=== PATIENT | female | born 1965 ===

== ENCOUNTER 2020-09-27 13:51 | Outpatient (REF) | payer OTHER, SELFPAY | END 2020-09-27 13:52 | disposition home or self-care (01) | LOC: HO.LAB 13:51 | PROVIDERS: Visit Provider Nurse Practitioner Family | DX: Z20.828 Contact with and (suspected) exposure to other viral communicable diseases (principal) | CPT/HCPCS: 87635 ==

== ENCOUNTER 2020-11-07 09:44 | Outpatient (REF) | payer OTHER, SELFPAY ==
[2020-11-07 11:21] LABS: Vitamin D 25-OH Total 21.2 ng/mL (>30)
[2020-11-07 11:53] LABS: Folate 6.8 ng/mL (> or = 4.0); Vitamin B12 394 pg/mL (200-900)
[2020-11-07 12:02] LABS: Free T4 (Free Thyroxine) 0.93 ng/dL (0.71-1.85)
== END 2020-11-07 09:45 | disposition home or self-care (01) ==
LOC: HO.LAB 09:44
PROVIDERS: PCP Internal Medicine; Visit Provider Internal Medicine
DX: E55.9 Vitamin D deficiency, unspecified (principal); E06.3 Autoimmune thyroiditis; E53.8 Deficiency of other specified B group vitamins
CPT/HCPCS: 82306; 82607; 82746; 84439; 84443

== ENCOUNTER 2020-11-09 12:21 | Outpatient (REF) | payer OTHER, SELFPAY ==
--- NOTE | 2020-11-09 | MM_ITS ---
EXAMINATION: MM SCREENING DIGITAL BREAST TOMOSYNTHESIS, BILATERAL CLINICAL INFORMATION: Screening. Asymptomatic. The lifetime risk of breast cancer based on the Tyrer-Cuzick Model is 9.4%. COMPARISON: Mammography: April 29, 2018 and studies dating back to June 23, 2014 TECHNIQUE: Digital breast tomosynthesis is performed in both the craniocaudal and mediolateral oblique views along with computer-aided detection (CAD). Synthesized 2D images are generated from the tomosynthesis. FINDINGS: There are scattered areas of fibroglandular density (ACR BI-RADS breast composition Category b). There are no significant masses, abnormal calcifications, or other abnormalities. MM/MM tomosynthesis screening BI IMPRESSION: There are no significant changes from prior study. ASSESSMENT: BI-RADS 1: Negative RECOMMENDATION: Routine annual mammography screening. This patient's information was entered into a reminder system with a target due date for their next mammogram.
== END 2020-11-09 12:22 | disposition home or self-care (01) ==
LOC: HO.MAMMO 12:21
PROVIDERS: PCP Internal Medicine; Visit Provider Internal Medicine
DX: Z12.31 Encounter for screening mammogram for malignant neoplasm of breast (principal)
CPT/HCPCS: 77063; 77067

== ENCOUNTER 2020-12-23 14:39 | Outpatient (REF) | payer OTHER, SELFPAY ==
--- NOTE | 2020-12-23 15:30 | XR_ITS ---
EXAMINATION: XR BILATERAL HAND CLINICAL INFORMATION: Pain in joints. COMPARISON: None TECHNIQUE: 3 views each hand. FINDINGS: RIGHT HAND: There is loss of PIP and DIP joint space of all digits with periarticular spurring on the MP joints. No visible acute fracture, dislocation or subluxation seen. The carpal bones and intercarpal joint space is normal. There is negative ulnar variance. The soft tissues are normal. LEFT HAND: There is loss of PIP and DIP joint space with mild periarticular spurring PIP and DIP joints 2nd and 3rd digits and DIP joint 5th digit. No acute fracture, dislocation or subluxation seen. The soft tissues are normal. XR/XR hand RT min 3V IMPRESSION: 1. Degenerative osteophytic changes PIP and DIP joints both digits as described above. 2. No juxta-articular osteopenia seen. No acute fracture or dislocation.
--- NOTE | 2020-12-23 15:30 | XR_ITS ---
EXAMINATION: XR BILATERAL HAND CLINICAL INFORMATION: Pain in joints. COMPARISON: None TECHNIQUE: 3 views each hand. FINDINGS: RIGHT HAND: There is loss of PIP and DIP joint space of all digits with periarticular spurring on the MP joints. No visible acute fracture, dislocation or subluxation seen. The carpal bones and intercarpal joint space is normal. There is negative ulnar variance. The soft tissues are normal. LEFT HAND: There is loss of PIP and DIP joint space with mild periarticular spurring PIP and DIP joints 2nd and 3rd digits and DIP joint 5th digit. No acute fracture, dislocation or subluxation seen. The soft tissues are normal. XR/XR hand LT min 3V IMPRESSION: 1. Degenerative osteophytic changes PIP and DIP joints both digits as described above. 2. No juxta-articular osteopenia seen. No acute fracture or dislocation.
== END 2020-12-23 14:40 | disposition home or self-care (01) ==
LOC: HO.XRAY 14:39
PROVIDERS: PCP Internal Medicine; Visit Provider Student in an Organized Health Care Education/Training Program
DX: G56.03 Carpal tunnel syndrome, bilateral upper limbs (principal); M25.50 Pain in unspecified joint; Z79.899 Other long term (current) drug therapy
CPT/HCPCS: 73130; 99212

== ENCOUNTER 2021-03-23 09:04 | Outpatient (REF) | payer OTHER, SELFPAY ==
--- NOTE | 2021-03-23 09:14 | EMG_ITS ---
Bilateral median and ulnar motor and sensory studies were performed. Bilateral radial sensory studies were performed and paraspinal muscles were tested with a needle. IMPRESSION: [id number] bilateral median neuropathy across carpal tunnel. MD DANILO Oquendo/BECKY / [id number]
== END 2021-03-23 09:05 | disposition home or self-care (01) ==
LOC: HO.NEURO 09:04
PROVIDERS: Visit Provider Student in an Organized Health Care Education/Training Program
DX: G56.03 Carpal tunnel syndrome, bilateral upper limbs (principal)
CPT/HCPCS: 95886; 95911

== ENCOUNTER → 2021-05-15 13:07 | Outpatient (BNVA) | payer OTHER, SELFPAY | PROVIDERS: PCP Internal Medicine; Visit Provider Orthopaedic Surgery | DX: G56.02 Carpal tunnel syndrome, left upper limb (principal); G56.01 Carpal tunnel syndrome, right upper limb | CPT/HCPCS: 99202 ==

== ENCOUNTER 2021-05-31 08:48 | Outpatient (REF) | payer OTHER, SELFPAY ==
[2021-05-31 10:43] LABS: TSH reflex Free T4 2.84 uIU/mL (0.32-4.0)
[2021-05-31 10:46] LABS: Thyroid Stimulating Hormone 2.21 uIU/mL (0.32-4.0)
[2021-06-09 17:16] LABS: Vitamin D 25-OH, D2 <4 ng/mL; Vitamin D 25-OH, D3 26 ng/mL; Vitamin D 25-OH, Total 26 ng/mL (30-100)
== END 2021-05-31 08:49 | disposition home or self-care (01) ==
LOC: HO.LAB 08:48
PROVIDERS: PCP Internal Medicine; Visit Provider Internal Medicine
DX: E03.8 Other specified hypothyroidism (principal); E06.3 Autoimmune thyroiditis; E55.9 Vitamin D deficiency, unspecified; E03.9 Hypothyroidism, unspecified
CPT/HCPCS: 36415; 82306; 84443

== ENCOUNTER 2021-06-08 09:04 | Day surgery (SDC) | payer OTHER, SELFPAY ==
[2021-06-08 09:14] VITALS: BMI 40.9
[2021-06-08 09:27] VITALS: BP 110/56; PULSE 60; RESP 16; TEMP 36.6; O2SAT 95
--- NOTE | 2021-06-08 11:13 | MHC.SHP ---
Pre-Procedural Eval Section A Date of Service: 06/08/21 Section B Chief Complaint: carpal tunnel Allergies: Allergies Allergy/AdvReac Type Severity Reaction Status Date / Time No Known Allergies Allergy Verified 06/07/21 10:32 [No Known Allergies*] Plan I have reviewed the history and physical and performed a pertinent physical examination on my patient. No changes have occurred unless specified.
--- NOTE | 2021-06-08 11:13 | W.PM.OPN ---
Operative Note Operative Note Date of Service: 06/08/21 Narrative: Preop diagnosis: 1. left Carpal tunnel syndrome Postop diagnosis: same Procedure: 1. left Carpal tunnel release Surgeon: Rowan Simons MD Anesthesia: local block using 1% lidocaine with epinephrine Findings: Thickened transverse carpal ligament. EBL: Less than 5 mL Specimens: None Complications: None Disposition: Brought to recovery room in stable condition Plan: Follow-up for 7-10 days for wound check and suture removal Indications: The patient is 56 years old, with left carpal tunnel syndrome that has been unresponsive to nonoperative management. The risks and benefits of operative treatment including but not limited to risk of damage to blood vessels, nerves, tendons, infection, persistent pain, persistent symptoms, or possible need for additional surgery were discussed with the patient and the patient wishes to proceed with surgery. Procedure: Once consent was obtained a local block was performed using a combination of 1% lidocaine with epinephrine. The patient was then brought back to the operating suite and placed on the operative table in supine position. A tourniquet was applied to the proximal aspect of the left upper extremity and the limb was prepped and draped in a standard surgical fashion. Once assured that we had a good block, a 1.5 cm longitudinal incision was made centered over the carpal tunnel. The incision was made through the skin to the subcutaneous tissues using a #15 blade. Dissection was made down to the level of the transverse carpal ligament with care being taken to protect the palmar cutaneous nerve. Once the transverse carpal ligament was clearly visualized, a longitudinal incision was made in the transverse carpal ligament 1st using a #15 blade, then using tenotomy scissors under direct visualization. Care was taken to look for and protect the motor branch of the median nerve when seen in this area. Once satisfied with our carpal tunnel release the wound was copiously irrigated with normal saline and hemostasis was obtained with a brief period of local pressure. The skin edges were reapproximated with some 5.0 nylon suture material and a sterile dressing was applied. The patient appears to have tolerated the procedure well and with no complications. All digits were well vascularized at the conclusion of the case.
[2021-06-08 11:19] VITALS: BP 113/65; PULSE 60; RESP 18; O2SAT 99
== END 2021-06-08 11:34 | disposition home or self-care (01) ==
PROVIDERS: PCP Internal Medicine; Visit Provider Orthopaedic Surgery
PROC: (CPT 64721; principal; 2021-06-08 10:50)
DX: G56.02 Carpal tunnel syndrome, left upper limb (principal); E55.9 Vitamin D deficiency, unspecified; J45.909 Unspecified asthma, uncomplicated; E03.9 Hypothyroidism, unspecified; F32.9 Major depressive disorder, single episode, unspecified; Z98.84 Bariatric surgery status
CPT/HCPCS: 64721

== ENCOUNTER → 2021-06-19 11:26 | Outpatient (BNVA) | payer OTHER, SELFPAY | PROVIDERS: PCP Internal Medicine; Visit Provider Physician Assistant | DX: Z47.89 Encounter for other orthopedic aftercare (principal); Z87.39 Personal history of other diseases of the musculoskeletal system and connective tissue | CPT/HCPCS: 99212 ==

== ENCOUNTER → 2021-08-23 11:25 | Outpatient (BNVA) | payer OTHER, SELFPAY | PROVIDERS: Visit Provider Orthopaedic Surgery | DX: G56.03 Carpal tunnel syndrome, bilateral upper limbs (principal); M25.532 Pain in left wrist | CPT/HCPCS: 99212; J1020 ==

== ENCOUNTER 2021-09-07 12:31 | Emergency (ER) | payer OTHER, SELFPAY ==
--- NOTE | ~2021-09-07 | XR_ITS ---
EXAMINATION: XR CHEST CLINICAL INFORMATION: Chest pain COMPARISON: Previous chest x-ray July 2019 TECHNIQUE: 2 views of the chest were obtained. FINDINGS: The cardiac silhouette does not appear enlarged. The thoracic aorta is tortuous. Hilar and mediastinal contours are otherwise unremarkable. The lungs are clear. There is no pleural effusion or pneumothorax. There are degenerative changes of the spine. There are surgical clips in the stomach region. XR/XR chest 2V IMPRESSION: No evidence for acute disease in the chest.
--- NOTE | ~2021-09-07 | XR_ITS ---
EXAMINATION: XR ANKLE, LEFT CLINICAL INFORMATION: Swelling COMPARISON: Previous x-ray December 2016 TECHNIQUE: AP, lateral, and mortise views of the left ankle. FINDINGS: Bone alignment is normal. No fracture or dislocation is seen. The ankle mortise is normal. There are calcaneal spurs. Soft tissues are otherwise normal. XR/XR ankle LT 2V IMPRESSION: Calcaneal spurs otherwise unremarkable exam.
[2021-09-07 13:01] VITALS: BP 130/90; PULSE 73; RESP 18; TEMP 36.8; O2SAT 100; BMI 41.1
--- NOTE | 2021-09-07 13:21 | ECG_ITS ---
Test Reason : CHEST PAIN Blood Pressure : / mmHG Vent. Rate : 053 BPM Atrial Rate : 053 BPM P-R Int : 202 ms QRS Dur : 080 ms QT Int : 396 ms P-R-T Axes : 017 027 025 degrees QTc Int : 371 ms Sinus bradycardia Otherwise normal ECG When compared with ECG of 25-JUL-2019 01:48, No significant change was found Referred By: Generic ED Physician Electronically Signed By:SITA MCMILLAN
[2021-09-07 13:49] LABS: MANUAL DIFF FLAG NO
[2021-09-07 14:04] LABS: Basophils Absolute Auto 0.1 X10*3/uL (0.0-0.2); Basophils Percent Auto 1.1 % (0-2); Eosinophils Absolute Auto 0.2 X10*3/uL (0.0-0.4); Eosinophils Percent Auto 2.9 % (0-4); Hematocrit 40.4 % (37-47); Hemoglobin 13.3 g/dl (12.0-16.0); Imm Gran Abs Auto 0.03 X10*3/uL (0.00-0.03); Imm Gran Pct Auto 0.5 % (0.0-0.4); Lymphocytes Absolute Auto 1.6 X10*3/uL (1.2-4.9); Lymphocytes Percent Auto 24.8 % (20-40); Mean Corpuscular HGB Conc 32.9 g/dl (31.0-35.0); Mean Corpuscular Hemoglobin 31.1 pg (27.0-33.0); Mean Corpuscular Volume 94.6 fL (80-98); Mean Platelet Volume 10.2 fL (9.4-12.3); Monocytes Absolute Auto 0.5 X10*3/uL (0.1-1.2); Monocytes Percent Auto 7.3 % (2-11); Neutrophils Absolute Auto 4.2 X10*3/uL (2.0-8.3); Neutrophils Percent Auto 63.4 % (45-73); Platelet Count 270 X10*3/uL (160-400); Red Blood Count 4.27 X10*6/uL (4.20-5.50); Red Cell Distribution Width 12.4 % (11.0-16.0); White Blood Count 6.5 X10*3/uL (4.8-10.8)
[2021-09-07 14:06] LABS: Alanine Aminotransferase 14 U/L (0-31); Albumin Level 4.2 g/dL (3.5-5.0); Alkaline Phosphatase 79 U/L (39-117); Anion Gap 11 (12-20); Aspartate Amino Transferase 14 U/L (5-31); Bilirubin Total 0.4 mg/dL (0.0-1.0); Blood Urea Nitrogen 13 mg/dL (9-16); Calcium 9.1 mg/dL (8.4-10.2); Carbon Dioxide 28 mmol/L (22-29); Chloride 108 mmol/L (96-108); Creatinine Clr Calc Pharmacy 97.2; Estimated Glomerular Filt Rate > 60; Glucose Random 82 mg/dL (60-115); Potassium 4.1 mmol/L (3.3-5.1); Sodium 143 mmol/L (135-145); Total Protein 7.4 g/dL (6.5-8.0)
[2021-09-07 14:10] LABS: Troponin-I High Sensitivity < 3.5 ng/L (<3.5-17.0)
--- NOTE | 2021-09-07 17:46 | PC.NURSE ---
pt has strong and = pedal pulses bilat, no pitting edema noted. ls clear and = bilat, pt is sinus matt on monitor.
[2021-09-07 17:48] VITALS: BP 128/78; PULSE 58; RESP 15; O2SAT 97
--- NOTE | 2021-09-07 17:54 | ED.CHESTPAIN ---
HPI - Chest Pain General Chief Complaint: Chest Pain Stated Complaint: leg swelling Time Seen by Provider: 09/07/21 17:40 Source: patient Mode of arrival: ambulatory Limitations: no limitations History of Present Illness HPI narrative: Patient comes emergency room complaining of sharp chest pain lasting less than a 2nd at a time,occur only at night, at this time asymptomatic. Patient denies shortness of breath, no lower extremity edema. Patient complaining of discomfort in the heel on the left side which has been present over a week. Patient states that she has pain in the posterior aspect of her heel, no actual heel pain, no calf tenderness, no calf swelling, complaining of intermittent numbness in the big toe, no symptoms at this time. Related Data Home Medications Medication Instructions Recorded Confirmed acetaminophen 650 mg 650 mg PO Q8H 09/27/20 06/07/21 tablet,extended release Previous Rx's Medication Instructions Recorded bupropion HCl 300 mg 24 hr tablet, 300 mg PO DAILY 90 Days #90 tab 11/07/20 extended release cholecalciferol (vitamin D3) 25 25 mcg PO DAILY 90 Days #90 cap 11/07/20 mcg (1,000 unit) capsule meloxicam 15 mg tablet 15 mg PO DAILY PRN 90 Days #90 tab 11/07/20 tramadol 50 mg tablet 50 mg PO DAILY PRN 30 Days #30 tab 11/07/20 trazodone 50 mg tablet 50 mg PO BEDTIME 90 Days #90 tab 11/07/20 hydrocodone 5 mg-acetaminophen 325 1 tab PO Q4-6H PRN #5 tab 06/08/21 mg tablet cetirizine 10 mg capsule (Zyrtec) 10 mg PO DAILY #30 cap 06/19/21 levothyroxine 50 mcg tablet 50 mcg PO QAM 90 Days #90 tab 07/10/21 ibuprofen 600 mg tablet 600 mg PO TID #10 tab 09/07/21 Allergies Allergy/AdvReac Type Severity Reaction Status Date / Time No Known Allergies Allergy Verified 09/07/21 13:01 [No Known Allergies*] Review of Systems Review of Systems: Constitutional : No Weight loss, No Fever, No Chills, No Night Sweats, No Fatigue, No Malaise ENT/Mouth : No Hearing loss, No Ear Pain, No Nasal Congestion, No Sinus Pain, No Hoarseness, No sore throat, No Rhinorrhea, No Swallowing Difficulty Eyes: No Eye Pain, No Swelling, No Redness, No Foreign Body, No Discharge, No Vision Changes Cardiovascular : Intermittent sharp chest pain that occur only at night, sharp, nonradiating, lasting for less than a 2nd at a time. No SOB, No Dyspnea on Exertion, No Orthopnea, No Edema, No Palpitations Respiratory : No Cough, No Sputum, No Wheezing, No Smoke Exposure, No Dyspnea Gastrointestinal : No Nausea, No Vomiting, No Diarrhea, No Constipation, No abdominal Pain, No Hematochezia, No Melena Genitourinary : no irregular bleeding, No Dysuria, No Urinary Frequency, No Hematuria, No Urinary Incontinence, No Urgency, No Flank Pain, No Urinary Flow Changes, No Hesitancy Musculoskeletal : Complaining of posterior ankle pain on the left side, No Myalgias, No Joint Swelling Skin : No Skin Lesions, No rash Neuro : No Weakness, No Numbness, No Paresthesias, No Loss of Consciousness, No Dizziness, No Headache Psych : No Anxiety/Panic, No Depression, No SI/HI/AH/VH, No Social Issues, Heme/Lymph: No Bruising, No Bleeding,No Lymphadenopathy Endocrine : No Polyuria, No Polydipsia, No Temperature Intolerance [facility] Past Medical History Medical History Depression with anxiety Hypothyroid Hypovitaminosis D Mild asthma Polyarthralgia Skin lesion Surgical History History of gastric surgery History of laparoscopic cholecystectomy History of tonsillectomy History of tubal ligation Family History Family History Father Hypertension Mother Hypertension Maternal Aunt Breast cancer Family/Other FH: mental illness Paternal Grandfather No problems noted. Paternal Grandmother Hypertension Maternal Grandfather No problems noted. Maternal Grandmother Cervical cancer Social History Social History Housing: Apartment Alcohol intake: current Alcohol intake frequency: holidays/special occasions only Alcohol type: hard liquor Patient Tobacco Use Status: Never used Tobacco e-Cigarette/Vaping Use: Never Used Second Hand Smoke Exposure: No Advance Directives: No Advance Directives Information Provided: No service: No Current occupational status: unemployed Current occupational exposures/hazards: No Physical Exam Vital Signs: Vital Signs: Last Vital Signs Temp 98.2 F 09/07/21 13:01 Pulse 58 09/07/21 17:48 Resp 15 09/07/21 17:48 BP 128/78 09/07/21 17:48 Pulse Ox 97 09/07/21 17:48 Body Mass Index 41.1 Const: Other: Appearance: Alert. Oriented X3. No acute distress. Eyes: Pupils equal, round and reactive to light. ENT: Pharynx normal. Neck: Normal inspection. Neck supple. No lymph nodes noted. No crepitus CVS: Normal heart rate and rhythm. Pulses normal. Normal S1 and S2, +2 systolic murmur Respiratory: No respiratory distress. Breath sounds normal. No Wheezing. No rales Abdomen: Soft and nontender. No rigidity. No distention. Skin: Skin warm and dry. Mild discoloration to the lateral malleolus on the left side, not circumferential, no calf discoloration Extremities: No lower extremity edema. Pain to palpation over the Achilles tendon distal aspect, no calf tenderness, no ankle tenderness, no foot tenderness, range of motion within normal limits Neuro: Oriented X 3. No motor deficit. No sensory deficit. Moving all extermities. No slurred speech. Course Course Course Narrative: I discussed with the patient that she likely has Achilles tendinopathy. Patient instructed to take NSAIDs scheduled for 3 days. Patient instructed to follow-up with her primary care physician as well. Last time patient had chest pain was well over 12 hours ago, troponin 1. Is negative, EKG within normal limits. Likely muscle spasms. Instructed to follow-up with the PCP, patient may need Holter monitor versus stress test which she has had in the past. MDM - Chest Pain Lab Data Result diagrams: 09/07/21 13:40 09/07/21 13:40 Labs: Lab Results 09/07/21 09/07/21 09/07/21 Range/Units 13:40 13:40 13:40 WBC 6.5 (4.8-10.8) X10*3/uL RBC 4.27 (4.20-5.50) X10*6/uL Hgb 13.3 (12.0-16.0) g/dl Hct 40.4 (37-47) % MCV 94.6 (80-98) fL MCH 31.1 (27.0-33.0) pg MCHC 32.9 (31.0-35.0) g/dl RDW 12.4 (11.0-16.0) % Plt Count 270 (160-400) X10*3/uL MPV 10.2 (9.4-12.3) fL Immature Gran % (Auto) 0.5 H (0.0-0.4) % Neut % (Auto) 63.4 (45-73) % Lymph % (Auto) 24.8 (20-40) % [place] % (Auto) 7.3 (2-11) % Eos % (Auto) 2.9 (0-4) % Baso % (Auto) 1.1 (0-2) % Lymph # (Auto) 1.6 (1.2-4.9) X10*3/uL [place] # (Auto) 0.5 (0.1-1.2) X10*3/uL Eos # (Auto) 0.2 (0.0-0.4) X10*3/uL Baso # (Auto) 0.1 (0.0-0.2) X10*3/uL Abs Immat Gran (auto) 0.03 (0.00-0.03) X10*3/uL Absolute Neuts (auto) 4.2 (2.0-8.3) X10*3/uL Absolute Nucleated RBC 0.000 (0.0-0.012) X10*3/uL Nucleated RBC % (auto) 0.0 (0.0-0.2) /100WBC Sodium 143 (135-145) mmol/L Potassium 4.1 (3.3-5.1) mmol/L Chloride 108 (96-108) mmol/L Carbon Dioxide 28 (22-29) mmol/L Anion Gap 11 L (12-20) BUN 13 (9-16) mg/dL Creatinine 0.74 (0.5-1.4) mg/dL Estim Creat Clear Calc 97.2 Estimated GFR > 60 Random Glucose 82 (60-115) mg/dL Calcium 9.1 (8.4-10.2) mg/dL Total Bilirubin 0.4 (0.0-1.0) mg/dL AST 14 (5-31) U/L ALT 14 (0-31) U/L Alkaline Phosphatase 79 (39-117) U/L Troponin I High Sens < 3.5 (<3.5-17.0) ng/L Total Protein 7.4 (6.5-8.0) g/dL Albumin 4.2 (3.5-5.0) g/dL Imaging Data Ankle x-ray: Radiologist's impression: [place] [id number] XRay Report Signed Patient: Zoila Avalos MR#: [id number] : 1965 Acct:[id number] Age/Sex: 56 / F ADM Date: 09/07/21 Loc: .ED Attending Dr: Ordering Physician: Generic ED Physician Date of Service: 09/07/21 Procedure(s): XR ankle LT 2V Accession Number(s): [id number] cc: Generic ED Physician~ EXAMINATION: XR ANKLE, LEFT CLINICAL INFORMATION: Swelling? COMPARISON: Previous x-ray December 2016? TECHNIQUE: AP, lateral, and mortise views of the left ankle. FINDINGS: Bone alignment is normal. No fracture or dislocation is seen. The ankle mortise is normal. There are calcaneal spurs. Soft tissues are otherwise normal.? XR/XR ankle LT 2V IMPRESSION: Calcaneal spurs otherwise unremarkable exam. Chest x-ray: Radiologist's impression: The cardiac silhouette does not appear enlarged. The thoracic aorta is tortuous. Hilar and mediastinal contours are otherwise unremarkable. The lungs are clear. There is no pleural effusion or pneumothorax. There are degenerative changes of the spine. There are surgical clips in the stomach region. XR/XR chest 2V IMPRESSION: No evidence for acute disease in the chest. ECG Data ECG #1: Attestation: I personally reviewed and interpreted this ECG as follows: (Sinus bradycardia, heart rate 53, no ST segment depression or elevation, nonspecific T-wave inversion in lead 3, no reciprocal changes, QTC 371) Discharge Plan Discharge Clinical Impression: Non-insertional Achilles tendinopathy, Atypical chest pain Patient Disposition: Home, Self-Care Instructions: Chest Pain (ED), Achilles Tendinitis (ED) Additional Instructions: Please follow-up with your primary care physician tomorrow. If you have any worsening or new symptoms, please return to the emergency room or call 911 Prescriptions: New ibuprofen 600 mg tablet 600 mg PO TID Qty: 10 RF: 0 No Action Zyrtec 10 mg capsule 10 mg PO DAILY Qty: 30 RF: 5 levothyroxine 50 mcg tablet 50 mcg PO QAM 90 Days Qty: 90 RF: 0 hydrocodone-acetaminophen 5-325 mg tablet 1 tab PO Q4-6H PRN (Reason: pain) Qty: 5 RF: 0 bupropion HCl 300 mg tablet extended release 24 hr 300 mg PO DAILY 90 Days Qty: 90 RF: 3 meloxicam 15 mg tablet 15 mg PO DAILY PRN (Reason: pain) 90 Days Qty: 90 RF: 3 tramadol 50 mg tablet 50 mg PO DAILY PRN (Reason: pain) 30 Days Qty: 30 RF: 0 trazodone 50 mg tablet 50 mg PO BEDTIME 90 Days Qty: 90 RF: 3 cholecalciferol (vitamin D3) 25 mcg (1,000 unit) capsule 25 mcg PO DAILY 90 Days Qty: 90 RF: 3 acetaminophen 650 mg tablet extended release 650 mg PO Q8H RF: 0
== END 2021-09-07 18:17 | disposition home or self-care (01) ==
PROVIDERS: Emergency Provider Emergency Medicine; PCP Internal Medicine
DX: R07.89 Other chest pain (principal); M67.972 Unspecified disorder of synovium and tendon, left ankle and foot
CPT/HCPCS: 36415; 71046; 73600; 80053; 84484; 85025; 93005; 99282; 99283

== ENCOUNTER 2021-10-11 11:16 | Outpatient (REF) | payer OTHER, SELFPAY ==
[2021-10-11 11:38] LABS: MANUAL DIFF FLAG NO
[2021-10-11 11:54] LABS: Basophils Absolute Auto 0.1 X10*3/uL (0.0-0.2); Basophils Percent Auto 1.1 % (0-2); Eosinophils Absolute Auto 0.3 X10*3/uL (0.0-0.4); Eosinophils Percent Auto 4.5 % (0-4); Hematocrit 39.7 % (37.0-47.0); Hemoglobin 12.9 g/dl (12.0-16.0); Imm Gran Abs Auto 0.03 X10*3/uL (0.00-0.03); Imm Gran Pct Auto 0.5 % (0.0-0.4); Lymphocytes Absolute Auto 1.8 X10*3/uL (1.2-4.9); Lymphocytes Percent Auto 27.5 % (20-40); Mean Corpuscular HGB Conc 32.5 g/dl (31.0-35.0); Mean Corpuscular Hemoglobin 30.7 pg (27.0-33.0); Mean Corpuscular Volume 94.5 fL (80.0-98.0); Mean Platelet Volume 10.3 fL (9.4-12.3); Monocytes Absolute Auto 0.5 X10*3/uL (0.1-1.2); Monocytes Percent Auto 6.9 % (2-11); Neutrophils Absolute Auto 3.9 x10*3/uL (2.0-8.3); Neutrophils Percent Auto 59.5 % (45-73); Platelet Count 288 X10*3/uL (160-400); Red Cell Distribution Width 12.2 % (11.0-16.0); White Blood Count 6.5 X10*3/uL (4.8-10.8)
[2021-10-11 12:30] LABS: Alanine Aminotransferase 13 U/L (0-31); Albumin Level 3.8 g/dL (3.5-5.0); Alkaline Phosphatase 72 U/L (39-117); Anion Gap 11 (12-20); Aspartate Amino Transferase 13 U/L (5-31); Bilirubin Total 0.3 mg/dL (0.0-1.0); Blood Urea Nitrogen 13 mg/dL (9-16); Calcium 8.8 mg/dL (8.4-10.2); Carbon Dioxide 25 mmol/L (22-29); Chloride 110 mmol/L (96-108); Cholesterol 142 mg/dL; Estimated Glomerular Filt Rate > 60; Glucose Fasting 89 mg/dL (60-99); HDL Cholesterol 38 mg/dL; LDL Cholesterol Calculated 83 mg/dl; Potassium 4.3 mmol/L (3.3-5.1); Sodium 142 mmol/L (135-145); Total Protein 7.2 g/dL (6.5-8.0); Triglycerides 105 mg/dL
== END 2021-10-11 11:17 | disposition home or self-care (01) ==
LOC: HO.LAB 11:16
PROVIDERS: Visit Provider Internal Medicine
DX: E78.5 Hyperlipidemia, unspecified (principal); G56.01 Carpal tunnel syndrome, right upper limb
CPT/HCPCS: 36415; 80053; 80061; 85025

== ENCOUNTER 2021-11-03 13:00 | Outpatient (RCR) | payer OTHER, SELFPAY ==
--- NOTE | 2021-10-11 12:24 | MHC.OT.OEV ---
[address] [phone] F: [phone] Occupational Therapy Evaluation Diagnosis: CARPAL TUNNEL SYNDROME Date of Surgery: 06/09/21 Attending Provider: Rowan Santana Prescribed Treatment: EVAL AND TREAT, DESENSITIZATION OF INCISION SITE AND GENTLE ROM L WRIST History of Current Condition: UNDERWENT LEFT CARPAL TUNNEL RELEASE WITH DR SANTANA ON 06/09/21. SINCE SURGERY SHE REPORTS LACK OF STRENGTH IN NON-DOMINANT LEFT HAND. ADDITIONALLY, SHE REPORTS SYMPTOMS OF RIGHT CARPAL TUNNEL SYNDROME. Significant Medical History: POLYARTHRITIS Precautions/Contraindications: PAIN Patient Goals: TO BE ABLE TO LIFT HEAVY ITEMS Hand Dominance: Right QuickDASH Score: 61% Prior Level of Function and Occupation Self Care, Employment, Leisure: UNEMPLOYED. WATCHES AND CARES FOR TWO YEAR OLD AUTISTIC GRANDSON (ABOUT THIRTY POUNDS) SATURDAY THROUGH SATURDAY. HOBBIES: WATCHING TV, READING, DOES NOT EXERCISE. 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 DIFFICULTIES LIFTING >3-5 POUNDS. DIFFICULTIES WITH DIAPERING AND LIFTING GRANDSON. OCCASIONAL TROUBLE WITH PULLING UP PANTS WITH LEFT HAND. UNABLE TO OPEN TIGHT JARS. DIFFICULTIES WITH CUTTING FOOD. Sleep: WAKES FROM PAIN, TOSSING AND TURNING DURING THE NIGHT. OCCASIONALLY WEARS NIGHT SPLINTS B/L'LY. Driving: DOES NOT DRIVE Pain Assessment Pain Score: 5-8/10 Pain Scale Used: Numeric (0 - 10) Pain Location and Description: LEFT THENAR AND HYPOTHENAR EMINENCE, RADIATES TO VOLAR WRIST SHARP PAIN 5/10 AT REST, 8/10 WITH USE Aggravating Factors: LIFTING, CARRYING HEAVY ITEMS (> 5 POUNDS) Alleviating Factors: TAKING IBUPROFEN OR TYLENOL WHEN IN DISCOMFORT, SOME RELIEF WITH USE OF ICE Skin and Soft Tissue Assessment Skin and Soft Tissue: Atrophy Swelling Scar Tissue Comments: HEALED SURGICAL SCAR TO L VOLAR PALM, EDEMA NOTED TO ULNAR SIDE OF WRIST AND AT PALM, ATROPHY AT L THENAR EMINENCE Sensory Assessment Temperature: Light Touch: Left Impaired Proprioception: Vibration: Comments: SEMMES INOCENTE: LEFT DIMINISHED PROTECTIVE SENSATION, RIGHT DIMINISHED LIGHT TOUCH Edema Assessment Upper Extremity: Left Impaired Lower Extremity: Comments: MILD L ULNAR SIDED WRIST EDEMA AND L VOLAR PALM CIRCUMFERENCE OF WRIST, DISTAL TO US: LEFT 17.0 CM, R 16.8 CM Dexterity Assessment Dexterity: Left Impaired Comments: FUNCTIONAL DEXTERITY TEST: LEFT 42 SECONDS (MOD FUNCTIONA), RIGHT 33 SECONDS Special Tests Comments: (+) FOVEA SIGN L WRIST AROM(PROM) Strength Wrist Flexion: L 38, R 68 Extension: L 66, R 70 Ulnar Deviation: L 38, R 44 Radial Deviation: L 4, R 18 Comments: PAIN WITH L ULNAR DEVIATION Flexion: Extension: Ulnar Deviation: Radial Deviation: Comments: Thumb Thumb CMC Flexion: Thumb MCP Flexion: Thumb IP Flexion: Radial Abduction: Palmar Abduction: [place] ([place] 0-10): L 8/10, R 8/10 Comments: PAIN WITH R OPPOSITION Digits Index MCP: PIP: DIP: Long MCP: PIP: DIP: Ring MCP: PIP: DIP: Small MCP: PIP: DIP: Comments: Gross Grasp: L 10, R 30 Lateral Pinch: L 4, R 9 Two-Point Pinch: Three-Jaw Ghulam: Comments: WB THROUGH SCALE: LEFT 15 POUNDS, RIGHT 40 POUNDS Patient Education Primary Language: Maori Night Clerk Required: No Current Knowledge: Understands information with skills for self-management Teaching Method: Demonstration Handouts Verbal Education Needs Identified on Evaluation: ADL's Disease Information Equipment Use Exercise Pain Safety How did patient/family demonstrate learning? Patient demonstrates Patient verbalizes Barriers to Learning: None Readiness for Learning: Accepting Who was educated? Patient Family/spouse Comments: Plan of Care Assessment: EVA IS FOUR MONTHS POST OP FROM [facility]. SHE REPORTS ONGOING DIFFICULTIES WITH LIFTING AND CARRYING ITEMS WITH HER NON-DOMINANT LEFT HAND, WELL INABILITY TO APPLY WEIGHT OR PRESSURE THROUGH THE PALM OF HER HAND. 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 SHE IS HYPERSENSITIVE AT HER SCAR AND STATES ONGOING EDEMA AND PAIN. A 61% LIMITATION IS REPORTED PER THE QUICK DASH ASSESSMENT. ONGOING SKILLED OT IS WARRANTED TO ACHIEVE MAXIMUM FUNCTIONAL LEVEL AND IMPROVE QOL. STG Duration: 2 WEEKS Short Term Goals: IND HEP IND DESENSITIZATION STRATEGIES IND EDEMA MANAGEMENT IND USE OF HEAT/ICE INCREASE L WRIST FLEXION TO 55 DEGREES REPORT <4/10 PAIN WITH LIGHT ADLs LTG Duration: 5 WEEKS Mcfp Goals: QUICK DASH <42% DEMO PROPER LIFTING STRATEGIES WITH GOOD BODY MECHANICS AND <4/10 PAIN, TO LIFT >10 POUNDS TOLERATE PWB (ABOUT 50%) THROUGH L PALM WITH <2/10 PAIN R GRASP >20 POUNDS IND SCAR MOBILIZATION TOLERATE ROUGH TEXTURES FOR ABOUT 2 MINUTES WITH LOW PAIN AND DISCOMFORT Frequency and Duration: The patient will be seen 2X/WEEK FOR 5 WEEKS Treatment Plan: Therapeutic Exercise Therapeutic Activity Home Exercise Program Splinting Neuro Re-ed Patient Education Desensitization/Sensory Re-ed Edema Control ADL Training Ultrasound NMES Iontophoresis Paraffin Fluidotherapy MHP Cold Packs Joint Mobilization Soft Tissue Mobilization Kinesiotaping Other (see comments) Electronically Signed By: DORA GOLDSTEIN/Jaye Reviewed/agree with student documentation: N/A Therapist: Please sign and return to therapist, Thank you for your referral.
--- NOTE | 2021-11-15 13:16 | MHC.OT.DC ---
[address] [phone] F: [phone] Occupational Therapy Discharge Note Provider: Rowan Simons Diagnosis: CARPAL TUNNEL SYNDROME Date of Surgery: 06/09/21 Date of Evaluation: 10/11/21 Date of Discharge: 11/15/21 Treatments to Date: 5 Cancellations to Date: 2 No Shows to Date: 3 Discharge Status: Improved Function Independent with HEP Visit Non-compliance Discharge Summary: [facility] PADILLA WAS SEEN FOR OCCUPATIONAL THERAPY SERVICES. Pt WAS DEMONSTRATING GOOD FOLLOW THROUGH WITH HER HEP AND SOFT TISSUE MASSAGE. HER HANDS REMAINED WEAK AND SHE EXHIBITS SIGNS OF ARTHRITIS, PARTICULARLY AT THE [facility] – [place]. PATIENT WILL BE DISCHARGED FROM OT SERVICES DUE TO THE CORE ATTENDANCE POLICY AND THREE NO-SHOWS. D/C OT SERVICES. Electronically Signed By: MAHNAZ BOWMAN OTR/Jaye Reviewed/agree with student documentation: N/A Therapist: Please Sign and return to therapist, thank you for your referral.
== END 2021-11-15 13:15 | disposition home or self-care (01) ==
LOC: HO.OT 13:00
PROVIDERS: PCP Internal Medicine; Visit Provider Orthopaedic Surgery
DX: M25.532 Pain in left wrist (principal); G56.02 Carpal tunnel syndrome, left upper limb
CPT/HCPCS: 97033; 97035; 97110; 97140; 97166

== ENCOUNTER 2021-11-05 11:13 | Emergency (ER) | payer OTHER, SELFPAY ==
--- NOTE | ~2021-11-05 | CT_ITS ---
EXAMINATION: CT ABDOMEN AND PELVIS WITHOUT CONTRAST CLINICAL INFORMATION: Right back and flank pain COMPARISON: None TECHNIQUE: Multidetector volumetric imaging was performed from the superior aspect of the liver through the pubic symphysis. Sagittal and coronal reformatted images were obtained on the technologist's workstation. This CT examination was performed using dose optimization techniques as appropriate, variously including the following: *Automated exposure control *Adjustment of mA and/or kV according to patient size (this includes techniques or standardized protocols for targeted exams where dose is matched to indication/reason for exam; i.e. extremities or head) *Use of iterative reconstruction technique DLP: 1069 mGy-cm FINDINGS: LUNG BASES: The visualized lung bases are unremarkable. LIVER, GALLBLADDER, AND BILIARY TREE: The liver is normal in size, shape, and attenuation. No focal hepatic lesion or biliary ductal dilatation is present. The gallbladder is surgically absent. PANCREAS: There is hazy attenuation of the peripancreatic fat region of the head and uncinate process which may represent very early or mild pancreatitis. No mass lesion, ductal dilatation, or cyst/pseudocyst. SPLEEN: Unremarkable. ADRENAL GLANDS: Unremarkable. KIDNEYS AND URETERS: The kidneys are normal in size, shape, and attenuation. No hydronephrosis, hydroureter, or calculi seen. No perinephric stranding. BLADDER: Unremarkable. GASTROINTESTINAL TRACT: The small and large bowel are unremarkable. The appendix is unremarkable. Postsurgical changes along the greater curvature of the stomach numerous clips, possibly a gastric sleeve. ABDOMINAL WALL: No significant hernia is appreciated. LYMPH NODES: Normal. VASCULAR: Unremarkable. PELVIC VISCERA: Unremarkable. OSSEOUS STRUCTURES: Unremarkable. CT/CT abdomen pelvis wo con IMPRESSION: Questionable very early or mild pancreatitis. Correlate with serum amylase/lipase. Otherwise, no focal inflammatory process or obstruction. No renal or ureteral calculi. No hydronephrosis. Fleischner guidelines were followed.
[2021-11-05 11:20] VITALS: BP 129/78; PULSE 65; RESP 18; TEMP 36.6; O2SAT 100; BMI 40.2
[2021-11-05 14:09] LABS: Appearance Urine CLEAR; Color Urine YELLOW; Glucose Urine UA NEG (NEG); Leukocyte Esterase Urine NEG (NEG); Nitrite Urine NEG (NEG); Specific Gravity - Urine >= 1.030 (1.005-1.025); UACC Culture Trigger NO; Urine Blood TRACE (NEG); Urine Ketones NEG (NEG); Urine Protein NEG (NEG-TRACE)
[2021-11-05] MEDS: NaPROXEN 500 MG TABLET PO (14:17)
[2021-11-05] MEDS: diazePAM 5 MG TABLET 10 MG PO (14:17)
[2021-11-05 14:31] LABS: Bacteria Urine TRACE /LPF; Squamous Epithelial Cell Urine 1+ /LPF; WBC Urine 0-2 /HPF (0-4)
[2021-11-05 14:32] LABS: Calcium Oxalate Crystals Urine 1+ /LPF; Mucus Urine 1+ /LPF
--- NOTE | 2021-11-05 15:02 | ED.BACK ---
HPI - Back Pain/Injury General Chief Complaint: Back Pain/Injury Stated Complaint: lower back pain Time Seen by Provider: 11/05/21 13:40 Source: patient Mode of arrival: ambulatory Limitations: no limitations History of Present Illness HPI Narrative: 56-year-old female with a past medical history of morbid obesity, depression, asthma, hypothyroidism, venous peripheral insufficiency who has had a gastric surgery and a cholecystectomy in the past presenting to the ED with complaints of right back pain over the past week worse today. She reports that she has had back pain in the past although this feels different to her. She reports urinary frequency / urgency. She also reports associated nausea. She also reports that she had an itch on the right side of her back but that itch has subsided and she only feels the pain to that side. She denies any fevers, chills, dizziness, headaches, neck pain / stiffness, chest pain or shortness of breath, dyspnea on exertion, orthopnea, vomiting, diarrhea, constipation, abdominal pain, radiation of the back pain, dysuria, hematuria, abnormal vaginal discharge, black or bloody stools, recent travel or sick contacts, saddle anesthesia, paresthesias, urinary/ bowel incontinence or retention, rashes, history of IV drug use, recent falls or trauma or any other symptoms complaints or concerns at this time. MD elicited complaint: back pain Pertinent past history: prior back pain Onset (ago): week(s) (1) Timing: constant and progressively worsening Severity: moderate Quality: aching Location: right lower back and right upper back Radiation: none Exacerbating factors: none Relieving factors: none Context: unknown Associated symptoms: other (nausea and urinary frequency/urgency) Treatments prior to arrival: other ( She has been trying [id number] medication no symptomatic relief) Work related injury: No Related Data Home Medications Medication Instructions Recorded Confirmed acetaminophen 650 mg 650 mg PO Q8H 09/27/20 10/11/21 tablet,extended release Previous Rx's Medication Instructions Recorded bupropion HCl 300 mg 24 hr tablet, 300 mg PO DAILY 90 Days #90 tab 11/07/20 extended release cholecalciferol (vitamin D3) 25 25 mcg PO DAILY 90 Days #90 cap 11/07/20 mcg (1,000 unit) capsule meloxicam 15 mg tablet 15 mg PO DAILY PRN 90 Days #90 tab 11/07/20 tramadol 50 mg tablet 50 mg PO DAILY PRN 30 Days #30 tab 11/07/20 trazodone 50 mg tablet 50 mg PO BEDTIME 90 Days #90 tab 11/07/20 cetirizine 10 mg capsule (Zyrtec) 10 mg PO DAILY #30 cap 06/19/21 ibuprofen 600 mg tablet 600 mg PO TID #10 tab 09/07/21 levothyroxine 50 mcg tablet 50 mcg PO QAM 90 Days #90 tab 10/09/21 diazepam 10 mg tablet (Valium) 10 mg PO TID PRN #10 tab 11/05/21 naproxen 500 mg tablet 500 mg PO BID PRN #10 tab 11/05/21 ondansetron 4 mg disintegrating 4 mg PO Q6-8H PRN #14 tab 11/05/21 tablet oxycodone 5 mg tablet 5 mg PO Q6H PRN #14 tab 11/05/21 Allergies Allergy/AdvReac Type Severity Reaction Status Date / Time No Known Allergies Allergy Verified 11/05/21 11:20 [No Known Allergies*] Review of Systems Review of Systems: Constitutional : No trauma, No Weight loss, No Fever, No Chills, ENT/Mouth : No Hearing loss, No Ear Pain, No Nasal Congestion, No Sinus Pain, No Hoarseness, No sore throat, No Rhinorrhea, No Swallowing Difficulty Cardiovascular : No Chest Pain, No SOB Respiratory : No Cough, No Dyspnea Gastrointestinal : + Nausea, No Vomiting, No Diarrhea, No abdominal Pain, No Hematochezia, No Melena Genitourinary : No Dysuria, + Urinary Frequency, No Hematuria, No Urinary or Bowel Incontinence/retention Musculoskeletal : + Back pain, No neck pain, No joint stiffness, No joint swelling Skin : No Skin Lesions, No rash or signs of infection Neuro : No Weakness, No radiation, No Numbness, No Paresthesias, No headache, no loss of bowel or bladder incontinence, no saddle anesthesia, Focal weakness, No radiation Denies history of IV drug usage. Yes all other systems are reviewed and are negative PMFSH Past Medical History Attestation statement: The following information was validated with the patient. Medical History Depression with anxiety Hypothyroid Hypovitaminosis D Mild asthma Mild recurrent major depression Morbid obesity with BMI of 40.0-44.9, adult Polyarthralgia Skin lesion Venous (peripheral) insufficiency Surgical History History of gastric surgery History of laparoscopic cholecystectomy History of tonsillectomy History of tubal ligation Family History Family History Father Hypertension Mother Hypertension Maternal Aunt Breast cancer Family/Other FH: mental illness Paternal Grandfather No problems noted. Paternal Grandmother Hypertension Maternal Grandfather No problems noted. Maternal Grandmother Cervical cancer Social History Social History Housing: Apartment Alcohol intake: current Alcohol intake frequency: holidays/special occasions only Alcohol type: hard liquor Patient Tobacco Use Status: Never used Tobacco e-Cigarette/Vaping Use: Never Used Second Hand Smoke Exposure: No Advance Directives: No Advance Directives Information Provided: Yes Patient : No service: No Current occupational status: unemployed Current occupational exposures/hazards: No Physical Exam Vital Signs: Vital Signs: Last Vital Signs Temp 97.2 F 11/05/21 15:29 Pulse 62 11/05/21 15:29 Resp 16 11/05/21 15:29 BP 139/71 11/05/21 15:29 Pulse Ox 100 11/05/21 15:29 BMI result Body Mass Index 40.2 vital signs have been reviewed as normal and appeared to be correct. Blood pressure normal. Heart rate normal. Respiration rate normal. Temperature normal. Oxygen saturation normal. Appearance: Alert. Oriented X3. No acute distress. Head: Normal external exam. Normocephalic. Atraumatic. No Contreras signs noted. No raccoon eyes noted Eyes: PERRLA. EOMI. Conjunctiva and sclera normal. Eyelids normal. ENT: EAC normal. TM's Normal. Pharynx normal. Uvula midline. Moist mucous membranes. No trismus noted. No drooling noted. No muffled voice noted. Neck: Normal inspection. Neck supple. FROM. No adenopathy. Thyroid Normal. No meningeal signs. No neck mass noted. CVS: Normal heart rate and rhythm. Heart sound normal. No murmurs noted. Pulses normal throughout. Respiratory: No respiratory distress. Painless inspiration. Breath sounds normal. No wheezes/rales/rhonchi noted. Chest nontender. No accessory muscle usage noted or decreased air movement noted. Abdomen: Soft and nontender. Bowel sounds normal in all 4 quadrants. No distention noted. No organomegaly noted. No visible injury noted. Back: No CVA tenderness. Full range of motion noted. No obvious deformities, or edema. Mild para-spinal muscular tenderness from lumbar region to coccyx. Full ROM in back and lower extremities. 5/5 strength hip extension/flexion, abduction, adduction. Mild Lumbar pain with hip flexion against resistance. Straight leg raise test negative on right; Straight leg raise test negative on left; Reflexes normal ankle and knee bilaterally; EHL motor strength normal bilaterally. No rashes/lesion/induration/fluctuance or signs infection noted. Skin: Skin warm and dry. Normal skin color. Normal skin turgor. No rashes/lesions/lacerations noted. Extremities: No lower extremity edema. Extremities exhibit normal range of motion. Extremities nontender. Neuro: Oriented X 3. No motor deficit. No sensory deficit. Reflexes normal. Patient has a normal steady gait. Course Course Course Narrative: 13:55pm - Pt c likely muscular pain, but could be herniated disc. Neuro exam shows no deficits. Not c/w spinal fracture. Not c/w AAA/epidural abscess/dissection. Not cauda equina syndrome. No high risk Hx (Incont, fever, immunosupp, recent surgery/LP, coag, signif trauma, wt loss, puls mass, hx/o Ca, TB, or IVDU) to warrant MRI. due to patient reporting urinary frequency / urgency and 1 sided back pain will obtain a CT scan abdomen pelvis without IV contrast to evaluate for possible UTI versus pyelonephritis versus kidney stones provide symptomatic relief with naproxen and Valium then re-evaluate. Reevaluation(s) Reevaluation #1: - UA within normal limits no evidence of UTI. Although CT scan of abdomen pelvis without IV contrast revealed possible early or mild pancreatitis although patient denies any pain in her abdomen is soft and nontender throughout all 4 quadrants. - Patient denies any history of ETOH intake and she denies being on any statin she reports she is currently on tramadol chronically. - Therefore at this time will obtain labs including lipase/amylase / LDH and provide a L of IV fluids and re-evaluate. Time: 15:41 Reevaluation #2: - all labs within normal limits including lipase/ LDH/amylase and all LFTs therefore I do not believe this is pancreatitis as patient does not have any abdominal pain at all. Therefore I explained to the patient that they might of over-read the CT scan although she should have re-examination by her primary care provider within the next few days and to return if any new or worsening symptoms will treat symptomatically for her back pain along with instructions return if any new or worsening symptoms. Patient understands agrees with this plan. Time: 17:20 [facility] - Back Pain/Injury Medical Records Attestation: I reviewed the patient's medical records. Lab Data Attestation: I reviewed the patient's lab results. Result diagrams: 11/05/21 15:49 11/05/21 16:23 Labs: Lab Results 11/05/21 11/05/21 11/05/21 Range/Units 14:01 15:49 16:23 WBC 6.6 (4.8-10.8) X10*3/uL RBC 4.59 (4.20-5.50) X10*6/uL Hgb 14.1 (12.0-16.0) g/dl Hct 43.8 (37.0-47.0) % MCV 95.4 (80.0-98.0) fL MCH 30.7 (27.0-33.0) pg MCHC 32.2 (31.0-35.0) g/dl RDW 12.5 (11.0-16.0) % Plt Count 258 (160-400) X10*3/uL MPV 10.9 (9.4-12.3) fL Immature Gran % (Auto) 0.5 H (0.0-0.4) % Neut % (Auto) 58.2 (45-73) % Lymph % (Auto) 29.2 (20-40) % Marion % (Auto) 7.1 (2-11) % Eos % (Auto) 4.2 H (0-4) % Baso % (Auto) 0.8 (0-2) % Lymph # (Auto) 1.9 (1.2-4.9) X10*3/uL Marion # (Auto) 0.5 (0.1-1.2) X10*3/uL Eos # (Auto) 0.3 (0.0-0.4) X10*3/uL Baso # (Auto) 0.1 (0.0-0.2) X10*3/uL Abs Immat Gran (auto) 0.03 (0.00-0.03) X10*3/uL Absolute Neuts (auto) 3.9 (2.0-8.3) x10*3/uL Absolute Nucleated RBC 0.000 (0.0-0.012) X10*3/uL Nucleated RBC % (auto) 0.0 (0.0-0.2) /100WBC PT 11.6 (9.9-13.0) SEC INR 1.0 (0.9-1.1) Sodium (135-145) mmol/L Potassium (3.3-5.1) mmol/L Chloride (96-108) mmol/L Carbon Dioxide (22-29) mmol/L Anion Gap (12-20) BUN (9-16) mg/dL Creatinine (0.5-1.4) mg/dL Estim Creat Clear Calc Estimated GFR Random Glucose (60-115) mg/dL Calcium (8.4-10.2) mg/dL Magnesium (1.6-2.6) mg/dL Total Bilirubin (0.0-1.0) mg/dL AST (5-31) U/L ALT (0-31) U/L Alkaline Phosphatase (39-117) U/L Lactate Dehydrogenase (122-220) U/L Total Protein (6.5-8.0) g/dL Albumin (3.5-5.0) g/dL Amylase (28-100) U/L Lipase (8-78) U/L Urine Color YELLOW Urine Appearance CLEAR Urine pH 6.0 (5.0-8.0) Ur Specific [place] >= 1.030 H (1.005-1.025) Urine Protein NEG (NEG-TRACE) MG/DL Urine Glucose (UA) NEG (NEG) MG/DL Urine Ketones NEG (NEG) MG/DL Urine Blood TRACE (NEG) Urine Nitrite NEG (NEG) Ur Leukocyte Esterase NEG (NEG) Urine RBC 1-4 (0) /HPF Urine WBC 0-2 (0-4) /HPF Ur Squamous Epith Cells 1+ /LPF Calcium Oxalate Crystal 1+ /LPF Urine Bacteria TRACE /LPF Urine Mucus 1+ /LPF 11/05/21 Range/Units 16:23 WBC (4.8-10.8) X10*3/uL RBC (4.20-5.50) X10*6/uL Hgb (12.0-16.0) g/dl Hct (37.0-47.0) % MCV (80.0-98.0) fL MCH (27.0-33.0) pg MCHC (31.0-35.0) g/dl RDW (11.0-16.0) % Plt Count (160-400) X10*3/uL MPV (9.4-12.3) fL Immature Gran % (Auto) (0.0-0.4) % Neut % (Auto) (45-73) % Lymph % (Auto) (20-40) % Marion % (Auto) (2-11) % Eos % (Auto) (0-4) % Baso % (Auto) (0-2) % Lymph # (Auto) (1.2-4.9) X10*3/uL Marion # (Auto) (0.1-1.2) X10*3/uL Eos # (Auto) (0.0-0.4) X10*3/uL Baso # (Auto) (0.0-0.2) X10*3/uL Abs Immat Gran (auto) (0.00-0.03) X10*3/uL Absolute Neuts (auto) (2.0-8.3) x10*3/uL Absolute Nucleated RBC (0.0-0.012) X10*3/uL Nucleated RBC % (auto) (0.0-0.2) /100WBC PT (9.9-13.0) SEC INR (0.9-1.1) Sodium 142 (135-145) mmol/L Potassium 3.9 (3.3-5.1) mmol/L Chloride 110 H (96-108) mmol/L Carbon Dioxide 24 (22-29) mmol/L Anion Gap 12 (12-20) BUN 15 (9-16) mg/dL Creatinine 0.63 (0.5-1.4) mg/dL Estim Creat Clear Calc 112.7 Estimated GFR > 60 Random Glucose 91 (60-115) mg/dL Calcium 9.1 (8.4-10.2) mg/dL Magnesium 1.8 (1.6-2.6) mg/dL Total Bilirubin 0.5 (0.0-1.0) mg/dL AST 12 (5-31) U/L ALT 10 (0-31) U/L Alkaline Phosphatase 72 (39-117) U/L Lactate Dehydrogenase 188 (122-220) U/L Total Protein 7.0 (6.5-8.0) g/dL Albumin 3.8 (3.5-5.0) g/dL Amylase 54 (28-100) U/L Lipase 28 (8-78) U/L Urine Color Urine Appearance Urine pH (5.0-8.0) Ur Specific [place] (1.005-1.025) Urine Protein (NEG-TRACE) MG/DL Urine Glucose (UA) (NEG) MG/DL Urine Ketones (NEG) MG/DL Urine Blood (NEG) Urine Nitrite (NEG) Ur Leukocyte Esterase (NEG) Urine RBC (0) /HPF Urine WBC (0-4) /HPF Ur Squamous Epith Cells /LPF Calcium Oxalate Crystal /LPF Urine Bacteria /LPF Urine Mucus /LPF Imaging Data CT scan abdomen pelvis without IV contrast: Attestation: I personally reviewed and interpreted this imaging study as follows: Radiologist's impression: FINDINGS: LUNG BASES: The visualized lung bases are unremarkable.? LIVER, GALLBLADDER, AND BILIARY TREE: The liver is normal in size, shape, and attenuation. No focal hepatic lesion or biliary ductal dilatation is present. The gallbladder is surgically absent.? PANCREAS: There is hazy attenuation of the peripancreatic fat region of the head and uncinate process which may represent very early or mild pancreatitis. No mass lesion, ductal dilatation, or cyst/pseudocyst.? SPLEEN: Unremarkable.? ADRENAL GLANDS: Unremarkable.? KIDNEYS AND URETERS: The kidneys are normal in size, shape, and attenuation. No hydronephrosis, hydroureter, or calculi seen. No perinephric stranding. ? BLADDER: Unremarkable.? GASTROINTESTINAL TRACT: The small and large bowel are unremarkable. The appendix is unremarkable. Postsurgical changes along the greater curvature of the stomach numerous clips, possibly a gastric sleeve.? ABDOMINAL WALL: No significant hernia is appreciated.? LYMPH NODES: Normal. VASCULAR: Unremarkable. PELVIC VISCERA: Unremarkable.? OSSEOUS STRUCTURES: Unremarkable.? CT/CT abdomen pelvis wo con IMPRESSION: Questionable very early or mild pancreatitis. Correlate with serum amylase/lipase. Otherwise, no focal inflammatory process or obstruction. No renal or ureteral calculi. No hydronephrosis.? ? Fleischner guidelines were followed. Critical Care Time Critical Care Time Critical Care Time: Yes Total Critical Care Time: 60 Attestation: I personally attest to this time spent taking care of the patient Discharge Plan Discharge Clinical Impression: Back strain Patient Disposition: Home, Self-Care Instructions: Back Pain (ED) Prescriptions: New diazepam [Valium] 10 mg tablet 10 mg PO TID PRN (Reason: muscle spasm) Qty: 10 RF: 0 ondansetron 4 mg tablet,disintegrating 4 mg PO Q6-8H PRN (Reason: nausea and vomiting) Qty: 14 RF: 0 naproxen 500 mg tablet 500 mg PO BID PRN (Reason: pain) Qty: 10 RF: 0 oxycodone 5 mg tablet 5 mg PO Q6H PRN (Reason: pain) Qty: 14 RF: 0 No Action Zyrtec 10 mg capsule 10 mg PO DAILY Qty: 30 RF: 5 levothyroxine 50 mcg tablet 50 mcg PO QAM 90 Days Qty: 90 RF: 0 ibuprofen 600 mg tablet 600 mg PO TID Qty: 10 RF: 0 bupropion HCl 300 mg tablet extended release 24 hr 300 mg PO DAILY 90 Days Qty: 90 RF: 3 meloxicam 15 mg tablet 15 mg PO DAILY PRN (Reason: pain) 90 Days Qty: 90 RF: 3 tramadol 50 mg tablet 50 mg PO DAILY PRN (Reason: pain) 30 Days Qty: 30 RF: 0 trazodone 50 mg tablet 50 mg PO BEDTIME 90 Days Qty: 90 RF: 3 cholecalciferol (vitamin D3) 25 mcg (1,000 unit) capsule 25 mcg PO DAILY 90 Days Qty: 90 RF: 3 acetaminophen 650 mg tablet extended release 650 mg PO Q8H RF: 0 Referrals: Rehana De Jesus MD [Primary Care Provider] - 2 days Print Language: Kazakh
[2021-11-05 15:29] VITALS: BP 139/71; PULSE 62; RESP 16; TEMP 36.2; O2SAT 100
[2021-11-05 15:54] LABS: MANUAL DIFF FLAG NO
[2021-11-05 16:01] LABS: Basophils Absolute Auto 0.1 X10*3/uL (0.0-0.2); Basophils Percent Auto 0.8 % (0-2); Eosinophils Absolute Auto 0.3 X10*3/uL (0.0-0.4); Eosinophils Percent Auto 4.2 % (0-4); Hematocrit 43.8 % (37.0-47.0); Hemoglobin 14.1 g/dl (12.0-16.0); Imm Gran Abs Auto 0.03 X10*3/uL (0.00-0.03); Imm Gran Pct Auto 0.5 % (0.0-0.4); Lymphocytes Absolute Auto 1.9 X10*3/uL (1.2-4.9); Lymphocytes Percent Auto 29.2 % (20-40); Mean Corpuscular HGB Conc 32.2 g/dl (31.0-35.0); Mean Corpuscular Hemoglobin 30.7 pg (27.0-33.0); Mean Corpuscular Volume 95.4 fL (80.0-98.0); Mean Platelet Volume 10.9 fL (9.4-12.3); Monocytes Absolute Auto 0.5 X10*3/uL (0.1-1.2); Monocytes Percent Auto 7.1 % (2-11); Neutrophils Absolute Auto 3.9 x10*3/uL (2.0-8.3); Neutrophils Percent Auto 58.2 % (45-73); Platelet Count 258 X10*3/uL (160-400); Red Blood Count 4.59 X10*6/uL (4.20-5.50); Red Cell Distribution Width 12.5 % (11.0-16.0); White Blood Count 6.6 X10*3/uL (4.8-10.8)
[2021-11-05] MEDS: 0.9 % Sodium Chloride 1,000 ML 999 ML IVCONT (16:06)
[2021-11-05 16:39] LABS: Prothrombin Time 11.6 SEC (9.9-13.0)
[2021-11-05 16:57] LABS: Alanine Aminotransferase 10 U/L (0-31); Albumin Level 3.8 g/dL (3.5-5.0); Alkaline Phosphatase 72 U/L (39-117); Anion Gap 12 (12-20); Aspartate Amino Transferase 12 U/L (5-31); Bilirubin Total 0.5 mg/dL (0.0-1.0); Blood Urea Nitrogen 15 mg/dL (9-16); Calcium 9.1 mg/dL (8.4-10.2); Carbon Dioxide 24 mmol/L (22-29); Chloride 110 mmol/L (96-108); Creatinine Clr Calc Pharmacy 112.7; Estimated Glomerular Filt Rate > 60; Glucose Random 91 mg/dL (60-115); Lipase 28 U/L (8-78); Magnesium 1.8 mg/dL (1.6-2.6); Potassium 3.9 mmol/L (3.3-5.1); Sodium 142 mmol/L (135-145)
[2021-11-05 17:06] LABS: Amylase 54 U/L (28-100); Lactate Dehydrogenase 188 U/L (122-220)
== END 2021-11-05 18:25 | disposition home or self-care (01) ==
PROVIDERS: Physician Assistant Medical; Emergency Provider Emergency Medicine; PCP Internal Medicine
DX: S39.012A Strain of muscle, fascia and tendon of lower back, initial encounter (principal); R35.0 Frequency of micturition; R39.15 Urgency of urination; X58.XXXA Exposure to other specified factors, initial encounter; Y93.9 Activity, unspecified; Y92.9 Unspecified place or not applicable; Y99.9 Unspecified external cause status
CPT/HCPCS: 36415; 74176; 80053; 81001; 82150; 83615; 83690; 83735; 85025; 85610; 96360; 99284

== ENCOUNTER 2021-11-09 08:54 | Outpatient (REF) | payer OTHER, SELFPAY ==
[2021-11-09 10:14] LABS: Lipase 31 U/L (8-78)
== END 2021-11-09 08:55 | disposition home or self-care (01) ==
LOC: HO.LAB 08:54
PROVIDERS: PCP Internal Medicine; Visit Provider Internal Medicine
DX: K85.90 Acute pancreatitis without necrosis or infection, unspecified (principal)
CPT/HCPCS: 36415; 83690

== ENCOUNTER 2021-11-10 09:55 | Outpatient (REF) | payer OTHER, SELFPAY ==
[2021-11-10 11:04] LABS: Appearance Urine CLEAR; Color Urine YELLOW; Glucose Urine UA NEG (NEG); Leukocyte Esterase Urine NEG (NEG); Nitrite Urine NEG (NEG); Specific Gravity - Urine 1.015 (1.005-1.025); UACC Culture Trigger NO; Urine Blood TRACE (NEG); Urine Ketones NEG (NEG); Urine Protein NEG (NEG-TRACE)
[2021-11-10 11:15] LABS: Squamous Epithelial Cell Urine 2+ /LPF
[2021-11-10 11:16] LABS: RBC Urine 0-2 /HPF (0); WBC Urine 0-2 /HPF (0-4)
[2021-11-10 11:17] LABS: Bacteria Urine TRACE /LPF
[2021-11-10 11:45] LABS: Amylase 49 U/L (28-100)
[2021-11-10 11:55] LABS: Alanine Aminotransferase 14 U/L (0-31); Albumin Level 3.9 g/dL (3.5-5.0); Alkaline Phosphatase 78 U/L (39-117); Anion Gap 10 (12-20); Aspartate Amino Transferase 16 U/L (5-31); Bilirubin Direct 0.2 mg/dL (0.0-0.5); Bilirubin Total 0.4 mg/dL (0.0-1.0); Blood Urea Nitrogen 14 mg/dL (9-16); Calcium 9.7 mg/dL (8.4-10.2); Carbon Dioxide 29 mmol/L (22-29); Chloride 107 mmol/L (96-108); Estimated Glomerular Filt Rate > 60; Glucose Random 85 mg/dL (60-115); Lipase 33 U/L (8-78); Potassium 4.4 mmol/L (3.3-5.1); Sodium 142 mmol/L (135-145); Total Protein 7.3 g/dL (6.5-8.0)
== END 2021-11-10 09:56 | disposition home or self-care (01) ==
LOC: HO.LAB 09:55
PROVIDERS: PCP Internal Medicine; Visit Provider Nurse Practitioner Family
DX: M54.50 Low back pain, unspecified (principal); R10.9 Unspecified abdominal pain; I10 Essential (primary) hypertension
CPT/HCPCS: 36415; 80048; 80076; 81001; 81003; 82150; 83690

== ENCOUNTER → 2021-11-23 14:37 | Outpatient (BNVA) | payer OTHER, SELFPAY | PROVIDERS: PCP Internal Medicine; Visit Provider Surgery Vascular Surgery | DX: I83.12 Varicose veins of left lower extremity with inflammation (principal); E66.01 Morbid (severe) obesity due to excess calories; Z68.41 Body mass index [BMI] 40.0-44.9, adult | CPT/HCPCS: 99202 ==

== ENCOUNTER 2021-12-28 10:24 | Outpatient (REF) | payer OTHER, SELFPAY ==
--- NOTE | ~2021-12-28 | US_ITS ---
EXAMINATION: US LOWER EXTREMITY VENOUS (REFLUX EXAM), BILATERAL CLINICAL INDICATION: This is a 56-year-old female with venous insufficiency and varicose veins. COMPARISON: None. TECHNIQUE: Color flow triplex imaging and compression Doppler was performed to evaluate both the deep and the superficial systems bilaterally. To evaluate the superficial system, the examination was performed in the upright position. Color-flow Doppler ultrasound and compression ultrasound were utilized. In addition, maneuvers were utilized to demonstrate reflux. FINDINGS: 1. DEEP VENOUS ULTRASOUND OF THE RIGHT LOWER EXTREMITY: Common Femoral Vein: Compressible, normal respiratory variation and augmented flow. Femoral vein: Compressible, normal color flow and augmentation. Popliteal Vein: Compressible, normal augmentation. Deep Reflux: There is no evidence of reflux in the deep system in either the common femoral vein or the popliteal vein. There is no evidence of a Carmona's cyst. 2. SUPERFICIAL ULTRASOUND WITH DOPPLER OF RIGHT LOWER EXTREMITY: GREAT SAPHENOUS VEIN: Saphenofemoral Junction: 0.8 cm Mid Thigh: 0.3 cm Above Knee: 0.3 cm Below Knee: 0.2 cm Mid Calf: 0.2 cm Ankle: 0.2 cm GSV REFLUX: No evidence of reflux. DUPLICATED GREAT SAPHENOUS VEIN: There is a duplicated lateral 0.3 cm great saphenous vein without reflux. SMALL SAPHENOUS VEIN: Proximal: 0.3 cm Distal: 0.2 cm SSV REFLUX: No evidence of reflux. VEIN OF GIACOMINI: None Imaged. PERFORATORS: There are 0.2 cm mid thigh and proximal calf perforators without reflux. VARICOSITIES: None Imaged 3. DEEP VENOUS ULTRASOUND OF THE LEFT LOWER EXTREMITY: Common Femoral Vein: Compressible, normal respiratory variation and augmented flow. Femoral Vein: Compressible, normal color flow and augmentation. Popliteal Vein: Compressible, normal augmentation. Deep Reflux: There is no evidence of reflux in the deep system in either the common femoral vein or the popliteal vein. There is no evidence of a Carmona's cyst. 4. SUPERFICIAL ULTRASOUND WITH DOPPLER OF LEFT LOWER EXTREMITY: GREAT SAPHENOUS VEIN: Saphenofemoral Junction: 0.6 cm Mid Thigh: 0.3 cm Above Knee: 0.3 cm Below Knee: 0.2 cm Mid Calf: 0.2 cm Ankle: 0.2 cm GSV REFLUX: No evidence of reflux. DUPLICATED GREAT SAPHENOUS VEIN: There is a 0.2 cm duplicated medial great saphenous vein without reflux SMALL SAPHENOUS VEIN: Proximal: 0.2 cm Distal: 0.2 cm SSV REFLUX: No evidence of reflux. VEIN OF GIACOMINI: None Imaged. PERFORATORS: There is a 0.2 cm mid calf acquisitions assistant without reflux. VARICOSITIES: None Imaged US/US venous duplex LE BI IMPRESSION: 1. There are bilateral patent great saphenous veins and small saphenous veins without evidence of reflux or insufficiency. 2. No varicose veins are seen.
== END 2021-12-28 10:25 | disposition home or self-care (01) ==
LOC: HO.US 10:24
PROVIDERS: Visit Provider Surgery Vascular Surgery
DX: I83.12 Varicose veins of left lower extremity with inflammation (principal)
CPT/HCPCS: 93970

== ENCOUNTER 2021-12-28 15:29 | Outpatient (REF) | payer OTHER, SELFPAY ==
--- NOTE | ~2021-12-28 | MM_ITS ---
EXAMINATION: MM SCREENING DIGITAL BREAST TOMOSYNTHESIS, BILATERAL CLINICAL INFORMATION: Screening. Asymptomatic. The lifetime risk of breast cancer based on the Tyrer-Cuzick Model is 10.1%. COMPARISON: Mammography: November 09, 2020 and studies dating back to June 23, 2014 TECHNIQUE: Digital breast tomosynthesis is performed in both the craniocaudal and mediolateral oblique views along with computer-aided detection (CAD). Synthesized 2D images are generated from the tomosynthesis. FINDINGS: The breasts are almost entirely fatty (ACR BI-RADS breast composition Category a). There are no significant masses, abnormal calcifications, or other abnormalities. MM/MM tomosynthesis screening BI IMPRESSION: There are no significant changes from prior study. ASSESSMENT: BI-RADS 1: Negative RECOMMENDATION: Routine annual mammography screening. This patient's information was entered into a reminder system with a target due date for their next mammogram.
== END 2021-12-28 15:30 | disposition home or self-care (01) ==
LOC: HO.MAMMO 15:29
PROVIDERS: PCP Internal Medicine; Visit Provider Internal Medicine
DX: Z12.31 Encounter for screening mammogram for malignant neoplasm of breast (principal)
CPT/HCPCS: 77063; 77067; 99212

== ENCOUNTER → 2022-01-30 13:02 | Outpatient (BNVA) | payer OTHER, SELFPAY | PROVIDERS: PCP Internal Medicine; Referring Provider Internal Medicine; Visit Provider Physician Assistant Surgical | DX: E66.01 Morbid (severe) obesity due to excess calories (principal); Z68.41 Body mass index [BMI] 40.0-44.9, adult | CPT/HCPCS: 99212 ==

== ENCOUNTER → 2022-02-02 13:31 | Outpatient (BNVA) | payer OTHER, SELFPAY | PROVIDERS: PCP Internal Medicine; Visit Provider Nurse Practitioner Family | DX: G56.01 Carpal tunnel syndrome, right upper limb (principal); M25.50 Pain in unspecified joint; M54.50 Low back pain, unspecified | CPT/HCPCS: 99212 ==

== ENCOUNTER 2022-02-15 11:07 | Outpatient (REF) | payer OTHER, SELFPAY ==
[2022-02-18 11:33] LABS: H Pylori Breath Test Negative (Negative)
== END 2022-02-15 11:08 | disposition home or self-care (01) ==
LOC: CF 11:07
PROVIDERS: Visit Provider Physician Assistant Surgical
DX: Z11.0 Encounter for screening for intestinal infectious diseases (principal); E66.01 Morbid (severe) obesity due to excess calories; Z68.41 Body mass index [BMI] 40.0-44.9, adult
CPT/HCPCS: 36415; 83013; 99211

== ENCOUNTER 2022-02-28 13:59 | Outpatient (REF) | payer OTHER, SELFPAY ==
[2022-02-28 16:23] LABS: Rheumatoid Factor < 15.0 IU/mL (<15.0)
[2022-02-28 16:27] LABS: Alanine Aminotransferase 17 U/L (0-31); Albumin Level 4.1 g/dL (3.5-5.0); Alkaline Phosphatase 81 U/L (39-117); Anion Gap 10 (12-20); Aspartate Amino Transferase 15 U/L (5-31); Bilirubin Total 0.4 mg/dL (0.0-1.0); Blood Urea Nitrogen 13 mg/dL (9-16); Calcium 9.3 mg/dL (8.4-10.2); Carbon Dioxide 26 mmol/L (22-29); Chloride 106 mmol/L (96-108); Estimated Glomerular Filt Rate > 60; Glucose Random 82 mg/dL (60-115); Iron 78 mcg/dL (30-160); Magnesium 1.9 mg/dL (1.6-2.6); Percent Iron Saturation 27 % (15-50); Potassium 4.2 mmol/L (3.3-5.1); Sodium 138 mmol/L (135-145); Total Iron Binding Capacity 293 mcg/dL (228-428); Total Protein 7.8 g/dL (6.5-8.0); Unsaturated Iron Binding 215 ug/dL
[2022-02-28 16:46] LABS: Folate 9.4 ng/mL (> or = 4.0); Vitamin B12 293 pg/mL (200-900)
[2022-03-02 13:46] LABS: Anti Nuclear Antibody Screen NEGATIVE (NEGATIVE)
[2022-03-04 13:11] LABS: Vitamin B1 13 nmol/L (8-30)
[2022-03-05 23:06] LABS: Zinc 60 mcg/dL (60-130)
[2022-03-06 14:12] LABS: Vitamin D 25-OH, D2 <4 ng/mL; Vitamin D 25-OH, D3 20 ng/mL; Vitamin D 25-OH, Total 20 ng/mL (30-100)
[2022-03-07 00:11] LABS: Vitamin A 41 mcg/dL (38-98)
== END 2022-02-28 14:00 | disposition home or self-care (01) ==
LOC: HO.LAB 13:59
PROVIDERS: Absent Provider Physician Assistant Surgical; PCP Internal Medicine; Visit Provider Nurse Practitioner Family
DX: E66.01 Morbid (severe) obesity due to excess calories (principal); E55.9 Vitamin D deficiency, unspecified; M25.50 Pain in unspecified joint; Z68.41 Body mass index [BMI] 40.0-44.9, adult
CPT/HCPCS: 36415; 80053; 82306; 82607; 82746; 83540; 83735; 84425; 84443; 84590; 84630; 86038; 86039; 86431

== ENCOUNTER 2022-02-28 14:04 | Outpatient (RCR) | payer OTHER, SELFPAY ==
--- NOTE | 2022-03-29 16:04 | MHC.OT.DC ---
[address] [phone] F: [phone] Occupational Therapy Discharge Note Provider: Melody Pelletier Diagnosis: Bilateral hand pain Date of Surgery: Date of Evaluation: 02/28/22 Date of Discharge: 03/29/22 Treatments to Date: 1 Cancellations to Date: 1 No Shows to Date: 2 Discharge Status: Visit Non-compliance Discharge Summary: See eval Electronically Signed By: Nisha Alaniz OT CHT CLT Reviewed/agree with student documentation: N/A Therapist: Please Sign and return to therapist, thank you for your referral.
== END 2022-03-29 16:05 | disposition home or self-care (01) ==
LOC: HO.OT 14:04
PROVIDERS: PCP Internal Medicine; Visit Provider Nurse Practitioner Family
DX: M79.641 Pain in right hand (principal); M79.642 Pain in left hand
CPT/HCPCS: 97110; 97166

== ENCOUNTER 2022-06-08 18:36 | Emergency (ER) | payer OTHER, SELFPAY ==
--- NOTE | 2022-06-08 18:37 | ECG_ITS ---
Test Reason : chest discomfort Blood Pressure : / mmHG Vent. Rate : 076 BPM Atrial Rate : 076 BPM P-R Int : 182 ms QRS Dur : 080 ms QT Int : 362 ms P-R-T Axes : 045 016 -01 degrees QTc Int : 407 ms Normal sinus rhythm Minimal voltage criteria for LVH, may be normal variant ( R in aVL ) Cannot rule out Inferior infarct , age undetermined Abnormal ECG When compared with ECG of 07-SEP-2021 13:45, Minimal criteria for Inferior infarct are now Present T wave amplitude has decreased in Lateral leads Referred By: Generic ED Physician Electronically Signed By:Brett Solis
[2022-06-08 18:41] VITALS: BP 133/73; PULSE 80; RESP 18; TEMP 37; O2SAT 97; BMI 40.7
[2022-06-08 19:04] LABS: MANUAL DIFF FLAG NO
[2022-06-08 19:05] LABS: Basophils Absolute Auto 0.1 X10*3/uL (0.0-0.2); Basophils Percent Auto 0.9 % (0-2); Eosinophils Absolute Auto 0.2 X10*3/uL (0.0-0.4); Eosinophils Percent Auto 3.5 % (0-4); Hematocrit 37.9 % (37.0-47.0); Hemoglobin 12.4 g/dl (12.0-16.0); Imm Gran Abs Auto 0.03 X10*3/uL (0.00-0.03); Imm Gran Pct Auto 0.5 % (0.0-0.4); Lymphocytes Absolute Auto 1.9 X10*3/uL (1.2-4.9); Lymphocytes Percent Auto 29.2 % (20-40); Mean Corpuscular HGB Conc 32.7 g/dl (31.0-35.0); Mean Corpuscular Hemoglobin 30.5 pg (27.0-33.0); Mean Corpuscular Volume 93.3 fL (80.0-98.0); Mean Platelet Volume 9.6 fL (9.4-12.3); Monocytes Absolute Auto 0.4 X10*3/uL (0.1-1.2); Monocytes Percent Auto 5.8 % (2-11); Neutrophils Percent Auto 60.1 % (45-73); Platelet Count 250 X10*3/uL (160-400); Red Blood Count 4.06 X10*6/uL (4.20-5.50); Red Cell Distribution Width 12.3 % (11.0-16.0); White Blood Count 6.6 X10*3/uL (4.8-10.8)
[2022-06-08 19:26] LABS: Alanine Aminotransferase 13 U/L (0-31); Albumin Level 3.9 g/dL (3.5-5.0); Alkaline Phosphatase 86 U/L (39-117); Anion Gap 10 (12-20); Aspartate Amino Transferase 13 U/L (5-31); Bilirubin Total 0.4 mg/dL (0.0-1.0); Blood Urea Nitrogen 15 mg/dL (9-16); Carbon Dioxide 27 mmol/L (22-29); Chloride 107 mmol/L (96-108); Creatinine Clr Calc Pharmacy 95.3; Estimated Glomerular Filt Rate > 60; Glucose Random 138 mg/dL (60-115); Potassium 4.2 mmol/L (3.3-5.1); Sodium 140 mmol/L (135-145); Total Protein 7.1 g/dL (6.5-8.0)
[2022-06-08 19:32] LABS: Troponin-I High Sensitivity < 3.5 ng/L (<3.5-17.0)
--- NOTE | 2022-06-08 22:15 | ED.CHESTPAIN ---
HPI - Chest Pain General Chief Complaint: Chest Pain Stated Complaint: Chest discomfort/back pain Time Seen by Provider: 06/08/22 22:15 Source: patient Mode of arrival: ambulatory Limitations: no limitations History of Present Illness HPI narrative: Patient with history of fibromyalgia no known coronary artery disease with complaining of pain in upper back and mid chest since 1600 while at rest pain increases on palpation and movements no significant shortness of breath no diaphoresis no nausea or vomiting Related Data Home Medications Medication Instructions Recorded Confirmed acetaminophen 650 mg 650 mg PO Q8H 09/27/20 03/29/22 tablet,extended release Previous Rx's Medication Instructions Recorded cetirizine 10 mg capsule (Zyrtec) 10 mg PO DAILY #30 caps 06/19/21 cholecalciferol (vitamin D3) 25 25 mcg PO DAILY 90 days #90 caps 11/13/21 mcg (1,000 unit) capsule levothyroxine 50 mcg tablet 50 mcg PO QAM 90 days #90 tabs 02/27/22 lidocaine 4 % topical patch 2 patch topical DAILY PRN pain #30 02/27/22 (Aspercreme (lidocaine)) ea amitriptyline 25 mg tablet 25 mg PO BEDTIME 90 days #90 tabs 03/29/22 bupropion HCl 300 mg 24 hr tablet, 150 mg PO DAILY 14 days #7 tabs 03/29/22 extended release gabapentin 100 mg capsule 100 mg PO TID 30 days #90 caps 03/29/22 tramadol 50 mg tablet 50 mg PO Q6H PRN pain #20 tabs 06/08/22 Allergies Allergy/AdvReac Type Severity Reaction Status Date / Time No Known Allergies Allergy Verified 03/29/22 11:34 [No Known Allergies*] Review of Systems Review of Systems: Yes all other systems are reviewed and are negative [facility] Past Medical History Medical History Depression with anxiety Fibromyalgia Hypothyroid Hypovitaminosis D Mild asthma Mild recurrent major depression Morbid obesity with BMI of 40.0-44.9, adult Polyarthralgia Skin lesion Venous (peripheral) insufficiency Surgical History History of gastric surgery History of laparoscopic cholecystectomy History of tonsillectomy History of tubal ligation Family History Family History Father Hypertension Mother Hypertension Maternal Aunt Breast cancer Family/Other FH: mental illness Paternal Grandfather No problems noted. Paternal Grandmother Hypertension Maternal Grandfather No problems noted. Maternal Grandmother Cervical cancer Social History Social History Housing: Apartment Alcohol intake: current Alcohol intake frequency: holidays/special occasions only Alcohol type: hard liquor Patient Tobacco Use Status: Never used Tobacco e-Cigarette/Vaping Use: Never Used Second Hand Smoke Exposure: No Advance Directives: No Advance Directives Information Provided: Yes service: No Current occupational status: unemployed Current occupational exposures/hazards: No Cognitive needs: No Hearing needs: No Vision needs: No Physical Exam Vital Signs: Vital Signs: Last Vital Signs Temp 98.1 F 06/08/22 22:21 Pulse 63 06/08/22 22:21 Resp 16 06/08/22 22:21 BP 142/78 H 06/08/22 22:21 Pulse Ox 99 06/08/22 22:21 O2 Del Method 06/08/22 22:21 BMI result Body Mass Index 40.7 Appearance: Alert. Oriented X3. No acute distress. Eyes: No pallor or icterus ENT: Pharynx normal. Oral Mucosa moist Neck: Normal inspection. Neck supple. CVS: Normal heart rate and rhythm. Pulses normal. Respiratory: No respiratory distress. Equal air entry bilateral, no wheezing/rales/rhonchi chest wall tenderness++ Abdomen: Soft and nontender. Bowel sounds are present, no mass palpable, no CVA tenderness Skin: Skin warm and dry. Normal skin color. Normal skin turgor. Extremities: No lower extremity edema. No calf tenderness Neuro: Oriented X 3. MDM - Chest Pain MDM Narrative Medical decision making narrative: 2249 Patient with reproducible left-sided chest pain with history of fibromyalgia initial troponin negative EKG without any ischemic changes will repeat troponin. 0129 2 sets of cardiac enzymes negative patient felt better after Toradol injection chest pain likely from fibromyalgia Lab Data Attestation: I reviewed the patient's lab results. Result diagrams: 06/08/22 19:00 06/08/22 19:00 Labs: Lab Results 06/08/22 06/08/22 06/08/22 Range/Units 19:00 19:00 19:00 WBC 6.6 (4.8-10.8) X10*3/uL RBC 4.06 L (4.20-5.50) X10*6/uL Hgb 12.4 (12.0-16.0) g/dl Hct 37.9 (37.0-47.0) % MCV 93.3 (80.0-98.0) fL MCH 30.5 (27.0-33.0) pg MCHC 32.7 (31.0-35.0) g/dl RDW 12.3 (11.0-16.0) % Plt Count 250 (160-400) X10*3/uL MPV 9.6 (9.4-12.3) fL Immature Gran % (Auto) 0.5 H (0.0-0.4) % Neut % (Auto) 60.1 (45-73) % Lymph % (Auto) 29.2 (20-40) % [place] % (Auto) 5.8 (2-11) % Eos % (Auto) 3.5 (0-4) % Baso % (Auto) 0.9 (0-2) % Lymph # (Auto) 1.9 (1.2-4.9) X10*3/uL [place] # (Auto) 0.4 (0.1-1.2) X10*3/uL Eos # (Auto) 0.2 (0.0-0.4) X10*3/uL Baso # (Auto) 0.1 (0.0-0.2) X10*3/uL Abs Immat Gran (auto) 0.03 (0.00-0.03) X10*3/uL Absolute Neuts (auto) 4.0 (2.0-8.3) x10*3/uL Absolute Nucleated RBC 0.000 (0.0-0.012) X10*3/uL Nucleated RBC % (auto) 0.0 (0.0-0.2) /100WBC Sodium 140 (135-145) mmol/L Potassium 4.2 (3.3-5.1) mmol/L Chloride 107 (96-108) mmol/L Carbon Dioxide 27 (22-29) mmol/L Anion Gap 10 L (12-20) BUN 15 (9-16) mg/dL Creatinine 0.77 (0.5-1.4) mg/dL Estim Creat Clear Calc 95.3 Estimated GFR > 60 Random Glucose 138 H (60-115) mg/dL Calcium 9.0 (8.4-10.2) mg/dL Total Bilirubin 0.4 (0.0-1.0) mg/dL AST 13 (5-31) U/L ALT 13 (0-31) U/L Alkaline Phosphatase 86 (39-117) U/L Troponin I High Sens < 3.5 (<3.5-17.0) ng/L Total Protein 7.1 (6.5-8.0) g/dL Albumin 3.9 (3.5-5.0) g/dL 06/08/22 Range/Units 22:35 WBC (4.8-10.8) X10*3/uL RBC (4.20-5.50) X10*6/uL Hgb (12.0-16.0) g/dl Hct (37.0-47.0) % MCV (80.0-98.0) fL MCH (27.0-33.0) pg MCHC (31.0-35.0) g/dl RDW (11.0-16.0) % Plt Count (160-400) X10*3/uL MPV (9.4-12.3) fL Immature Gran % (Auto) (0.0-0.4) % Neut % (Auto) (45-73) % Lymph % (Auto) (20-40) % [place] % (Auto) (2-11) % Eos % (Auto) (0-4) % Baso % (Auto) (0-2) % Lymph # (Auto) (1.2-4.9) X10*3/uL [place] # (Auto) (0.1-1.2) X10*3/uL Eos # (Auto) (0.0-0.4) X10*3/uL Baso # (Auto) (0.0-0.2) X10*3/uL Abs Immat Gran (auto) (0.00-0.03) X10*3/uL Absolute Neuts (auto) (2.0-8.3) x10*3/uL Absolute Nucleated RBC (0.0-0.012) X10*3/uL Nucleated RBC % (auto) (0.0-0.2) /100WBC Sodium (135-145) mmol/L Potassium (3.3-5.1) mmol/L Chloride (96-108) mmol/L Carbon Dioxide (22-29) mmol/L Anion Gap (12-20) BUN (9-16) mg/dL Creatinine (0.5-1.4) mg/dL Estim Creat Clear Calc Estimated GFR Random Glucose (60-115) mg/dL Calcium (8.4-10.2) mg/dL Total Bilirubin (0.0-1.0) mg/dL AST (5-31) U/L ALT (0-31) U/L Alkaline Phosphatase (39-117) U/L Troponin I High Sens < 3.5 (<3.5-17.0) ng/L Total Protein (6.5-8.0) g/dL Albumin (3.5-5.0) g/dL ECG Data ECG #1: Attestation: I personally reviewed and interpreted this ECG as follows: Interpretation: Normal sinus rhythm heart rate 76 beats per minute LVH no interval no axis no acute ST T wave changes no acute ischemia Discharge Plan Discharge Clinical Impression: Chest pain Patient Disposition: Home, Self-Care Instructions: Chest Pain (ED) Additional Instructions: your chest pain is not from the heart likely musculoskeletal Take pain medication and relaxant as prescribed Prescriptions: New tramadol 50 mg tablet 50 mg PO Q6H PRN (Reason: pain) Qty: 20 0RF No Action Zyrtec 10 mg capsule 10 mg PO DAILY Qty: 30 5RF cholecalciferol (vitamin D3) 25 mcg (1,000 unit) capsule 25 mcg PO DAILY 90 Days Qty: 90 3RF acetaminophen 650 mg tablet extended release 650 mg PO Q8H amitriptyline 25 mg tablet 25 mg PO BEDTIME 90 Days Qty: 90 0RF bupropion HCl 300 mg tablet extended release 24 hr 150 mg PO DAILY 14 Days Qty: 7 3RF gabapentin 100 mg capsule 100 mg PO TID 30 Days Qty: 90 2RF lidocaine [Aspercreme (lidocaine HCl)] 4 % adhesive patch,medicated 2 patch topical DAILY PRN (Reason: pain) Qty: 30 0RF levothyroxine 50 mcg tablet 50 mcg PO QAM 90 Days Qty: 90 0RF
[2022-06-08 22:21] VITALS: BP 142/78; PULSE 63; RESP 16; TEMP 36.7; O2SAT 99
[2022-06-08] MEDS: Cyclobenzaprine HCl 10 MG TABLET PO (22:45)
[2022-06-08] MEDS: Ketorolac Tromethamine 60 MG/2 ML VIAL IM (22:46)
[2022-06-08 23:10] LABS: Troponin-I High Sensitivity < 3.5 ng/L (<3.5-17.0)
[2022-06-09 00:29] VITALS: BP 125/73; PULSE 67; RESP 17; O2SAT 100
== END 2022-06-09 00:33 | disposition home or self-care (01) ==
PROVIDERS: Emergency Provider Internal Medicine; PCP Internal Medicine
DX: R07.9 Chest pain, unspecified (principal)
CPT/HCPCS: 36415; 80053; 84484; 85025; 93005; 96372; 99284; J1885

== ENCOUNTER → 2022-08-27 12:16 | Outpatient (BNVA) | payer OTHER, SELFPAY | PROVIDERS: PCP Internal Medicine; Visit Provider Nurse Practitioner Family | DX: Z12.11 Encounter for screening for malignant neoplasm of colon (principal); K21.9 Gastro-esophageal reflux disease without esophagitis | CPT/HCPCS: 99202; 99212 ==

== ENCOUNTER → 2022-10-01 11:34 | Outpatient (BNVA) | payer OTHER, SELFPAY | PROVIDERS: PCP Internal Medicine; Visit Provider Physician Assistant Surgical | DX: E66.01 Morbid (severe) obesity due to excess calories (principal); Z68.41 Body mass index [BMI] 40.0-44.9, adult; Z90.3 Acquired absence of stomach [part of] | CPT/HCPCS: 99212 ==

== ENCOUNTER 2022-12-14 14:43 | Emergency (ER) | payer OTHER, SELFPAY ==
--- NOTE | ~2022-12-14 | XR_ITS ---
EXAMINATION: XR CHEST CLINICAL INFORMATION: Chest pain COMPARISON: 09/07/2021 TECHNIQUE: 2 views of the chest were obtained. FINDINGS: Lungs are clear. No focal consolidation or mass. Normal pulmonary vascularity. No pleural effusion or pneumothorax. Normal heart size. No acute osseous abnormality. XR/XR chest 2V IMPRESSION: No acute pulmonary disease.
[2022-12-14 14:54] VITALS: BP 126/65; PULSE 62; RESP 17; TEMP 36.4; O2SAT 98
--- NOTE | 2022-12-14 15:02 | ECG_ITS ---
Test Reason : CHEST PAIN Blood Pressure : / mmHG Vent. Rate : 064 BPM Atrial Rate : 064 BPM P-R Int : 184 ms QRS Dur : 076 ms QT Int : 384 ms P-R-T Axes : 018 015 005 degrees QTc Int : 396 ms Normal sinus rhythm Minimal voltage criteria for LVH, may be normal variant ( R in aVL ) Borderline ECG When compared with ECG of 08-JUN-2022 18:30, No significant change was found Referred By: Generic ED Physician Electronically Signed By:Brett Solis
[2022-12-14 15:05] VITALS: BP 126/65; BP 168/86; PULSE 64; PULSE 66; RESP 12; TEMP 36.7; O2SAT 98; BMI 42.3
--- NOTE | 2022-12-14 15:24 | ED.CHESTPAIN ---
HPI - Chest Pain General Chief Complaint: Chest Pain <KI Ochoa - Last Filed: 12/14/22 17:30> Stated Complaint: CP <KI Ochoa - Last Filed: 12/14/22 17:30> Time Seen by Provider: 12/14/22 15:05 <KI Ochoa - Last Filed: 12/14/22 17:30> Source: patient and EMS <KI Ochoa Last Filed: 12/14/22 17:30> Mode of arrival: EMS <KI Ochoa - Last Filed: 12/14/22 17:30> History of Present Illness HPI narrative: 57-year-old female with a past medical history of depression, anxiety, fibromyalgia, hypothyroid, polyarthralgia, PVD, obesity, presenting to the ED complaining of sudden onset substernal/left-sided chest pressure radiating to left shoulder 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 Denies cough, fever, chills, abdominal pain, diarrhea, pedal edema <KI Ochoa - Last Filed: 12/14/22 17:30> MD complaint: chest pain <KI Ochoa Last Filed: 12/14/22 17:30> Onset (ago): hour(s) <KI Ochoa - Last Filed: 12/14/22 17:30> Related Data Home Medications: Home Medications Medication Instructions Recorded Confirmed acetaminophen 650 mg 650 mg PO Q8H 09/27/20 10/16/22 tablet,extended release Previous Rx's Medication Instructions Recorded cetirizine 10 mg capsule (Zyrtec) 10 mg PO DAILY #30 caps 06/19/21 cholecalciferol (vitamin D3) 25 25 mcg PO DAILY 90 days #90 caps 11/13/21 mcg (1,000 unit) capsule tramadol 50 mg tablet 50 mg PO Q6H PRN pain #20 tabs 06/08/22 lisinopril 10 mg tablet 10 mg PO DAILY 90 days #90 tabs 10/05/22 triamcinolone acetonide 0.1 % 1 appl topical DAILY 30 days #30 10/16/22 topical cream grams albuterol sulfate 90 mcg/actuation 1 inh inhalation QID 30 days #6.7 10/30/22 aerosol inhaler grams levothyroxine 50 mcg tablet 50 mcg PO QAM 90 days #90 tabs 11/26/22 omeprazole 20 mg capsule,delayed 20 mg PO DAILY 90 days #90 caps 11/28/22 release bupropion HCl 300 mg 24 hr tablet, 150 mg PO DAILY 14 days #7 tabs 12/10/22 extended release gabapentin 100 mg capsule 100 mg PO BID 30 days #60 caps 12/10/22 gabapentin 300 mg capsule 300 mg PO BEDTIME 90 days #90 caps 12/10/22 <KI Ochoa Last Filed: 12/14/22 17:30> Allergies/Adverse Reactions: Allergies Allergy/AdvReac Type Severity Reaction Status Date / Time No Known Allergies Allergy Verified 10/16/22 13:59 [No Known Allergies*] <KI Ochoa Last Filed: 12/14/22 17:30> Review of Systems Review of Systems: Constitutional: No Fever, No Chills, No Fatigue, No Malaise ENT/Mouth: No Ear Pain, No sore throat, No Rhinorrhea, No Swallowing Difficulty Eyes: No Eye Pain, No Swelling, No Vision Changes Cardiovascular: + Chest Pain, + SOB, No Dyspnea on Exertion, No Orthopnea, No Edema, No Palpitations Respiratory: No Cough, No Sputum, No Dyspnea Gastrointestinal: + Nausea, + Vomiting, No Diarrhea, No Constipation, No Abdominal pain Genitourinary: No Dysuria, No Urinary Frequency, No Hematuria, No Urinary Incontinence/retention, No Flank Pain Musculoskeletal: No joint pain, No Myalgias, No Joint Swelling Skin: No Skin Lesions, No rash Neuro: No Weakness, No Numbness, No Paresthesias, No Loss of Consciousness, + lightheaded, No Headache <KI Ochoa Last Filed: 12/14/22 17:30> Yes all other systems are reviewed and are negative <KI Ochoa Last Filed: 12/14/22 17:30> Constitutional: Constitutional: Reports as per HPI <KI Ochoa Last Filed: 12/14/22 17:30> PMFSH Past Medical History Attestation statement: The following information was validated with the patient. <KI Ochoa - Last Filed: 12/14/22 17:30> Medical History: Medical History Depression with anxiety Fibromyalgia Hypothyroid Hypovitaminosis D Mild asthma Mild recurrent major depression Morbid obesity with BMI of 40.0-44.9, adult Polyarthralgia Skin lesion Venous (peripheral) insufficiency <KI Ochoa - Last Filed: 12/14/22 17:30> Surgical History: Surgical History History of gastric surgery History of laparoscopic cholecystectomy History of tonsillectomy History of tubal ligation <KI Ochoa - Last Filed: 12/14/22 17:30> Family History Family History: Family History Father Hypertension Mother Hypertension Maternal Aunt Breast cancer Family/Other FH: mental illness Paternal Grandfather No problems noted. Paternal Grandmother Hypertension Maternal Grandfather No problems noted. Maternal Grandmother Cervical cancer <KI Ochoa - Last Filed: 12/14/22 17:30> Social History Social History: Social History Housing: Apartment Alcohol intake: never Patient Tobacco Use Status: Never used Tobacco Smoked in Last 30 Days: No e-Cigarette/Vaping Use: Never Used Second Hand Smoke Exposure: No Use of substances other than those prescribed or required for medical reasons: No Advance Directives: No Advance Directives Information Provided: No service: No Current occupational status: unemployed Current occupational exposures/hazards: No Cognitive needs: No Hearing needs: No Vision needs: No <KI Ochoa - Last Filed: 12/14/22 17:30> Physical Exam Vital Signs: Vital Signs: Last Vital Signs Temp 98.1 F 12/14/22 18:28 Pulse 58 12/14/22 18:28 Resp 20 12/14/22 18:28 BP 135/69 12/14/22 18:28 Pulse Ox 98 12/14/22 18:28 O2 Del Method 12/14/22 18:28 BMI result Body Mass Index 42.3 <KI Ochoa - Last Filed: 12/14/22 17:30> Vital Signs: Last Vital Signs Temp 98.1 F 12/14/22 18:28 Pulse 58 12/14/22 18:28 Resp 20 12/14/22 18:28 BP 135/69 12/14/22 18:28 Pulse Ox 98 12/14/22 18:28 O2 Del Method 12/14/22 18:28 BMI result Body Mass Index 42.3 <Emily Torres NP - Last Filed: 12/14/22 20:57> Const: General: cooperative, no acute distress, alert and awake <KI Ochoa - Last Filed: 12/14/22 17:30> Orientation/consciousness: patient oriented x3 <KI Ochoa - Last Filed: 12/14/22 17:30> Limitations: no limitations <KI Ochoa - Last Filed: 12/14/22 17:30> HEENT: Head: Yes normal to inspection and Yes atraumatic <KI Ochoa - Last Filed: 12/14/22 17:30> Ears: hearing grossly normal bilaterally <KI Ochoa - Last Filed: 12/14/22 17:30> General nose exam: Normal external nose present <KI Ochoa - Last Filed: 12/14/22 17:30> Face and sinus: Yes normal facial exam <KI Ochoa - Last Filed: 12/14/22 17:30> Eyes: General: appearance normal, both eyes and all related structures <KI Ochoa - Last Filed: 12/14/22 17:30> EOM: EOMs intact bilaterally <KI Ochoa - Last Filed: 12/14/22 17:30> Neck: Neck: Yes normal visual inspection and Yes no meningeal signs <KI Ochoa - Last Filed: 12/14/22 17:30> Chest: Other: + tenderness to palpation to sternum / left anterior chest wall reproducing subjective complaint <KI Ochoa - Last Filed: 12/14/22 17:30> Chest palpation & inspection: normal inspection of the chest, no crepitus and tenderness <KI Ochoa - Last Filed: 12/14/22 17:30> Resp: Effort & Inspection: normal respiratory effort, no respiratory distress and not tachypneic <KI Ochoa - Last Filed: 12/14/22 17:30> Auscultation: clear to auscultation bilaterally <KI Ochoa - Last Filed: 12/14/22 17:30> Cardio: Rate: regular rate <KI Ochoa - Last Filed: 12/14/22 17:30> Heart sounds: S1 normal heart sound present and S2 normal heart sound present <KI Ochoa - Last Filed: 12/14/22 17:30> GI: Inspection: Yes normal to inspection <KI Ochoa - Last Filed: 12/14/22 17:30> Palpation (GI): Soft to palpation, Tenderness to palpation present (GI) in the epigastrum; with no rebound tenderness, no guarding and not rigid <KI Ochoa - Last Filed: 12/14/22 17:30> Skin: Rashes: no rashes <KI Ochoa - Last Filed: 12/14/22 17:30> Wounds: no wounds <KI Ochoa - Last Filed: 12/14/22 17:30> Neuro: General: patient oriented x3, tone normal, moves all extremities and no meningeal signs <KI Ochoa - Last Filed: 12/14/22 17:30> Gait exam (Neuro): Normal gait present <KI Ochoa - Last Filed: 12/14/22 17:30> Extrem: General: Yes normal to inspection and Yes no pedal edema <KI Ochoa - Last Filed: 12/14/22 17:30> Course Course Course Narrative: -no leukocytosis. D-dimer within normal limits. Labs otherwise reassuring. Initial troponin negative XR chest 2V IMPRESSION: No acute pulmonary disease. > 1800--ED care to answer to CONFIGURATION MANAGEMENT SPECIALIST Emily pending repeat troponin, UA, and anticipated discharge <KI Ochoa - Last Filed: 12/14/22 17:30> Reevaluation(s) Reevaluation #1: 1800-received sign-out from this patient pending repeat troponin. Second troponin negative. For discharge with follow-up outpatient with primary care and Cardiology <Emily Torres NP - Last Filed: 12/14/22 20:57> Medications Administered Discontinued Medications Generic Name Dose Route Start Last Admin Trade Name Renetta PRN Reason Stop Dose Admin Acetaminophen 650 mg 12/14/22 18:26 12/14/22 18:33 Acetaminophen 325 Mg Tablet PO 12/14/22 18:27 650 mg ONCE ONE Administration Al Hydroxide/Mg Hydroxide 30 ml 12/14/22 15:22 12/14/22 16:46 Magnesium Hydrox/Alum Hydrox 30 Ml Oral.Susp PO 12/14/22 15:23 30 ml ONCE ONE Administration Famotidine 20 mg 12/14/22 15:22 12/14/22 16:46 Famotidine/Pf 20 Mg/2 Ml Vial IVPUSH 12/14/22 15:23 20 mg ONCE ONE Administration Ketorolac Tromethamine 15 mg 12/14/22 17:30 12/14/22 18:33 Ketorolac Tromethamine 15 Mg/Ml Vial IVPUSH 12/14/22 17:31 15 mg ONCE ONE Administration Ondansetron HCl 4 mg 12/14/22 15:22 12/14/22 16:46 Ondansetron Hcl 4 Mg/2 Ml Vial IVPUSH 12/14/22 15:23 4 mg ONCE ONE Administration <KI Ochoa - Last Filed: 12/14/22 17:30> Medications Administered Discontinued Medications Generic Name Dose Route Start Last Admin Trade Name Renetta PRN Reason Stop Dose Admin Acetaminophen 650 mg 12/14/22 18:26 12/14/22 18:33 Acetaminophen 325 Mg Tablet PO 12/14/22 18:27 650 mg ONCE ONE Administration Al Hydroxide/Mg Hydroxide 30 ml 12/14/22 15:22 12/14/22 16:46 Magnesium Hydrox/Alum Hydrox 30 Ml Oral.Susp PO 12/14/22 15:23 30 ml ONCE ONE Administration Famotidine 20 mg 12/14/22 15:22 12/14/22 16:46 Famotidine/Pf 20 Mg/2 Ml Vial IVPUSH 12/14/22 15:23 20 mg ONCE ONE Administration Ketorolac Tromethamine 15 mg 12/14/22 17:30 12/14/22 18:33 Ketorolac Tromethamine 15 Mg/Ml Vial IVPUSH 12/14/22 17:31 15 mg ONCE ONE Administration Ondansetron HCl 4 mg 12/14/22 15:22 12/14/22 16:46 Ondansetron Hcl 4 Mg/2 Ml Vial IVPUSH 12/14/22 15:23 4 mg ONCE ONE Administration <Emily Torres NP - Last Filed: 12/14/22 20:57> Medical Decision Making Medical Decision Making MDM Narrative: 57-year-old female with a past medical history of depression, anxiety, fibromyalgia, hypothyroid, polyarthralgia, PVD, obesity, presenting to the ED complaining of sudden onset substernal/left-sided chest pressure radiating to left shoulder 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 Exam vital signs stable, NAD, nontoxic appearing, lungs CTA, chest pain reproducible, abdomen soft epigastric tenderness. Pulses intact throughout. Concern for ACS vs costochondritis vs PE vs GERD/gastritis. Lower suspicion for CHF, dissection, DVT, appendicitis or diverticulitis Plan: EKG, labs, UA, CXR, PO Maalox, IV Zofran/Pepcid, re-evaluate <KI Ochoa - Last Filed: 12/14/22 17:30> Differential Diagnosis Differential Diagnoses: The differential diagnosis associated with the presentation includes <KI Ochoa - Last Filed: 12/14/22 17:30> as above <KI Ochoa - Last Filed: 12/14/22 17:30> Admission/Observation Consideration of admission/observation: Escalation of care including admission/observation considered <KI Ochoa - Last Filed: 12/14/22 17:30> Lab Data [facility] Lab Attestation statement: I reviewed the patient's lab results. <KI Ochoa - Last Filed: 12/14/22 17:30> Result Diagrams: 12/14/22 16:29 12/14/22 16:28 <KI Ochoa - Last Filed: 12/14/22 17:30> Labs: Lab Results 12/14/22 12/14/22 12/14/22 Range/Units 16:28 16:28 16:28 WBC (4.8-10.8) X10*3/uL RBC (4.20-5.50) X10*6/uL Hgb (12.0-16.0) g/dl Hct (37.0-47.0) % MCV (80.0-98.0) fL MCH (27.0-33.0) pg MCHC (31.0-35.0) g/dl RDW (11.0-16.0) % Plt Count (160-400) X10*3/uL MPV (9.4-12.3) fL Immature Gran % (Auto) (0.0-0.4) % Neut % (Auto) (45-73) % Lymph % (Auto) (20-40) % [place] % (Auto) (2-11) % Eos % (Auto) (0-4) % Baso % (Auto) (0-2) % Lymph # (Auto) (1.2-4.9) X10*3/uL [place] # (Auto) (0.1-1.2) X10*3/uL Eos # (Auto) (0.0-0.4) X10*3/uL Baso # (Auto) (0.0-0.2) X10*3/uL Abs Immat Gran (auto) (0.00-0.03) X10*3/uL Absolute Neuts (auto) (2.0-8.3) x10*3/uL Absolute Nucleated RBC (0.0-0.012) X10*3/uL Nucleated RBC % (auto) (0.0-0.2) /100WBC D-Dimer High Sensitivty < 150 NG/ML Sodium 141 (135-145) mmol/L Potassium 4.1 (3.3-5.1) mmol/L Chloride 108 (96-108) mmol/L Carbon Dioxide 23 (22-29) mmol/L Anion Gap 14 (12-20) BUN 13 (9-16) mg/dL Creatinine 0.72 (0.5-1.4) mg/dL Estim Creat Clear Calc 100.4 Estimated GFR > 60 Random Glucose 100 (60-115) mg/dL Calcium 8.9 (8.4-10.2) mg/dL Magnesium 1.8 (1.6-2.6) mg/dL Total Bilirubin 0.5 (0.0-1.0) mg/dL Direct Bilirubin < 0.2 (0.0-0.5) mg/dL AST 12 (5-31) U/L ALT 11 (0-31) U/L Alkaline Phosphatase 80 (39-117) U/L Troponin I High Sens < 3.5 (<3.5-17.0) ng/L B-Natriuretic Peptide (<100) pg/mL Total Protein 7.1 (6.5-8.0) g/dL Albumin 3.7 (3.5-5.0) g/dL Lipase 31 (8-78) U/L COVID-19 (BERONICA) (Negative) COVID-19 Clin Com Influenza Type A (HECTOR) (Negative) Influenza Type B (HECTOR) (Negative) Influenza A & B Note 12/14/22 12/14/22 12/14/22 Range/Units 16:28 16:28 16:28 WBC (4.8-10.8) X10*3/uL RBC (4.20-5.50) X10*6/uL Hgb (12.0-16.0) g/dl Hct (37.0-47.0) % MCV (80.0-98.0) fL MCH (27.0-33.0) pg MCHC (31.0-35.0) g/dl RDW (11.0-16.0) % Plt Count (160-400) X10*3/uL MPV (9.4-12.3) fL Immature Gran % (Auto) (0.0-0.4) % Neut % (Auto) (45-73) % Lymph % (Auto) (20-40) % [place] % (Auto) (2-11) % Eos % (Auto) (0-4) % Baso % (Auto) (0-2) % Lymph # (Auto) (1.2-4.9) X10*3/uL [place] # (Auto) (0.1-1.2) X10*3/uL Eos # (Auto) (0.0-0.4) X10*3/uL Baso # (Auto) (0.0-0.2) X10*3/uL Abs Immat Gran (auto) (0.00-0.03) X10*3/uL Absolute Neuts (auto) (2.0-8.3) x10*3/uL Absolute Nucleated RBC (0.0-0.012) X10*3/uL Nucleated RBC % (auto) (0.0-0.2) /100WBC D-Dimer High Sensitivty NG/ML Sodium (135-145) mmol/L Potassium (3.3-5.1) mmol/L Chloride (96-108) mmol/L Carbon Dioxide (22-29) mmol/L Anion Gap (12-20) BUN (9-16) mg/dL Creatinine (0.5-1.4) mg/dL Estim Creat Clear Calc Estimated GFR Random Glucose (60-115) mg/dL Calcium (8.4-10.2) mg/dL Magnesium (1.6-2.6) mg/dL Total Bilirubin (0.0-1.0) mg/dL Direct Bilirubin (0.0-0.5) mg/dL AST (5-31) U/L ALT (0-31) U/L Alkaline Phosphatase (39-117) U/L Troponin I High Sens (<3.5-17.0) ng/L B-Natriuretic Peptide 65 (<100) pg/mL Total Protein (6.5-8.0) g/dL Albumin (3.5-5.0) g/dL Lipase (8-78) U/L COVID-19 (BERONICA) Negative (Negative) COVID-19 Clin Com See Note Influenza Type A (HECTOR) Negative (Negative) Influenza Type B (HECTOR) Negative (Negative) Influenza A & B Note See Note 12/14/22 12/14/22 Range/Units 16:29 20:07 WBC 7.9 (4.8-10.8) X10*3/uL RBC 4.33 (4.20-5.50) X10*6/uL Hgb 13.1 (12.0-16.0) g/dl Hct 40.3 (37.0-47.0) % MCV 93.1 (80.0-98.0) fL MCH 30.3 (27.0-33.0) pg MCHC 32.5 (31.0-35.0) g/dl RDW 12.0 (11.0-16.0) % Plt Count 241 (160-400) X10*3/uL MPV 10.3 (9.4-12.3) fL Immature Gran % (Auto) 0.3 (0.0-0.4) % Neut % (Auto) 74.3 H (45-73) % Lymph % (Auto) 17.0 L (20-40) % [place] % (Auto) 5.1 (2-11) % Eos % (Auto) 2.8 (0-4) % Baso % (Auto) 0.5 (0-2) % Lymph # (Auto) 1.3 (1.2-4.9) X10*3/uL [place] # (Auto) 0.4 (0.1-1.2) X10*3/uL Eos # (Auto) 0.2 (0.0-0.4) X10*3/uL Baso # (Auto) 0.0 (0.0-0.2) X10*3/uL Abs Immat Gran (auto) 0.02 (0.00-0.03) X10*3/uL Absolute Neuts (auto) 5.9 (2.0-8.3) x10*3/uL Absolute Nucleated RBC 0.000 (0.0-0.012) X10*3/uL Nucleated RBC % (auto) 0.0 (0.0-0.2) /100WBC D-Dimer High Sensitivty NG/ML Sodium (135-145) mmol/L Potassium (3.3-5.1) mmol/L Chloride (96-108) mmol/L Carbon Dioxide (22-29) mmol/L Anion Gap (12-20) BUN (9-16) mg/dL Creatinine (0.5-1.4) mg/dL Estim Creat Clear Calc Estimated GFR Random Glucose (60-115) mg/dL Calcium (8.4-10.2) mg/dL Magnesium (1.6-2.6) mg/dL Total Bilirubin (0.0-1.0) mg/dL Direct Bilirubin (0.0-0.5) mg/dL AST (5-31) U/L ALT (0-31) U/L Alkaline Phosphatase (39-117) U/L Troponin I High Sens < 3.5 (<3.5-17.0) ng/L B-Natriuretic Peptide (<100) pg/mL Total Protein (6.5-8.0) g/dL Albumin (3.5-5.0) g/dL Lipase (8-78) U/L COVID-19 (BERONICA) (Negative) COVID-19 Clin Com Influenza Type A (HECTOR) (Negative) Influenza Type B (HECTOR) (Negative) Influenza A & B Note <KI Ochoa - Last Filed: 12/14/22 17:30> Lab Results 12/14/22 12/14/22 12/14/22 Range/Units 16:28 16:28 16:28 WBC (4.8-10.8) X10*3/uL RBC (4.20-5.50) X10*6/uL Hgb (12.0-16.0) g/dl Hct (37.0-47.0) % MCV (80.0-98.0) fL MCH (27.0-33.0) pg MCHC (31.0-35.0) g/dl RDW (11.0-16.0) % Plt Count (160-400) X10*3/uL MPV (9.4-12.3) fL Immature Gran % (Auto) (0.0-0.4) % Neut % (Auto) (45-73) % Lymph % (Auto) (20-40) % [place] % (Auto) (2-11) % Eos % (Auto) (0-4) % Baso % (Auto) (0-2) % Lymph # (Auto) (1.2-4.9) X10*3/uL [place] # (Auto) (0.1-1.2) X10*3/uL Eos # (Auto) (0.0-0.4) X10*3/uL Baso # (Auto) (0.0-0.2) X10*3/uL Abs Immat Gran (auto) (0.00-0.03) X10*3/uL Absolute Neuts (auto) (2.0-8.3) x10*3/uL Absolute Nucleated RBC (0.0-0.012) X10*3/uL Nucleated RBC % (auto) (0.0-0.2) /100WBC D-Dimer High Sensitivty < 150 NG/ML Sodium 141 (135-145) mmol/L Potassium 4.1 (3.3-5.1) mmol/L Chloride 108 (96-108) mmol/L Carbon Dioxide 23 (22-29) mmol/L Anion Gap 14 (12-20) BUN 13 (9-16) mg/dL Creatinine 0.72 (0.5-1.4) mg/dL Estim Creat Clear Calc 100.4 Estimated GFR > 60 Random Glucose 100 (60-115) mg/dL Calcium 8.9 (8.4-10.2) mg/dL Magnesium 1.8 (1.6-2.6) mg/dL Total Bilirubin 0.5 (0.0-1.0) mg/dL Direct Bilirubin < 0.2 (0.0-0.5) mg/dL AST 12 (5-31) U/L ALT 11 (0-31) U/L Alkaline Phosphatase 80 (39-117) U/L Troponin I High Sens < 3.5 (<3.5-17.0) ng/L B-Natriuretic Peptide (<100) pg/mL Total Protein 7.1 (6.5-8.0) g/dL Albumin 3.7 (3.5-5.0) g/dL Lipase 31 (8-78) U/L COVID-19 (BERONICA) (Negative) COVID-19 Clin Com Influenza Type A (HECTOR) (Negative) Influenza Type B (HECTOR) (Negative) Influenza A & B Note 12/14/22 12/14/22 12/14/22 Range/Units 16:28 16:28 16:28 WBC (4.8-10.8) X10*3/uL RBC (4.20-5.50) X10*6/uL Hgb (12.0-16.0) g/dl Hct (37.0-47.0) % MCV (80.0-98.0) fL MCH (27.0-33.0) pg MCHC (31.0-35.0) g/dl RDW (11.0-16.0) % Plt Count (160-400) X10*3/uL MPV (9.4-12.3) fL Immature Gran % (Auto) (0.0-0.4) % Neut % (Auto) (45-73) % Lymph % (Auto) (20-40) % [place] % (Auto) (2-11) % Eos % (Auto) (0-4) % Baso % (Auto) (0-2) % Lymph # (Auto) (1.2-4.9) X10*3/uL [place] # (Auto) (0.1-1.2) X10*3/uL Eos # (Auto) (0.0-0.4) X10*3/uL Baso # (Auto) (0.0-0.2) X10*3/uL Abs Immat Gran (auto) (0.00-0.03) X10*3/uL Absolute Neuts (auto) (2.0-8.3) x10*3/uL Absolute Nucleated RBC (0.0-0.012) X10*3/uL Nucleated RBC % (auto) (0.0-0.2) /100WBC D-Dimer High Sensitivty NG/ML Sodium (135-145) mmol/L Potassium (3.3-5.1) mmol/L Chloride (96-108) mmol/L Carbon Dioxide (22-29) mmol/L Anion Gap (12-20) BUN (9-16) mg/dL Creatinine (0.5-1.4) mg/dL Estim Creat Clear Calc Estimated GFR Random Glucose (60-115) mg/dL Calcium (8.4-10.2) mg/dL Magnesium (1.6-2.6) mg/dL Total Bilirubin (0.0-1.0) mg/dL Direct Bilirubin (0.0-0.5) mg/dL AST (5-31) U/L ALT (0-31) U/L Alkaline Phosphatase (39-117) U/L Troponin I High Sens (<3.5-17.0) ng/L B-Natriuretic Peptide 65 (<100) pg/mL Total Protein (6.5-8.0) g/dL Albumin (3.5-5.0) g/dL Lipase (8-78) U/L COVID-19 (BERONICA) Negative (Negative) COVID-19 Clin Com See Note Influenza Type A (HECTOR) Negative (Negative) Influenza Type B (HECTOR) Negative (Negative) Influenza A & B Note See Note 12/14/22 12/14/22 Range/Units 16:29 20:07 WBC 7.9 (4.8-10.8) X10*3/uL RBC 4.33 (4.20-5.50) X10*6/uL Hgb 13.1 (12.0-16.0) g/dl Hct 40.3 (37.0-47.0) % MCV 93.1 (80.0-98.0) fL MCH 30.3 (27.0-33.0) pg MCHC 32.5 (31.0-35.0) g/dl RDW 12.0 (11.0-16.0) % Plt Count 241 (160-400) X10*3/uL MPV 10.3 (9.4-12.3) fL Immature Gran % (Auto) 0.3 (0.0-0.4) % Neut % (Auto) 74.3 H (45-73) % Lymph % (Auto) 17.0 L (20-40) % [place] % (Auto) 5.1 (2-11) % Eos % (Auto) 2.8 (0-4) % Baso % (Auto) 0.5 (0-2) % Lymph # (Auto) 1.3 (1.2-4.9) X10*3/uL [place] # (Auto) 0.4 (0.1-1.2) X10*3/uL Eos # (Auto) 0.2 (0.0-0.4) X10*3/uL Baso # (Auto) 0.0 (0.0-0.2) X10*3/uL Abs Immat Gran (auto) 0.02 (0.00-0.03) X10*3/uL Absolute Neuts (auto) 5.9 (2.0-8.3) x10*3/uL Absolute Nucleated RBC 0.000 (0.0-0.012) X10*3/uL Nucleated RBC % (auto) 0.0 (0.0-0.2) /100WBC D-Dimer High Sensitivty NG/ML Sodium (135-145) mmol/L Potassium (3.3-5.1) mmol/L Chloride (96-108) mmol/L Carbon Dioxide (22-29) mmol/L Anion Gap (12-20) BUN (9-16) mg/dL Creatinine (0.5-1.4) mg/dL Estim Creat Clear Calc Estimated GFR Random Glucose (60-115) mg/dL Calcium (8.4-10.2) mg/dL Magnesium (1.6-2.6) mg/dL Total Bilirubin (0.0-1.0) mg/dL Direct Bilirubin (0.0-0.5) mg/dL AST (5-31) U/L ALT (0-31) U/L Alkaline Phosphatase (39-117) U/L Troponin I High Sens < 3.5 (<3.5-17.0) ng/L B-Natriuretic Peptide (<100) pg/mL Total Protein (6.5-8.0) g/dL Albumin (3.5-5.0) g/dL Lipase (8-78) U/L COVID-19 (BERONICA) (Negative) COVID-19 Clin Com Influenza Type A (HECTOR) (Negative) Influenza Type B (HECTOR) (Negative) Influenza A & B Note <Emily Torres NP - Last Filed: 12/14/22 20:57> Independent Interpretation I performed an independent interpretation of an: EKG <KI Ochoa - Last Filed: 12/14/22 17:30> Interpretation: My interpretation: EKG is normal sinus rhythm at a rate of 64. QTC 396. QRS 76. No STEMI. Artifact present <KI Ochoa - Last Filed: 12/14/22 17:30> Radiology Impression Discussion of test interpretation with radiology: I have reviewed the radiologist's reading. <KI Ochoa - Last Filed: 12/14/22 17:30> External Record Review External record reviewed: Outpatient record and Prior outpatient labs <KI Ochoa - Last Filed: 12/14/22 17:30> Prior ED records <KI Ochoa - Last Filed: 12/14/22 17:30> Prescription Management I considered prescription management with: Pain Medication <KI Ochoa - Last Filed: 12/14/22 17:30> Discharge Plan Discharge Clinical Impression: Chest pain <KI Ochoa - Last Filed: 12/14/22 17:30> Patient Disposition: Home, Self-Care <KI Ochoa - Last Filed: 12/14/22 17:30> Instructions: Chest Pain (DC) <KI Ochoa - Last Filed: 12/14/22 17:30> Additional Instructions: Your blood work and chest x-ray were reassuring. Please have close follow-up with her doctor and Cardiology. If her symptoms persist or worsen return to the emergency department. <KI Ochoa - Last Filed: 12/14/22 17:30> Prescriptions: No Action Zyrtec 10 mg capsule 10 mg PO DAILY Qty: 30 5RF cholecalciferol (vitamin D3) 25 mcg (1,000 unit) capsule 25 mcg PO DAILY 90 Days Qty: 90 3RF lisinopril 10 mg tablet 10 mg PO DAILY 90 Days Qty: 90 1RF albuterol sulfate 90 mcg/actuation HFA aerosol inhaler 1 inh inhalation QID 30 Days Qty: 6.7 1RF levothyroxine 50 mcg tablet 50 mcg PO QAM 90 Days Qty: 90 0RF omeprazole 20 mg capsule,delayed release(DR/EC) 20 mg PO DAILY 90 Days Qty: 90 1RF bupropion HCl 300 mg tablet extended release 24 hr 150 mg PO DAILY 14 Days Qty: 7 3RF gabapentin 100 mg capsule 100 mg PO BID 30 Days Qty: 60 2RF gabapentin 300 mg capsule 300 mg PO BEDTIME 90 Days Qty: 90 0RF tramadol 50 mg tablet 50 mg PO Q6H PRN (Reason: pain) Qty: 20 0RF acetaminophen 650 mg tablet extended release 650 mg PO Q8H triamcinolone acetonide 0.1 % cream 1 appl topical DAILY 30 Days Qty: 30 1RF <KI Ochoa - Last Filed: 12/14/22 17:30> Referrals: [facility] [place]Provider Group] - 1 week Rehana De Jesus MD [Primary Care Provider] - <KI Ochoa - Last Filed: 12/14/22 17:30>
[2022-12-14 16:34] LABS: MANUAL DIFF FLAG NO
[2022-12-14 16:36] LABS: Basophils Percent Auto 0.5 % (0-2); Eosinophils Absolute Auto 0.2 X10*3/uL (0.0-0.4); Eosinophils Percent Auto 2.8 % (0-4); Hematocrit 40.3 % (37.0-47.0); Hemoglobin 13.1 g/dl (12.0-16.0); Imm Gran Abs Auto 0.02 X10*3/uL (0.00-0.03); Imm Gran Pct Auto 0.3 % (0.0-0.4); Lymphocytes Absolute Auto 1.3 X10*3/uL (1.2-4.9); Mean Corpuscular HGB Conc 32.5 g/dl (31.0-35.0); Mean Corpuscular Hemoglobin 30.3 pg (27.0-33.0); Mean Corpuscular Volume 93.1 fL (80.0-98.0); Mean Platelet Volume 10.3 fL (9.4-12.3); Monocytes Absolute Auto 0.4 X10*3/uL (0.1-1.2); Monocytes Percent Auto 5.1 % (2-11); Neutrophils Absolute Auto 5.9 x10*3/uL (2.0-8.3); Neutrophils Percent Auto 74.3 % (45-73); Platelet Count 241 X10*3/uL (160-400); Red Blood Count 4.33 X10*6/uL (4.20-5.50); White Blood Count 7.9 X10*3/uL (4.8-10.8)
[2022-12-14 16:43] VITALS: PULSE 58
[2022-12-14 16:45] LABS: D Dimer High Sensitivity < 150 NG/ML
[2022-12-14] MEDS: ondansetron HCL 4 MG/2 ML VIAL IVPUSH (16:46)
[2022-12-14] MEDS: Famotidine/PF 20 MG/2 ML VIAL IVPUSH (16:46)
[2022-12-14] MEDS: Magnesium Hydrox/Alum Hydrox 30 ML ORAL.SUSP PO (16:46)
[2022-12-14 16:53] LABS: Alanine Aminotransferase 11 U/L (0-31); Albumin Level 3.7 g/dL (3.5-5.0); Alkaline Phosphatase 80 U/L (39-117); Anion Gap 14 (12-20); Aspartate Amino Transferase 12 U/L (5-31); Bilirubin Direct < 0.2 mg/dL (0.0-0.5); Bilirubin Total 0.5 mg/dL (0.0-1.0); Blood Urea Nitrogen 13 mg/dL (9-16); COVID-19 Test Negative (Negative); Calcium 8.9 mg/dL (8.4-10.2); Carbon Dioxide 23 mmol/L (22-29); Chloride 108 mmol/L (96-108); Creatinine Clr Calc Pharmacy 100.4; Estimated Glomerular Filt Rate > 60; Glucose Random 100 mg/dL (60-115); IDNOW Serial# 55D5AD1C; IDNOW Serial# 6674DD1D; Influenza A Negative (Negative); Influenza B2 Negative (Negative); Lipase 31 U/L (8-78); Magnesium 1.8 mg/dL (1.6-2.6); Potassium 4.1 mmol/L (3.3-5.1); Sodium 141 mmol/L (135-145); Total Protein 7.1 g/dL (6.5-8.0)
[2022-12-14 16:58] LABS: B Type Natriuretic Peptide 65 pg/mL (<100)
[2022-12-14 17:04] LABS: Troponin-I High Sensitivity < 3.5 ng/L (<3.5-17.0)
[2022-12-14 18:28] VITALS: BP 135/69; PULSE 58; RESP 20; TEMP 36.7; O2SAT 98
[2022-12-14] MEDS: Acetaminophen 325 MG TABLET 650 MG PO (18:33)
[2022-12-14] MEDS: Ketorolac Tromethamine 15 MG/ML VIAL IVPUSH (18:33)
--- NOTE | 2022-12-14 20:17 | PC.NURSE ---
Assumed care of pt. at 1900. Pt. resting in bed. Per provider, needs a repeat trop prior to d/c. Order placed and blood obtained and sent to lab by tech. Pt. requesting a bite to eat as she hasn't had any food today and is feeling slightly nauseous. Crackers provided to pt. and pt states that she feels better. Pt. would like to go home and be in her own bed as her body is sore lying in the hospital bed. Pt. needing to use bathroom. Will obtain urine sample as ordered.
[2022-12-14 20:39] LABS: Troponin-I High Sensitivity < 3.5 ng/L (<3.5-17.0)
[2022-12-14 21:05] LABS: Appearance Urine Clear; Color Urine Yellow; Glucose Urine UA Negative (Negative); Leukocyte Esterase Urine Negative (Negative); Nitrite Urine Negative (Negative); PH 6.5 (5.0-9.0); Specific Gravity - Urine 1.015 (1.005-1.025); Urine Blood Negative (Negative); Urine Ketones Negative (Negative); Urine Protein Negative (Neg-Trace)
== END 2022-12-14 21:46 | disposition home or self-care (01) ==
PROVIDERS: Physician Assistant; Emergency Provider Emergency Medicine; PCP Internal Medicine
DX: R07.89 Other chest pain (principal); M79.10 Myalgia, unspecified site; R06.02 Shortness of breath; Z20.822 Contact with and (suspected) exposure to COVID-19; Z20.828 Contact with and (suspected) exposure to other viral communicable diseases; Z79.899 Other long term (current) drug therapy
CPT/HCPCS: 36415; 71046; 80048; 80076; 81003; 83690; 83735; 83880; 84484; 85025; 85379; 87502; 87635; 93005; 96374; 96375; 99284; 99285; J1885; J2405

== ENCOUNTER 2022-12-19 08:00 | Outpatient (REF) | payer OTHER, SELFPAY ==
[2022-12-19 08:13] LABS: MANUAL DIFF FLAG NO
[2022-12-19 08:22] LABS: Basophils Absolute Auto 0.1 X10*3/uL (0.0-0.2); Basophils Percent Auto 1.4 % (0-2); Eosinophils Absolute Auto 0.4 X10*3/uL (0.0-0.4); Eosinophils Percent Auto 6.8 % (0-4); Hematocrit 40.8 % (37.0-47.0); Hemoglobin 13.3 g/dl (12.0-16.0); Imm Gran Abs Auto 0.03 X10*3/uL (0.00-0.03); Imm Gran Pct Auto 0.5 % (0.0-0.4); Lymphocytes Absolute Auto 2.3 X10*3/uL (1.2-4.9); Lymphocytes Percent Auto 38.8 % (20-40); Mean Corpuscular HGB Conc 32.6 g/dl (31.0-35.0); Mean Corpuscular Volume 95.1 fL (80.0-98.0); Mean Platelet Volume 10.5 fL (9.4-12.3); Monocytes Absolute Auto 0.4 X10*3/uL (0.1-1.2); Monocytes Percent Auto 6.1 % (2-11); Neutrophils Absolute Auto 2.7 x10*3/uL (2.0-8.3); Neutrophils Percent Auto 46.4 % (45-73); Platelet Count 258 X10*3/uL (160-400); Red Blood Count 4.29 X10*6/uL (4.20-5.50); Red Cell Distribution Width 12.4 % (11.0-16.0); White Blood Count 5.9 X10*3/uL (4.8-10.8)
[2022-12-19 08:58] LABS: Alanine Aminotransferase 15 U/L (0-31); Albumin Level 3.7 g/dL (3.5-5.0); Alkaline Phosphatase 75 U/L (39-117); Anion Gap 12 (12-20); Aspartate Amino Transferase 14 U/L (5-31); Bilirubin Total 0.6 mg/dL (0.0-1.0); Blood Urea Nitrogen 13 mg/dL (9-16); Calcium 8.9 mg/dL (8.4-10.2); Carbon Dioxide 26 mmol/L (22-29); Chloride 108 mmol/L (96-108); Cholesterol 158 mg/dL; Estimated Glomerular Filt Rate > 60; Glucose Fasting 96 mg/dL (60-99); HDL Cholesterol 44 mg/dL; LDL Cholesterol Calculated 101 mg/dl; Potassium 4.2 mmol/L (3.3-5.1); Sodium 142 mmol/L (135-145); Total Protein 7.1 g/dL (6.5-8.0); Triglycerides 65 mg/dL
[2022-12-19 09:13] LABS: Thyroid Stimulating Hormone 6.46 uIU/mL (0.32-4.0); Vitamin D 25-OH Total 19.9 ng/mL (>30)
[2022-12-20 20:54] LABS: JO 1 Antibody <1.0 NEG AI (<1.0 NEG)
== END 2022-12-19 08:01 | disposition home or self-care (01) ==
LOC: HO.LAB 08:00
PROVIDERS: PCP Internal Medicine; Visit Provider Internal Medicine
DX: E06.3 Autoimmune thyroiditis (principal); M25.50 Pain in unspecified joint; E03.8 Other specified hypothyroidism; E55.9 Vitamin D deficiency, unspecified; E66.01 Morbid (severe) obesity due to excess calories; Z68.41 Body mass index [BMI] 40.0-44.9, adult
CPT/HCPCS: 36415; 80053; 80061; 82306; 84443; 85025; 86235

== ENCOUNTER 2022-12-25 11:43 | Outpatient (REF) | payer OTHER, SELFPAY ==
--- NOTE | ~2022-12-25 | XR_ITS ---
EXAMINATION: XR FOOT, LEFT CLINICAL INFORMATION: Pain. COMPARISON: Radiographs dated 07/15/2020. TECHNIQUE: AP, lateral, and oblique views of the left foot. FINDINGS: Bony alignment and mineralization are normal. There is a tiny crescentic avulsion fracture fragment noted of the lateral aspect of the fifth metatarsal base, new from prior. No dislocation or left ankle joint effusion is seen. Boehler's angle is normal. There are small posterior and large plantar calcaneal spurs. There are degenerative changes of the dorsal midfoot. No focal soft tissue swelling, gas or foreign body is seen. XR/XR foot LT 2V IMPRESSION: 1. There is a tiny avulsion fracture fragment noted of the lateral aspect of the fifth metatarsal base, new from prior. 2. There are calcaneal spurs, as detailed.
== END 2022-12-25 11:44 | disposition home or self-care (01) ==
LOC: HO.XRAY 11:43
PROVIDERS: PCP Internal Medicine; Visit Provider Internal Medicine
DX: M79.672 Pain in left foot (principal)
CPT/HCPCS: 73620

== ENCOUNTER 2023-01-02 09:27 | Outpatient (REF) | payer OTHER, SELFPAY ==
[2023-01-02 10:26] LABS: Influenza A PCR NEGATIVE (Negative); Influenza B PCR NEGATIVE (Negative); Resp Syncy Virus RNA Qual PCR NEGATIVE (Negative); SARS COV2 PCR INHOUSE NEGATIVE (Negative)
== END 2023-01-02 09:28 | disposition home or self-care (01) ==
LOC: HO.LAB 09:27
PROVIDERS: PCP Internal Medicine; Visit Provider Internal Medicine
DX: Z20.822 Contact with and (suspected) exposure to COVID-19 (principal); R09.89 Other specified symptoms and signs involving the circulatory and respiratory systems
CPT/HCPCS: 0241U

== ENCOUNTER → 2023-01-10 10:25 | Outpatient (BNVA) | payer OTHER, SELFPAY | PROVIDERS: PCP Internal Medicine; Visit Provider Physician Assistant | DX: S93.602A Unspecified sprain of left foot, initial encounter (principal) | CPT/HCPCS: 99202 ==

== ENCOUNTER → 2023-01-16 09:35 | Outpatient (BNVA) | payer OTHER, SELFPAY | PROVIDERS: PCP Internal Medicine; Visit Provider Orthopaedic Surgery | DX: G56.01 Carpal tunnel syndrome, right upper limb (principal); M79.7 Fibromyalgia; M15.1 Heberden's nodes (with arthropathy); E03.9 Hypothyroidism, unspecified; E55.9 Vitamin D deficiency, unspecified; F33.0 Major depressive disorder, recurrent, mild; Z98.890 Other specified postprocedural states | CPT/HCPCS: 99212 ==

== ENCOUNTER → 2023-01-30 11:06 | Outpatient (BNVA) | payer OTHER, SELFPAY | PROVIDERS: PCP Internal Medicine; Visit Provider Nurse Practitioner Family | DX: G56.01 Carpal tunnel syndrome, right upper limb (principal); M15.1 Heberden's nodes (with arthropathy); S92.309A Fracture of unspecified metatarsal bone(s), unspecified foot, initial encounter for closed fracture; Z98.890 Other specified postprocedural states | CPT/HCPCS: 99212 ==

== ENCOUNTER 2023-01-31 12:26 | Outpatient (REF) | payer OTHER, SELFPAY | END 2023-01-31 12:27 | disposition home or self-care (01) | LOC: HO.HOSX 12:26 | PROVIDERS: Visit Provider Physician Assistant | DX: Z13.89 Encounter for screening for other disorder (principal) ==

== ENCOUNTER 2023-02-05 08:19 | Outpatient (REF) | payer OTHER, SELFPAY ==
[2023-02-05 09:49] LABS: Thyroid Stimulating Hormone 3.76 uIU/mL (0.32-4.0)
== END 2023-02-05 08:20 | disposition home or self-care (01) ==
LOC: HO.LAB 08:19
PROVIDERS: PCP Internal Medicine; Visit Provider Internal Medicine
DX: E03.8 Other specified hypothyroidism (principal); E06.3 Autoimmune thyroiditis
CPT/HCPCS: 36415; 84443

== ENCOUNTER → 2023-02-22 14:21 | Outpatient (BNVA) | payer OTHER, SELFPAY | PROVIDERS: PCP Internal Medicine; Visit Provider Physician Assistant Surgical | DX: E66.01 Morbid (severe) obesity due to excess calories (principal); Z90.3 Acquired absence of stomach [part of]; Z68.41 Body mass index [BMI] 40.0-44.9, adult | CPT/HCPCS: 99212 ==

== ENCOUNTER → 2023-03-19 13:42 | Outpatient (BNVA) | payer OTHER, SELFPAY | PROVIDERS: PCP Internal Medicine; Visit Provider Nurse Practitioner Family | DX: Z12.11 Encounter for screening for malignant neoplasm of colon (principal); K21.9 Gastro-esophageal reflux disease without esophagitis | CPT/HCPCS: 99212 ==

== ENCOUNTER 2023-04-01 09:35 | Day surgery (SDC) | payer OTHER, SELFPAY ==
[2023-03-28 13:42] VITALS: BMI 42.7
--- NOTE | 2023-03-29 12:05 | HO.ANESPROP2 ---
HPI - Anesthesia Eval Consult details Narrative: 58yo F for Upper Endoscopy and Colonoscopy [facility] Active Problems Active Problems: All Active Problems (Updated 03/28/23 @ 13:41 by Bebe Morgan RN) Allergic rhinitis (Acute) Decreased sense of smell (Acute) Cough (Acute) Bilateral carpal tunnel syndrome (Acute) Calcaneal spur of both feet (Acute) Carpal tunnel syndrome of left wrist (Acute) Carpal tunnel syndrome of right wrist (Acute) Status post carpal tunnel release (Acute) Left wrist pain (Acute) Right flank pain (Acute) Right low back pain (Acute) Urinary frequency (Acute) Abnormal CT of the abdomen (Acute) Varicose veins of left lower extremity with inflammation (Acute) Bilateral knee pain (Acute) Physical exam (Acute) Chronic GERD (Acute) History of sleeve gastrectomy (Acute) Essential hypertension (Acute) Left foot pain (Acute) Avulsion fracture of metatarsal bone (Acute) URI (upper respiratory infection) (Acute) Sprain of left foot (Acute) History of carpal tunnel surgery of left wrist (Acute) Osteoarthritis of distal interphalangeal (DIP) joint of right middle finger (Acute) Fibromyalgia (Acute) Morbid obesity with BMI of 40.0-44.9, adult (Acute) Mild recurrent major depression (Acute) Venous (peripheral) insufficiency (Acute) Skin lesion (Acute) Polyarthralgia (Acute) Mild asthma (Acute) Depression with anxiety (Acute) Hypothyroid (Acute) Hypovitaminosis D (Acute) Past Medical History Medical History Acid reflux Depression with anxiety Fibromyalgia Hypothyroid Hypovitaminosis D Mild asthma Mild recurrent major depression Morbid obesity with BMI of 40.0-44.9, adult Polyarthralgia Skin lesion Venous (peripheral) insufficiency Family History Family History Father Hypertension Mother Hypertension Maternal Aunt Breast cancer Family/Other FH: mental illness Paternal Grandfather No problems noted. Paternal Grandmother Hypertension Maternal Grandfather No problems noted. Maternal Grandmother Cervical cancer Surgical History Surgical History History of carpal tunnel release History of gastric surgery History of laparoscopic cholecystectomy History of tonsillectomy History of tubal ligation S/P laparoscopic sleeve gastrectomy Social History Social History Housing: Apartment Alcohol intake: never Patient Tobacco Use Status: Never used Tobacco e-Cigarette/Vaping Use: Never Used Second Hand Smoke Exposure: No Use of substances other than those prescribed or required for medical reasons: No Are you DNR?: No Advance Directives: No Advance Directives Information Provided: Yes Recently lost weight without trying: No Nutrition Risks: No Nutritional Risk Patient : No service: No Current occupational status: unemployed and disabled Current occupation: rt hand Current occupational exposures/hazards: No Cognitive needs: No Hearing needs: No Vision needs: Yes Meds Allergies Allergy/AdvReac Type Severity Reaction Status Date / Time spinach Allergy Severe Hives Verified 04/01/23 10:51 Exam Exam Date and Time: March 29, 2023 1205 Height,Weight and Vital Signs: Height 5 ft 2 in Weight 105.999 kg Pertinent Lab Results Pertinent Lab Results: Laboratory Tests 12/19/22 12/19/22 08:06 08:06 WBC 5.9 Hgb 13.3 Hct 40.8 Plt Count 258 Sodium 142 Potassium 4.2 Chloride 108 Carbon Dioxide 26 BUN 13 Creatinine 0.74 Narrative Narrative: EKG 12/2022 Vent. Rate : 064 BPM ? ? Atrial Rate : 064 BPM ?? P-R Int : 184 ms? QRS Dur : 076 ms ? ? QT Int : 384 ms ? ? ? P-R-T Axes : 018 015 005 degrees ?? QTc Int : 396 ms ? Normal sinus rhythm Minimal voltage criteria for LVH, may be normal variant ( R in aVL ) Borderline ECG When compared with ECG of 08-JUN-2022 18:30, No significant change was found ? Assessment and Plan Assessment Anesthesia Assessment: Chart Reviewed
[2023-04-01 10:06] VITALS: BMI 41.5
--- NOTE | 2023-04-01 10:08 | P.CONAN_ITS ---
[facility] Active Problems Active Problems: All Active Problems (Updated 03/28/23 @ 13:41 by Bebe Morgan RN) Allergic rhinitis (Acute) Decreased sense of smell (Acute) Cough (Acute) Bilateral carpal tunnel syndrome (Acute) Calcaneal spur of both feet (Acute) Carpal tunnel syndrome of left wrist (Acute) Carpal tunnel syndrome of right wrist (Acute) Status post carpal tunnel release (Acute) Left wrist pain (Acute) Right flank pain (Acute) Right low back pain (Acute) Urinary frequency (Acute) Abnormal CT of the abdomen (Acute) Varicose veins of left lower extremity with inflammation (Acute) Bilateral knee pain (Acute) Physical exam (Acute) Chronic GERD (Acute) History of sleeve gastrectomy (Acute) Essential hypertension (Acute) Left foot pain (Acute) Avulsion fracture of metatarsal bone (Acute) URI (upper respiratory infection) (Acute) Sprain of left foot (Acute) History of carpal tunnel surgery of left wrist (Acute) Osteoarthritis of distal interphalangeal (DIP) joint of right middle finger (Acute) Fibromyalgia (Acute) Morbid obesity with BMI of 40.0-44.9, adult (Acute) Mild recurrent major depression (Acute) Venous (peripheral) insufficiency (Acute) Skin lesion (Acute) Polyarthralgia (Acute) Mild asthma (Acute) Depression with anxiety (Acute) Hypothyroid (Acute) Hypovitaminosis D (Acute) Past Medical History Medical History Acid reflux Depression with anxiety Fibromyalgia Hypothyroid Hypovitaminosis D Mild asthma Mild recurrent major depression Morbid obesity with BMI of 40.0-44.9, adult Polyarthralgia Skin lesion Venous (peripheral) insufficiency Family History Family History Father Hypertension Mother Hypertension Maternal Aunt Breast cancer Family/Other FH: mental illness Paternal Grandfather No problems noted. Paternal Grandmother Hypertension Maternal Grandfather No problems noted. Maternal Grandmother Cervical cancer Surgical History Surgical History History of carpal tunnel release History of gastric surgery History of laparoscopic cholecystectomy History of tonsillectomy History of tubal ligation S/P laparoscopic sleeve gastrectomy Social History Social History Housing: Apartment Alcohol intake: never Patient Tobacco Use Status: Never used Tobacco e-Cigarette/Vaping Use: Never Used Second Hand Smoke Exposure: No Use of substances other than those prescribed or required for medical reasons: No Are you DNR?: No Advance Directives: No Advance Directives Information Provided: Yes Recently lost weight without trying: No Nutrition Risks: No Nutritional Risk Patient : No service: No Current occupational status: unemployed and disabled Current occupation: rt hand Current occupational exposures/hazards: No Cognitive needs: No Hearing needs: No Vision needs: Yes Meds Allergies Allergy/AdvReac Type Severity Reaction Status Date / Time No Known Allergies Allergy Verified 03/19/23 13:43 [No Known Allergies*] Active Medications: Current Medications Albuterol Sulfate (Albuterol Sulfate (0.083%) 2.5 Mg/3 Ml Vial.Neb) 2.5 mg INHALE ONCE PRN PRN Reason: Shortness of Breath/Wheezing Lactated Ringer's (Lr) 1,000 mls @ 100 mls/hr IVCONT .Q10H ON LICENSE OF [facility] Exam Exam Date and Time: April 01, 2023 1008 Height,Weight and Vital Signs: Height 5 ft 2 in Weight 102.965 kg
[2023-04-01 10:10] VITALS: BP 102/58; PULSE 60; RESP 16; TEMP 36.4; O2SAT 98
--- NOTE | 2023-04-01 10:14 | HO.ANESPROP2 ---
[facility] Active Problems Active Problems: All Active Problems (Updated 03/28/23 @ 13:41 by Bebe Morgan RN) Allergic rhinitis (Acute) Decreased sense of smell (Acute) Cough (Acute) Bilateral carpal tunnel syndrome (Acute) Calcaneal spur of both feet (Acute) Carpal tunnel syndrome of left wrist (Acute) Carpal tunnel syndrome of right wrist (Acute) Status post carpal tunnel release (Acute) Left wrist pain (Acute) Right flank pain (Acute) Right low back pain (Acute) Urinary frequency (Acute) Abnormal CT of the abdomen (Acute) Varicose veins of left lower extremity with inflammation (Acute) Bilateral knee pain (Acute) Physical exam (Acute) Chronic GERD (Acute) History of sleeve gastrectomy (Acute) Essential hypertension (Acute) Left foot pain (Acute) Avulsion fracture of metatarsal bone (Acute) URI (upper respiratory infection) (Acute) Sprain of left foot (Acute) History of carpal tunnel surgery of left wrist (Acute) Osteoarthritis of distal interphalangeal (DIP) joint of right middle finger (Acute) Fibromyalgia (Acute) Morbid obesity with BMI of 40.0-44.9, adult (Acute) Mild recurrent major depression (Acute) Venous (peripheral) insufficiency (Acute) Skin lesion (Acute) Polyarthralgia (Acute) Mild asthma (Acute) Depression with anxiety (Acute) Hypothyroid (Acute) Hypovitaminosis D (Acute) Past Medical History Medical History Acid reflux Depression with anxiety Fibromyalgia Hypothyroid Hypovitaminosis D Mild asthma Mild recurrent major depression Morbid obesity with BMI of 40.0-44.9, adult Polyarthralgia Skin lesion Venous (peripheral) insufficiency Family History Family History Father Hypertension Mother Hypertension Maternal Aunt Breast cancer Family/Other FH: mental illness Paternal Grandfather No problems noted. Paternal Grandmother Hypertension Maternal Grandfather No problems noted. Maternal Grandmother Cervical cancer Surgical History Surgical History History of carpal tunnel release History of gastric surgery History of laparoscopic cholecystectomy History of tonsillectomy History of tubal ligation S/P laparoscopic sleeve gastrectomy Social History Social History Housing: Apartment Alcohol intake: never Patient Tobacco Use Status: Never used Tobacco e-Cigarette/Vaping Use: Never Used Second Hand Smoke Exposure: No Use of substances other than those prescribed or required for medical reasons: No Are you DNR?: No Advance Directives: No Advance Directives Information Provided: Yes Recently lost weight without trying: No Nutrition Risks: No Nutritional Risk Patient : No service: No Current occupational status: unemployed and disabled Current occupation: rt hand Current occupational exposures/hazards: No Cognitive needs: No Hearing needs: No Vision needs: Yes Meds Allergies Allergy/AdvReac Type Severity Reaction Status Date / Time No Known Allergies Allergy Verified 03/19/23 13:43 [No Known Allergies*] Active Medications: Current Medications Albuterol Sulfate (Albuterol Sulfate (0.083%) 2.5 Mg/3 Ml Vial.Neb) 2.5 mg INHALE ONCE PRN PRN Reason: Shortness of Breath/Wheezing Lactated Ringer's (Lr) 1,000 mls @ 100 mls/hr IVCONT .Q10H [facility] Exam Exam Date and Time: April 01, 2023 1014 Height,Weight and Vital Signs: Height 5 ft 2 in Weight 102.965 kg Airway Mallampati Class: III TM Dist: >3cm Neck ROM: Full Heart: RRR Lungs: CTA Assessment and Plan Final Anesthetic Review ASA Class: III Final Preanesthetic Review: Meds/Allgs Chart Reviewed, Consent Obtained/Reviewed and Anes Risks/Benef Reviewed Patient Risk: Intermediate Procedure Risk: Low Anesthetic Plan Anesthetic Plan: MAC: Disposition: Standard PACU
[2023-04-01] MEDS: Lactated Ringers 1,000 ML 100 ML IVCONT (10:39)
--- NOTE | 2023-04-01 11:57 | MHC.SHP ---
Pre-Procedural Eval Section A Date of Service: 04/01/23 The patient is an INPATIENT: No Changes since office visit: Yes Patient answered all questions; No Cold of Flu in the past 2 weeks, No New Medical Problems and No Changes in Medication The History & Physical has been completed within 30 days and I have reviewed it.: Yes Section B Chief Complaint: Gastro-esophageal reflux disease,screening Allergies: Allergies Allergy/AdvReac Type Severity Reaction Status Date / Time spinach Allergy Severe Hives Verified 04/01/23 10:51 Plan I have reviewed the history and physical and performed a pertinent physical examination on my patient. No changes have occurred unless specified. Time Spent With Patient Time: Total time managing care of this patient today ____ minutes.
--- NOTE | 2023-04-01 12:00 | P.OP_ITS ---
Operative Note Operative Note Date of Service: 04/01/23 Narrative: FLEXIBLE TRANSORAL UPPER GASTROINTESTINAL ENDOSCOPY WITH BIOPSIES AND COLONOSCOPY TILL CECUM Pre-op diagnosis: Colon cancer screening, GERD, dyspepsia Post-op diagnosis: Hiatal hernia, esophagitis, gastritis? Endoscopist:? Fernando Egan MD Anesthesia:?MAC UPPER ENDOSCOPY Consent: Indications for the procedure and potential complications of bleeding, perforation, reaction to medications and missed diagnosis were discussed with the patient and informed consent was obtained. Instrument: Olympus GIF H 190 mid size upper endoscope Monitoring: Vital signs and clinical assessment, continuous EKG monitoring, Pulse oximetry, Carbon Dioxide monitoring and blood pressure monitoring were done throughout the procedure. Procedure: The patient was placed in the left lateral decubitis position and pre-procedure medications were administered and a bite block was placed. The endoscope was inserted into the mouth and advanced under direct vision to the third part of duodenum. A careful inspection was made as the upper endoscope was withdrawn including a retroflexed examination of the proximal stomach; Findings and interventions are described below. Findings: Larynx: Normal Esophagus: GE junction at 33 cms, small hiatal hernia 33 to 35 cms. A single 1 cms linear erosion at GE junction and no Darnell's. Stomach: Mild diffuse gastric erythema. Biopsies were obtained. Grade 3 flap valve on retroflexed examination of the cardia. Duodenum: Normal bulb and descending duodenum. Biopsies were obtained from 3rd part of duodenum to check for celiac sprue Intervention: Biopsies as noted above COLONOSCOPY PROCEDURE NOTE Consent: Indications for the procedure and potential complications of bleeding, perforation, reaction to medications and missed diagnosis were discussed with the patient and informed consent was obtained. Instrument: Olympus PCF H 190 L variable stiffness pediatric colonoscope Monitoring: Vital signs and clinical assessment, intermittent blood pressure monitoring, continuous EKG monitoring, Pulse oximetry and Carbon Dioxide monitoring were done throughout the procedure. Colon withdrawl time was 17 minutes. Procedure: The patient was placed in the left lateral decubitis position and pre-procedure medications were administered. After a digital rectal examination of the ano-rectum, the video colonoscope was inserted into the rectum and advanced through the colon to the cecum. The colonoscope was slowly withdrawn in a retrograde panoramic fashion and the colon mucosa was carefully examined including a retroflexed view of the rectum. Findings and interventions are described below. Procedure Difficulty: : Without difficulty Findings: Terminal Ileum: Not evaluated Cecum: Normal Ascending Colon: Normal Transverse Colon: Normal Descending Colon: Normal Sigmoid Colon: Moderate diverticulosis Rectum: Normal Ano-rectum: Moderate internal hemorrhoids Colon preparation: Good after some irrigation Impression and Post Procedure Diagnosis: Endoscopy Findings: ESOPHAGUS: Small hiatal hernia and a focal erosion STOMACH: Mild diffuse gastritis DUODENUM: Normal - biopsied to check for celiac sprue Colonoscopy Findings: No polyps were detected. Moderate diverticulosis seen in the sigmoid colon Moderate hemorrhoids on retroflexed exam. Plan: Await pathology results Patient advised to increase Omeprazole to 20 mg twice a day Patient has an appointment on 04/22/23 in the GI Clinic with Leigha Donato FNP- BC. Repeat Colonoscopy in 10 years. Above findings were reviewed with the patient and GERD, Hiatal hernia and diverticulosis handouts were given in the discharge area
[2023-04-01 13:07] VITALS: BP 109/56; PULSE 61; RESP 16; TEMP 36.2; O2SAT 97
[2023-04-01 13:22] VITALS: BP 124/66; PULSE 57; RESP 16; TEMP 36.6; O2SAT 97
--- NOTE | 2023-04-01 14:17 | HO.POSTANES ---
Post Anesthesia Evaluation Post Anesthesia Evaluation Vital Signs: Vital Signs Temp Pulse Resp BP Pulse Ox O2 Del Method 04/01/23 13:22 98 F 57 16 124/66 97 Room Air 04/01/23 13:07 97.2 F 61 16 109/56 L 97 Room Air 04/01/23 10:10 97.6 F 60 16 102/58 L 98 Room Air Anesthesia: Monitored Mental Status: Awake Pain Control: Satisfactory Nausea/Vomiting: None Hydration: Adequate Anesthesia-Related Issues: No Anes. Related Issues
== END 2023-04-01 14:34 | disposition home or self-care (01) ==
PROVIDERS: PCP Internal Medicine; Visit Provider Internal Medicine Gastroenterology
PROC: (CPT 45378; principal; 2023-04-01 11:20)
DX: Z12.11 Encounter for screening for malignant neoplasm of colon (principal); K57.30 Diverticulosis of large intestine without perforation or abscess without bleeding; K64.8 Other hemorrhoids; K21.00 Gastro-esophageal reflux disease with esophagitis, without bleeding; K29.70 Gastritis, unspecified, without bleeding; K44.9 Diaphragmatic hernia without obstruction or gangrene; Z79.899 Other long term (current) drug therapy
CPT/HCPCS: 45378; 43239; 88305; 88342

== ENCOUNTER 2023-06-13 14:17 | Outpatient (AMB) | payer OTHER, SELFPAY ==
--- NOTE | 2023-06-13 14:19 | MHC.PC.OV ---
Vital Signs 06/13/23 14:21 Height 5 ft 2 in Weight 232 lb BMI 42.4 BP 128/80 Blood Pressure Location Lt brachial Position Sitting Intake Visit Reasons: Annual Exam Intake Note: Patient here for an annual physical exam Slitter And Cutter Operator Required: No Accompanied by: Self / Same As Patient Allergies spinach Allergy (Severe, Verified 06/13/23 14:31) Hives Medication List - Last Reconciled 06/13/23 by Rehana De Anda MD albuterol sulfate 90 mcg/actuation (Ventolin HFA) 1 inh inhalation QID PRN albuterol sulfate 2.5 mg (3 mL) inhalation Q4-6H PRN 30 days bupropion HCl 150 mg (1/2 x 300 mg) PO DAILY 14 days cetirizine (Zyrtec) 10 mg PO DAILY cholecalciferol (vitamin D3) 25 mcg PO DAILY 90 days gabapentin 300 mg PO BEDTIME 90 days gabapentin 100 mg PO BID 30 days levothyroxine 75 mcg PO DAILY 90 days lisinopril 10 mg PO DAILY 90 days nebulizers (AeroEclipse II Nebulizer) As directed omeprazole 20 mg PO DAILY 90 days Tobacco use date assessed: 01/01/23 Dental Screening Dental Screen Date: 06/13/23 Did you have a dental visit in the last 12 months?: Yes Did you have a dental problem in the last 6 months where you did not have access to dental care?: No Was dental information given to patient?: Patient has dentist HPI HPI Comments History of Present Illness Details This is a 58-year-old female with mild recurrent major depression and morbid obesity that comes for her physical exam. Depression stable with bupropion. She is morbidly obese with a BMI of 42.4 and will start seen weight management. As per patient last mammogram was 2022. Last colonoscopy was 2022 also. Pap smear is scheduled for this year. No chest pain or shortness of breath. Complains of diffuse joint pain due to fibromyalgia and I will increase gabapentin. Patient advised that gabapentin can cause sleepiness. [facility] Medical History Acid reflux Depression with anxiety Fibromyalgia Hypothyroid Hypovitaminosis D Mild asthma Mild recurrent major depression Morbid obesity with BMI of 40.0-44.9, adult Polyarthralgia Skin lesion Venous (peripheral) insufficiency Surgical History History of carpal tunnel release History of esophagogastroduodenoscopy (EGD) History of gastric surgery History of laparoscopic cholecystectomy History of tonsillectomy History of tubal ligation Hx of colonoscopy S/P laparoscopic sleeve gastrectomy Family History Father Hypertension Mother Hypertension Maternal Aunt Breast cancer Family/Other FH: mental illness Paternal Grandfather No problems noted. Paternal Grandmother Hypertension Maternal Grandfather No problems noted. Maternal Grandmother Cervical cancer Social History Housing: Apartment Alcohol intake: never Patient Tobacco Use Status: Never used Tobacco e-Cigarette/Vaping Use: Never Used Second Hand Smoke Exposure: No service: No Current occupational status: unemployed and disabled Current occupation: rt hand Current occupational exposures/hazards: No Cognitive needs: No Hearing needs: No Vision needs: Yes Questionnaire Thrive Questionnaire Date Thrive assessed: 01/01/23 NITIN-7 AMB Questionnaire NITIN-7 Date NITIN - 7 assessed: 01/01/23 Source: Developed by Drs. Chase Salvador, Phyllis Martinez, Graham Gregorio and colleagues, with an educational andrew from [employer]. Review of Systems Const All systems reviewed & are unremarkable except as noted in HPI and below Eyes Reports no additional complaints, Denies change in vision and Denies other visual disturbances Card Denies chest pain at rest, Denies chest pain with activity, Denies edema, Denies irregular heart rhythm, Denies claudication, Denies dyspnea, Denies dyspnea on exertion, Denies orthopnea, Denies paroxysmal nocturnal dyspnea and Denies slow heart rate Resp Denies cough, Denies dyspnea and Denies dyspnea on exertion GI Denies abdominal pain, Denies change in bowel habits, Denies excessive flatus, Denies nausea and Denies vomiting Denies urinary incontinence, Denies urinary hesitancy and Denies urinary urgency Musc Denies abnormal gait, Denies atrophy, Denies deformity and Denies limited range of motion Skin/Breast Denies bleeding lesions, Denies changing lesions and Denies rash Neuro Denies abnormal gait and Denies lack of coordination Physical exam (Primary Care) Vital Signs: Last Vital Signs BP 128/80 06/13/23 14:21 BMI result Body Mass Index 42.4 Tobacco/Smoking Status: Tobacco use Status Tobacco use date assessed 01/01/23 06/13/23 14:24 Patient Tobacco Use Status Never used Tobacco 06/13/23 14:24 e-Cigarette/Vaping Use Never Used 06/13/23 14:24 Thrive Assessment: Date of Thrive Assessment Date Thrive assessed 01/01/23 06/13/23 14:24 Const Orientation/consciousness: patient oriented x3 HENMT Head: Yes normal to inspection, Yes normocephalic and Yes atraumatic Ears: external ears normal Eyes General: appearance normal, both eyes and all related structures Eyelids: Yes eyelids normal Conjunctivae: conjunctivae normal Neck Neck: Yes normal visual inspection and Yes supple Resp Effort & Inspection: normal respiratory effort Auscultation: clear to auscultation bilaterally Cardio Jugular venous distension: no JVD Rate: regular rate Rhythm: regular rhythm Heart sounds: S1 normal heart sound present and S2 normal heart sound present GI Inspection: Yes normal to inspection Palpation (GI): Soft to palpation and nontender Auscultation: normal bowel sounds Skin General skin exam: no rashes or lesions noted Neuro General: patient oriented x3 and no focal motor deficits Extrem General: Yes full ROM Right lower extremity: knee Details: tenderness Left lower extremity: knee Details: tenderness Psych Appearance: grossly normal Assessment and Plan Assessment & Plan (1) Physical exam: Code(s): Z00.00 - Encounter for general adult medical examination without abnormal findings Plan: Repeat in a year (2) Morbid obesity with BMI of 40.0-44.9, adult: Code(s): E66.01 - Morbid (severe) obesity due to excess calories; Z68.41 - Body mass index [BMI] 40.0-44.9, adult Plan: Referred to weight management. BMI goal is less than 30. (3) Mild recurrent major depression: Code(s): F33.0 - Major depressive disorder, recurrent, mild Plan: Continue bupropion Orders: Orders Comprehensive Met. Panel Today J30.9 - Allergic rhinitis, unspecified Lipid Panel Today E78.5 - Hyperlipidemia, unspecified Thyroid Stimulating Hormone Today E03.9 - Hypothyroidism, unspecified Vitamin D 25-OH Total Today E55.9 - Vitamin D deficiency, unspecified Medications: New diclofenac sodium 1% (Arthritis Pain (diclofenac)) apply to single elbow, wrist or hand; for hand includes palm/fingers/back of hand 2 grams topical QID PRN 100 grams 1RF pain 30 days Coding Level of Care Code Est Pt Prev Care 40-64y(22428) Diagnoses Physical exam Z00.00 Morbid obesity with BMI of 40.0-44.9, adult E66.01; Z68.41 Mild recurrent major depression F33.0 Time Spent (min) 32
[2023-06-13 14:21] VITALS: BP 128/80; BMI 42.4
== END 2023-06-13 14:41 | disposition home or self-care (01) ==
PROVIDERS: PCP Internal Medicine; Visit Provider Internal Medicine
DX: Z00.00 Encounter for general adult medical examination without abnormal findings (principal); E66.01 Morbid (severe) obesity due to excess calories; Z68.41 Body mass index [BMI] 40.0-44.9, adult; F33.0 Major depressive disorder, recurrent, mild
CPT/HCPCS: 99396

== ENCOUNTER 2023-06-24 11:06 | Outpatient (REF) | payer OTHER, SELFPAY ==
--- NOTE | ~2023-06-24 | XR_ITS ---
EXAMINATION: XR KNEE AP STANDING, BILATERAL XR KNEE, LEFT XR KNEE, RIGHT CLINICAL INFORMATION: Bilateral knee pain. COMPARISON: 06/30/2018 TECHNIQUE: AP bilateral standing view of the knees was obtained. Lateral and sunrise views of the bilateral knees. FINDINGS: RIGHT KNEE: Moderate degenerative changes in the patellofemoral joint with joint space narrowing and prominent osteophytes. Moderate joint effusion. Small medial and moderate lateral marginal osteophytes. LEFT KNEE: Marked degenerative changes in the patellofemoral joint with joint space narrowing and prominent osteophytes. Moderate to marked medial joint space narrowing with medial marginal osteophytes. Moderate joint effusion. XR/XR knee standing BI IMPRESSION: Degenerative changes left knee greater than right.
--- NOTE | ~2023-06-24 | XR_ITS ---
EXAMINATION: XR KNEE AP STANDING, BILATERAL XR KNEE, LEFT XR KNEE, RIGHT CLINICAL INFORMATION: Bilateral knee pain. COMPARISON: 06/30/2018 TECHNIQUE: AP bilateral standing view of the knees was obtained. Lateral and sunrise views of the bilateral knees. FINDINGS: RIGHT KNEE: Moderate degenerative changes in the patellofemoral joint with joint space narrowing and prominent osteophytes. Moderate joint effusion. Small medial and moderate lateral marginal osteophytes. LEFT KNEE: Marked degenerative changes in the patellofemoral joint with joint space narrowing and prominent osteophytes. Moderate to marked medial joint space narrowing with medial marginal osteophytes. Moderate joint effusion. XR/XR knee RT 2V IMPRESSION: Degenerative changes left knee greater than right.
--- NOTE | ~2023-06-24 | XR_ITS ---
EXAMINATION: XR KNEE AP STANDING, BILATERAL XR KNEE, LEFT XR KNEE, RIGHT CLINICAL INFORMATION: Bilateral knee pain. COMPARISON: 06/30/2018 TECHNIQUE: AP bilateral standing view of the knees was obtained. Lateral and sunrise views of the bilateral knees. FINDINGS: RIGHT KNEE: Moderate degenerative changes in the patellofemoral joint with joint space narrowing and prominent osteophytes. Moderate joint effusion. Small medial and moderate lateral marginal osteophytes. LEFT KNEE: Marked degenerative changes in the patellofemoral joint with joint space narrowing and prominent osteophytes. Moderate to marked medial joint space narrowing with medial marginal osteophytes. Moderate joint effusion. XR/XR knee LT 2V IMPRESSION: Degenerative changes left knee greater than right.
== END 2023-06-24 11:07 | disposition home or self-care (01) ==
LOC: HO.HOSX 11:06
PROVIDERS: PCP Internal Medicine; Visit Provider Physician Assistant
DX: M17.0 Bilateral primary osteoarthritis of knee (principal)
CPT/HCPCS: 73560; 73565; 99212

== ENCOUNTER 2023-06-24 11:06 | Outpatient (AMB) | payer OTHER, SELFPAY ==
--- NOTE | 2023-06-24 11:08 | MHC.OFFVIS ---
Intake Vital Signs 06/24/23 11:15 Height 5 ft 2 in Weight 232 lb BMI 42.4 Intake Visit Reasons: New Prob - B/l Knees Pain Intake Note: Zoila is a 58 year old female who presents today for a evaluation for her bilateral knee pain. Hx of injections with 1 months of relief. No hx of PT. No hx of injury. Patient reports off and on pain for a year, and it started getting worse about 2 months ago. She states that her right knee is worse than her left knee. Her pain is on the lateral and medial aspect of the knee per patient. Patient reports pain is worse when sitting, standing and walking. Allergies spinach Allergy (Severe, Verified 06/24/23 11:13) Hives HPI New Prob - B/l Knees Pain HPI Details 58-year-old female who presents in the office today for an evaluation of bilateral knee pain. The patient does not recall any known injury. She claims to have intermittent pain for a year, which began to increase about 2 months ago. She states her right knee is worse then her left knee. She confirms pain on the lateral and medial aspect of the bilateral knees. She claims the pain increases with sitting, standing, and ambulation. Patient has a history of cortisone injections with 1 months of relief. Patient has no history of physical therapy. [facility] Medical History Acid reflux Depression with anxiety Fibromyalgia Hypothyroid Hypovitaminosis D Mild asthma Mild recurrent major depression Morbid obesity with BMI of 40.0-44.9, adult Polyarthralgia Skin lesion Venous (peripheral) insufficiency Surgical History History of carpal tunnel release History of esophagogastroduodenoscopy (EGD) History of gastric surgery History of laparoscopic cholecystectomy History of tonsillectomy History of tubal ligation Hx of colonoscopy S/P laparoscopic sleeve gastrectomy Family History Father Hypertension Mother Hypertension Maternal Aunt Breast cancer Family/Other FH: mental illness Paternal Grandfather No problems noted. Paternal Grandmother Hypertension Maternal Grandfather No problems noted. Maternal Grandmother Cervical cancer Social History Housing: Apartment Alcohol intake: never Patient Tobacco Use Status: Never used Tobacco e-Cigarette/Vaping Use: Never Used Second Hand Smoke Exposure: No service: No Current occupational status: unemployed and disabled Current occupation: rt hand Current occupational exposures/hazards: No Cognitive needs: No Hearing needs: No Vision needs: Yes Review of Systems Const All systems reviewed & are unremarkable except as noted in HPI and below Physical Exam Vital Signs: BMI result Body Mass Index 42.4 Const General: cooperative and no acute distress Orientation/consciousness: patient oriented x3 Resp Effort & Inspection: normal respiratory effort and able to speak in complete sentences Cardio Peripheral pulses: Peripheral pulses 2+ throughout Neuro General: patient oriented x3 Extrem Other: Bilateral knees: Normal to inspection. No ecchymosis, erythema, or joint effusion. No tenderness to palpation to the medial or lateral joint lines. Full knee extension and flexion. Crepitus felt with ROM. NVI. Psych Mental Status: mental status grossly normal Assessment & Plan Assessment & Plan (1) Osteoarthritis of right knee: Code(s): M17.11 - Unilateral primary osteoarthritis, right knee (2) Osteoarthritis of left knee: Code(s): M17.12 - Unilateral primary osteoarthritis, left knee Plan Ms. Avalos is a 58-year-old female who presents in the office today for an evaluation of bilateral knee pain. The patient does not recall any known injury. She claims to have intermittent pain for a year, which began to increase about 2 months ago. She states her right knee is worse then her left knee. She confirms pain on the lateral and medial aspect of the bilateral knees. She claims the pain increases with sitting, standing, and ambulation. Patient has a history of cortisone injections with 1 months of relief. Patient has no history of physical therapy. We discussed the role of cortisone injections. However, she would like to discuss more options due to the cortisone injections only giving her one month of relief. We will petition the insurance for Gel injections. Once approved we will call the patient to schedule for her to come in. Follow up will be once insurance approves the Gel injections, or sooner if needed. X-rays of the bilateral knees which were obtained while in the office today and were reviewed by me, Bibi Starks PA-C, revealed osteoarthritis bilaterally left is greater then right. Orders: Orders XR knee LT 2V 06/24/23 M25.569 - Pain in unspecified knee XR knee RT 2V 06/24/23 M25.569 - Pain in unspecified knee XR knee standing BI 06/24/23 M25.569 - Pain in unspecified knee Patient Instructions: Scribed for Bibi Starks PA-C by Fatmata Judd, healthcare or medical, on 06/24/2023 at 11:00 am, EST. Your attestation Quality Reporting (2019) Adult ([facility] 138/[birth year]/23/69) Smoking risk assessment performed?: Yes Patient Tobacco Use Status: Never used Tobacco Coding Level of Care Code Est Pt Level 3 (52785) Diagnoses Osteoarthritis of right knee M17.11 Osteoarthritis of left knee M17.12
[2023-06-24 11:15] VITALS: BMI 42.4
== END 2023-06-24 12:15 | disposition home or self-care (01) ==
PROVIDERS: PCP Internal Medicine; Visit Provider Physician Assistant
DX: M17.0 Bilateral primary osteoarthritis of knee (principal)
CPT/HCPCS: 99213

== ENCOUNTER 2023-08-15 14:36 | Outpatient (AMB) | payer OTHER, SELFPAY ==
--- NOTE | 2023-08-15 14:47 | A.OFFVIS_ITS ---
Intake Vital Signs 08/15/23 14:50 Height 5 ft 2 in Weight 232 lb BMI 42.4 Intake Visit Reasons: OV - B/L knee gel Durolane injection Intake Note: Zoila 58 yr old female presents today for her gel injection of bilateral knees. Durolane gel injection. Allergies spinach Allergy (Severe, Verified 08/15/23 14:51) Hives HPI OV - B/L knee gel Durolane injection HPI Details 58-year-old female who presents in the [facility] today for a follow up of bilateral knee pain. She presents today to receive her Durolane injections in the bilateral knees. [facility] Medical History Acid reflux Depression with anxiety Fibromyalgia Hypothyroid Hypovitaminosis D Mild asthma Mild recurrent major depression Morbid obesity with BMI of 40.0-44.9, adult Polyarthralgia Skin lesion Venous (peripheral) insufficiency Surgical History History of carpal tunnel release History of esophagogastroduodenoscopy (EGD) History of gastric surgery History of laparoscopic cholecystectomy History of tonsillectomy History of tubal ligation Hx of colonoscopy S/P laparoscopic sleeve gastrectomy Family History Father Hypertension Mother Hypertension Maternal Aunt Breast cancer Family/Other FH: mental illness Paternal Grandfather No problems noted. Paternal Grandmother Hypertension Maternal Grandfather No problems noted. Maternal Grandmother Cervical cancer Social History Housing: Apartment Alcohol intake: never Patient Tobacco Use Status: Never used Tobacco e-Cigarette/Vaping Use: Never Used Second Hand Smoke Exposure: No service: No Current occupational status: unemployed and disabled Current occupation: rt hand Current occupational exposures/hazards: No Cognitive needs: No Hearing needs: No Vision needs: Yes Review of Systems Const All systems reviewed & are unremarkable except as noted in HPI and below Physical Exam Vital Signs: BMI result Body Mass Index 42.4 Const General: cooperative and no acute distress Orientation/consciousness: patient oriented x3 Resp Effort & Inspection: normal respiratory effort and able to speak in complete sentences Cardio Peripheral pulses: Peripheral pulses 2+ throughout Neuro General: patient oriented x3 Extrem Other: Bilateral knees: Normal to inspection. No ecchymosis, erythema, or joint effusion. No tenderness to palpation to the medial or lateral joint lines. Full knee extension and flexion. Crepitus felt with ROM. NVI. Psych Mental Status: mental status grossly normal Office Procedures Joint Injection/Drain Joint Injection/Drain Primary Site: right knee Secondary Site: left knee Prep: site was prepped using aseptic technique, ethochloride spray was applied and injection warnings given Injected: in the joint (Durolane single injection ) Approach Used: anterolateral Procedure: The patient tolerated the procedure well, but had some pain with the injection and there was some relief with the local anesthesia Coding 94153 - Large joint Procedure code (CPT) selection complete Results Reviewed Results Reviewed: 08/15/23 14:43 Hyaluronate Sodium, Stabilized [Durolane] 60 mg INTRAARTIC .STK-MED ONE Assessment & Plan Assessment & Plan (1) Osteoarthritis of right knee: Code(s): M17.11 - Unilateral primary osteoarthritis, right knee Qualifiers: Osteoarthritis type: unspecified Qualified Code(s): M17.11 - Unilateral primary osteoarthritis, right knee (2) Osteoarthritis of left knee: Code(s): M17.12 - Unilateral primary osteoarthritis, left knee Qualifiers: Osteoarthritis type: unspecified Qualified Code(s): M17.12 - Unilateral primary osteoarthritis, left knee Plan Ms. Avalos is a 58-year-old female who presents in the office today for a follow up of bilateral knee pain. She presents today to receive her Durolane injections in the bilateral knees. The patient was offered a Durolane injection in the bilateral knees. The patient was explained the risk, benefits, and alternatives to receiving this injection. After receiving consent for the injection, the patient had the procedure done while in office today. The patient tolerated the procedure well with no complications. Follow up will be PRN, or sooner if needed. Patient Instructions: Scribed for Bibi Starks PA-C by bernadette Fallon scribe, on 08/15/2023 at 2:38 pm, EST. Quality Reporting (2019) Adult ([facility] 138/01/23/69) Smoking risk assessment performed?: Yes Patient Tobacco Use Status: Never used Tobacco Coding Level of Care Code Procedure Only Diagnoses Osteoarthritis of right knee, unspecified osteoarthritis type M17.11 Osteoarthritis type: unspecified Osteoarthritis of left knee, unspecified osteoarthritis type M17.12 Osteoarthritis type: unspecified CPT Codes Coding - 22479 Large joint: 20620 - Large joint ([id number])
[2023-08-15 14:50] VITALS: BMI 42.4
== END 2023-08-15 15:06 | disposition home or self-care (01) ==
PROVIDERS: PCP Internal Medicine; Visit Provider Physician Assistant
DX: M17.0 Bilateral primary osteoarthritis of knee (principal)
CPT/HCPCS: 20610

== ENCOUNTER → 2023-08-15 14:36 | Outpatient (BNVA) | payer OTHER, SELFPAY | PROVIDERS: PCP Internal Medicine; Visit Provider Physician Assistant | DX: M17.0 Bilateral primary osteoarthritis of knee (principal) | CPT/HCPCS: 20610; J7318 ==

== ENCOUNTER 2023-08-28 12:44 | Outpatient (AMB) | payer OTHER, SELFPAY ==
[2023-08-28 12:54] VITALS: BMI 42.4
--- NOTE | 2023-08-28 12:54 | MHC.OFFVIS ---
Intake Vital Signs 08/28/23 12:54 Height 5 ft 2 in Weight 232 lb BMI 42.4 Intake Visit Reasons: OV - RT CTS Intake Note: Zoila 58 yr old female presents today for her EMG review for bilateral hand numbness. Hx of left hand CTR with AR 06/08/21 Allergies spinach Allergy (Severe, Verified 08/28/23 12:56) Hives HPI OV - RT CTS HPI Details Zoila is a 58 year old right hand dominant woman who presents to discuss her right carpal tunnel syndrome. She has a Hx of left carpal tunnel release, dos: 06/08/21, with good resolution of her symptoms. She has numbness intermittent, but daily, worse at night, in her right hand. She denies any small finger numbness. At her last appointment she was scheduled for surgery but did not proceed. She has normal sensation in her left hand and is happy with these results She also has right middle finger DIP joint OA. No complaints about this today. [facility] Medical History Acid reflux Depression with anxiety Fibromyalgia Hypothyroid Hypovitaminosis D Mild asthma Mild recurrent major depression Morbid obesity with BMI of 40.0-44.9, adult Polyarthralgia Skin lesion Venous (peripheral) insufficiency Surgical History History of carpal tunnel release History of esophagogastroduodenoscopy (EGD) History of gastric surgery History of laparoscopic cholecystectomy History of tonsillectomy History of tubal ligation Hx of colonoscopy S/P laparoscopic sleeve gastrectomy Family History Father Hypertension Mother Hypertension Maternal Aunt Breast cancer Family/Other FH: mental illness Paternal Grandfather No problems noted. Paternal Grandmother Hypertension Maternal Grandfather No problems noted. Maternal Grandmother Cervical cancer Social History Housing: Apartment Alcohol intake: never Patient Tobacco Use Status: Never used Tobacco e-Cigarette/Vaping Use: Never Used Second Hand Smoke Exposure: No service: No Current occupational status: unemployed and disabled Current occupation: rt hand Current occupational exposures/hazards: No Cognitive needs: No Hearing needs: No Vision needs: Yes Review of Systems Const All systems reviewed & are unremarkable except as noted in HPI and below Physical Exam Vital Signs: BMI result Body Mass Index 42.4 Const General: no acute distress and alert Orientation/consciousness: patient oriented x3 Neuro General: patient oriented x3 Extrem Other: Evaluation of Right Upper Extremity: The patient is alert, oriented, and in no acute distress Neuro: Median, Ulnar, Radial nerves motor and sensory intact and sensation is normal to the tips of all digits today in clinic No thenar or intrinsic wasting Good APB muscle belly firing and good finger cross Vascular: Cap refill brisk ROM: She could bring all her fingers into a closed fist and back into full extension. No locking or catching. Nerve Conduction Study: IMPRESSION:? [id number] bilateral median neuropathy across carpal tunnel. ? 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 Right Carpal tunnel syndrome, mild-moderate Symptoms intermittent, but daily, worse at night I educated her about this condition I discussed operative and non-operative treatment options The patient would like to proceed with surgery The risks and benefits of operative treatment were discussed with the patient and the patient wishes to proceed with surgery. These risks include, but are not limited to risk of damage to blood vessels, nerves, tendons, infection, recurrence, incomplete relief of preoperative symptoms, persistent pain, possible need for further surgery and the risks associated with regional blocks and anesthesia. The plan is to take the patient to the operating room sometime in the next few weeks for the following procedures: 1. Right carpal tunnel release, under local All of the preoperative paperwork including the consent was filled out today. All the patient's questions were answered. The patient understands that they will be contacted by our valet cashier soon to schedule this procedure She denies Diabetes, blood thinners, asthma, heart, lung, kidney issues 2. Right middle finger DIP joint osteoarthritis No complaints today 3. Left Carpal tunnel syndrome, S/P release DOS: 06/08/21 With excellent resolution of symptoms and normal sensation. Scribed for Rowan Simons MD by Doron Sparks, medical assistant prn, on 08/28/23 at 1:10 PM, EST. 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
== END 2023-08-28 13:15 | disposition home or self-care (01) ==
PROVIDERS: PCP Internal Medicine; Visit Provider Orthopaedic Surgery
DX: G56.01 Carpal tunnel syndrome, right upper limb (principal)
CPT/HCPCS: 99214

== ENCOUNTER → 2023-08-28 12:44 | Outpatient (BNVA) | payer OTHER, SELFPAY | PROVIDERS: PCP Internal Medicine; Visit Provider Orthopaedic Surgery | DX: G56.01 Carpal tunnel syndrome, right upper limb (principal); M15.1 Heberden's nodes (with arthropathy); Z98.890 Other specified postprocedural states | CPT/HCPCS: 99212 ==

== ENCOUNTER 2023-10-07 12:14 | Outpatient (REF) | payer OTHER, SELFPAY ==
--- NOTE | ~2023-10-07 | XR_ITS ---
EXAMINATION: XR LUMBOSACRAL SPINE CLINICAL INFORMATION: Reason for Exam M54.50 - Low back pain, unspecified COMPARISON: Lumbar spine radiographs 08/26/2014 TECHNIQUE: 3 views of the lumbar spine FINDINGS: Transitional anatomy with a broad-based left L5 transverse process pseudoarticulating with the sacrum. Upper abdominal surgical clips. Vertebral body heights are maintained. Grade 1 anterolisthesis of L4 on L5. [id number] multilevel degenerative disc disease with loss of disc space height and facet arthropathy progressed from prior. Paravertebral soft tissues are unremarkable. XR/XR lumbar spine 2-3V IMPRESSION: 1. Transitional anatomy with a broad-based left L5 transverse process pseudoarticulating with the sacrum, which can be a source of pain. 2. Grade 1 anterolisthesis of L4 on L5. 3. [id number] multilevel degenerative disc disease with loss of disc space height and facet arthropathy progressed from prior.
== END 2023-10-07 12:15 | disposition home or self-care (01) ==
LOC: HO.XRAY 12:14
PROVIDERS: PCP Internal Medicine; Visit Provider Internal Medicine
DX: M54.50 Low back pain, unspecified (principal)
CPT/HCPCS: 72100

== ENCOUNTER 2023-10-23 13:25 | Outpatient (AMB) | payer OTHER, SELFPAY ==
[2023-10-23 13:31] VITALS: BP 110/70; BMI 42.2
--- NOTE | 2023-10-23 13:31 | A.OFFPC_ITS ---
Vital Signs 10/23/23 13:31 Height 5 ft 2 in Weight 231 lb BMI 42.2 BP 110/70 Blood Pressure Location Lt brachial Position Sitting Intake Visit Reasons: bp Intake Note: Patient here for a follow up BP, c/o middle finger left hand Vision Teacher Required: No Accompanied by: Spouse Allergies spinach Allergy (Severe, Verified 10/23/23 13:49) Hives Medication List - Last Reconciled 10/23/23 by Rehana De Anda MD albuterol sulfate 90 mcg/actuation (Ventolin HFA) 1 inh inhalation QID PRN albuterol sulfate 2.5 mg (3 mL) inhalation Q4-6H PRN 30 days bupropion HCl 150 mg (1/2 x 300 mg) PO DAILY 14 days cetirizine (Zyrtec) 10 mg PO DAILY cholecalciferol (vitamin D3) 25 mcg PO DAILY 90 days diclofenac sodium 1% (Arthritis Pain (diclofenac)) 2 grams topical QID PRN 30 days gabapentin 300 mg PO Q8H 90 days levothyroxine 75 mcg PO DAILY 90 days nebulizers (AeroEclipse II Nebulizer) As directed omeprazole 20 mg PO DAILY 90 days Tobacco use date assessed: 01/01/23 Dental Screening Dental Screen Date: 10/23/23 Did you have a dental visit in the last 12 months?: Yes Did you have a dental problem in the last 6 months where you did not have access to dental care?: No Was dental information given to patient?: Patient has dentist HPI HPI Comments History of Present Illness Details This is a 58-year-old female with morbid obesity, mild recurrent major depression, hypothyroidism and chronic GERD that comes today accompanied by candy robles for follow-up on her conditions. She is morbidly obese with a BMI of 42.3 and was advised to diet and exercise to reach BMI goal less than 30. Depression stable with bupropion. TSH will be order. Compliant with medications. GERD stable with PPIs. Complains of low back pain that bothers her and x-ray shows degenerative disc disease. Will start physical therapy. [facility] Medical History (Updated 10/23/23 @ 13:56 by Rehana De Anda MD) Acid reflux Fibromyalgia Morbid obesity with BMI of 40.0-44.9, adult Mild recurrent major depression Venous (peripheral) insufficiency Skin lesion Polyarthralgia Mild asthma Depression with anxiety Hypothyroid Hypovitaminosis D Surgical History Hx of colonoscopy History of esophagogastroduodenoscopy (EGD) S/P laparoscopic sleeve gastrectomy History of carpal tunnel release History of gastric surgery History of laparoscopic cholecystectomy History of tubal ligation History of tonsillectomy Family History Father Hypertension Mother Hypertension Maternal Aunt Breast cancer Family/Other FH: mental illness Paternal Grandfather No problems noted. Paternal Grandmother Hypertension Maternal Grandfather No problems noted. Maternal Grandmother Cervical cancer Housing: Apartment Alcohol intake: never Patient Tobacco Use Status: Never used Tobacco e-Cigarette/Vaping Use: Never Used Second Hand Smoke Exposure: No service: No Current occupational status: unemployed and disabled Current occupation: rt hand Current occupational exposures/hazards: No Cognitive needs: No Hearing needs: No Vision needs: Yes Questionnaire Thrive Questionnaire Date Thrive assessed: 01/01/23 NITIN-7 AMB Questionnaire NITIN-7 Date NITIN - 7 assessed: 01/01/23 Source: Developed by Drs. Chase Salvador, Phyllis Martinez, Graham Gregorio and colleagues, with an educational andrew from [employer]. Review of Systems Const All systems reviewed & are unremarkable except as noted in HPI and below Eyes Reports no additional complaints, Denies change in vision and Denies other visual disturbances Card Denies chest pain at rest, Denies chest pain with activity, Denies edema, Denies irregular heart rhythm, Denies claudication, Denies dyspnea, Denies dyspnea on exertion, Denies orthopnea, Denies paroxysmal nocturnal dyspnea and Denies slow heart rate Resp Denies cough, Denies dyspnea and Denies dyspnea on exertion GI Denies abdominal pain, Denies change in bowel habits, Denies excessive flatus, Denies nausea and Denies vomiting Denies urinary incontinence, Denies urinary hesitancy and Denies urinary urgency Musc Denies abnormal gait, Denies atrophy, Denies deformity and Denies limited range of motion Skin/Breast Denies bleeding lesions, Denies changing lesions and Denies rash Neuro Denies abnormal gait, Denies behavioral changes and Denies lack of coordination Psych Denies behavioral changes Physical exam (Primary Care) Vital Signs: Last Vital Signs BP 110/70 10/23/23 13:31 BMI result Body Mass Index 42.2 Tobacco/Smoking Status: Tobacco use Status Tobacco use date assessed 01/01/23 10/23/23 13:32 Patient Tobacco Use Status Never used Tobacco 10/23/23 13:32 e-Cigarette/Vaping Use Never Used 10/23/23 13:32 Thrive Assessment: Date of Thrive Assessment Date Thrive assessed 01/01/23 10/23/23 13:32 Eyes General: appearance normal, both eyes and all related structures Eyelids: Yes eyelids normal Conjunctivae: conjunctivae normal Neck Neck: Yes normal visual inspection and Yes supple Resp Effort & Inspection: normal respiratory effort Auscultation: clear to auscultation bilaterally Cardio Jugular venous distension: no JVD Rate: regular rate Rhythm: regular rhythm Heart sounds: S1 normal heart sound present and S2 normal heart sound present Extrem General: Yes full ROM Psych Appearance: grossly normal Office Procedures Flu Questionnaire Does the patient have a severe egg allergy?: No Does the patient have severe life threatening allergies?: No Does the patient have a fever or illness today?: No Has the patient ever had Guillain-Vinton Syndrome?: No Has the patient ever had any past reaction to a flu shot?: No Immunizations flu vacc [id number] 6mos up(PF) 60 mcg(15 mcgx4)/0.5 mL IM syringe Performing Provider: Rehana De Anda MD Performing Location: [facility] Administered by: RADHA Ragsdale on 10/23/23 14:00 Dose Route Admin Location Dispensed Lot Number Expiration Date NDC Broadcast Operations Manager 0.5 mL IM Left Deltoid 0.5 mL [id number] 05/31/24 53653-478-07 [employer] VIS Given Date VIS Provided VIS Publication Date 10/23/23 Single Vaccine 21 Eligibility Eligibility Date Funding Source Not [facility] Eligible 10/23/23 Private Assessment and Plan Assessment & Plan (1) Morbid obesity with BMI of 40.0-44.9, adult: Code(s): E66.01 - Morbid (severe) obesity due to excess calories; Z68.41 - Body mass index [BMI] 40.0-44.9, adult Plan: Start diet and exercise. BMI goal is less than 30. (2) Mild recurrent major depression: Code(s): F33.0 - Major depressive disorder, recurrent, mild Plan: Continue bupropion. (3) Hypothyroid: Code(s): E03.9 - Hypothyroidism, unspecified Qualifiers: Hypothyroidism type: due to Cande's thyroiditis Qualified Code(s): E03.8 - Other specified hypothyroidism; E06.3 - Autoimmune thyroiditis Plan: Continue levothyroxine. Monitor TSH. (4) Chronic GERD: Code(s): K21.9 - Gastro-esophageal reflux disease without esophagitis Plan: Continue PPIs. Orders: Orders Influenza [id number] Immunization 10/23/23 Z23 - Encounter for immunization Thyroid Stimulating Hormone 10/23/23 E03.9 - Hypothyroidism, unspecified Vitamin D 25-OH Total 10/23/23 E55.9 - Vitamin D deficiency, unspecified PT Evaluation and Treatment 10/23/23 M51.36 - Other intervertebral disc degeneration, lumbar region Referrals Orthopedics Referral M65.332 - Trigger finger, left middle finger Medications: Refilled cetirizine (Zyrtec) 10 mg PO DAILY 30 caps 5RF J30.2 - Other seasonal allergic rhinitis Coding Level of Care Code Est Pt Level 4 (05367) Diagnoses Morbid obesity with BMI of 40.0-44.9, adult E66.01; Z68.41 Mild recurrent major depression F33.0 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
== END 2023-10-23 14:03 | disposition home or self-care (01) ==
PROVIDERS: PCP Internal Medicine; Visit Provider Internal Medicine
DX: Z23 Encounter for immunization (principal)
CPT/HCPCS: 90471; 90686; 99214

== ENCOUNTER 2024-01-17 14:12 | Outpatient (REF) | payer OTHER, SELFPAY ==
[2024-01-17 15:22] LABS: MANUAL DIFF FLAG NO
[2024-01-17 16:31] LABS: Basophils Absolute Auto 0.1 X10*3/uL (0.0-0.2); Basophils Percent Auto 1.3 % (0-2); Eosinophils Absolute Auto 0.3 X10*3/uL (0.0-0.4); Eosinophils Percent Auto 4.5 % (0-4); Hematocrit 42.8 % (37.0-47.0); Hemoglobin 13.9 g/dl (12.0-16.0); Imm Gran Abs Auto 0.03 X10*3/uL (0.00-0.03); Imm Gran Pct Auto 0.5 % (0.0-0.4); Lymphocytes Percent Auto 31.6 % (20-40); Mean Corpuscular HGB Conc 32.5 g/dl (31.0-35.0); Mean Corpuscular Hemoglobin 30.8 pg (27.0-33.0); Mean Corpuscular Volume 94.9 fL (80.0-98.0); Mean Platelet Volume 11.3 fL (9.4-12.3); Monocytes Absolute Auto 0.5 X10*3/uL (0.1-1.2); Monocytes Percent Auto 7.2 % (2-11); Neutrophils Absolute Auto 3.5 x10*3/uL (2.0-8.3); Neutrophils Percent Auto 54.9 % (45-73); Platelet Count 267 X10*3/uL (160-400); Red Blood Count 4.51 X10*6/uL (4.20-5.50); Red Cell Distribution Width 12.4 % (11.0-16.0); White Blood Count 6.4 X10*3/uL (4.8-10.8)
[2024-01-17 16:58] LABS: Erythrocyte Sedimentation Rate 20 MM/HR (0-20)
[2024-01-17 17:00] LABS: Alanine Aminotransferase 18 U/L (0-31); Albumin Level 3.9 g/dL (3.5-5.0); Alkaline Phosphatase 86 U/L (39-117); Anion Gap 9 (12-20); Aspartate Amino Transferase 16 U/L (5-31); Bilirubin Total 0.5 mg/dL (0.0-1.0); Blood Urea Nitrogen 14 mg/dL (9-16); C Reactive Protein 0.51 mg/dL (< or = 0.50); Carbon Dioxide 29 mmol/L (22-29); Chloride 107 mmol/L (96-108); Estimated Glomerular Filt Rate > 60; Glucose Random 89 mg/dL (60-115); Potassium 4.1 mmol/L (3.3-5.1); Sodium 141 mmol/L (135-145); Total Protein 7.8 g/dL (6.5-8.0)
[2024-01-22 06:19] LABS: Aldolase 4.6 U/L (<=8.1)
== END 2024-01-17 14:13 | disposition home or self-care (01) ==
LOC: HO.LAB 14:12
PROVIDERS: PCP Internal Medicine; Visit Provider Nurse Practitioner Family
DX: M25.561 Pain in right knee (principal); M25.562 Pain in left knee; M79.10 Myalgia, unspecified site
CPT/HCPCS: 36415; 80053; 82085; 82550; 84550; 85025; 85652; 86140; 99212

== ENCOUNTER 2024-01-17 14:12 | Outpatient (AMB) | payer OTHER, SELFPAY ==
--- NOTE | 2024-01-17 14:17 | A.OFFVIS_ITS ---
Intake Vital Signs 01/17/24 14:24 Height 5 ft 2 in Weight 230 lb 6.129 oz BMI 42.1 BP 112/84 Blood Pressure Location Rt radial Position Sitting Pulse 81 Pulse Source Pulse Oximeter Temp 97.9 F Temp Source Skin Pulse Oximetry (%) 98 Oxygen Delivery Method Room Air Intake Visit Reasons: Hand pain Intake Note: Patient presents today c/o hand pain x Manager Pool Required: No Accompanied by: Self / Same As Patient Allergies spinach Allergy (Severe, Verified 10/23/23 13:49) Hives HPI HPI Comments History of Present Illness Details Ms. Cummings is a 57yoF who presents for follow-up of osteoarthritis and hand pain She was last seen in January 2023. Today she is concerned with hand pain. This causes her to drop things and recently she dropped a pot of oil and is thankful it was not hot. She also continues with knee pains and hip pains. She has had gastric bypass surgery but says it was not effective in weight loss. Patient reports chronic numbness and pain in the right hand, saw Dr. Simons for carpal tunnel syndrome and still was not called to schedule surgery. She previously had carpal tunnel release on the left in June 2021 with good effect. Previously followed with Orthopedics for left foot pain,- tiny avulsion fracture fragment in the lateral aspect of the 5th metatarsal base. Patient was provided a short walking boot and it has since reolved. She reports continued diffuse muscle pain and skin sensitivity. She states that her PCP is treating her with gabapentin for Fibromyaliga. She states that she is sleeping well and depression is well controlled. She states she follows with mental health and takes bupropion. Previously followed with [facility] for knee pain. Received a cortisone injection in her L knee in the past but states only provided 2 weeks of pain relief, she states she has not been back for evaluation and a long time. [facility] Medical History (Updated 01/17/24 @ 16:17 by BENJIE Dillard-EKTA) Pes planus of both feet Myalgia Acid reflux Fibromyalgia Morbid obesity with BMI of 40.0-44.9, adult Mild recurrent major depression Venous (peripheral) insufficiency Skin lesion Polyarthralgia Mild asthma Depression with anxiety Hypothyroid Hypovitaminosis D Surgical History Hx of colonoscopy History of esophagogastroduodenoscopy (EGD) S/P laparoscopic sleeve gastrectomy History of carpal tunnel release History of gastric surgery History of laparoscopic cholecystectomy History of tubal ligation History of tonsillectomy Family History Father Hypertension Mother Hypertension Maternal Aunt Breast cancer Family/Other FH: mental illness Paternal Grandfather No problems noted. Paternal Grandmother Hypertension Maternal Grandfather No problems noted. Maternal Grandmother Cervical cancer Social History Housing: Apartment Alcohol intake: never Patient Tobacco Use Status: Never used Tobacco e-Cigarette/Vaping Use: Never Used Second Hand Smoke Exposure: No service: No Current occupational status: unemployed and disabled Current occupation: rt hand Current occupational exposures/hazards: No Cognitive needs: No Hearing needs: No Vision needs: Yes Review of Systems Const All systems reviewed & are unremarkable except as noted in HPI and below Physical Exam Vital Signs: Last Vital Signs Temp 97.9 F 01/17/24 14:24 Pulse 81 01/17/24 14:24 BP 112/84 01/17/24 14:24 Pulse Ox 98 01/17/24 14:24 Oxygen Delivery Method Room Air 01/17/24 14:24 BMI result Body Mass Index 42.1 APPEARANCE: Patient in no acute distress EYES: no redness, eyelids normal EARS: External ear normal. NOSE/SINUS: Airflow through both nares, no nasal discharge, no bleeding THROAT: Oral mucosa moist, no ulcerations NECK: No thyromegaly or masses, no adenopathy, trachea midline. HEART: Regular rhythm, S1-S2 heard, no murmurs, rubs or gallops. LUNG: Clear to auscultation, respiratory rate regular and nonlabored. ABD: Normal bowel sounds, abdomen soft, nontender EXTREMITIES: No edema, no calf tenderness, normal peripheral pulses. NEURO: Oriented and alert x3. No focal weakness. Gait normal. SKIN: No inflammatory or neoplastic lesions. Normal color and turgor JOINT EXAM:?? Cervical Spine:? Full range of motion without pain; no tenderness. Thoracic Spine:? No scoliosis.? No tenderness on palpation. Lumbar Spine:? Alignment normal.? Full range of motion without pain, no tenderness. Hands: LEFT: Normal pain-free range of motion with marked tenderness to 3rd flexor tendon, some thickening and trace swelling to tendon. No increased warmth or erythema. 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 RIGHT: Normal range of motion. Tenderness and slight bony enlargement at DIP 2, 3 and 5 most significant at DIP 3 and pain. No synovitis. No erythema or warmth. 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 Positive Phalen sign with numbness in the 2nd 3rd and 4th digits Wrists:? Normal pain-free range of motion without tenderness, swelling, increased warmth or erythema. Elbows: Normal pain-free range of motion without tenderness, swelling, increased warmth or erythema. Widespread diffuse tenderness to palpation over the forearms. Shoulders:?? Full range of motion without pain. No tenderness, weakness, swelling, increased warmth or erythema. Hips:? Full range of motion without pain. Hip bursa:? Tenderness L>R Knees:??Normal range of motion with pain and tenderness, mild swelling but no increased warmth or erythema.? There is no effusion or crepitation. Widespread diffuse tenderness to palpation down both shins. Ankles:? Normal pain-free range of motion swelling, increased warmth or erythema. Left: Moderate tenderness, Feet: LEFT: Normal range of motion. overpronation with pes planus Tenderness to palpation at dorsum of midfoot. Moderate Midfoot OA per imaging No erythema, swelling, increased warmth. RIGHT:? Normal pain-free range of motion without tenderness, swelling, increased warmth or erythema. overpronation with pes planus Tender points: Tenderness to digital palpation at the occiput, trapezius, second rib, lateral epicondyle, knees, greater trochanter and gluteal area bilaterally. Results Reviewed Results Reviewed: Laboratory Tests 12/19/22 12/19/22 08:06 08:06 WBC 5.9 RBC 4.29 Hgb 13.3 Hct 40.8 Plt Count 258 Sodium 142 Potassium 4.2 BUN 13 Creatinine 0.74 Fasting Glucose 96 Calcium 8.9 AST 14 ALT 15 TSH 6.46 H 12/17/19 02/28/22 02/28/22 15:21 15:22 15:22 Rheumatoid Factor < 15.0 Cycl Citrul Peptide IgG <16 REHANA Screen NEGATIVE SS-A/Ro Antibody <1.0 SS-B/La Antibody <1.0 Date of Service: 12/25/22 Procedure(s): XR foot LT 2V Accession Number(s): [id number] cc: Rehana De Jesus MD~ EXAMINATION: XR FOOT, LEFT CLINICAL INFORMATION: Pain.? COMPARISON: Radiographs dated 07/15/2020.? TECHNIQUE: AP, lateral, and oblique views of the left foot. FINDINGS: Bony alignment and mineralization are normal. There is a tiny crescentic avulsion fracture fragment noted of the lateral aspect of the fifth metatarsal base, new from prior. No dislocation or left ankle joint effusion is seen. Boehler's angle is normal. There are small posterior and large plantar calcaneal spurs. There are degenerative changes of the dorsal midfoot. No focal soft tissue swelling, gas or foreign body is seen.? XR/XR foot LT 2V IMPRESSION: ? 1. There is a tiny avulsion fracture fragment noted of the lateral aspect of the fifth metatarsal base, new from prior. ? 2. There are calcaneal spurs, as detailed. Date of Service: 12/23/20 Procedure(s): XR hand RT min 3V Accession Number(s): [id number] cc: Jed Loco MD~ EXAMINATION: XR BILATERAL HAND CLINICAL INFORMATION: Pain in joints.? COMPARISON: None? TECHNIQUE: 3 views each hand.? FINDINGS: RIGHT HAND: There is loss of PIP and DIP joint space of all digits with periarticular spurring on the MP joints. No visible acute fracture, dislocation or subluxation seen. The carpal bones and intercarpal joint space is normal. There is negative ulnar variance. The soft tissues are normal. LEFT HAND: There is loss of PIP and DIP joint space with mild periarticular spurring PIP and DIP joints 2nd and 3rd digits and DIP joint 5th digit. No acute fracture, dislocation or subluxation seen. The soft tissues are normal. XR/XR hand RT min 3V IMPRESSION: ? 1. Degenerative osteophytic changes PIP and DIP joints both digits as described above. ? 2. No juxta-articular osteopenia seen. No acute fracture or dislocation. Ordering Physician: Bibi Starks PA-C Date of Service: 06/24/23 Procedure(s): XR knee LT 2V Accession Number(s): [id number] cc: Bibi Starks PA-C~ EXAMINATION: XR KNEE AP STANDING, BILATERAL XR KNEE, LEFT XR KNEE, RIGHT CLINICAL INFORMATION: Bilateral knee pain. COMPARISON: 06/30/2018 TECHNIQUE: AP bilateral standing view of the knees was obtained. Lateral and sunrise views of the bilateral knees. FINDINGS: RIGHT KNEE: Moderate degenerative changes in the patellofemoral joint with joint space narrowing and prominent osteophytes. Moderate joint effusion. Small medial and moderate lateral marginal osteophytes. LEFT KNEE: Marked degenerative changes in the patellofemoral joint with joint space narrowing and prominent osteophytes. Moderate to marked medial joint space narrowing with medial marginal osteophytes. Moderate joint effusion. XR/XR knee LT 2V IMPRESSION: Degenerative changes left knee greater than right. rdering Physician: Rheana De Jesus MD Date of Service: 10/07/23 Procedure(s): XR lumbar spine 2-3V Accession Number(s): [id number] cc: Rehana De Jesus MD~ EXAMINATION: XR LUMBOSACRAL SPINE CLINICAL INFORMATION: Reason for Exam M54.50 - Low back pain, unspecified COMPARISON: Lumbar spine radiographs 08/26/2014 TECHNIQUE: 3 views of the lumbar spine FINDINGS: Transitional anatomy with a broad-based left L5 transverse process pseudoarticulating with the sacrum. Upper abdominal surgical clips. Vertebral body heights are maintained. Grade 1 anterolisthesis of L4 on L5. [id number] multilevel degenerative disc disease with loss of disc space height and facet arthropathy progressed from prior. Paravertebral soft tissues are unremarkable. XR/XR lumbar spine 2-3V IMPRESSION: 1. Transitional anatomy with a broad-based left L5 transverse process pseudoarticulating with the sacrum, which can be a source of pain. 2. Grade 1 anterolisthesis of L4 on L5. 3. [id number] multilevel degenerative disc disease with loss of disc space height and facet arthropathy progressed from prior. Assessment & Plan Assessment & Plan (1) Carpal tunnel syndrome of right wrist: Code(s): G56.01 - Carpal tunnel syndrome, right upper limb Plan: Patient waiting call to schedule surgery. Follow-up with orthopedics. (2) History of carpal tunnel surgery of left wrist: Code(s): Z98.890 - Other specified postprocedural states Plan: Continues to do well. (3) Trigger finger, left middle finger: Code(s): M65.332 - Trigger finger, left middle finger (4) Osteoarthritis of left knee: Code(s): M17.12 - Unilateral primary osteoarthritis, left knee Qualifiers: Osteoarthritis type: unspecified Qualified Code(s): M17.12 - Unilateral primary osteoarthritis, left knee (5) Osteoarthritis of right knee: Code(s): M17.11 - Unilateral primary osteoarthritis, right knee Qualifiers: Osteoarthritis type: unspecified Qualified Code(s): M17.11 - Unilateral primary osteoarthritis, right knee (6) Pes planus of both feet: Code(s): M21.41 - Flat foot [pes planus] (acquired), right foot; M21.42 - Flat foot [pes planus] (acquired), left foot Plan #Hand Pain and Knee pain and swelling: Ms. Avalos 58-year-old female here for hand and knee pain. On PE there is tenderness to 3rd Flexor tendon, Left is severe and greater than right and she experiences triggering in the left. She hesitates at this time to receive injections. She will use volataren gel with gloves and see if that helps. I will also Prescribe a course of prednisone and see if that helps. 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 She will reach out to Hand surgeon to see about getting the right hand done. I will also get updated labs to assess if elevated inflammatory markers. #Bilateral Pes Planus: There is severe tenderness to left ankle and dorsum of the midfoot. Imaging also shows OA to the midfoot. She may benefit from prince wrapping the ankle, using inserts to support her arches and also wear high top shoes that laces up and provide support for the ankle. There is no doubt that the foot issue can be a cause for knee and hip pain as her gait is affected. She does have fibromyalgia as she has some widespread diffuse tenderness to palpation over her muscles and multiple tender points on exam she will continue gabapentin and follow-up with PCP. 45 minute spent reviewing chart, evaluating patient and documenting. Orders: Orders Comprehensive Met. Panel Today M25.561 - Pain in right knee, M25.562 - Pain in left knee, M79.10 - Myalgia, unspecified site Creatine Kinase Total Today M25.561 - Pain in right knee, M25.562 - Pain in left knee, M79.10 - Myalgia, unspecified site Aldolase Today M25.561 - Pain in right knee, M25.562 - Pain in left knee, M79.10 - Myalgia, unspecified site Complete Blood Count Auto Diff Today M25.561 - Pain in right knee, M25.562 - Pain in left knee, M79.10 - Myalgia, unspecified site C Reactive Protein Today M25.561 - Pain in right knee, M25.562 - Pain in left knee, M79.10 - Myalgia, unspecified site Erythrocyte Sedimentation Rate Today M25.561 - Pain in right knee, M25.562 - Pain in left knee, M79.10 - Myalgia, unspecified site Uric Acid Today M25.561 - Pain in right knee, M25.562 - Pain in left knee, M79.10 - Myalgia, unspecified site Medications: New prednisone orally; 3 tablets per day x 7 days, 2 tablets per day x 7 days 1 tablet per day x 7 days 50 tabs 0RF Quality Reporting (2019) Adult ([facility] ) Smoking risk assessment performed?: Yes Patient Tobacco Use Status: Never used Tobacco Coding Level of Care Code Est Pt Level 4 (21523) Diagnoses Carpal tunnel syndrome of right wrist G56.01 History of carpal tunnel surgery of left wrist Z98.890 Trigger finger, left middle finger M65.332 Osteoarthritis of left knee, unspecified osteoarthritis type M17.12 Osteoarthritis type: unspecified Osteoarthritis of right knee, unspecified osteoarthritis type M17.11 Osteoarthritis type: unspecified Pes planus of both feet M21.41; M21.42
[2024-01-17 14:24] VITALS: BP 112/84; PULSE 81; TEMP 36.6; O2SAT 98; BMI 42.1
== END 2024-01-17 15:11 | disposition home or self-care (01) ==
PROVIDERS: PCP Internal Medicine; Visit Provider Nurse Practitioner Family
DX: G56.01 Carpal tunnel syndrome, right upper limb (principal); M65.332 Trigger finger, left middle finger; M17.0 Bilateral primary osteoarthritis of knee; M21.41 Flat foot [pes planus] (acquired), right foot; M21.42 Flat foot [pes planus] (acquired), left foot
CPT/HCPCS: 99215

== ENCOUNTER 2024-01-20 10:09 | Outpatient (REF) | payer OTHER, SELFPAY ==
--- NOTE | ~2024-01-20 | XR_ITS ---
EXAMINATION: XR FOOT, LEFT CLINICAL INFORMATION: Pain in unspecified foot. COMPARISON: 12/25/2022 TECHNIQUE: AP, lateral, and oblique views of the left foot. FINDINGS: Increased density and size of previously identified ossicles along the lateral aspect of the base of the fifth metatarsal, previously felt to be related to avulsion fracture. Small dorsal and plantar calcaneal spurs. Moderate degenerative changes at the midfoot. XR/XR foot LT min 3V IMPRESSION: Increased density and size of previously identified ossicles along the lateral aspect of the base of the fifth metatarsal; previously felt to be related to avulsion fracture.
[2024-01-20 11:25] LABS: Alanine Aminotransferase 23 U/L (0-31); Albumin Level 3.7 g/dL (3.5-5.0); Alkaline Phosphatase 76 U/L (39-117); Anion Gap 12 (12-20); Aspartate Amino Transferase 17 U/L (5-31); Bilirubin Total 0.5 mg/dL (0.0-1.0); Blood Urea Nitrogen 13 mg/dL (9-16); Calcium 9.3 mg/dL (8.4-10.2); Carbon Dioxide 27 mmol/L (22-29); Chloride 105 mmol/L (96-108); Cholesterol 164 mg/dL (<200); Estimated Glomerular Filt Rate > 60; Glucose Random 90 mg/dL (60-115); HDL Cholesterol 48 mg/dL (>40); LDL Cholesterol Calculated 105 mg/dL (<100); Potassium 3.6 mmol/L (3.3-5.1); Sodium 140 mmol/L (135-145); Total Protein 7.2 g/dL (6.5-8.0); Triglycerides 57 mg/dL (<150)
[2024-01-20 11:39] LABS: Thyroid Stimulating Hormone 9.42 uIU/mL (0.32-4.0); Vitamin D 25-OH Total 20.8 ng/mL (>30)
== END 2024-01-20 10:10 | disposition home or self-care (01) ==
LOC: HO.LAB 10:09
PROVIDERS: PCP Internal Medicine; Referring Provider Physician Assistant; Visit Provider Internal Medicine
DX: J30.9 Allergic rhinitis, unspecified (principal); E03.9 Hypothyroidism, unspecified; E55.9 Vitamin D deficiency, unspecified; E78.5 Hyperlipidemia, unspecified; M79.672 Pain in left foot
CPT/HCPCS: 36415; 73630; 80053; 80061; 82306; 84443

== ENCOUNTER 2024-01-20 14:15 | Outpatient (AMB) | payer OTHER, SELFPAY ==
[2024-01-20 14:23] VITALS: BP 136/90; BMI 42.1
--- NOTE | 2024-01-20 14:23 | MHC.PC.OV ---
Vital Signs 01/20/24 14:23 01/20/24 15:11 Height 5 ft 2 in Weight 230 lb BMI 42.1 BP 136/90 H 133/85 Blood Pressure Location Lt brachial Lt brachial Position Sitting Sitting Intake Visit Reasons: Follow up Intake Note: Patient here for a follow up Hydrotechnical Specialist Required: No Accompanied by: Spouse Allergies spinach Allergy (Severe, Verified 01/20/24 14:52) Hives Medication List - Last Reconciled 01/20/24 by Rehana De Anda MD albuterol sulfate 2.5 mg (3 mL) inhalation Q4-6H PRN 30 days albuterol sulfate 90 mcg/actuation (Ventolin HFA) 1 inh inhalation QID PRN bupropion HCl 150 mg (1/2 x 300 mg) PO DAILY 14 days cetirizine (Zyrtec) 10 mg PO DAILY cholecalciferol (vitamin D3) 25 mcg PO DAILY 90 days diclofenac sodium 1% (Arthritis Pain (diclofenac)) 2 grams topical QID PRN 30 days gabapentin 300 mg PO Q8H 90 days hydrocortisone 1% (Anti-Itch (hydrocortisone)) 1 appl topical TID PRN 30 days levothyroxine 75 mcg PO DAILY 90 days methocarbamol 750 mg PO Q8H 5 days nebulizers (AeroEclipse II Nebulizer) As directed omeprazole 20 mg PO DAILY 90 days prednisone orally; 3 tablets per day x 7 days, 2 tablets per day x 7 days 1 tablet per day x 7 days Tobacco use date assessed: 01/20/24 Dental Screening Dental Screen Date: 01/20/24 Did you have a dental visit in the last 12 months?: Yes Did you have a dental problem in the last 6 months where you did not have access to dental care?: No Was dental information given to patient?: Patient has dentist HPI HPI Comments History of Present Illness Details This is a 58-year-old female with hypothyroidism, mild recurrent major depression, morbid obesity and chronic GERD as well as low vitamin-D that comes today accompanied by complaining of fatigue and tiredness and elevated blood pressure readings. She used to be on lisinopril in the past but it was discontinued due to normal blood pressure readings. Blood pressure will be recheck in 3 weeks by nurse navigator. TSH is elevated and I will increase levothyroxine from 75 mcg to 100 mcg and repeat TSH in 6 weeks. Depression is restarted and she admits to stop taking the bupropion and will restart. She is morbidly obese with a BMI of 42.1 and already had weight loss surgery and do not want to go back to them. Was advised to do diet and exercise to reach BMI goal less than 30. GERD stable with PPIs. Vitamin-D levels are low and this is why I will increase vitamin-D supplements from 25 mcg to 50 mcg. [facility] Medical History (Updated 01/20/24 @ 15:13 by Rehana De Anda MD) Pes planus of both feet Myalgia Acid reflux Fibromyalgia Morbid obesity with BMI of 40.0-44.9, adult Mild recurrent major depression Venous (peripheral) insufficiency Skin lesion Polyarthralgia Mild asthma Depression with anxiety Hypothyroid Hypovitaminosis D Surgical History Hx of colonoscopy History of esophagogastroduodenoscopy (EGD) S/P laparoscopic sleeve gastrectomy History of carpal tunnel release History of gastric surgery History of laparoscopic cholecystectomy History of tubal ligation History of tonsillectomy Family History Father Hypertension Mother Hypertension Maternal Aunt Breast cancer Family/Other FH: mental illness Paternal Grandfather No problems noted. Paternal Grandmother Hypertension Maternal Grandfather No problems noted. Maternal Grandmother Cervical cancer Social History Housing: Apartment Alcohol intake: never Patient Tobacco Use Status: Never used Tobacco e-Cigarette/Vaping Use: Never Used Second Hand Smoke Exposure: No service: No Current occupational status: unemployed and disabled Current occupation: rt hand Current occupational exposures/hazards: No Cognitive needs: No Hearing needs: No Vision needs: Yes Questionnaire PHQ-9 Over the last 2 weeks, how often have you been bothered by any of the following problems? 1. Little interest or pleasure in doing things: several days 2. Feeling down, depressed, or hopeless: several days 3. Trouble falling or staying asleep, or sleeping too much: several days 4. Feeling tired or having little energy: several days 5. Poor appetite or overeating: several days 6. Feeling bad about yourself - or that you are a failure or have let yourself or your family down: several days 7. Trouble concentrating on things, such as reading the newspaper or watching television: several days 8. Moving or speaking so slowly that other people could have noticed. Or the opposite - being so fidgety or restless that you have been moving around a lot more than usual: several days 9. Thoughts that you would be better off or of hurting yourself in some way: not at all Total score: 8 Depression Screening Interpretation: Positive Depression Screening Follow-up: Existing condition and In treatment Depression Screening Done: Yes 78257 - PHQ-9 Billing: Yes Source: Developed by Drs. Chase Salvador, Phyllis Martinez, Graham Gregorio and colleagues, with an educational andrew from [employer]. Thrive Questionnaire Date Thrive assessed: 01/20/24 I am a: Patient What is your living situation today?: I have a steady place to live Within the past 12 months, did the food you bought not last and you didn't have the money to get more?: Never true Within the past 12 months, did you worry whether your food would run out before you got money to buy more?: Never true Do you have trouble paying for medicines?: No Do you have trouble getting transportation to medical appointments?: No Do you have trouble paying your heating and electricity bill?: No Do you have trouble taking care of your child, family member or friend?: No Do you have trouble with day-to-day activities such as bathing, preparing meals, shopping, managing finances, etc.?: No Are you currently unemployed and looking for a job?: No Are you interested in more education?: No Please select the resources that you would like help with: None Currently or been in a relationship where the following occur: no concerns reported THRIVE Score: 0 AUDIT C Alcohol Use Questionnaire (AUDIT-C) 1. How often do you have a drink containing alcohol?: Never Total Score: 0 NITIN-7 AMB Questionnaire NITIN-7 Date NITIN - 7 assessed: 01/20/24 Feeling nervous, anxious, or on edge: 1 = Several days Not being able to stop or control worryin = Not at all Worrying too much about different things: 1 = Several days Trouble relaxin = Several days Being so restless that it is hard to sit still: 1 = Several days Becoming easily annoyed or irritable: 1 = Several days Feeling afraid as if something awful might happen: 1 = Several days Total NITIN-7 score (0-4 normal; 5-9 mild; 10-14 moderate; 15-21 severe): 6 Source: Developed by Drs. Chase Salvador, Phyllis Martinez, Graham Gregorio and colleagues, with an educational andrew from [employer]. NITIN-7 Assessment Billing NITIN-7 Assessment Tool: NITIN-7 Assessment 83235 Review of Systems Const All systems reviewed & are unremarkable except as noted in HPI and below Eyes Reports no additional complaints, Denies change in vision and Denies other visual disturbances Card Denies chest pain at rest, Denies chest pain with activity, Denies edema, Denies irregular heart rhythm, Denies claudication, Denies dyspnea, Denies dyspnea on exertion, Denies orthopnea, Denies paroxysmal nocturnal dyspnea and Denies slow heart rate Resp Denies cough, Denies dyspnea and Denies dyspnea on exertion GI Denies abdominal pain, Denies change in bowel habits, Denies excessive flatus, Denies nausea and Denies vomiting Denies urinary incontinence, Denies urinary hesitancy and Denies urinary urgency Musc Denies abnormal gait, Denies atrophy, Denies deformity and Denies limited range of motion Skin/Breast Denies bleeding lesions, Denies changing lesions and Denies rash Neuro Denies abnormal gait and Denies lack of coordination Physical exam (Primary Care) Vital Signs: Last Vital Signs BP 136/90 H 01/20/24 14:23 BMI result Body Mass Index 42.1 Tobacco/Smoking Status: Tobacco use Status Tobacco use date assessed 01/20/24 01/20/24 14:31 Patient Tobacco Use Status Never used Tobacco 01/20/24 14:27 e-Cigarette/Vaping Use Never Used 01/20/24 14:27 PHQ-9: PHQ-9 Score PHQ-9: Total score 8 01/20/24 14:42 Depression Screening Interpretation: Positive Depression Screening Follow-up: Existing condition and In treatment Thrive Assessment: Date of Thrive Assessment Date Thrive assessed 01/20/24 01/20/24 14:42 Currently or been in a relationship where the following occur: no concerns reported Eyes General: appearance normal, both eyes and all related structures Eyelids: Yes eyelids normal Conjunctivae: conjunctivae normal Neck Neck: Yes normal visual inspection and Yes supple Resp Effort & Inspection: normal respiratory effort Auscultation: clear to auscultation bilaterally Cardio Jugular venous distension: no JVD Rate: regular rate Rhythm: regular rhythm Heart sounds: S1 normal heart sound present and S2 normal heart sound present Extrem General: Yes full ROM Assessment and Plan Assessment & Plan (1) Mild recurrent major depression: Code(s): F33.0 - Major depressive disorder, recurrent, mild Plan: Restart bupropion. (2) Morbid obesity with BMI of 40.0-44.9, adult: Code(s): E66.01 - Morbid (severe) obesity due to excess calories; Z68.41 - Body mass index [BMI] 40.0-44.9, adult Plan: Start diet and exercise. BMI goal is less than 30. 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 Repeat TSH in 6 weeks. (4) Hypovitaminosis D: Code(s): E55.9 - Vitamin D deficiency, unspecified Plan: Increase vitamin-D from 25 mcg to 50 mcg. (5) Chronic GERD: Code(s): K21.9 - Gastro-esophageal reflux disease without esophagitis Plan: Continue PPIs. Orders: Orders Thyroid Stimulating Hormone 6 Weeks E03.9 - Hypothyroidism, unspecified US thyroid Today E04.9 - Nontoxic goiter, unspecified Medications: New levothyroxine 100 mcg PO DAILY 90 days 90 tabs 1RF E03.9 - Hypothyroidism, unspecified cholecalciferol (vitamin D3) 50 mcg PO DAILY 90 days 90 caps 1RF Discontinued cholecalciferol (vitamin D3) Discontinued Reason: Patient Completed Course 25 mcg PO DAILY 90 days 90 caps 3RF levothyroxine Discontinued Reason: Patient Completed Course 75 mcg PO DAILY 90 days 90 tabs 0RF Coding Level of Care Code Est Pt Level 4 (19506) Diagnoses Mild recurrent major depression F33.0 Morbid obesity with BMI of 40.0-44.9, adult E66.01; Z68.41 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
[2024-01-20 15:11] VITALS: BP 133/85
== END 2024-01-20 15:06 | disposition home or self-care (01) ==
PROVIDERS: PCP Internal Medicine; Visit Provider Internal Medicine
DX: K21.9 Gastro-esophageal reflux disease without esophagitis (principal); F33.0 Major depressive disorder, recurrent, mild; E66.01 Morbid (severe) obesity due to excess calories; Z68.41 Body mass index [BMI] 40.0-44.9, adult; E03.8 Other specified hypothyroidism; E06.3 Autoimmune thyroiditis; E55.9 Vitamin D deficiency, unspecified
CPT/HCPCS: 96127; 99214

== ENCOUNTER 2024-02-03 09:59 | Outpatient (REF) | payer OTHER, SELFPAY ==
--- NOTE | ~2024-02-03 | XR_ITS ---
EXAMINATION: XR HAND, BILATERAL CLINICAL INFORMATION: Primary osteoarthritis bilateral hands. COMPARISON: 12/23/2020 TECHNIQUE: 3 views of each hand. FINDINGS: Right Hand: Ulnar-minus variance. Moderate degenerative changes in the first carpometacarpal joint with joint space narrowing and hypertrophic change. Degenerative changes with loss of PIP and DIP joint spaces in all digits particularly notable for advanced degenerative change with hypertrophic change in the third DIP joint, progressed. Left Hand: Ulnar-minus variance. Moderate degenerative changes in the first carpometacarpal joint with joint space narrowing and hypertrophic change. Loss of PIP and DIP joint spaces with mild hypertrophic change redemonstrated. XR/XR hand RT min 3V IMPRESSION: 1. Moderate degenerative changes in the bilateral first carpometacarpal joints. 2. Redemonstration of degenerative changes in the IP and DIP joints of the bilateral hands, most marked and progressed in the right third DIP joint. 3. Bilateral ulnar-minus variance. 4. No displaced fracture. Recommend follow-up imaging in 10-14 days if fracture is suspected.
--- NOTE | ~2024-02-03 | XR_ITS ---
EXAMINATION: XR HAND, BILATERAL CLINICAL INFORMATION: Primary osteoarthritis bilateral hands. COMPARISON: 12/23/2020 TECHNIQUE: 3 views of each hand. FINDINGS: Right Hand: Ulnar-minus variance. Moderate degenerative changes in the first carpometacarpal joint with joint space narrowing and hypertrophic change. Degenerative changes with loss of PIP and DIP joint spaces in all digits particularly notable for advanced degenerative change with hypertrophic change in the third DIP joint, progressed. Left Hand: Ulnar-minus variance. Moderate degenerative changes in the first carpometacarpal joint with joint space narrowing and hypertrophic change. Loss of PIP and DIP joint spaces with mild hypertrophic change redemonstrated. XR/XR hand LT min 3V IMPRESSION: 1. Moderate degenerative changes in the bilateral first carpometacarpal joints. 2. Redemonstration of degenerative changes in the IP and DIP joints of the bilateral hands, most marked and progressed in the right third DIP joint. 3. Bilateral ulnar-minus variance. 4. No displaced fracture. Recommend follow-up imaging in 10-14 days if fracture is suspected.
--- NOTE | ~2024-02-03 | US_ITS ---
EXAMINATION: US THYROID CLINICAL INFORMATION: Nontoxic goiter, unspecified. COMPARISON: Ultrasound soft tissue head/neck thyroid dated 12/23/2014. TECHNIQUE: Linear transducer foss-scale and color Doppler examination with attention to the region of the thyroid. FINDINGS: SIZE: Measurements of the thyroid lobes and nodules are given in sagittal, anteroposterior and transverse dimensions respectively. Right Thyroid Lobe: 3.6 x 1.5 x 1.3 cm, volume 3.8 mL. Previously 3.2 x 1.3 x 1.5 cm, volume 3.2 mL. Parenchyma: The gland echotexture is heterogeneous. Thyroid vascularity is normal. Left Thyroid Lobe: 4.0 x 1.1 x 1.3 cm, volume 2.9 mL. Previously 3.7 x 1.5 x 1.4 cm, volume 4.0 mL. Parenchyma: The gland echotexture is heterogeneous. Thyroid vascularity is normal. Isthmus: 0.15 cm in maximum AP dimension. Previously 0.3 cm. Estimated total number of nodules greater than or equal to 1 cm: 0. Sap Basis Administrator nodules are described as follows: 1. Location: Right mid anterior. Size: 0.61 x 0.24 x 0.39 cm, volume 0.03 mL. Previously: Not documented on the prior study. Nodule characteristics: Composition: Cystic(0). ACR TI-RADS total points: 0 ACR TI-RADS category: 1 NODES: No lymphadenopathy is seen in the tissue surrounding the thyroid gland. US/US thyroid IMPRESSION: 0.6 cm right TR1 thyroid nodule. Diffusely heterogeneous thyroid gland. This study was presented today, 03/11/2024, for interpretation. Prompt priority results supplied at this time to the referring provider as requested by the provider. ACR TI-RADS RECOMMENDATION REFERENCE: Ultrasound-guided fine-needle aspiration, follow up ultrasound, no further followup. * TR1 (0 point) and TR2 (2 points): No FNA or followup * TR3 (3 points): FNA if more than or equal to 2.5 cm in maximum dimension, follow up ultrasound in 1, 3 and 5 years if 1.5 to 2.4 cm in maximum dimension. * TR4 (4-6 points): FNA if more than or equal to 1.5 cm in maximum dimension, follow up ultrasound in 1, 2, 3 and 5 years if 1 to 1.4 cm in maximum dimension. * TR5 (more than or equal to 7 points): FNA if more than or equal to 1 cm in maximum dimension, follow up ultrasound every year for 5 years if 0.5 to 0.9 cm in maximum dimension. * TR3, TR4 or TR5 nodules that are below the size threshold for follow up receive no followup.
== END 2024-02-03 10:00 | disposition home or self-care (01) ==
LOC: HO.US 09:59
PROVIDERS: PCP Internal Medicine; Visit Provider Internal Medicine
DX: E04.9 Nontoxic goiter, unspecified (principal); M19.041 Primary osteoarthritis, right hand; M19.042 Primary osteoarthritis, left hand
CPT/HCPCS: 73130; 76536

== ENCOUNTER 2024-02-12 13:52 | Outpatient (AMB) | payer OTHER, SELFPAY ==
--- NOTE | 2024-02-12 13:57 | MHC.OFFVIS ---
Intake Vital Signs 02/12/24 14:03 Height 5 ft 2 in Weight 79 lb 12.917 oz BMI 14.6 BP 114/82 Blood Pressure Location Rt brachial Position Sitting Pulse 73 Pulse Source Pulse Oximeter Temp 97.2 F Temp Source Skin Pulse Oximetry (%) 97 Oxygen Delivery Method Room Air Intake Visit Reasons: Hand Pain Intake Note: Patient last seen 01/17/24 by Jenelle, presents today for follow up and test results. Television Presenter Required: No Accompanied by: Self / Same As Patient Allergies spinach Allergy (Severe, Verified 02/12/24 13:58) Hives HPI HPI Comments History of Present Illness Details Ms. Cummings is a 57yoF who presents for follow-up of osteoarthritis and hand pain Today she feels some improvement to knee and hands and thinks the prednisone was helpful. She has not yet reached out to the hand surgeon but will do so. She continues with diffuse muscle pain and skin sensitivity. She states that her PCP is treating her with gabapentin for Fibromyaliga. She is also being treated for HypoThyroid and had an US n 02/03/2024. She states that she is sleeping well and depression is well controlled. She states she follows with mental health and takes bupropion. 01/17/2024: Ms. Cummings is a 57yoF who presents for follow-up of osteoarthritis and hand pain She was last seen in January 2023. Today she is concerned with hand pain. This causes her to drop things and recently she dropped a pot of oil and is thankful it was not hot. She also continues with knee pains and hip pains. She has had gastric bypass surgery but says it was not effective in weight loss. Patient reports chronic numbness and pain in the right hand, saw Dr. Simons for carpal tunnel syndrome and still was not called to schedule surgery. She previously had carpal tunnel release on the left in June 2021 with good effect. Previously followed with Orthopedics for left foot pain,- tiny avulsion fracture fragment in the lateral aspect of the 5th metatarsal base. Patient was provided a short walking boot and it has since reolved. She reports continued diffuse muscle pain and skin sensitivity. She states that her PCP is treating her with gabapentin for Fibromyaliga. She states that she is sleeping well and depression is well controlled. She states she follows with mental health and takes bupropion. Previously followed with [facility] for knee pain. Received a cortisone injection in her L knee in the past but states only provided 2 weeks of pain relief, she states she has not been back for evaluation and a long time. [facility] Medical History (Updated 01/28/24 @ 14:03 [facility] Osteoarthritis of hands, bilateral Pes planus of both feet Myalgia Acid reflux Fibromyalgia Morbid obesity with BMI of 40.0-44.9, adult Mild recurrent major depression Venous (peripheral) insufficiency Skin lesion Polyarthralgia Mild asthma Depression with anxiety Hypothyroid Hypovitaminosis D Surgical History Hx of colonoscopy History of esophagogastroduodenoscopy (EGD) S/P laparoscopic sleeve gastrectomy History of carpal tunnel release History of gastric surgery History of laparoscopic cholecystectomy History of tubal ligation History of tonsillectomy Family History Father Hypertension Mother Hypertension Maternal Aunt Breast cancer Family/Other FH: mental illness Paternal Grandfather No problems noted. Paternal Grandmother Hypertension Maternal Grandfather No problems noted. Maternal Grandmother Cervical cancer Social History Housing: Apartment Alcohol intake: never Patient Tobacco Use Status: Never used Tobacco e-Cigarette/Vaping Use: Never Used Second Hand Smoke Exposure: No service: No Current occupational status: unemployed and disabled Current occupation: rt hand Current occupational exposures/hazards: No Cognitive needs: No Hearing needs: No Vision needs: Yes Physical Exam Vital Signs: Last Vital Signs Temp 97.2 F 02/12/24 14:03 Pulse 73 02/12/24 14:03 BP 114/82 02/12/24 14:03 Pulse Ox 97 02/12/24 14:03 Oxygen Delivery Method Room Air 02/12/24 14:03 BMI result Body Mass Index 14.6 APPEARANCE: Patient in no acute distress EYES: no redness, eyelids normal EARS: External ear normal. NOSE/SINUS: Airflow through both nares, no nasal discharge, no bleeding THROAT: Oral mucosa moist, no ulcerations NECK: No thyromegaly or masses, no adenopathy, trachea midline. HEART: Regular rhythm, S1-S2 heard, no murmurs, rubs or gallops. LUNG: Clear to auscultation, respiratory rate regular and nonlabored. ABD: Normal bowel sounds, abdomen soft, nontender EXTREMITIES: No edema, no calf tenderness, normal peripheral pulses. NEURO: Oriented and alert x3. No focal weakness. Gait normal. SKIN: No inflammatory or neoplastic lesions. Normal color and turgor JOINT EXAM:?? Cervical Spine:? Full range of motion without pain; no tenderness. Thoracic Spine:? No scoliosis.? No tenderness on palpation. Lumbar Spine:? Alignment normal.? Full range of motion without pain, no tenderness. Hands: LEFT: Normal pain-free range of motion with reduced tenderness to 3rd flexor tendon. There is some thickening and swelling has resolved to tendon. No increased warmth or erythema. 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 RIGHT: Normal range of motion. No more tenderness Tenderness and but still bony enlargement at DIP 2, 3 and 5 most significant at DIP 3 and pain. No synovitis. No erythema or warmth. Able to make a full fist but decreased database development project manager strength. Positive Phalen sign with numbness in the 2nd 3rd and 4th digits Wrists:? Normal pain-free range of motion without tenderness, swelling, increased warmth or erythema. Elbows: Normal pain-free range of motion without tenderness, swelling, increased warmth or erythema. Widespread diffuse tenderness to palpation over the forearms. Shoulders:?? Full range of motion without pain. No tenderness, weakness, swelling, increased warmth or erythema. Hips:? Full range of motion without pain. Hip bursa:? Tenderness L>R Knees:??Normal range of motion with pain and tenderness and no more mild swelling and no increased warmth or erythema.? There is no effusion or crepitation. Widespread diffuse tenderness to palpation down both shins. Ankles:? Normal pain-free range of motion swelling, increased warmth or erythema. Left: impoved with reduced tenderness, Feet: LEFT: Normal range of motion. overpronation with pes planus improved with reduced Tenderness to palpation at dorsum of midfoot. Moderate Midfoot OA per imaging No erythema, swelling, increased warmth. RIGHT:? Normal pain-free range of motion without tenderness, swelling, increased warmth or erythema. overpronation with pes planus Tender points: Tenderness to digital palpation at the occiput, trapezius, second rib, lateral epicondyle, knees, greater trochanter and gluteal area bilaterally. Results Reviewed Results Reviewed: Laboratory Tests 01/17/24 01/17/24 01/20/24 15:20 15:20 10:32 WBC 6.4 RBC 4.51 Hgb 13.9 Hct 42.8 ESR 20 Anion Gap BUN 13 Creatinine 0.77 Estimated GFR > 60 Uric Acid 5.0 Total Creatine Kinase 29 C-Reactive Protein 0.51 H 25-OH Vitamin D Total TSH 01/20/24 10:32 WBC RBC Hgb Hct ESR Anion Gap 12 BUN Creatinine Estimated GFR Uric Acid Total Creatine Kinase C-Reactive Protein 25-OH Vitamin D Total 20.8 L TSH 9.42 H FINDINGS: Right Hand: Ulnar-minus variance. Moderate degenerative changes in the first carpometacarpal joint with joint space narrowing and hypertrophic change. Degenerative changes with loss of PIP and DIP joint spaces in all digits particularly notable for advanced degenerative change with hypertrophic change in the third DIP joint, progressed. Left Hand: Ulnar-minus variance. Moderate degenerative changes in the first carpometacarpal joint with joint space narrowing and hypertrophic change. Loss of PIP and DIP joint spaces with mild hypertrophic change redemonstrated. XR/XR hand RT min 3V IMPRESSION: 1. Moderate degenerative changes in the bilateral first carpometacarpal joints. 2. Redemonstration of degenerative changes in the IP and DIP joints of the bilateral hands, most marked and progressed in the right third DIP joint. 3. Bilateral ulnar-minus variance. 4. No displaced fracture. Recommend follow-up imaging in 10-14 days if fracture is suspected. Assessment & Plan Assessment & Plan (1) Carpal tunnel syndrome of right wrist: Code(s): G56.01 - Carpal tunnel syndrome, right upper limb Plan: Patient waiting call to schedule surgery. Follow-up with orthopedics. (2) Trigger finger, left middle finger: Code(s): M65.332 - Trigger finger, left middle finger (3) Osteoarthritis of left knee: Code(s): M17.12 - Unilateral primary osteoarthritis, left knee Qualifiers: Osteoarthritis type: unspecified Qualified Code(s): M17.12 - Unilateral primary osteoarthritis, left knee (4) Osteoarthritis of right knee: Code(s): M17.11 - Unilateral primary osteoarthritis, right knee Qualifiers: Osteoarthritis type: unspecified Qualified Code(s): M17.11 - Unilateral primary osteoarthritis, right knee (5) Pes planus of both feet: Code(s): M21.41 - Flat foot [pes planus] (acquired), right foot; M21.42 - Flat foot [pes planus] (acquired), left foot Plan #Hand Pain and Knee pain and swelling: Ms. Avalos 58-year-old female here for hand and knee pain. She feels that the prednisone has helped her knee and her hands as they are no longer swollen and tender. On PE there is still tenderness, but milder, to left 3rd Flexor tendon. She still hesitates at this time to receive injections. She will continue to use volataren gel with gloves as it helps a little helps. She does have osteoarthritis to the finger joints on both hands and the CTS also contributes to her lessen database development project manager strength. I encouraged the use of stress balls to develop hand strength. Also, she will reach out to Hand surgeon to see about getting the right hand done. Updated labs showed mildly elevated inflammatory markers. This can be due to obesity. Discussed with patient to call the office if return of symptoms to knees and hand swelling. Will consider at that time to start patient on HCQ or MTX. #Bilateral Pes Planus: Patient has changed her shoes and reports improvement. She is wearing sneaker with more support. There is less tenderness to left ankle and dorsum of the midfoot. Imaging also shows OA to the midfoot. She does have fibromyalgia as she has some widespread diffuse tenderness to palpation over her muscles and multiple tender points on exam she will continue gabapentin and follow-up with PCP. 45 minute spent reviewing chart, evaluating patient and documenting. Quality Reporting (2020) Adult ([facility] 138/01/23/69) Smoking risk assessment performed?: Yes Patient Tobacco Use Status: Never used Tobacco Coding Level of Care Code Est Pt Level 3 (81854) Diagnoses Carpal tunnel syndrome of right wrist G56.01 Trigger finger, left middle finger M65.332 Osteoarthritis of left knee, unspecified osteoarthritis type M17.12 Osteoarthritis type: unspecified Osteoarthritis of right knee, unspecified osteoarthritis type M17.11 Osteoarthritis type: unspecified Pes planus of both feet M21.41; M21.42
[2024-02-12 14:03] VITALS: BP 114/82; PULSE 73; TEMP 36.2; O2SAT 97; BMI 14.6
== END 2024-02-12 15:23 | disposition home or self-care (01) ==
PROVIDERS: PCP Internal Medicine; Visit Provider Nurse Practitioner Family
DX: G56.01 Carpal tunnel syndrome, right upper limb (principal); M65.332 Trigger finger, left middle finger; M17.0 Bilateral primary osteoarthritis of knee; M21.41 Flat foot [pes planus] (acquired), right foot; M21.42 Flat foot [pes planus] (acquired), left foot
CPT/HCPCS: 99213

== ENCOUNTER → 2024-02-12 13:52 | Outpatient (BNVA) | payer OTHER, SELFPAY | PROVIDERS: PCP Internal Medicine; Visit Provider Nurse Practitioner Family | DX: G56.01 Carpal tunnel syndrome, right upper limb (principal); M65.332 Trigger finger, left middle finger; M17.0 Bilateral primary osteoarthritis of knee; M21.41 Flat foot [pes planus] (acquired), right foot; M21.42 Flat foot [pes planus] (acquired), left foot | CPT/HCPCS: 99212 ==

== ENCOUNTER 2024-04-06 16:12 | Outpatient (AMB) | payer OTHER, SELFPAY ==
--- NOTE | 2024-04-06 16:13 | A.OFFVIS_ITS ---
Vital Signs 04/06/24 16:15 Height 5 ft 2 in Weight 229 lb 4.492 oz BMI 41.9 BP 119/71 Blood Pressure Location Lt brachial Position Sitting Pulse 75 Intake Visit Reasons: pt req appointment Intake Note: Zoila presents in the office as a follow up that was requested by the patient. CC: She states that she is having issues with her stomach - right now she feels like burning when she breathes in. She is unable to sleep due to the pains - she gets severe acid reflux. Chest Pain Coordinator Required: No Allergies spinach Allergy (Severe, Verified 04/06/24 16:15) Hives Histamine H2 Inhibitors Allergy (Mild, Verified 04/06/24 16:15) Unknown HPI HPI pt req appointment: Details: LAST VISIT: 03/19/2023 Chronic GERD Continue current dose of omeprazole every morning. Patient can take sucralfate as ordered twice a day. She will be sent for upper endoscopy will schedule that today. Discussed with patient the importance of avoiding dietary triggers and late night snacking. Staying upright for minimum 3 hours after meals discussed with patient. Screen for colon cancer No change since last time I saw patient. Please schedule colonoscopy and upper endoscopy today. I will see patient after the procedure. Went over the prep with patient again. Importance of clear liquid diet day before procedure stressed. The importance of good bowel prep stressed as well. Patient is agreeable to plan of care and verbalizes understanding of instructions. She was given the op portunity to ask questions and all questions answered. ENDOSCOPY AND COLONOSCOPY: 04/01/2024 DR. CAICEDO Findings: Larynx: Normal Esophagus: GE junction at 33 cms, small hiatal hernia 33 to 35 cms. A single 1 cms linear erosion at GE junction and no Darnell's. Stomach: Mild diffuse gastric erythema. Biopsies were obtained. Grade 3 flap valve on retroflexed examination of the cardia. Duodenum: Normal bulb and descending duodenum. Biopsies were obtained from 3rd part of duodenum to check for celiac sprue Intervention: Biopsies as noted above Findings: Terminal Ileum: Not evaluated Cecum: Normal Ascending Colon: Normal Transverse Colon: Normal Descending Colon: Normal Sigmoid Colon: Moderate diverticulosis Rectum: Normal Ano-rectum: Moderate internal hemorrhoids Colon preparation: Good after some irrigation Impression and Post Procedure Diagnosis: Endoscopy Findings: ESOPHAGUS: Small hiatal hernia and a focal erosion STOMACH: Mild diffuse gastritis DUODENUM: Normal - biopsied to check for celiac sprue Colonoscopy Findings: No polyps were detected. Moderate diverticulosis seen in the sigmoid colon Moderate hemorrhoids on retroflexed exam. Plan: Await pathology results Patient advised to increase Omeprazole to 20 mg twice a day Repeat Colonoscopy in 10 years. Above findings were reviewed with the patient and GERD, Hiatal hernia and diverticulosis handouts were given in the discharge area PATHOLOGY: Diagnosis A. Small bowel, biopsy: Duodenal mucosa within normal limits; negative for celiac disease. B. Stomach, body, biopsy: Oxyntic mucosa with mild chronic inactive inflammation; no Helicobacter organisms seen. C. Stomach, antrum, biopsy: Antral-type mucosa with moderate chronic inactive inflammation and intestinal metaplasia; negative for dysplasia; no Helicobacter organisms seen. TODAY'S VISIT Patient is here today for follow-up and to discuss upper endoscopy results. Last time patient was seen was over a year ago. Patient was on omeprazole daily. Colonoscopy and upper endoscopy was done 04/01/2024. Colonoscopy showed no polyps. Moderate diverticulosis in sigmoid colon and moderate internal hemorrhoids seen. Patient was asked to increase omeprazole to twice a day. Patient never followed up after endoscopy or colonoscopy. Today patient presents for requested visit as she has been dealing with epigastric pain, dyspepsia, epigastric burning throughout the day and at night time. Patient r eports that she feels burning in her chest no matter what she eats. Sometimes even when drinking water. Patient admits that she is not moving her bowels well. Sometimes no BM for 2-3 days. Patient reports abdominal bloating postprandially. Not following any particular diet. History of gastric sleeve, last visit with bariatric services was in January of 2023 [facility] Medical History Osteoarthritis of hands, bilateral Pes planus of both feet Myalgia Acid reflux Fibromyalgia Morbid obesity with BMI of 40.0-44.9, adult Mild recurrent major depression Venous (peripheral) insufficiency Skin lesion Polyarthralgia Mild asthma Depression with anxiety Hypothyroid Hypovitaminosis D Surgical History Hx of colonoscopy History of esophagogastroduodenoscopy (EGD) S/P laparoscopic sleeve gastrectomy History of carpal tunnel release History of gastric surgery History of laparoscopic cholecystectomy History of tubal ligation History of tonsillectomy Family History Father Hypertension Mother Hypertension Maternal Aunt Breast cancer Family/Other FH: mental illness Paternal Grandfather No problems noted. Paternal Grandmother Hypertension Maternal Grandfather No problems noted. Maternal Grandmother Cervical cancer Social History Housing: Apartment Alcohol intake: never Patient Tobacco Use Status: Never used Tobacco e-Cigarette/Vaping Use: Never Used Second Hand Smoke Exposure: No service: No Current occupational status: unemployed and disabled Current occupation: rt hand Current occupational exposures/hazards: No Cognitive needs: No Hearing needs: No Vision needs: Yes Review of Systems Const Denies weight gain and Denies weight loss ENT Reports no additional complaints, Denies dysphagia and Denies odynophagia Card Reports no additional complaints Resp Reports no additional complaints GI Reports abdominal pain, Denies belching, Denies melena, Reports bloating, Reports constipation, Denies dysphagia, Denies excessive flatus, Reports dyspepsia, Reports heartburn, Denies diarrhea, Denies loose stools, Denies nausea, Denies odynophagia and Denies vomiting Musc Reports no additional complaints Neuro Reports no additional complaints Psych Reports no additional complaints Endo Reports no additional complaints Physical Exam Vital Signs: Last Vital Signs Pulse 75 04/06/24 16:15 BP 119/71 04/06/24 16:15 BMI result Body Mass Index 41.9 Const General: healthy appearing, no acute distress and well developed Nutritional Appearance: well nourished Orientation/consciousness: patient oriented x3 Resp Effort & Inspection: normal respiratory effort, able to speak in complete sentences, no tracheal deviation and symmetric chest movement Auscultation: clear to auscultation bilaterally Cardio Rate: regular rate GI Inspection: Yes normal to inspection and No distended Palpation (GI): Soft to palpation, not firm, nontender and No hepatosplenomegaly present Auscultation: normal bowel sounds General: Yes no CVA tenderness Back/Spine/Pelvis Back: no CVA tenderness Skin General skin exam: elasticity normal, turgor normal and dry skin Neuro General: patient oriented x3 Psych Appearance: grossly normal Mental Status: mental status grossly normal Quality Reporting (2019) Adult ([facility] ) Smoking risk assessment performed?: Yes Patient Tobacco Use Status: Never used Tobacco Assessment & Plan Assessment & Plan (1) Chronic GERD: Code(s): K21.9 - Gastro-esophageal reflux disease without esophagitis Category: Medical (2) Postprandial epigastric pain: Code(s): R10.13 - Epigastric pain (3) Abdominal bloating: Code(s): R14.0 - Abdominal distension (gaseous) (4) Constipation: Code(s): K59.00 - Constipation, unspecified Qualifiers: Constipation type: slow transit constipation Qualified Code(s): K59.01 - Slow transit constipation Plan Patient will stop taking omeprazole and will start taking pantoprazole. Patient may take sucralfate at bedtime. Avoid dietary triggers and late night snacking. Staying upright for minimum 3 hours after meals discussed patient. Patient will start taking MiraLax daily. Increase fluid intake and activity to promote better bowel motility. Patient was encouraged to eat smaller meals and more often. Patient will call the office if she will continue to have symptoms. Follow-up in the office in 5 weeks, sooner on as needed basis. Patient was encouraged to also follow-up with bariatric services. Patient is agreeable to current plan of care and verbalizes understanding of instructions. She was given the opportunity to ask questions and all questions answered. Thank you for allowing me to participate her care Medications: New pantoprazole take one tablet half an hour before breakfast 40 mg PO DAILY 30 tabs 2RF K21.9 - Gastro-esophageal reflux disease without esophagitis polyethylene glycol 3350 (Miralax) 17 grams PO DAILY 510 grams 2RF sucralfate 10 mL PO BEDTIME 400 mL 3RF K21.9 - Gastro-esophageal reflux disease without esophagitis Discontinued omeprazole Discontinued Reason: Doctor's Order 20 mg PO DAILY 90 days 90 caps 1RF K21.9 - Gastro-esophageal reflux disease without esophagitis bupropion HCl XL Discontinued Reason: Patient Completed Course 150 mg (1/2 x 300 mg) PO DAILY 14 days 7 tabs 3RF Coding Level of Care Code Est Pt Level 4 (51382) Diagnoses Chronic GERD K21.9 Postprandial epigastric pain R10.13 Abdominal bloating R14.0 Slow transit constipation K59.01 Constipation type: slow transit constipation Time Spent (min) 35 Comment 20 minutes spent with patient and additional 15 minutes spent reviewing her records
[2024-04-06 16:15] VITALS: BP 119/71; PULSE 75; BMI 41.9
== END 2024-04-06 16:50 | disposition home or self-care (01) ==
PROVIDERS: PCP Internal Medicine; Visit Provider Nurse Practitioner Family
DX: K21.9 Gastro-esophageal reflux disease without esophagitis (principal); R10.13 Epigastric pain; R14.0 Abdominal distension (gaseous); K59.01 Slow transit constipation
CPT/HCPCS: 99214

== ENCOUNTER → 2024-04-06 16:12 | Outpatient (BNVA) | payer OTHER, SELFPAY | PROVIDERS: PCP Internal Medicine; Visit Provider Nurse Practitioner Family | DX: K21.9 Gastro-esophageal reflux disease without esophagitis (principal); K59.01 Slow transit constipation; R10.13 Epigastric pain; R14.0 Abdominal distension (gaseous) | CPT/HCPCS: 99212 ==

== ENCOUNTER 2024-07-24 12:31 | Emergency (ER) | payer OTHER, SELFPAY ==
--- NOTE | ~2024-07-24 | XR_ITS ---
EXAMINATION: XR CHEST CLINICAL INFORMATION: Chest tightness. COMPARISON: 12/14/2022, 09/07/2021 TECHNIQUE: 2 views of the chest were obtained. Fluoroscopy was utilized. FINDINGS: Lungs are clear bilaterally. There is no consolidation or pleural effusion. There is no pneumothorax. The cardiac, hilar, and mediastinal contours are normal. The aorta is mildly tortuous but normal in caliber. No hilar abnormalities. Soft tissues demonstrate numerous surgical clips in the epigastric region. Osseous structures demonstrate moderate degenerative changes of the thoracic spine. XR/XR chest 2V IMPRESSION: No active pulmonary disease. Electronically signed by: Juan Tijerina MD 07/24/2024 02:10 PM EDT
--- NOTE | 2024-07-24 12:34 | ECG_ITS ---
Test Reason : chest pressure Blood Pressure : / mmHG Vent. Rate : 060 BPM Atrial Rate : 060 BPM P-R Int : 202 ms QRS Dur : 076 ms QT Int : 386 ms P-R-T Axes : 021 013 003 degrees QTc Int : 386 ms Normal sinus rhythm Minimal voltage criteria for LVH, may be normal variant ( R in aVL ) Borderline ECG When compared with ECG of 14-DEC-2022 15:12, No significant change was found Referred By: Generic ED Physician Electronically Signed By:SITA MCMILLAN
[2024-07-24 12:50] VITALS: BP 171/93; PULSE 63; RESP 16; TEMP 36.4; O2SAT 99; BMI 43.5
--- NOTE | 2024-07-24 12:51 | ED_ITS ---
HPI - Chest Pain General Chief Complaint: Chest Pain Stated Complaint: chest tightness high bp Time Seen by Provider: 07/24/24 16:33 Source: patient Mode of arrival: ambulatory Limitations: no limitations History of Present Illness ED Provider: ANUSHKA FU PA-C HPI narrative: 59 year old female with pmhx significant for GERD, HTN, obesity, anxiety, depression, fibromyalgia and hypothyroid presents to the ED today for evaluation of intermittent chest tightness x4 weeks. Chest tightness is diffuse and does not radiate. Not exertional. Not worse with deep breathing. Patient states that she has been taking care of her ill mother who is bed-bound in [place] which has been causing her stress. She has been evaluated for this at Urgent Care multiple times while in [place] with unremarkable workup. Reports returning home from [place] today and coming straight to the ED for evaluation. She does endorse history of HTN managed with medications however states these medications were discontinued by her PCP as her blood pressure normalized. She denies chest pain/ tightness at present. Denies headache, dizziness, vision changes, shortness of breath, cough, hemoptysis, calf pain/swelling. Related Data Previous Rx's ?Medication ?Instructions ?Recorded nebulizers (AeroEclipse II #1 ea 01/07/23 Nebulizer) gabapentin 300 mg capsule 300 mg PO Q8H 90 days #270 caps 06/13/23 albuterol sulfate 2.5 mg/3 mL 2.5 mg (3 mL) inhalation Q4-6H PRN 08/21/23 (0.083 %) solution for nebulization shortness of breath or wheezing 30 days #75 mL methocarbamol 750 mg tablet 750 mg PO Q8H 5 days #15 tabs 12/24/23 amoxicillin 500 mg tablet 500 mg PO BID 7 days #14 tabs 03/16/24 bupropion HCl 300 mg 24 hr tablet, 300 mg PO QAM 90 days #90 tabs 04/09/24 extended release albuterol sulfate 90 mcg/actuation 1 inh inhalation QID PRN shortness 04/16/24 aerosol inhaler (Ventolin HFA) of breath or wheezing #18 ea polyethylene glycol 3350 17 17 g PO DAILY 90 days #1,530 grams 04/29/24 gram/dose oral powder (Miralax) cetirizine 10 mg tablet 10 mg PO DAILY #90 tabs 07/04/24 cholecalciferol (vitamin D3) 50 50 mcg PO DAILY 90 days #90 caps 07/04/24 mcg (2,000 unit) capsule pantoprazole 40 mg tablet,delayed 40 mg PO DAILY #30 tabs 07/06/24 release diclofenac sodium 1 % topical gel 2 g topical QID PRN pain 30 days 07/11/24 (Arthritis Pain (diclofenac)) #100 grams hydrocortisone 1 % topical cream 1 appl topical TID PRN skin 07/15/24 (Anti-Itch (hydrocortisone)) irritation 30 days #28.4 grams sucralfate 100 mg/mL oral 10 ml PO BEDTIME #400 mL 07/17/24 suspension levothyroxine 100 mcg tablet 100 mcg PO DAILY 90 days #90 tabs 07/19/24 lorazepam 1 mg tablet (Ativan) 1 mg PO DAILY PRN anxiety #7 tabs 07/24/24 Allergies Allergy/AdvReac Type Severity Reaction Status Date / Time spinach Allergy Severe Hives Verified 07/24/24 12:51 Histamine H2 Inhibitors Allergy Mild Unknown Verified 07/24/24 12:51 Review of Systems 2 Review of Systems: Constitutional: No fever, chills, fatigue, night sweats, weight changes ENT/Mouth: No ear pain, hearing loss, nasal congestion, sinus pain, rhinorrhea, sore throat Eyes: No eye pain, swelling, redness, vision changes, discharge Cardio: No palpitations, AIKEN, orthopnea, peripheral edema, +chest tightness Pulm: No SOB, cough, sputum, wheezing, dyspnea, hemoptysis GI: No nausea, vomiting, hematemesis, abdominal pain, diarrhea, constipation, hematochezia, melena : No irregular bleeding, dysuria, frequency, urgency, hesitancy, hematuria, flank pain, urinary flow changes, urinary incontinence or retention MSK: No back pain, neck pain, joint pain, myalgias Skin: No lesions, rashes Neuro: No weakness, numbness, paresthesias, LOC, dizziness, headache Psych: No anxiety/panic, depression, SI/HI, AH/VH All other systems reviewed and are negative. [facility] Past Medical History Attestation statement: The following information was validated with the patient. Source: old records reviewed and nursing notes reviewed Medical History Osteoarthritis of hands, bilateral Pes planus of both feet Myalgia Acid reflux Fibromyalgia Morbid obesity with BMI of 40.0-44.9, adult Mild recurrent major depression Venous (peripheral) insufficiency Skin lesion Polyarthralgia Mild asthma Depression with anxiety Hypothyroid Hypovitaminosis D Surgical History Hx of colonoscopy History of esophagogastroduodenoscopy (EGD) S/P laparoscopic sleeve gastrectomy History of carpal tunnel release History of gastric surgery History of laparoscopic cholecystectomy History of tubal ligation History of tonsillectomy Family History Family History Father Hypertension Mother Hypertension Maternal Aunt Breast cancer Family/Other FH: mental illness Paternal Grandfather No problems noted. Paternal Grandmother Hypertension Maternal Grandfather No problems noted. Maternal Grandmother Cervical cancer Social History Social History Housing: Apartment Alcohol intake: never Patient Tobacco Use Status: Never used Tobacco e-Cigarette/Vaping Use: Never Used Second Hand Smoke Exposure: No Advance Directives: No Advance Directives Information Provided: Yes Do you have a plan to hurt others: No Plan service: No Current occupational status: unemployed and disabled Current occupation: rt hand Current occupational exposures/hazards: No Cognitive needs: No Hearing needs: No Vision needs: Yes Physical Exam 2 Vital Signs: Vital Signs: Last Vital Signs Temp 97.6 F 07/24/24 16:32 Pulse 56 07/24/24 16:32 Resp 16 07/24/24 16:32 BP 150/83 H 07/24/24 16:32 Pulse Ox 99 07/24/24 16:32 O2 Del Method Room Air 07/24/24 16:32 BMI result Body Mass Index 43.5 Slightly hypertensive, vitals otherwise WNL. General: Well appearing, in no acute distress. Skin: Warm, dry, intact. No rashes or lesions. Head: Normocephalic, atraumatic. EENT: Hearing is intact b/l. Conjunctiva clear. Sclera is anicteric. PERRLA. EOM intact. Moist mucous membranes.? Neck: Supple without LAD. FROM. Trachea midline.? Cardiac: Chest wall symmetric. No reproducible chest wall tenderness. RRR. No MRG. No JVD. Lungs: Normal respiratory effort without accessory muscle use. CTA bilaterally. No rales, rhonchi, or wheezes.? Abdomen: Soft, non-tender, non-distended. No rebound tenderness or guarding. Positive BS x4. Back: No midline spinous or paraspinal tenderness. No step off deformity. Ext: Upper and lower extremities atraumatic, without tenderness, deformity, swelling or erythema. Full ROM throughout. Capillary refill <2 seconds in all extremities. Pulses 2+ equal and bilateral. Neuro: AOx3. Normal speech. CN 2-12 grossly intact. Strength 5/5 intact throughout. No saddle anesthesia. Sensation intact to light touch. NV intact distally. Reflexes 2+ bilaterally. Ambulating with steady gait. Psych: Appropriate mood and affect. Responds appropriately to questions. Course Course Course Narrative: This is a Rapid Medical Examination (RME) performed by Thomas Fu PA-C in triage. Full HPI, ROS, assessment and treatment plan per primary provider in the Main ED. 59 yo female hx of depression, anxiety, fibromyalgia, hypothyroid, polyarthralgia, PVD, obesity here for eval of chest tightness x weeks. reports taking care of her ill mother in [place] which has been causing her stress. has been seen at multiple [facility] in [place] for same with unremarkable work up. reports returning from [place] today, has outpatient follow up in [place] however decided to come to the ED instead. + well appearing, hypertensive. rrr. lungs clear Plan: labs, ekg, cxr Reevaluation(s) Reevaluation #1: 1630 -- CBC without leukocytosis or left shift. No anemia. H&H stable. Chemistry without acute electrolyte abnormality requiring intervention. No VA. Normal liver function. Troponin undetectable. EKG showing normal sinus rhythm without acute ischemic changes or ST elevations. ACS unlikely. Symptoms are not suggestive of PE so will hold off on D-dimer. Chest x-ray does not demonstrate signs of pneumonia or effusion. > patient presents with atypical chest pain. Patient noted to be slightly hypertensive to 171/93 on arrival, improved to 150/83. She has not been taking her antihypertensives and tells me that her PCP discontinued these due to improvement in her blood pressures. I discussed all workup results with patient. Given her current situation/increased stressors with taking care for mother, will send a short prescription of Ativan to her pharmacy. I advised her to follow up with her PCP as she may need to restart her antihypertensives. Patient feels as though this plan is reasonable and is continuing to deny chest pain at present. Patient has remained stable throughout ED visit today. Discussed worrisome signs and symptoms and when to return to the ED. All questions answered at this time. Patient is agreeable with disposition and stable for discharge. Medical Decision Making Medical Decision Making [facility] Narrative: 59 year old female with pmhx significant for GERD, HTN, obesity, anxiety, depression, fibromyalgia and hypothyroid presents to the ED today for evaluation of intermittent chest tightness x4 weeks. Symptoms suggestive of noncardiac chest pain.? History without high risk features (not substernal, no exertional component, not relieved with rest).? Minimal CAD risk factors. Exam without evidence of volume overload. EKG without signs of active ischemia. HEART score: 2 (age, HTN).? Given the timing of pain to ED presentation, plan to send single troponin to evaluate for NSTEMI. Presentation not consistent with acute PE, pneumothorax, thoracic aortic dissection, cardiac effusion or tamponade. Plan: labs, troponin, EKG, CXR, reassessment Differential Diagnosis Differential Diagnoses: The differential diagnosis associated with the presentation includes as above. Admission/Observation not indicated. Lab Data [facility] Lab Attestation statement: I reviewed the patient's lab results. as above. 07/24/24 13:13 07/24/24 13:13 Labs: Lab Results 07/24/24 Range/Units 13:13 WBC 5.8 (4.8-10.8) X10*3/uL RBC 4.71 (4.20-5.50) X10*6/uL Hgb 14.7 (12.0-16.0) g/dl Hct 43.4 (37.0-47.0) % MCV 92.1 (80.0-98.0) fL MCH 31.2 (27.0-33.0) pg MCHC 33.9 (31.0-35.0) g/dl RDW 12.3 (11.0-16.0) % Plt Count 297 (160-400) X10*3/uL MPV 9.6 (9.4-12.3) fL Immature Gran % (Auto) 0.3 (0.0-0.4) % Neut % (Auto) 60.6 (45-73) % Lymph % (Auto) 29.4 (20-40) % [place] % (Auto) 5.4 (2-11) % Eos % (Auto) 3.3 (0-4) % Baso % (Auto) 1.0 (0-2) % Lymph # (Auto) 1.7 (1.2-4.9) X10*3/uL [place] # (Auto) 0.3 (0.1-1.2) X10*3/uL Eos # (Auto) 0.2 (0.0-0.4) X10*3/uL Baso # (Auto) 0.1 (0.0-0.2) X10*3/uL Abs Immat Gran (auto) 0.02 (0.00-0.03) X10*3/uL Absolute Neuts (auto) 3.5 (2.0-8.3) x10*3/uL Absolute Nucleated RBC 0.000 (0.0-0.012) X10*3/uL Nucleated RBC % (auto) 0.0 (0.0-0.2) /100WBC Sodium 142 (135-145) mmol/L Potassium 3.8 (3.3-5.1) mmol/L Chloride 107 (96-108) mmol/L Carbon Dioxide 26 (22-29) mmol/L Anion Gap 13 (12-20) BUN 11 (9-16) mg/dL Creatinine 0.75 (0.5-1.4) mg/dL Estim Creat Clear Calc 92.0 Estimated GFR > 60 Random Glucose 94 (60-115) mg/dL Calcium 9.6 (8.4-10.2) mg/dL Magnesium 2.1 (1.6-2.6) mg/dL Total Bilirubin 0.5 (0.0-1.0) mg/dL AST 14 (5-31) U/L ALT 14 (0-31) U/L Alkaline Phosphatase 94 (39-117) U/L Troponin I High Sens < 2.7 (<3.5-17.0) ng/L Total Protein 8.3 H (6.5-8.0) g/dL Albumin 4.2 (3.5-5.0) g/dL Lipase 23 (8-78) U/L Independent Interpretation I performed an independent interpretation of an: EKG and Plain X-Ray Interpretation: EKG showing normal sinus rhythm with a rate of 60 beats per minute, QT 386, QTC 386, no acute ischemic changes or ST elevations. When compared to EKG from 12/14/2022, no significant change noted. Chest x-ray without infiltrate or consolidation to suggest pneumonia, agree with radiologist's interpretation. Radiology Impression Discussion of test interpretation with radiology: I have reviewed the radiologist's reading. Radiologist Impression: EXAMINATION: XR CHEST CLINICAL INFORMATION: Chest tightness. COMPARISON: 12/14/2022, 09/07/2021 TECHNIQUE: 2 views of the chest were obtained. Fluoroscopy was utilized. FINDINGS: Lungs are clear bilaterally. There is no consolidation or pleural effusion. There is no pneumothorax. The cardiac, hilar, and mediastinal contours are normal. The aorta is mildly tortuous but normal in caliber. No hilar abnormalities. Soft tissues demonstrate numerous surgical clips in the epigastric region. Osseous structures demonstrate moderate degenerative changes of the thoracic spine. XR/XR chest 2V IMPRESSION: No active pulmonary disease. Electronically signed by: Juan Tijerina MD 07/24/2024 02:10 PM EDT External Record Review External record reviewed: Inpatient record, Office record, Outpatient record, Prior outpatient labs, Prior outpatient radiology, Primary care record and Outside ED record Prescription Management I considered prescription management with: Other (Ativan) Social Determinants Patient?s care significantly limited by Social Determinants of Health including: Other Social Determinant of Health Scores Heart Score History: -0- slightly suspicious ECG: -0- normal Age: -1- >45 - <65 Risk factory: -1- 1 or 2 risk factors Troponin: -0- < or = normal limit Score: 2 Risk: 1.7% Critical Care Time Critical Care Time Critical Care Time: No Discharge Plan Discharge Clinical Impression: Atypical chest pain Patient Disposition: Home, Self-Care Instructions: Chest Pain (ED), Noncardiac Chest Pain (ED) Additional Instructions: You were evaluated in the Emergency Department today for chest pain. Your evaluation has shown no signs of medical conditions requiring emergent intervention at this time, however I recommend that you follow up with your primary care provider or your dairy technician as soon as possible for further testing as an outpatient. If you do not have one, a referral has been provided. Please call them to make an appointment, they will not call you. Ativan has been sent to your pharmacy. You may take this as prescribed for anxiety. Please follow up with your PCP as you may need to re-start your blood pressure medications. Return to the Emergency Department if you experience worsening or uncontrolled chest pain, shortness of breath, light headedness, feeling faint, nausea, vomiting, or any other concerning symptoms. Prescriptions: New lorazepam [Ativan] 1 mg tablet 1 mg PO DAILY PRN (Reason: anxiety) Qty: 7 0RF No Action (DME) nebulizers [AeroEclipse II Nebulizer] Misc See Rx Instructions .Route Qty: 1 0RF Rx Instructions: As directed albuterol sulfate 2.5 mg /3 mL (0.083 %) solution for nebulization 2.5 mg inhalation Q4-6H PRN (Reason: shortness of breath or wheezing) 30 Days Qty: 75 1RF methocarbamol 750 mg tablet 750 mg PO Q8H 5 Days Qty: 15 0RF amoxicillin 500 mg tablet 500 mg PO BID 7 Days Qty: 14 0RF bupropion HCl 300 mg tablet extended release 24 hr 300 mg PO QAM 90 Days Qty: 90 1RF albuterol sulfate [Ventolin HFA] 90 mcg/actuation HFA aerosol inhaler 1 inh inhalation QID PRN (Reason: shortness of breath or wheezing) Qty: 18 1RF polyethylene glycol 3350 [Miralax] 17 gram/dose powder 17 g PO DAILY 90 Days Qty: 1530 2RF cholecalciferol (vitamin D3) 50 mcg (2,000 unit) capsule 50 mcg PO DAILY 90 Days Qty: 90 1RF cetirizine 10 mg tablet 10 mg PO DAILY Qty: 90 1RF pantoprazole 40 mg tablet,delayed release (DR/EC) 40 mg PO DAILY Qty: 30 2RF Rx Instructions: take one tablet half an hour before breakfast diclofenac sodium [Arthritis Pain (diclofenac)] 1 % gel 2 g topical QID PRN (Reason: pain) 30 Days Qty: 100 1RF Rx Instructions: apply to single elbow, wrist or hand; for hand includes palm/fingers/back of hand hydrocortisone [Anti-Itch (HC)] 1 % cream 1 appl topical TID PRN (Reason: skin irritation) 30 Days Qty: 28.4 1RF sucralfate 100 mg/mL suspension 10 ml PO BEDTIME Qty: 400 3RF levothyroxine 100 mcg tablet 100 mcg PO DAILY 90 Days Qty: 90 1RF gabapentin 300 mg capsule 300 mg PO Q8H 90 Days Qty: 270 1RF Referrals: Rehana De Jesus MD [Primary Care Provider] - Interventions: ED Discharge Assessment Last Done: 07/24/24 16:32 Discharge Date/Time: 07/24/24 16:33 Print Language: Burmese
[2024-07-24 13:19] LABS: MANUAL DIFF FLAG NO
[2024-07-24 13:22] LABS: Basophils Absolute Auto 0.1 X10*3/uL (0.0-0.2); Eosinophils Absolute Auto 0.2 X10*3/uL (0.0-0.4); Eosinophils Percent Auto 3.3 % (0-4); Hematocrit 43.4 % (37.0-47.0); Hemoglobin 14.7 g/dl (12.0-16.0); Imm Gran Abs Auto 0.02 X10*3/uL (0.00-0.03); Imm Gran Pct Auto 0.3 % (0.0-0.4); Lymphocytes Absolute Auto 1.7 X10*3/uL (1.2-4.9); Lymphocytes Percent Auto 29.4 % (20-40); Mean Corpuscular HGB Conc 33.9 g/dl (31.0-35.0); Mean Corpuscular Hemoglobin 31.2 pg (27.0-33.0); Mean Corpuscular Volume 92.1 fL (80.0-98.0); Mean Platelet Volume 9.6 fL (9.4-12.3); Monocytes Absolute Auto 0.3 X10*3/uL (0.1-1.2); Monocytes Percent Auto 5.4 % (2-11); Neutrophils Absolute Auto 3.5 x10*3/uL (2.0-8.3); Neutrophils Percent Auto 60.6 % (45-73); Platelet Count 297 X10*3/uL (160-400); Red Blood Count 4.71 X10*6/uL (4.20-5.50); Red Cell Distribution Width 12.3 % (11.0-16.0); White Blood Count 5.8 X10*3/uL (4.8-10.8)
[2024-07-24 13:37] LABS: Alanine Aminotransferase 14 U/L (0-31); Albumin Level 4.2 g/dL (3.5-5.0); Alkaline Phosphatase 94 U/L (39-117); Anion Gap 13 (12-20); Aspartate Amino Transferase 14 U/L (5-31); Bilirubin Total 0.5 mg/dL (0.0-1.0); Blood Urea Nitrogen 11 mg/dL (9-16); Calcium 9.6 mg/dL (8.4-10.2); Carbon Dioxide 26 mmol/L (22-29); Chloride 107 mmol/L (96-108); Estimated Glomerular Filt Rate > 60; Glucose Random 94 mg/dL (60-115); Lipase 23 U/L (8-78); Magnesium 2.1 mg/dL (1.6-2.6); Potassium 3.8 mmol/L (3.3-5.1); Sodium 142 mmol/L (135-145); Total Protein 8.3 g/dL (6.5-8.0)
[2024-07-24 13:46] LABS: Troponin-I High Sensitivity < 2.7 ng/L (<3.5-17.0)
[2024-07-24 16:28] VITALS: BP 150/83; PULSE 56; RESP 16; TEMP 36.4; O2SAT 99
[2024-07-24 16:32] VITALS: BP 150/83; PULSE 56; RESP 16; TEMP 36.4; O2SAT 99
== END 2024-07-24 16:33 | disposition home or self-care (01) ==
PROVIDERS: Physician Assistant Medical; Emergency Provider Emergency Medicine; PCP Internal Medicine
DX: R07.89 Other chest pain (principal); I10 Essential (primary) hypertension; Z72.89 Other problems related to lifestyle; Z63.6 Dependent relative needing care at home; E66.9 Obesity, unspecified; Z68.41 Body mass index [BMI] 40.0-44.9, adult
CPT/HCPCS: 36415; 71046; 80053; 83690; 83735; 84484; 85025; 93005; 99283

== ENCOUNTER 2024-07-30 08:36 | Outpatient (AMB) | payer OTHER, SELFPAY ==
--- NOTE | 2024-07-30 08:40 | A.OFFPC_ITS ---
Vital Signs 07/30/24 08:42 07/30/24 10:51 Height 5 ft 1 in Weight 229 lb BMI 43.3 BP 148/80 H 145/80 H Blood Pressure Location Lt brachial Lt brachial Position Sitting Sitting Intake Visit Reasons: [facility] [place] 07/24 chest tightness/ big and low bp [employer] Required: No Accompanied by: Self / Same As Patient Allergies spinach Allergy (Severe, Verified 07/30/24 08:59) Hives Histamine H2 Inhibitors Allergy (Mild, Verified 07/30/24 08:59) Unknown Medication List - Last Reconciled 07/30/24 by Rehana De Anda MD albuterol sulfate 2.5 mg (3 mL) inhalation Q4-6H PRN 30 days albuterol sulfate 90 mcg/actuation (Ventolin HFA) 1 inh inhalation QID PRN bupropion HCl XL 300 mg PO QAM 90 days cetirizine 10 mg PO DAILY cholecalciferol (vitamin D3) 50 mcg PO DAILY 90 days diclofenac sodium 1% (Arthritis Pain (diclofenac)) 2 grams topical QID PRN 30 days gabapentin 300 mg PO Q8H 90 days hydrocortisone 1% (Anti-Itch (hydrocortisone)) 1 appl topical TID PRN 30 days levothyroxine 100 mcg PO DAILY 90 days lorazepam (Ativan) 1 mg PO DAILY PRN nebulizers (AeroEclipse II Nebulizer) As directed pantoprazole 40 mg PO DAILY polyethylene glycol 3350 (Miralax) 17 grams PO DAILY 90 days sucralfate 10 mL PO BEDTIME Tobacco use date assessed: 01/20/24 Dental Screening Dental Screen Date: 01/20/24 HPI HPI Comments History of Present Illness Details This is a 59-year-old female with mild recurrent major depression, anxiety, hypothyroidism and morbid obesity that comes today for follow-up on recent ER visit due to chest pain. Discharge date was 07/24/2024. She had chest pain that happens at rest located in middle and left side of the chest. EKG and chest x-ray were done at ER which were negative. She said she is on a lot of stress from problems at home. Her dad is in [place] and has cancer. Her mother is sick and is on [place]. Her has Parkinson's that has worsened. She does have a counselor and a psychiatrist. She was crying and talking with a psychiatrist when I came to the room. On bupropion for depression and benzodiazepines as needed for anxiety. She will contact Behavioral Health today. Last TSH was elevated and this will be repeated today. She is morbidly obese with a BMI of 43.3 and was advised to do diet and exercise and consider weight management follow-up. She has been having elevated blood pressure and I will start her on losartan. Blood pressure will be recheck in 3 weeks by nurse navigator. [facility] Medical History (Updated 07/30/24 @ 10:51 by Rehana De Anda MD) Osteoarthritis of hands, bilateral Pes planus of both feet Myalgia Acid reflux Fibromyalgia Morbid obesity with BMI of 40.0-44.9, adult Mild recurrent major depression Venous (peripheral) insufficiency Skin lesion Polyarthralgia Mild asthma Depression with anxiety Hypothyroid Hypovitaminosis D Surgical History Hx of colonoscopy History of esophagogastroduodenoscopy (EGD) S/P laparoscopic sleeve gastrectomy History of carpal tunnel release History of gastric surgery History of laparoscopic cholecystectomy History of tubal ligation History of tonsillectomy Family History Father Hypertension Mother Hypertension Maternal Aunt Breast cancer Family/Other FH: mental illness Paternal Grandfather No problems noted. Paternal Grandmother Hypertension Maternal Grandfather No problems noted. Maternal Grandmother Cervical cancer Social History Housing: Apartment Alcohol intake: never Patient Tobacco Use Status: Never used Tobacco e-Cigarette/Vaping Use: Never Used Second Hand Smoke Exposure: No service: No Current occupational status: unemployed and disabled Current occupation: rt hand Current occupational exposures/hazards: No Cognitive needs: No Hearing needs: No Vision needs: Yes Questionnaire PHQ-9 Over the last 2 weeks, how often have you been bothered by any of the following problems? 1. Little interest or pleasure in doing things: more than half the days 2. Feeling down, depressed, or hopeless: more than half the days 3. Trouble falling or staying asleep, or sleeping too much: more than half the days 4. Feeling tired or having little energy: more than half the days 5. Poor appetite or overeating: more than half the days 6. Feeling bad about yourself - or that you are a failure or have let yourself or your family down: not at all 7. Trouble concentrating on things, such as reading the newspaper or watching television: several days 8. Moving or speaking so slowly that other people could have noticed. Or the opposite - being so fidgety or restless that you have been moving around a lot more than usual: not at all 9. Thoughts that you would be better off or of hurting yourself in some way: not at all Total score: 11 Depression Screening Interpretation: Positive Depression Screening Follow-up: Existing condition, In treatment, Community Mental Health Worker F/U and Follow- up Visit Requested Depression Screening Done: Yes [id number] - PHQ-9 Billing: Yes Source: Developed by Drs. Chase Salvador, Phyllis Martinez, Graham Gregorio and colleagues, with an educational andrew from [employer]. Thrive Questionnaire Date Thrive assessed: 01/20/24 NITIN-7 AMB Questionnaire NITIN-7 Date NITIN - 7 assessed: 01/20/24 Source: Developed by Drs. Chase Salvador, Phyllis Martinez, Graham Gregorio and colleagues, with an educational andrew from [employer]. Review of Systems Const All systems reviewed & are unremarkable except as noted in HPI and below Card Denies chest pain at rest, Denies chest pain with activity, Denies edema, Denies irregular heart rhythm, Denies claudication, Denies dyspnea, Denies dyspnea on exertion, Denies orthopnea, Denies paroxysmal nocturnal dyspnea and Denies slow heart rate Resp Denies cough, Denies dyspnea and Denies dyspnea on exertion GI Denies abdominal pain, Denies change in bowel habits, Denies excessive flatus, Denies nausea and Denies vomiting Denies urinary incontinence, Denies urinary hesitancy and Denies urinary urgency Musc Denies atrophy, Denies deformity and Denies limited range of motion Skin/Breast Denies bleeding lesions, Denies changing lesions and Denies rash Psych Reports abnormal sleep pattern, Reports anxiety and Reports depression Physical exam (Primary Care) Vital Signs: Last Vital Signs BP 148/80 H 07/30/24 08:42 BMI result Body Mass Index 43.3 BMI Assessment/Plan discussion: High BMI High, discussed plan: lifestyle, weight reduction, dietary and physical activity Tobacco/Smoking Status: Tobacco use Status Tobacco use date assessed 01/20/24 07/30/24 08:42 Patient Tobacco Use Status Never used Tobacco 07/30/24 08:42 e-Cigarette/Vaping Use Never Used 07/30/24 08:42 Depression Screening Interpretation: Positive Depression Screening Follow-up: Existing condition, In treatment, Community Mental Health Worker F/U and Follow- up Visit Requested Thrive Assessment: Date of Thrive Assessment Date Thrive assessed 01/20/24 07/30/24 08:42 Resp Effort & Inspection: normal respiratory effort Auscultation: clear to auscultation bilaterally Cardio Jugular venous distension: no JVD Rate: regular rate Rhythm: regular rhythm Heart sounds: S1 normal heart sound present and S2 normal heart sound present GI Inspection: Yes normal to inspection Palpation (GI): Soft to palpation and nontender Auscultation: normal bowel sounds Extrem General: Yes full ROM Psych Affect: Sad affect present Assessment and Plan Assessment & Plan (1) Mild recurrent major depression: Code(s): F33.0 - Major depressive disorder, recurrent, mild Plan: Continue bupropion. Follow-up with psychiatry today. (2) Morbid obesity with BMI of 40.0-44.9, adult: Code(s): E66.01 - Morbid (severe) obesity due to excess calories; Z68.41 - Body mass index [BMI] 40.0-44.9, adult Plan: Start diet and exercise as tolerated. Reach BMI goal less than 30. (3) Hypothyroid: Code(s): E03.9 - Hypothyroidism, unspecified Qualifiers: Hypothyroidism type: due to Cande's thyroiditis Qualified Code(s): E03.8 - Other specified hypothyroidism; E06.3 - Autoimmune thyroiditis Plan: Continue levothyroxine. Repeat TSH today. (4) NITIN (generalized anxiety disorder): Code(s): F41.1 - Generalized anxiety disorder Plan: Continue benzodiazepines as needed. Follow-up with psychiatry. (5) Essential hypertension: Code(s): I10 - Essential (primary) hypertension Plan: Start losartan. Recheck blood pressure with nurse navigator in 3 weeks. Blood pressure goal is equal or less than 130/80. 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
[2024-07-30 08:42] VITALS: BP 148/80; BMI 43.3
[2024-07-30 10:51] VITALS: BP 145/80
== END 2024-07-30 09:09 | disposition home or self-care (01) ==
PROVIDERS: PCP Internal Medicine; Visit Provider Internal Medicine
DX: F33.0 Major depressive disorder, recurrent, mild (principal); E66.01 Morbid (severe) obesity due to excess calories; Z68.41 Body mass index [BMI] 40.0-44.9, adult; E03.8 Other specified hypothyroidism; E06.3 Autoimmune thyroiditis; F41.1 Generalized anxiety disorder; I10 Essential (primary) hypertension
CPT/HCPCS: 99214; G2211

== ENCOUNTER 2024-07-31 08:11 | Outpatient (REF) | payer OTHER, SELFPAY ==
[2024-07-31 10:18] LABS: Thyroid Stimulating Hormone 1.67 uIU/mL (0.32-4.0); Vitamin D 25-OH Total 19.8 ng/mL (>30)
== END 2024-07-31 08:12 | disposition home or self-care (01) ==
LOC: HO.LAB 08:11
PROVIDERS: PCP Internal Medicine; Visit Provider Internal Medicine
DX: E03.9 Hypothyroidism, unspecified (principal); E55.9 Vitamin D deficiency, unspecified
CPT/HCPCS: 36415; 82306; 84443

== ENCOUNTER 2024-09-22 12:45 | Outpatient (AMB) | payer OTHER, SELFPAY ==
--- NOTE | 2024-09-22 12:59 | A.OFFVIS_ITS ---
Vital Signs 09/22/24 13:04 Height 5 ft 1 in Weight 230 lb 2.601 oz BMI 43.5 BP 124/80 Blood Pressure Location Rt brachial Position Sitting Pulse 63 Pulse Source Pulse Oximeter Pulse Oximetry (%) 99 Oxygen Delivery Method Room Air Intake Visit Reasons: Followup Intake Note: Patient presents for follow up. Allergies spinach Allergy (Severe, Verified 09/22/24 13:03) Hives Histamine H2 Inhibitors Allergy (Mild, Verified 09/22/24 13:03) Unknown Medication List - Last Reconciled 09/22/24 by Elan Mcgraw MD albuterol sulfate 2.5 mg (3 mL) inhalation Q4-6H PRN 30 days albuterol sulfate 90 mcg/actuation (Ventolin HFA) 1 inh inhalation QID PRN bupropion HCl XL 300 mg PO QAM 90 days cetirizine 10 mg PO DAILY cholecalciferol (vitamin D3) 50 mcg PO DAILY 90 days cyclobenzaprine 10 mg PO BEDTIME 7 days diclofenac sodium 1% (Arthritis Pain (diclofenac)) 2 grams topical QID PRN 30 days gabapentin 300 mg PO Q8H 90 days hydrocortisone 1% (Anti-Itch (hydrocortisone)) 1 appl topical TID PRN 30 days levothyroxine 100 mcg PO DAILY 90 days lorazepam (Ativan) 1 mg PO DAILY PRN losartan 25 mg PO DAILY 90 days nebulizers (AeroEclipse II Nebulizer) As directed pantoprazole 40 mg PO DAILY polyethylene glycol 3350 (Miralax) 17 grams PO DAILY 90 days sucralfate 10 mL PO BEDTIME HPI Comments Details: This is a 59-year-old female with fibromyalgia and osteoarthritis who presents for follow-up. She states that she continues to have diffuse pain everywhere. She is s/p left carpal tunnel release with improved numbness of her left hand. States that she gets triggering of her left middle finger. She states that this has improved. She has been using squeeze balls. However she continues to wake up sometimes with locking of her left middle finger. [facility] Medical History Osteoarthritis of hands, bilateral Pes planus of both feet Myalgia Acid reflux Fibromyalgia Morbid obesity with BMI of 40.0-44.9, adult Mild recurrent major depression Venous (peripheral) insufficiency Skin lesion Polyarthralgia Mild asthma Depression with anxiety Hypothyroid Hypovitaminosis D Surgical History Hx of colonoscopy History of esophagogastroduodenoscopy (EGD) S/P laparoscopic sleeve gastrectomy History of carpal tunnel release History of gastric surgery History of laparoscopic cholecystectomy History of tubal ligation History of tonsillectomy Family History Father Hypertension Mother Hypertension Maternal Aunt Breast cancer Family/Other FH: mental illness Paternal Grandfather No problems noted. Paternal Grandmother Hypertension Maternal Grandfather No problems noted. Maternal Grandmother Cervical cancer Social History Housing: Apartment Alcohol intake: never Patient Tobacco Use Status: Never used Tobacco e-Cigarette/Vaping Use: Never Used Second Hand Smoke Exposure: No service: No Current occupational status: unemployed and disabled Current occupation: rt hand Current occupational exposures/hazards: No Cognitive needs: No Hearing needs: No Vision needs: Yes Physical Exam Vital Signs: Last Vital Signs Pulse 63 09/22/24 13:04 BP 124/80 09/22/24 13:04 Pulse Ox 99 09/22/24 13:04 Oxygen Delivery Method Room Air 09/22/24 13:04 BMI result Body Mass Index 43.5 Const General: cooperative, healthy appearing and comfortable Nutritional Appearance: obese morbidly obese Orientation/consciousness: patient oriented x3 Limitations: no limitations HEENT Head: Yes normocephalic and Yes atraumatic Mouth: moist mucous membranes Resp Effort & Inspection: normal respiratory effort and able to speak in complete sentences Skin General skin exam: no rashes or lesions noted Neuro General: patient oriented x3 Extrem Other: Osteoarthritic changes of both hands with prominent tender Heberden's nodes Multiple fibromyalgia tender points Mildly tender prominent nodule of the left 3rd flexor tendon Quality Reporting (2020) Adult ([facility] ) Smoking risk assessment performed?: Yes Patient Tobacco Use Status: Never used Tobacco Assessment & Plan Assessment & Plan (1) Fibromyalgia: Code(s): M79.7 - Fibromyalgia Category: Medical Plan: This is a 59-year-old female with fibromyalgia who presents for follow-up. Discussed management of fibromyalgia with patient. Is a noninflammatory, non- autoimmune central afferent processing disorder leading to a diffuse pain syndrome. Patient follows up regularly with her psychologist. I suggested evaluation by a psychiatrist as well. Try to follow sleep hygiene practices. Discuss CBT for sleep with psychotherapist. Patient has had a sleep study in the past and was told she does not have sleep apnea. Patient would benefit from increased physical activity, either through formal physical therapy or by joining a gym. Advised patient that she should start activity slowly and increase as tolerated. Consider low-impact exercises such as walking, swimming, aqua therapy stretching, yoga. Follow-up with PCP (2) Trigger finger, left middle finger: Code(s): M65.332 - Trigger finger, left middle finger Category: Medical Plan: Symptoms minimal. Consider getting OTC finger splints and wear nightly Plan I spent 22 minutes reviewing patient's chart, evaluating patient, counseling patient and documenting in the chart Coding Level of Care Code Est Pt Level 3 (75189) Diagnoses Fibromyalgia M79.7 Trigger finger, left middle finger M65.332
[2024-09-22 13:04] VITALS: BP 124/80; PULSE 63; O2SAT 99; BMI 43.5
== END 2024-09-22 14:08 | disposition home or self-care (01) ==
PROVIDERS: PCP Internal Medicine; Visit Provider Student in an Organized Health Care Education/Training Program
DX: M79.7 Fibromyalgia (principal); M65.332 Trigger finger, left middle finger
CPT/HCPCS: 99213

== ENCOUNTER → 2024-09-22 12:45 | Outpatient (BNVA) | payer OTHER, SELFPAY | PROVIDERS: PCP Internal Medicine; Visit Provider Student in an Organized Health Care Education/Training Program | DX: M79.7 Fibromyalgia (principal); M65.332 Trigger finger, left middle finger | CPT/HCPCS: 99212 ==

== ENCOUNTER 2024-10-28 09:56 | Outpatient (REF) | payer SELFPAY ==
[2024-10-28 11:45] LABS: Thyroid Stimulating Hormone 2.85 uIU/mL (0.32-4.0)
== END 2024-10-28 09:57 | disposition home or self-care (01) ==
LOC: HO.LAB 09:56
PROVIDERS: PCP Internal Medicine; Visit Provider Internal Medicine
DX: E03.9 Hypothyroidism, unspecified (principal)
CPT/HCPCS: 36415; 84443

== ENCOUNTER 2024-11-09 03:44 | Emergency (ER) | payer MEDICAID, SELFPAY ==
--- NOTE | ~2024-11-09 | XR_ITS ---
EXAMINATION: XR CHEST CLINICAL INFORMATION: cough COMPARISON: July 24, 2024 TECHNIQUE: Frontal view of the chest was obtained. FINDINGS: The cardiomediastinal silhouette is stable. There is no focal lung consolidation or pleural effusion. The bony structures and the soft tissues are unremarkable. XR/XR chest 1V IMPRESSION: No acute cardiopulmonary process. Electronically signed by: James Shirley MD 11/09/2024 05:00 AM [facility] [place]
[2024-11-09 03:47] VITALS: BP 145/70; PULSE 76; O2SAT 98
[2024-11-09 04:00] VITALS: BP 124/57; PULSE 72; RESP 18; TEMP 36.8; O2SAT 97; BMI 42.1
--- NOTE | 2024-11-09 04:48 | ED.URI ---
HPI - URI/Sore Throat General Chief Complaint: Upper Respiratory Symptoms Stated Complaint: cough Time Seen by Provider: 11/09/24 04:39 Source: patient Mode of arrival: ambulatory Limitations: no limitations History of Present Illness ED Provider: HPI Narrative: Patient's history of asthma been having nasal congestion body aches cough mucopurulent expectoration and low-grade fever for last 3 days patient complaining of diffuse body aches no other family member sick patient has been using inhaler without much relief Related Data Previous Rx's ?Medication ?Instructions ?Recorded nebulizers (AeroEclipse II #1 ea 01/07/23 Nebulizer) gabapentin 300 mg capsule 300 mg PO Q8H 90 days #270 caps 06/13/23 albuterol sulfate 2.5 mg/3 mL 2.5 mg (3 mL) inhalation Q4-6H PRN 08/21/23 (0.083 %) solution for nebulization shortness of breath or wheezing 30 days #75 mL albuterol sulfate 90 mcg/actuation 1 inh inhalation QID PRN shortness 04/16/24 aerosol inhaler (Ventolin HFA) of breath or wheezing #18 ea polyethylene glycol 3350 17 17 g PO DAILY 90 days #1,530 grams 04/29/24 gram/dose oral powder (Miralax) cetirizine 10 mg tablet 10 mg PO DAILY #90 tabs 07/04/24 hydrocortisone 1 % topical cream 1 appl topical TID PRN skin 07/15/24 (Anti-Itch (hydrocortisone)) irritation 30 days #28.4 grams sucralfate 100 mg/mL oral 10 ml PO BEDTIME #400 mL 07/17/24 suspension lorazepam 1 mg tablet (Ativan) 1 mg PO DAILY PRN anxiety #7 tabs 07/24/24 losartan 25 mg tablet 25 mg PO DAILY 90 days #90 tabs 07/30/24 cholecalciferol (vitamin D3) 50 50 mcg PO DAILY 90 days #90 caps 08/02/24 mcg (2,000 unit) capsule cyclobenzaprine 10 mg tablet 10 mg PO BEDTIME 7 days #7 tabs 08/24/24 levothyroxine 100 mcg tablet 100 mcg PO DAILY 90 days #90 tabs 08/24/24 diclofenac sodium 1 % topical gel 2 g topical QID PRN pain 30 days 09/17/24 (Arthritis Pain (diclofenac)) #100 grams pantoprazole 40 mg tablet,delayed 40 mg PO QAM #90 tabs 10/12/24 release bupropion HCl 300 mg 24 hr tablet, 300 mg PO QAM 90 days #90 tabs 10/19/24 extended release cefuroxime axetil 500 mg tablet 500 mg PO BID 7 days #14 tabs 11/09/24 codeine 10 mg-guaifenesin 100 mg/5 10 ml PO Q6H PRN cough #237 mL 11/09/24 mL oral liquid prednisone 20 mg tablet 40 mg (2 x 20 mg) PO DAILY #10 tabs 11/09/24 Allergies Allergy/AdvReac Type Severity Reaction Status Date / Time spinach Allergy Severe Hives Verified 11/09/24 04:02 Histamine H2 Inhibitors Allergy Mild Unknown Verified 11/09/24 04:02 Review of Systems Review of Systems: Yes all other systems are reviewed and are negative PMFSH Past Medical History Medical History Osteoarthritis of hands, bilateral Pes planus of both feet Myalgia Acid reflux Fibromyalgia Morbid obesity with BMI of 40.0-44.9, adult Mild recurrent major depression Venous (peripheral) insufficiency Skin lesion Polyarthralgia Mild asthma Depression with anxiety Hypothyroid Hypovitaminosis D Surgical History Hx of colonoscopy History of esophagogastroduodenoscopy (EGD) S/P laparoscopic sleeve gastrectomy History of carpal tunnel release History of gastric surgery History of laparoscopic cholecystectomy History of tubal ligation History of tonsillectomy Family History Family History Father Hypertension Mother Hypertension Maternal Aunt Breast cancer Family/Other FH: mental illness Paternal Grandfather No problems noted. Paternal Grandmother Hypertension Maternal Grandfather No problems noted. Maternal Grandmother Cervical cancer Social History Social History Housing: Apartment Alcohol intake: never Patient Tobacco Use Status: Never used Tobacco Smoked in Last 30 Days: No e-Cigarette/Vaping Use: Never Used Second Hand Smoke Exposure: No Use of substances other than those prescribed or required for medical reasons: No Advance Directives: No Advance Directives Information Provided: Yes Do you have a plan to hurt others: No Plan Patient : No service: No Current occupational status: unemployed and disabled Current occupation: rt hand Current occupational exposures/hazards: No Cognitive needs: No Hearing needs: No Vision needs: Yes Physical Exam Vital Signs: Vital Signs: Last Vital Signs Temp 98.3 F 11/09/24 04:00 Pulse 77 11/09/24 04:57 Resp 18 11/09/24 04:57 BP 124/57 L 11/09/24 04:00 Pulse Ox 97 11/09/24 04:00 O2 Del Method Room Air 11/09/24 04:00 BMI result Body Mass Index 42.1 Appearance: Alert. Oriented X3. No acute distress. Eyes: No pallor or icterus ENT: Pharynx normal. Oral Mucosa moist Neck: Normal inspection. Neck supple. CVS: Normal heart rate and rhythm. Pulses normal. Respiratory: No respiratory distress. Equal air entry bilateral, bilateral wheezing no crackles Abdomen: Soft and nontender. Bowel sounds are present, no mass palpable, no CVA tenderness Skin: Skin warm and dry. Normal skin color. Normal skin turgor. Extremities: No lower extremity edema. No calf tenderness Neuro: Oriented X 3. No motor deficit. Medications Administered Discontinued Medications Generic Name Dose Route Start Last Admin Trade Name Freq PRN Reason Stop Dose Admin Cefuroxime Axetil 500 mg 11/09/24 04:44 11/09/24 05:18 Cefuroxime Axetil 500 Mg Tablet PO 11/09/24 04:45 500 mg ONCE ONE Administration Albuterol Sulfate 2.5 mg/ 0 mg 11/09/24 04:44 11/09/24 04:56 Albuterol/Ipratropium 3 ml INHALE 11/09/24 04:45 1 dose ONCE ONE Administration Guaifenesin/Codeine Phosphate 10 ml 11/09/24 04:44 11/09/24 05:18 Guaifen/Codeine Sf 200/20/10ml 10 Ml Liquid PO 11/09/24 04:45 10 ml NOW STA Administration Prednisone 60 mg 11/09/24 04:44 11/09/24 05:18 Prednisone 20 Mg Tablet PO 11/09/24 04:45 60 mg ONCE ONE Administration Medical Decision Making Medical Decision Making MDM Narrative: Patient with RSV and COVID positive chest x-ray negative for infiltrate saturating 97% at room air will use steroids and nebulizing treatment Admission/Observation Consideration of admission/observation: Escalation of care including admission/observation considered Lab Data [facility] Lab Attestation statement: I reviewed the patient's lab results. Labs: Lab Results 11/09/24 Range/Units 04:25 Influenza Type A (PCR) NEGATIVE (Negative) Influenza Type B (PCR) NEGATIVE (Negative) RSV RNA Qual (PCR) POSITIVE A (Negative) SARS-CoV-2 RNA (RT-PCR) POSITIVE A (Negative) Independent Interpretation I performed an independent interpretation of an: Plain X-Ray Interpretation: NAD Radiology Impression Discussion of test interpretation with radiology: I have reviewed the radiologist's reading. Radiologist Impression: [place] [id number] XRay Report Signed Patient: Zoila Avalos MR#: [id number] : 1965 Acct:[id number] Age/Sex: 59 / F ADM Date: 11/09/24 Loc: .ED Attending Dr: Ordering Physician: Lukas Ramos MD Date of Service: 11/09/24 Procedure(s): XR chest 1V Accession Number(s): [id number] cc: Rehana De Jesus MD; Lukas Ramos MD~ EXAMINATION: XR CHEST CLINICAL INFORMATION: cough COMPARISON: July 24, 2024 TECHNIQUE: Frontal view of the chest was obtained. FINDINGS: The cardiomediastinal silhouette is stable. There is no focal lung consolidation or pleural effusion. The bony structures and the soft tissues are unremarkable. XR/XR chest 1V IMPRESSION: No acute cardiopulmonary process. Electronically signed by: James Shirley MD 11/09/2024 05:00 AM [facility] Discharge Plan Discharge Clinical Impression: COVID-19, Respiratory syncytial virus (RSV) Patient Disposition: Home, Self-Care Instructions: Respiratory Syncytial Virus (ED), COVID-19 (Coronavirus Disease 2019) (ED) Additional Instructions: Continue your nebulizer/inhaler treatment Prednisone as advised Antibiotic as prescribed Cough syrup as prescribed follow up with your PCP if not better Prescriptions: New prednisone 20 mg tablet 40 mg PO DAILY Qty: 10 0RF codeine-guaifenesin 10-100 mg/5 mL liquid 10 ml PO Q6H PRN (Reason: cough) Qty: 237 0RF cefuroxime axetil 500 mg tablet 500 mg PO BID 7 Days Qty: 14 0RF No Action (DME) nebulizers [AeroEclipse II Nebulizer] Misc See Rx Instructions .Route Qty: 1 0RF Rx Instructions: As directed albuterol sulfate 2.5 mg /3 mL (0.083 %) solution for nebulization 2.5 mg inhalation Q4-6H PRN (Reason: shortness of breath or wheezing) 30 Days Qty: 75 1RF albuterol sulfate [Ventolin HFA] 90 mcg/actuation HFA aerosol inhaler 1 inh inhalation QID PRN (Reason: shortness of breath or wheezing) Qty: 18 1RF polyethylene glycol 3350 [Miralax] 17 gram/dose powder 17 g PO DAILY 90 Days Qty: 1530 2RF cetirizine 10 mg tablet 10 mg PO DAILY Qty: 90 1RF hydrocortisone [Anti-Itch (HC)] 1 % cream 1 appl topical TID PRN (Reason: skin irritation) 30 Days Qty: 28.4 1RF sucralfate 100 mg/mL suspension 10 ml PO BEDTIME Qty: 400 3RF cholecalciferol (vitamin D3) 50 mcg (2,000 unit) capsule 50 mcg PO DAILY 90 Days Qty: 90 1RF levothyroxine 100 mcg tablet 100 mcg PO DAILY 90 Days Qty: 90 1RF cyclobenzaprine 10 mg tablet 10 mg PO BEDTIME 7 Days Qty: 7 0RF diclofenac sodium [Arthritis Pain (diclofenac)] 1 % gel 2 g topical QID PRN (Reason: pain) 30 Days Qty: 100 1RF Rx Instructions: apply to single elbow, wrist or hand; for hand includes palm/fingers/back of hand pantoprazole 40 mg tablet,delayed release (DR/EC) 40 mg PO QAM Qty: 90 0RF bupropion HCl 300 mg tablet extended release 24 hr 300 mg PO QAM 90 Days Qty: 90 1RF lorazepam [Ativan] 1 mg tablet 1 mg PO DAILY PRN (Reason: anxiety) Qty: 7 0RF gabapentin 300 mg capsule 300 mg PO Q8H 90 Days Qty: 270 1RF losartan 25 mg tablet 25 mg PO DAILY 90 Days Qty: 90 1RF Print Language: Bulgarian
[2024-11-09] MEDS: Albuterol Sulfate 2.5 MG, Albuterol/Iprat 2.5/0.5MG 3 ML 3 ML INHALE (04:56)
[2024-11-09 04:57] VITALS: PULSE 77; RESP 18; O2SAT 97
[2024-11-09 05:05] LABS: Influenza A PCR NEGATIVE (Negative); Influenza B PCR NEGATIVE (Negative); Resp Syncy Virus RNA Qual PCR POSITIVE (Negative); SARS COV2 PCR INHOUSE POSITIVE (Negative)
[2024-11-09] MEDS: cefuroxime axetiL 500 MG TABLET PO (05:18)
[2024-11-09] MEDS: guaiFEN/Codeine SF 200/20/10ML 10 ML LIQUID PO (05:18)
[2024-11-09] MEDS: predniSONE 20 MG TABLET 60 MG PO (05:18)
[2024-11-09 06:42] VITALS: BP 131/81; PULSE 80; RESP 17; TEMP 37.2; O2SAT 100
--- OUTSIDE RECORDS SUMMARY | 2024-11-11 12:16 | XMS_ITS | Patient Health Record ---
Author Organization [facility] Address [address] [place] [address] Support Name Relationship Address Phone Zoila Avalos Guarantor Unknown [phone] Reason For Referral No Information Plan Of Treatment No Information Insurance Providers Payer Name Payer Address Payer Phone Subscriber Number Group Number Insured Name Patient Relationship to Insured Coverage Start Date Coverage End Date [facility] [address] [address] [place] [address] [id number] Zoila Avalos Self - patient is the insured
== END 2024-11-09 06:43 | disposition home or self-care (01) ==
PROVIDERS: Emergency Provider Internal Medicine; PCP Internal Medicine
DX: U07.1 COVID-19 (principal); J22 Unspecified acute lower respiratory infection; B97.4 Respiratory syncytial virus as the cause of diseases classified elsewhere; M79.10 Myalgia, unspecified site; R50.9 Fever, unspecified; R05.9 Cough, unspecified
CPT/HCPCS: 0241U; 71045; 94640; 99284

== ENCOUNTER 2024-11-11 12:17 | Emergency (ER) | payer MEDICAID, SELFPAY ==
--- NOTE | ~2024-11-11 | XR_ITS ---
EXAMINATION: XR CHEST CLINICAL INFORMATION: worsening dyspnea COMPARISON: Chest x-ray November 09, 2024 TECHNIQUE: 2 views of the chest were obtained. FINDINGS: Lungs are clear. No pulmonary vascular congestion. There is no pleural effusion. The heart size is normal. The cardiac and mediastinal contours are normal. There are multilevel degenerative changes of dorsal spine. Surgical clips in the upper abdomen. XR/XR chest 2V IMPRESSION: Unremarkable examination. Electronically signed by: Shakir Lopez MD 11/11/2024 03:56 PM EST
[2024-11-11 12:44] VITALS: BP 136/75; PULSE 75; RESP 18; TEMP 36.4; O2SAT 99; BMI 42.1
--- NOTE | 2024-11-11 12:45 | ED.GENADULT ---
HPI - General Adult General Chief complaint: Dyspnea Stated complaint: Diff breathing Related Data Previous Rx's ?Medication ?Instructions ?Recorded nebulizers (AeroEclipse II #1 ea 01/07/23 Nebulizer) gabapentin 300 mg capsule 300 mg PO Q8H 90 days #270 caps 06/13/23 albuterol sulfate 2.5 mg/3 mL 2.5 mg (3 mL) inhalation Q4-6H PRN 08/21/23 (0.083 %) solution for nebulization shortness of breath or wheezing 30 days #75 mL albuterol sulfate 90 mcg/actuation 1 inh inhalation QID PRN shortness 04/16/24 aerosol inhaler (Ventolin HFA) of breath or wheezing #18 ea polyethylene glycol 3350 17 17 g PO DAILY 90 days #1,530 grams 04/29/24 gram/dose oral powder (Miralax) cetirizine 10 mg tablet 10 mg PO DAILY #90 tabs 07/04/24 hydrocortisone 1 % topical cream 1 appl topical TID PRN skin 07/15/24 (Anti-Itch (hydrocortisone)) irritation 30 days #28.4 grams sucralfate 100 mg/mL oral 10 ml PO BEDTIME #400 mL 07/17/24 suspension lorazepam 1 mg tablet (Ativan) 1 mg PO DAILY PRN anxiety #7 tabs 07/24/24 losartan 25 mg tablet 25 mg PO DAILY 90 days #90 tabs 07/30/24 cholecalciferol (vitamin D3) 50 50 mcg PO DAILY 90 days #90 caps 08/02/24 mcg (2,000 unit) capsule cyclobenzaprine 10 mg tablet 10 mg PO BEDTIME 7 days #7 tabs 08/24/24 levothyroxine 100 mcg tablet 100 mcg PO DAILY 90 days #90 tabs 08/24/24 diclofenac sodium 1 % topical gel 2 g topical QID PRN pain 30 days 09/17/24 (Arthritis Pain (diclofenac)) #100 grams pantoprazole 40 mg tablet,delayed 40 mg PO QAM #90 tabs 10/12/24 release bupropion HCl 300 mg 24 hr tablet, 300 mg PO QAM 90 days #90 tabs 10/19/24 extended release cefuroxime axetil 500 mg tablet 500 mg PO BID 7 days #14 tabs 11/09/24 codeine 10 mg-guaifenesin 100 mg/5 10 ml PO Q6H PRN cough #237 mL 11/09/24 mL oral liquid prednisone 20 mg tablet 40 mg (2 x 20 mg) PO DAILY #10 tabs 11/09/24 Allergies Allergy/AdvReac Type Severity Reaction Status Date / Time spinach Allergy Severe Hives Verified 11/11/24 12:46 Histamine H2 Inhibitors Allergy Mild Unknown Verified 11/11/24 12:46 PMFSH Past Medical History Medical History Osteoarthritis of hands, bilateral Pes planus of both feet Myalgia Acid reflux Fibromyalgia Morbid obesity with BMI of 40.0-44.9, adult Mild recurrent major depression Venous (peripheral) insufficiency Skin lesion Polyarthralgia Mild asthma Depression with anxiety Hypothyroid Hypovitaminosis D Surgical History Hx of colonoscopy History of esophagogastroduodenoscopy (EGD) S/P laparoscopic sleeve gastrectomy History of carpal tunnel release History of gastric surgery History of laparoscopic cholecystectomy History of tubal ligation History of tonsillectomy Family History Family History Father Hypertension Mother Hypertension Maternal Aunt Breast cancer Family/Other FH: mental illness Paternal Grandfather No problems noted. Paternal Grandmother Hypertension Maternal Grandfather No problems noted. Maternal Grandmother Cervical cancer Social History Social History Housing: Apartment Alcohol intake: never Patient Tobacco Use Status: Never used Tobacco e-Cigarette/Vaping Use: Never Used Second Hand Smoke Exposure: No Advance Directives: No Advance Directives Information Provided: No service: No Current occupational status: unemployed and disabled Current occupation: rt hand Current occupational exposures/hazards: No Cognitive needs: No Hearing needs: No Vision needs: Yes Physical Exam ED Vital Signs: BMI result Body Mass Index 42.1 Course Course Course Narrative: This is a rapid medical exam performed by Samuel Jacobs NP: Additional HPI, ROS, PE not included below will be deferred to primary provider. Patient is a 59-year-old female with history of HTN, NITIN, fibromyalgia, asthma, hypothyroid presenting to the ED with complaint of shortness of breath. Seen here on 11/09, dx with Covid, RSV. States she was unable to sisal picker her prescriptions due to insurance issues. Plan: will repeat CXR Discharge Plan Discharge Clinical Impression: Diagnosis unknown Patient Disposition: Left W/O Completing Treatment Prescriptions: No Action (DME) nebulizers [AeroEclipse II Nebulizer] Misc See Rx Instructions .Route Qty: 1 0RF Rx Instructions: As directed albuterol sulfate 2.5 mg /3 mL (0.083 %) solution for nebulization 2.5 mg inhalation Q4-6H PRN (Reason: shortness of breath or wheezing) 30 Days Qty: 75 1RF albuterol sulfate [Ventolin HFA] 90 mcg/actuation HFA aerosol inhaler 1 inh inhalation QID PRN (Reason: shortness of breath or wheezing) Qty: 18 1RF polyethylene glycol 3350 [Miralax] 17 gram/dose powder 17 g PO DAILY 90 Days Qty: 1530 2RF cetirizine 10 mg tablet 10 mg PO DAILY Qty: 90 1RF hydrocortisone [Anti-Itch (HC)] 1 % cream 1 appl topical TID PRN (Reason: skin irritation) 30 Days Qty: 28.4 1RF sucralfate 100 mg/mL suspension 10 ml PO BEDTIME Qty: 400 3RF cholecalciferol (vitamin D3) 50 mcg (2,000 unit) capsule 50 mcg PO DAILY 90 Days Qty: 90 1RF levothyroxine 100 mcg tablet 100 mcg PO DAILY 90 Days Qty: 90 1RF cyclobenzaprine 10 mg tablet 10 mg PO BEDTIME 7 Days Qty: 7 0RF diclofenac sodium [Arthritis Pain (diclofenac)] 1 % gel 2 g topical QID PRN (Reason: pain) 30 Days Qty: 100 1RF Rx Instructions: apply to single elbow, wrist or hand; for hand includes palm/fingers/back of hand pantoprazole 40 mg tablet,delayed release (DR/EC) 40 mg PO QAM Qty: 90 0RF bupropion HCl 300 mg tablet extended release 24 hr 300 mg PO QAM 90 Days Qty: 90 1RF lorazepam [Ativan] 1 mg tablet 1 mg PO DAILY PRN (Reason: anxiety) Qty: 7 0RF prednisone 20 mg tablet 40 mg PO DAILY Qty: 10 0RF codeine-guaifenesin 10-100 mg/5 mL liquid 10 ml PO Q6H PRN (Reason: cough) Qty: 237 0RF cefuroxime axetil 500 mg tablet 500 mg PO BID 7 Days Qty: 14 0RF gabapentin 300 mg capsule 300 mg PO Q8H 90 Days Qty: 270 1RF losartan 25 mg tablet 25 mg PO DAILY 90 Days Qty: 90 1RF Discharge Date/Time: 11/11/24 18:16
--- OUTSIDE RECORDS SUMMARY | 2024-11-12 02:01 | XMS_ITS | Patient Health Record ---
Author Organization [facility] Address [address] [place] [address] Support Name Relationship Address Phone Zoila Avalos Guarantor Unknown Reason For Referral No Information Plan Of Treatment No Information Insurance Providers Payer Name Payer Address Payer Phone Subscriber Number Group Number Insured Name Patient Relationship to Insured Coverage Start Date Coverage End Date [facility] [address] [address] [place] [address] [id number] Zoila Avalos Self - patient is the insured
== END 2024-11-11 18:16 | disposition left against medical advice (07) ==
PROVIDERS: Emergency Provider Emergency Medicine; PCP Internal Medicine
DX: R06.00 Dyspnea, unspecified (principal); I10 Essential (primary) hypertension; F41.1 Generalized anxiety disorder; K21.9 Gastro-esophageal reflux disease without esophagitis; Z90.3 Acquired absence of stomach [part of]; J45.909 Unspecified asthma, uncomplicated; Z79.899 Other long term (current) drug therapy
CPT/HCPCS: 71046; 99281; 99283

== ENCOUNTER 2024-12-09 14:45 | Outpatient (AMB) | payer OTHER, SELFPAY ==
--- OUTSIDE RECORDS SUMMARY | 2024-12-09 14:47 | XMS_ITS | Patient Health Record ---
Author Organization [facility] Address [address] [place] [address] Support Name Relationship Address Phone Zoial Avalos Guarantor Unknown Reason For Referral No Information Plan Of Treatment No Information Insurance Providers Payer Name Payer Address Payer Phone Subscriber Number Group Number Insured Name Patient Relationship to Insured Coverage Start Date Coverage End Date [facility] [address] [address] [place] [address] [id number] Zoila Avalos Self - patient is the insured
--- NOTE | 2024-12-09 14:57 | MHC.PC.OV ---
Vital Signs 12/09/24 14:58 Height 5 ft 2 in Weight 233 lb BMI 42.6 BP 152/80 H Blood Pressure Location Lt brachial Position Sitting Intake Visit Reasons: follow up Intake Note: Patient here for a follow up Manager Channel Required: No Accompanied by: Self / Same As Patient Allergies spinach Allergy (Severe, Verified 12/09/24 15:34) Hives Histamine H2 Inhibitors Allergy (Mild, Verified 12/09/24 15:34) Unknown Medication List - Last Reconciled 12/09/24 by Rehana De Anda MD albuterol sulfate 2.5 mg (3 mL) inhalation Q4-6H PRN 30 days albuterol sulfate 90 mcg/actuation (Ventolin HFA) 1 inh inhalation QID PRN bupropion HCl XL 300 mg PO QAM 90 days cefuroxime axetil 500 mg PO BID 7 days cetirizine 10 mg PO DAILY cholecalciferol (vitamin D3) 50 mcg PO DAILY 90 days codeine-guaifenesin 10-100 mg/5 mL 10 mL PO Q6H PRN cyclobenzaprine 10 mg PO BEDTIME 7 days diclofenac sodium 1% (Arthritis Pain (diclofenac)) 2 grams topical QID PRN 30 days gabapentin 300 mg PO Q8H 90 days hydrocortisone 1% (Anti-Itch (hydrocortisone)) 1 appl topical TID PRN 30 days levothyroxine 100 mcg PO DAILY 90 days lorazepam (Ativan) 1 mg PO DAILY PRN losartan 25 mg PO DAILY 90 days nebulizers (AeroEclipse II Nebulizer) As directed pantoprazole 40 mg PO QAM polyethylene glycol 3350 (Miralax) 17 grams PO DAILY 90 days prednisone 40 mg (2 x 20 mg) PO DAILY sucralfate 10 mL PO BEDTIME Tobacco use date assessed: 12/09/24 Dental Screening Dental Screen Date: 12/09/24 Did you have a dental visit in the last 12 months?: Yes Did you have a dental problem in the last 6 months where you did not have access to dental care?: No Was dental information given to patient?: Patient has dentist HPI HPI Comments History of Present Illness Details This is a 59-year-old female with hypertension, morbid obesity, chronic GERD, hypothyroidism and mild major depression that comes today complaining of thoracic spine pain that has been present for few days. Denies any chest pain or shortness on breath. X-ray will be ordered. On losartan for hypertension and she thinks she forgot medication today. Blood pressure will be recheck in 3 weeks by nurse navigator. She is morbidly obese with a BMI of 42.6 and is going back to weight management. GERD has been stable with PPIs and Carafate. Last TSH was normal. Depression stable with bupropion. [facility] Medical History (Updated 12/09/24 @ 15:42 by Rehana De Anda MD) Osteoarthritis of hands, bilateral Pes planus of both feet Myalgia Acid reflux Fibromyalgia Morbid obesity with BMI of 40.0-44.9, adult Mild recurrent major depression Venous (peripheral) insufficiency Skin lesion Polyarthralgia Mild asthma Depression with anxiety Hypothyroid Hypovitaminosis D Surgical History Hx of colonoscopy History of esophagogastroduodenoscopy (EGD) S/P laparoscopic sleeve gastrectomy History of carpal tunnel release History of gastric surgery History of laparoscopic cholecystectomy History of tubal ligation History of tonsillectomy Family History Father Hypertension Mother Hypertension Maternal Aunt Breast cancer Family/Other FH: mental illness Paternal Grandfather No problems noted. Paternal Grandmother Hypertension Maternal Grandfather No problems noted. Maternal Grandmother Cervical cancer Social History Housing: Apartment Alcohol intake: never Patient Tobacco Use Status: Never used Tobacco e-Cigarette/Vaping Use: Never Used Second Hand Smoke Exposure: No service: No Current occupational status: unemployed and disabled Current occupation: rt hand Current occupational exposures/hazards: No Cognitive needs: No Hearing needs: No Vision needs: Yes Questionnaire PHQ-9 Over the last 2 weeks, how often have you been bothered by any of the following problems? 1. Little interest or pleasure in doing things: more than half the days 2. Feeling down, depressed, or hopeless: more than half the days 3. Trouble falling or staying asleep, or sleeping too much: more than half the days 4. Feeling tired or having little energy: more than half the days 5. Poor appetite or overeating: more than half the days 6. Feeling bad about yourself - or that you are a failure or have let yourself or your family down: not at all 7. Trouble concentrating on things, such as reading the newspaper or watching television: several days 8. Moving or speaking so slowly that other people could have noticed. Or the opposite - being so fidgety or restless that you have been moving around a lot more than usual: not at all 9. Thoughts that you would be better off or of hurting yourself in some way: not at all Total score: 11 Depression Screening Interpretation: Positive Depression Screening Follow-up: Existing condition, In treatment, Community Mental Health Worker F/U and Follow-up Visit Requested Depression Screening Done: Yes 24754 - PHQ-9 Billing: Yes Source: Developed by Drs. Chase Salvador, Phyllis Martinez, Graham Gregorio and colleagues, with an educational andrew from [employer]. Thrive Questionnaire Date Thrive assessed: 12/09/24 I am a: Patient What is your living situation today?: I have a steady place to live Within the past 12 months, did the food you bought not last and you didn't have the money to get more?: Never true Within the past 12 months, did you worry whether your food would run out before you got money to buy more?: Never true Do you have trouble paying for medicines?: No Do you have trouble getting transportation to medical appointments?: No Do you have trouble paying your heating and electricity bill?: No Do you have trouble taking care of your child, family member or friend?: No Do you have trouble with day-to-day activities such as bathing, preparing meals, shopping, managing finances, etc.?: No Are you currently unemployed and looking for a job?: No Are you interested in more education?: No Please select the resources that you would like help with: None Currently or been in a relationship where the following occur: No concerns reported THRIVE Score: 0 AUDIT C Alcohol Use Questionnaire (AUDIT-C) 1. How often do you have a drink containing alcohol?: Never Total Score: 0 Score Reviewed/Action Taken: No NITIN-7 AMB Questionnaire NITIN-7 Date NITIN - 7 assessed: 12/09/24 Feeling nervous, anxious, or on edge: 1 = Several days Not being able to stop or control worryin = Not at all Worrying too much about different things: 1 = Several days Trouble relaxin = Several days Being so restless that it is hard to sit still: 1 = Several days Becoming easily annoyed or irritable: 1 = Several days Feeling afraid as if something awful might happen: 1 = Several days Total NITIN-7 score (0-4 normal; 5-9 mild; 10-14 moderate; 15-21 severe): 6 Source: Developed by Drs. Chase Salvador, Phyllis Martinez, Graham Gregorio and colleagues, with an educational andrew from [employer]. NITIN-7 Assessment Billing NITIN-7 Assessment Tool: NITIN-7 Assessment 61501 Review of Systems Const All systems reviewed & are unremarkable except as noted in HPI and below Card Denies chest pain at rest, Denies chest pain with activity, Denies edema, Denies irregular heart rhythm, Denies claudication, Denies dyspnea, Denies dyspnea on exertion, Denies orthopnea, Denies paroxysmal nocturnal dyspnea and Denies slow heart rate Resp Denies cough, Denies dyspnea and Denies dyspnea on exertion GI Denies abdominal pain, Denies change in bowel habits, Denies excessive flatus, Denies nausea and Denies vomiting Musc Reports back pain Physical exam (Primary Care) Vital Signs: Last Vital Signs BP 152/80 H 12/09/24 14:58 Care Plan Goal for BP management: Recheck in 3 weeks by nurse navigator BMI result Body Mass Index 42.6 BMI Assessment/Plan discussion: High BMI High, discussed plan: lifestyle, weight reduction, dietary and physical activity Tobacco/Smoking Status: Tobacco use Status Tobacco use date assessed 12/09/24 12/09/24 15:07 Patient Tobacco Use Status Never used Tobacco 12/09/24 14:58 e-Cigarette/Vaping Use Never Used 12/09/24 14:58 PHQ-9: PHQ-9 Score PHQ-9: Total score 11 12/09/24 16:56 Depression Screening Interpretation: Positive Depression Screening Follow-up: Existing condition, In treatment, Community Mental Health Worker F/U and Follow-up Visit Requested Thrive Assessment: Date of Thrive Assessment Date Thrive assessed 12/09/24 12/09/24 15:07 Currently or been in a relationship where the following occur: No concerns reported Resp Effort & Inspection: normal respiratory effort Auscultation: clear to auscultation bilaterally Cardio Jugular venous distension: no JVD Rate: regular rate Rhythm: regular rhythm Heart sounds: S1 normal heart sound present and S2 normal heart sound present Extrem General: Yes full ROM Office Procedures Flu Questionnaire Does the patient have a severe egg allergy?: No Does the patient have severe life threatening allergies?: No Does the patient have a fever or illness today?: No Has the patient ever had Guillain-[place] Syndrome?: No Has the patient ever had any past reaction to a flu shot?: No Immunizations Fluarix Triv [id number] (PF) 45 mcg (15 mcg x 3)/0.5 mL IM syringe Performing Provider: Rehana De Anda MD [facility] Administered by: RADHA Ragsdale on 12/09/24 15:46 Dose Route Admin Location Dispensed Lot Number Expiration Date NDC Website Project Manager 0.5 mL IM Left Deltoid 0.5 mL [id number] 05/31/25 [id number] Recommendi VIS Given Date VIS Provided VIS Publication Date 12/09/24 Single Vaccine 21 Eligibility Eligibility Date Funding Source Not [facility] Eligible 12/09/24 Private Coding Level of Care Code Est Pt Level 4 (90227) Complex EM visit Add On G2211 Diagnoses Thoracic spine pain M54.6 Essential hypertension I10 Chronic GERD K21.9 Morbid obesity with BMI of 40.0-44.9, adult E66.01; Z68.41 Mild recurrent major depression F33.0 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 (2) Essential hypertension: Code(s): I10 - Essential (primary) hypertension Category: Medical Plan: Continue losartan. Recheck blood pressure with nurse navigator in 3 weeks. Blood pressure goal is equal or less than 130/80. (3) Chronic GERD: Code(s): K21.9 - Gastro-esophageal reflux disease without esophagitis Category: Medical Plan: Continue PPIs and Carafate. (4) Morbid obesity with BMI of 40.0-44.9, adult: Code(s): E66.01 - Morbid (severe) obesity due to excess calories; Z68.41 - Body mass index [BMI] 40.0-44.9, adult Category: Medical Plan: Start diet and exercise. BMI goal is less than 30. (5) Mild recurrent major depression: Code(s): F33.0 - Major depressive disorder, recurrent, mild Category: Medical Plan: Continue bupropion. (6) Hypothyroid: Code(s): E03.9 - Hypothyroidism, unspecified Category: Medical Qualifiers: Hypothyroidism type: due to Cande's thyroiditis Qualified Code(s): E03.8 - Other specified hypothyroidism; E06.3 - Autoimmune thyroiditis Plan: Continue levothyroxine. Orders: Orders Thyroid Stimulating Hormone 4 Months E03.8 - Other specified hypothyroidism, E06.3 - Autoimmune thyroiditis Influenza [id number] Immunization Today Z23 - Encounter for immunization XR thoracic spine 2V Today M54.6 - Pain in thoracic spine Vitamin D 25-OH Total 4 Months E55.9 - Vitamin D deficiency, unspecified Lipid Panel 4 Months E78.5 - Hyperlipidemia, unspecified Comprehensive Isabella. Panel Fast 4 Months I10 - Essential (primary) hypertension
[2024-12-09 14:58] VITALS: BP 152/80; BMI 42.6
== END 2024-12-09 15:50 | disposition home or self-care (01) ==
PROVIDERS: PCP Internal Medicine; Visit Provider Internal Medicine
DX: M54.6 Pain in thoracic spine (principal); E66.01 Morbid (severe) obesity due to excess calories; Z68.41 Body mass index [BMI] 40.0-44.9, adult; F33.0 Major depressive disorder, recurrent, mild; I10 Essential (primary) hypertension; K21.9 Gastro-esophageal reflux disease without esophagitis; E03.8 Other specified hypothyroidism; E06.3 Autoimmune thyroiditis; Z23 Encounter for immunization

== ENCOUNTER → 2024-12-09 14:45 | Outpatient (BNVA) | payer OTHER, SELFPAY | PROVIDERS: PCP Internal Medicine; Visit Provider Internal Medicine | DX: I10 Essential (primary) hypertension (principal); E66.01 Morbid (severe) obesity due to excess calories; K21.9 Gastro-esophageal reflux disease without esophagitis; E78.5 Hyperlipidemia, unspecified; M54.6 Pain in thoracic spine; F33.0 Major depressive disorder, recurrent, mild; E06.3 Autoimmune thyroiditis; E03.8 Other specified hypothyroidism; E55.9 Vitamin D deficiency, unspecified; Z23 Encounter for immunization; Z68.41 Body mass index [BMI] 40.0-44.9, adult | CPT/HCPCS: 90471; 90656; 96127; 99212 ==

== ENCOUNTER 2024-12-15 12:42 | Outpatient (AMB) | payer MEDICAID, SELFPAY ==
--- NOTE | 2024-12-15 12:43 | A.OFFVIS_ITS ---
VS Expanded 12/15/24 12:54 BP 146/74 H Blood Pressure Location Rt brachial Blood Pressure Position Sitting Pulse 82 Pulse Source Pulse Oximeter Temp 97.5 F Temperature Source Temporal Artery Scan Pulse Oximetry 99 Oxygen Delivery Method Room Air Height 5 ft 1.5 in Weight 226 lb 3.2 oz BMI 42.0 Body Fat % 45.9 Body Fat Mass 103.8 Fat Free Mass 122.4 Visceral Fat Rating 15.0 Body Water % 38.4 Body Water Mass 86.8 Muscle Mass/Score 116.2 Basal Metabolic Rate/Score 1,715 Intake Visit Reasons: (OV) PO LSG 08/19/18 Allergies spinach Allergy (Severe, Verified 12/15/24 12:51) Hives Histamine H2 Inhibitors Allergy (Mild, Verified 12/15/24 12:51) Unknown Medication List - Last Reconciled 12/15/24 by KI Reagna albuterol sulfate 2.5 mg (3 mL) inhalation Q4-6H PRN 30 days albuterol sulfate 90 mcg/actuation (Ventolin HFA) 1 inh inhalation QID PRN bupropion HCl XL 300 mg PO QAM 90 days cetirizine 10 mg PO DAILY cholecalciferol (vitamin D3) 50 mcg PO DAILY 90 days cyclobenzaprine 10 mg PO BEDTIME 7 days diclofenac sodium 1% (Arthritis Pain (diclofenac)) 2 grams topical QID PRN 30 days gabapentin 300 mg PO Q8H 90 days hydrocortisone 1% (Anti-Itch (hydrocortisone)) 1 appl topical TID PRN 30 days levothyroxine 100 mcg PO DAILY 90 days lorazepam (Ativan) 1 mg PO DAILY PRN losartan 25 mg PO DAILY 90 days nebulizers (AeroEclipse II Nebulizer) As directed pantoprazole 40 mg PO QAM polyethylene glycol 3350 (Miralax) 17 grams PO DAILY 90 days sumatriptan succinate 25 mg PO Q2-4H PRN 30 days HPI Comments Details: This?is a?59?yo female who is s/p LSG 08/19/2018. Presents for 6 year 4 month post op visit. Weight stable since last OV in January 2023.? No complaints of nausea, emesis, abdominal pain or reflux, or constipation. Continues to struggle with fibromyalgia, Cande's, migraines- got a new med. Present meal plan includes: 2 eggs for breakfast, cottage cheese with berries for lunch, meal of 4oz protein at dinner. Stop ramen, stop oatmeal. -given at last visit thinks she probably doesn't get enough protein, doesn't like meat much Exercise routine includes: limited by pain, very difficult to do frequent formal exercise can walk a bit, but gets foot pain and burning pain up her leg PFSH Medical History Osteoarthritis of hands, bilateral Pes planus of both feet Myalgia Acid reflux Fibromyalgia Morbid obesity with BMI of 40.0-44.9, adult Mild recurrent major depression Venous (peripheral) insufficiency Skin lesion Polyarthralgia Mild asthma Depression with anxiety Hypothyroid Hypovitaminosis D Surgical History Hx of colonoscopy History of esophagogastroduodenoscopy (EGD) S/P laparoscopic sleeve gastrectomy History of carpal tunnel release History of gastric surgery History of laparoscopic cholecystectomy History of tubal ligation History of tonsillectomy Family History Father Hypertension Mother Hypertension Maternal Aunt Breast cancer Family/Other FH: mental illness Paternal Grandfather No problems noted. Paternal Grandmother Hypertension Maternal Grandfather No problems noted. Maternal Grandmother Cervical cancer Social History Housing: Apartment Alcohol intake: never Patient Tobacco Use Status: Never used Tobacco e-Cigarette/Vaping Use: Never Used Second Hand Smoke Exposure: No service: No Current occupational status: unemployed and disabled Current occupation: rt hand Current occupational exposures/hazards: No Cognitive needs: No Hearing needs: No Vision needs: Yes Quality Reporting (2019) Adult ([facility] ) Smoking risk assessment performed?: Yes Patient Tobacco Use Status: Never used Tobacco Assessment & Plan Assessment & Plan (1) History of sleeve gastrectomy: Code(s): Z90.3 - Acquired absence of stomach [part of] Category: Surgical (2) Morbid obesity with BMI of 40.0-44.9, adult: Code(s): E66.01 - Morbid (severe) obesity due to excess calories; Z68.41 - Body mass index [BMI] 40.0-44.9, adult Category: Medical Plan Pt considering GLP1 agonists, may discuss again with PCP. We talked about strategies to minimize reflux- eat/drink more frequently and slowly (pt currently eating just one meal a day), increase protein. She will restart 2 shakes per day (or 1 bar 1 shake) to help increase protein intake. She is l imited in her mobility so really needs to focus on appropriate meal plan to see weight loss. Labs ordered. Carafate refilled per pt request. RTC 6mo. I spent a total of 30 minutes reviewing/updating records, examining the patient and counseling the patient on weight management as detailed above. Orders: Orders Insulin Today Z90.3 - Acquired absence of stomach [part of] Hemoglobin A1c Today Z90.3 - Acquired absence of stomach [part of] IRON PROFILE Today Z90.3 - Acquired absence of stomach [part of] Zinc Today Z90.3 - Acquired absence of stomach [part of] C Reactive Protein Today Z90.3 - Acquired absence of stomach [part of] Ferritin Today Z90.3 - Acquired absence of stomach [part of] Complete Blood Count Auto Diff Today Z90.3 - Acquired absence of stomach [part of] Lipid Panel Today Z90.3 - Acquired absence of stomach [part of] Comprehensive Met. Panel Today Z90.3 - Acquired absence of stomach [part of] Vitamin B12 and Folate Today Z90.3 - Acquired absence of stomach [part of] Vitamin B1 Today Z90.3 - Acquired absence of stomach [part of] Vitamin A Today Z90.3 - Acquired absence of stomach [part of] TSH reflex Free T4 Today Z90.3 - Acquired absence of stomach [part of] Vitamin D 25-OH Total Today Z90.3 - Acquired absence of stomach [part of] Medications: Refilled sucralfate 10 mL PO BEDTIME 400 mL 3RF K21.9 - Gastro-esophageal reflux disease without esophagitis
[2024-12-15 12:54] VITALS: BP 146/74; PULSE 82; TEMP 36.4; O2SAT 99; BMI 42.0
== END 2024-12-15 13:26 | disposition home or self-care (01) ==
PROVIDERS: PCP Internal Medicine; Visit Provider Physician Assistant Surgical
DX: E66.01 Morbid (severe) obesity due to excess calories (principal); Z90.3 Acquired absence of stomach [part of]; Z68.41 Body mass index [BMI] 40.0-44.9, adult
CPT/HCPCS: 99214

== ENCOUNTER → 2024-12-15 12:42 | Outpatient (BNVA) | payer OTHER, SELFPAY | PROVIDERS: PCP Internal Medicine; Visit Provider Physician Assistant Surgical | DX: E66.01 Morbid (severe) obesity due to excess calories (principal); K21.9 Gastro-esophageal reflux disease without esophagitis; Z71.3 Dietary counseling and surveillance; Z90.3 Acquired absence of stomach [part of]; Z98.84 Bariatric surgery status; Z68.41 Body mass index [BMI] 40.0-44.9, adult | CPT/HCPCS: 99212 ==

== ENCOUNTER 2025-01-28 08:58 | Outpatient (REF) | payer OTHER, SELFPAY ==
--- NOTE | ~2025-01-28 | XR_ITS ---
CLINICAL HISTORY: M54.6 - Pain in thoracic spine 3 views thoracic spine Comparison: None Findings: Normal alignment. No acute fractures or dislocation. There is multiple level degenerative disc change. IMPRESSION: No acute findings. This document has been electronically signed by: Neftali Ontiveros MD on 01/28/2025 18:31:04
[2025-01-28 09:16] LABS: MANUAL DIFF FLAG NO
--- OUTSIDE RECORDS SUMMARY | 2025-01-28 09:38 | XMS_ITS | Clinical Summary ---
Author Organization [employer] Address [address] [facility] [address] [place] [address] Care Team Providers Care Developer Automatic Name Role Phone Unavailable Primary Care Provider Unavailabl e Allergies Active Allergy Reactions Criticality Noted Date Comments Histidine 03/21/2021 Medications Denta 5000 Plus 1.1 % creamIndication s:Erosion of teeth, limited to enamel USE A PEA SIZE AMOUNT OF PASTE ON TOOTH BRUSH. BRUSH TEETH THREE TIMES A DAY 153 g 3 Active diphenhydrAMINE (BENADryl) 25 MG tablet Take 1 tablet (25 mg) by mouth every 6 (six) hours if needed for itching for up to 30 doses. 30 tablet 4 Active Additional Information Patient not taking.Reported on 01/06/2025 omeprazole (PriLOSEC) [address] capsule Take 20 mg by mouth before breakfast. Do not crush or chew. Active levothyroxine (Tirosint) 75 MCG capsule Take by mouth before breakfast. Active gabapentin (Neurontin) 300 MG capsule Take 300 mg by mouth 3 times daily. Active buPROPion XL (Wellbutrin XL) 300 MG 24 hr tablet Take 300 mg by mouth in the morning. Do not crush, chew, or split. Active levothyroxine (Synthroid, Levoxyl) 100 MCG tablet TAKE 1 TABLET BY MOUTH EVERY DAY FOR 90 DAYS 4 Active acetaminophen (Tylenol 8 Hour) 650 MG ER tablet Take 2 tablets by mouth every 8 (eight) hours. 2 Active albuterol (2.5 MG/3ML) 0.083% nebulizer solution INHALE 1 VIAL INHALED EVERY 4 TO 6 HOURS NEEDED FOR SHORTNESS OF BREATH OR WHEEZING FOR 30 DAYS 3 Active Ventolin HFA 108 (90 Base) MCG/ACT inhaler INHALE 1 PUFF BY MOUTH 4 TIMES A DAY NEEDED FOR SHORTNESS OF BREATH OR WHEEZE 4 Active baclofen (Lioresal) 10 MG tablet TAKE 1 TABLET BY MOUTH TWICE A DAY X5 DAYS 3 Active busPIRone (Buspar) 7.5 MG tablet Take 1 tablet by mouth every 12 (twelve) hours. Active D3-1000 25 MCG (1000 UT) capsule Take 25 mcg by mouth in the morning. 3 Active cholecalciferol 50 MCG (2000 UT) capsule TAKE 1 CAPSULE BY MOUTH EVERY DAY FOR 90 DAYS 4 Active Diclofenac Sodium 1 % gel 4 Active Hydrocortisone, Perianal, 1 % cream APPLY TOPICALLY 3 TIMES A DAY NEEDED FOR SKIN IRRITATION FOR 30 DAYS 4 Active methocarbamol (Robaxin) 750 MG tablet TAKE 1 TABLET BY MOUTH EVERY 8 HOURS FOR 5 DAYS 4 Active amoxicillin (Amoxil) 500 MG capsule take 1 capsule (500MG) by oral route every 8 hours 2 Active amoxicillin (Amoxil) 500 MG tablet Take 500 mg by mouth 2 times daily. 4 Active cetirizine (ZyrTEC) 10 MG tablet Take 10 mg by mouth Once per day. 3 Active ibuprofen 800 MG tablet Take 1 tablet by mouth every 8 (eight) hours. 2 Active lisinopril 10 MG tablet Take 10 mg by mouth Once per day. 3 Active predniSONE (Deltasone) 5 MG tablet TAKE 3 TABLETS BY MOUTH DAILY FOR 7 DAYS, 2 TABLETS DAILY FOR 7 DAYS, THEN 1 TABLET DAILY FOR 7 DAYS 4 Active Active Problems Problem Noted Date Diagnosed Date Partial edentulism 03/06/2024 Dental caries 08/28/2023 Dental abscess 08/28/2023 Encounters Date Type Department Care Team Description 01/06/2025 9:00 AM EST Office Visit [facility] [address] [place] [address] Lenin Mar DMD Dental caries (Primary Dx); Open fracture of tooth, initial encounter 12/31/2024 Travel from Last 3 Months Social History Tobacco Use Types Packs/Day Years Used Date Smoking Tobacco: Never Passive Smoke Exposure: Never Smokeless Tobacco: Never Tobacco Cessation:Counseling Given: Not Answered Alcohol Use Standard Drinks/Week Comments Never 0 (1 standard drink = 0.6 oz pur e alcohol) Comments Unknown Sex and Gender Information Value Date Recorded Sex Assigned at Female 10/01/2022 10:30 AM EDT Legal Sex Female 10:30 AM EDT Gender Identity Female 10/01/2022 10:30 AM EDT Sexual Orientation Straight 10/01/2022 10 :30 AM EDT Last Filed Vital Signs Vital Sign Reading Time Taken Comments Blood Pressure 130/80 01/06/2025 9:31 AM EST Pulse 76 04/01/2024 9:44 AM EDT Temperature - - Respiratory Rate - - Oxygen Saturation - - Inhaled Oxygen Concentration - - Weight - - Height - - Body Mass Index - - Plan of Treatment Upcoming Encounters Date Type Department Care Team (Late st Contact Info) Description 01/29/2025 11:00 AM EST Office Visit [facility] [address] [place] [address] Kathie Newman Health Maintenance Due Date Last Done Comments CT Colonography 1967 Colonoscopy 1967 Colorectal Cancer Screening 1967 Depression Screening 1967 FIT DNA/Cologuard 1967 FIT 1967 FOBT 1967 HIV Screening 1967 SDOH Screening 1967 Sigmoidoscopy 1967 Alcohol/Substance Use Screening 1979 Hepatitis C Screening 1985 Hepatitis B Vaccines (1 of 3 - 19+ 3-dose series) 1986 Pap Smear 02/14/1988 Cervical Cancer Screening 1997 HPV/Cotest 1997 Mammogram 2007 Pneumococcal Vaccine: 50+ Years (1 of 1 - PCV) 2017 Zoster Vaccines (1 of 2) 2017 COVID-19 Vaccine ( - season) 2024 05/06/2022, 11/04/2021, 03/13/2021 Dental Prophylaxis 08/14/2024 02/11/2024, 0 08/27/2022, 02/20/2022, Additional history exists Dental Oral Exam 09/06/2024 03/06/2024, , 02/20/2022, Additional history exists Dental X-Ray: Full Mouth 02/21/2025 02/20/2022, 10/02 Dental X-Ray: Bitewings 07/30/2025 07/29/20 24, 03/06/2024, 08/28/2023, Additional history exists Tobacco Screening 01/06/2026 01/06/2025 DTaP/Tdap/Td Vaccines (2 - Td or Tdap) 10/14/2028 10/14/2018 RSV Patients and Patients Aged 60 years or older (1 - 1-dose 75+ series) 2042 Influenza Vaccine Completed 12/09/2024, , 10/13/2020, Additional history exists HIB Vaccines Aged Out No longer eligi ble based on patient's age to complete this topic HPV Vaccines Aged Out No longer eligi ble based on patient's age to complete this topic Hepatitis A Vaccines Aged Out No long er eligible based on patient's age to complete this topic IPV Vaccines Aged Out No longer eligi ble based on patient's age to complete this topic Meningococcal Vaccine Aged Out No fuentes indigo eligible based on patient's age to complete this topic RSV under 20 months Aged Out No longe r eligible based on patient's age to complete this topic Rotavirus Vaccines Aged Out No longer eligible based on patient's age to complete this topic Procedures Procedure Name Priority Date/Time Associated Diagnosis Comments CASE PRESENTATION, DETAILED AND EXTENSIVE TREATMENT PLANNING Routine 01/06/2025 9:00 AM EST Dental caries Open fracture of tooth, initial encounter INTRAORAL - PERIAPICAL FIRST RADIOGRAPHIC IMAGE Routine 01/06/2025 9:00 AM EST Dental caries Open fracture of tooth, initial encounter LIMITED ORAL EVALUATION - PROBLEM FOCUSED Routine 01/06/2025 9:00 AM EST Dental caries Open fracture of tooth, initial encounter 20 EXTRACTION, ERUPTED TOOTH OR EXPOSED ROOT (ELEVATION/FORCEPS REMOVAL) Routine 01/06/2025 9:00 AM EST Dental caries Open fracture of tooth, initial encounter BITEWING - SINGLE RADIOGRAPHIC IMAGE Routine 07/29/2024 3:30 PM EDT Necrosis of dental pulp Partial edentulism, class III PERIODIC ORAL EVALUATION - ESTABLISHED PATIENT Routine 03/06/2024 9:00 AM EDT PROPHYLAXIS - ADULT Routine 02/11/2024 3 :00 PM EDT Gingival bleeding Dental plaque INTRAORAL - COMPLETE SERIES OF RADIOGRAPHIC IMAGES Routine 02/20/2022 12:00 AM EDT from Last 3 Months or Most Recently Relevant to Health Maintenance Insurance [facility] MEDICAID STAND ADULT Member Subscriber Plan / Payer (Ef fective 2023-Present) Name:Zoila Avalos Relation to Subscriber:Self Name:AvalosZoila perez Payer ID:Not on file Group ID:Not on file Type:Not on file Address: [place] [phone]
--- OUTSIDE RECORDS SUMMARY | 2025-01-28 09:38 | XMS_ITS | Encounter Summary ---
Author Organization [employer] Address [address] [place] [address] [address] [place] [address] Care Team Providers Care Corsets Salesperson Name Role Phone Unavailable Primary Care Provider Unavailabl e Encounter Details Date Type Department Care Team (Latest Contact Info) Description 02/05/[address] [facility] CONVERSIONS Dental, Provider, DDS Social History Tobacco Use Types Packs/Day Years Used Date Smoking Tobacco: Never Assessed Comments Unknown Sex and Gender Information Value Date Recorded Sex Assigned at Female 10/01/2022 10:30 AM EDT Legal Sex Female 10:30 AM EDT Gender Identity Female 10/01/2022 10:30 AM EDT Sexual Orientation Straight 10/01/2022 10 :30 AM EDT documented as of this encounter Plan of Treatment Upcoming Encounters Date Type Department Care Team (Late st Contact Info) Description 01/29/2025 11:00 AM EST Office Visit [facility] [address] [place] [address] Kathie Newman documented as of this encounter Visit Diagnoses Not on filedocumented in this encounter
--- OUTSIDE RECORDS SUMMARY | 2025-01-28 09:38 | XMS_ITS | Encounter Summary ---
Author Organization [employer] Address [address] [place] [address] [address] [place] [address] Care Team Providers Care Cabinet Mounter Name Role Phone Unavailable Primary Care Provider Unavailabl e Encounter Details Date Type Department Care Team (Latest Contact Info) Description 02/20/2022 Abstract [facility] CONVERSIONS Dental, Provider, DDS Social History Tobacco [...] Office Visit [facility] [address] [place] [address] Kathie Newman documented as of this encounter Visit Diagnoses Not on filedocumented in this encounter
--- OUTSIDE RECORDS SUMMARY | 2025-01-28 09:38 | XMS_ITS | Encounter Summary ---
Author Organization [employer] Address [address] [facility] [address] [place] [address] Care Team Providers Care Construction Field Engineer Name Role Phone Unavailable Primary Care Provider Unavailabl e Reason for Visit * Reason Comments Med Refill Encounter Details Date Type Department Care Team (Late st Contact Info) Description 12/10/2022 Refill [facility] [address] [place] [address] Jailene Chinchilla DDS [address] [place] [address] Erosion of teeth, limited to enamel (Primary Dx) Social History Tobacco Use Types Packs/Day Years Used Date Smoking Tobacco: Never Assessed Comments Unknown Sex and Gender Information Value Date Recorded Sex Assigned at Female 10/01/2022 10:30 AM EDT Legal Sex Female 10:30 AM EDT Gender Identity Female 10/01/2022 10:30 AM EDT Sexual Orientation Straight 10/01/2022 10 :30 AM EDT documented as of this encounter Miscellaneous Notes * Telephone Encounter - Jailene Chinchilla DDS - 12/11/2022 2:32 PM EST Approving, but needs appt for additional refills. documented in this encounter Plan of Treatment Upcoming Encounters Date Type Department Care Team (Late Contact Info) Description 01/29/2025 11:00 AM EST Office Visit [facility] [address] [place] [address] Kathie Newman documented as of this encounter Visit Diagnoses Diagnosis Erosion of teeth, limited to enamel- Primary documented in this encounter
--- OUTSIDE RECORDS SUMMARY | 2025-01-28 09:39 | XMS_ITS | Encounter Summary ---
Author Organization [employer] Address [address] [place] [address] [address] [place] [address] Care Team Providers Care Independent Living Instructor Name Role Phone Unavailable Primary Care Provider Unavailabl e Encounter Details Date Type Department Care Team (Latest Contact Info) Description 12/31/2024 Travel Social History Tobacco Use Types Packs/Day Years Used Date Smoking Tobacco: Never Passive Smoke Exposure: Never Smokeless Tobacco: Never Alcohol Use Standard Drinks/Week Comments Never 0 [...] 11:00 AM EST Office Visit [facility] [address] [place] [address] Kathie Newman documented as of this encounter Visit Diagnoses Not on filedocumented in this encounter
--- OUTSIDE RECORDS SUMMARY | 2025-01-28 09:39 | XMS_ITS | Encounter Summary ---
Author Organization [employer] Address [address] [facility] [address] [place] [address] Care Team Providers Care Buckle Assembler Name Role Phone Unavailable Primary Care Provider Unavailabl e Reason for Visit * Reason Comments Med Refill Encounter Details Date Type Department Care Team (Late st Contact Info) Description 10/03/2023 Refill [facility]ULT [facility] [address] [place] [address] Jailene Chinchilla DDS [address] [place] [address] Erosion of teeth, limited to enamel Social History Tobacco Use Types Packs/Day Years [...] Telephone Encounter - Jailene Chinchilla DDS - 10/03/2023 2:23 PM EDT Approving, but needs appt for additional refills. documented in this encounter Plan of Treatment Upcoming Encounters Date Type Department Care Team (Late st Contact Info) Description 01/29/2025 11:00 AM EST Office Visit [facility] ADULT D[facility] [address] [place] [address] Kathie Newman documented as of this encounter Visit Diagnoses Diagnosis Erosion of teeth, limited to enamel documented in this encounter
--- OUTSIDE RECORDS SUMMARY | 2025-01-28 09:39 | XMS_ITS | Encounter Summary ---
Author Organization [employer] Address [address] [place] [address] 7 [place] [address] Care Team Providers Care Construction Inspector Name Role Phone Unavailable Primary Care Provider Unavailabl e Reason for Visit * Reason Comments Consult Re evaluation for en do on tooth #20, tooth broke Encounter Details Date Type Department Care Team ([facility] st Contact Info) Description 01/06/2025 9:00 AM EST Office Visit [facility] ADULT DENTAL [address] [place], [place] [id number] Lenin Mar DMD [address] [place] [address] Dental caries (Primary Dx); Open fracture of tooth, initial encounter Social History Tobacco Use Types Packs/Day Years [...] AM EDT documented as of this encounter Last Filed Vital Signs Vital Sign Reading Time Taken Comments Blood Pressure 130/80 01/06/2025 9:31 AM EST Pulse - - Temperature - - Respiratory Rate - - Oxygen Saturation - - Inhaled Oxygen Concentration - - Weight - - Height - - Body Mass Index - - documented in this encounter Progress Notes * Lenin Mar DMD - 01/06/2025 9:00 AM EST Patient ID: Zoila Avalos is a 59 y.o. female. Time Out: Timeout Date: 01/06/25, Timeout Time: 0900 (Extraction #20) Location: [facility] Tooth: #20 Procedure: Exam, X-rays, and Extraction Verified the above with patient, assistant to the ceo, and provider. Confirmed via patient's chart, intraorally and by radiographs. Dining Car Steward: not applicable Chief Complaint Patient presents with Consult Re evaluation for endo on tooth #20, tooth broke Medical Hx: Vitals: Blood pressure 130/80. Past Medical History: Diagnosis Date Arthritis Disease of thyroid gland Fibromyalgia Hypertension Medications: Outpatient Encounter Medications as of 01/06/2025 Medication Sig Dispense Refill buPROPion XL (Wellbutrin XL) 300 MG 24 hr tablet Take 300 mg by mouth in the morning. Do not crush,chew, or split. busPIRone (Buspar) 7.5 MG tablet Take 1 tablet by mouth every 12 (twelve) hours. gabapentin (Neurontin) 300 MG capsule Take 300 mg by mouth 3 times daily. levothyroxine (Synthroid, Levoxyl) 100 MCG tablet TAKE 1 TABLET BY MOUTH EVERY DAY FOR 90 DAYS acetaminophen (Tylenol 8 Hour) 650 MG ER tablet Take 2 tablets by mouth every 8 (eight) hours. albuterol (2.5 MG/3ML) 0.083% nebulizer solution INHALE 1 VIAL INHALED EVERY 4 TO 6 HOURS NEEDEDFOR SHORTNESS OF BREATH OR WHEEZING FOR 30 DAYS amoxicillin (Amoxil) 500 MG capsule take 1 capsule (500MG) by oral route every 8 hours amoxicillin (Amoxil) 500 MG tablet Take 500 mg by mouth 2 times daily. baclofen (Lioresal) 10 MG tablet TAKE 1 TABLET BY MOUTH TWICE A DAY X5 DAYS (Patient not taking: Reported on 01/06/2025) cetirizine (ZyrTEC) 10 MG tablet Take 10 mg by mouth Once per day. (Patient not taking: Reported on01/06/2025) cholecalciferol 50 MCG (2000 UT) capsule TAKE 1 CAPSULE BY MOUTH EVERY DAY FOR 90 DAYS (Patient nottaking: Reported on 01/06/2025) D3-1000 25 MCG (1000 UT) capsule Take 25 mcg by mouth in the morning. Denta 5000 Plus 1.1 % cream USE A PEA SIZE AMOUNT OF PASTE ON TOOTH BRUSH. BRUSH TEETH THREE TIMES A DAY 153 g 0 Diclofenac Sodium 1 % gel (Patient not taking: Reported on 01/06/2025) diphenhydrAMINE (BENADryl) 25 MG tablet Take 1 tablet (25 mg) by mouth every 6 (six) hours if needed for itching for up to 30 doses. (Patient not taking: Reported on 01/06/2025) 30 tablet 0 Hydrocortisone, Perianal, 1 % cream APPLY TOPICALLY 3 TIMES A DAY NEEDED FOR SKIN IRRITATION FOR30 DAYS (Patient not taking: Reported on 01/06/2025) ibuprofen 800 MG tablet Take 1 tablet by mouth every 8 (eight) hours. levothyroxine (Tirosint) 75 MCG capsule Take by mouth before breakfast. lisinopril 10 MG tablet Take 10 mg by mouth Once per day. methocarbamol (Robaxin) 750 MG tablet TAKE 1 TABLET BY MOUTH EVERY 8 HOURS FOR 5 DAYS (Patient not taking: Reported on 01/06/2025) omeprazole (PriLOSEC) [address] capsule Take 20 mg by mouth before breakfast. Do not crush or chew. predniSONE (Deltasone) 5 MG tablet TAKE 3 TABLETS BY MOUTH DAILY FOR 7 DAYS, 2 TABLETS DAILY FOR 7 DAYS, THEN 1 TABLET DAILY FOR 7 DAYS Ventolin HFA 108 (90 Base) MCG/ACT inhaler INHALE 1 PUFF BY MOUTH 4 TIMES A DAY NEEDED FOR SHORTNESS OF BREATH OR WHEEZE No facility-administered encounter medications on file as of 01/06/2025. Consent Obtained: The risks, benefits, indications, potential complications, and alternatives were explained to the patient and informed consent was obtained with good understanding. Treatment Provided: Dental procedures in this visit D7140 - EXTRACTION, ERUPTED TOOTH OR EXPOSED ROOT (ELEVATION AND/OR FORCEPS REMOVAL) 20 (Completed) Service provider: Lenin Mar DMD Billing provider: Lenin Mar DMD [id number] - LIMITED ORAL EVALUATION - PROBLEM FOCUSED (Completed) Service provider: Lenin Mar DMD Billing provider: Lenin Mar DMD [id number] - INTRAORAL - PERIAPICAL FIRST RADIOGRAPHIC IMAGE (Completed) Service provider: Lenin Mar DMD Billing provider: Lenin Mar DMD [id number] - ADJUNCTIVE GENERAL SERVICES - PROFESSIONAL VISITS - CASE PRESENTATION, SUBSEQUENT TO DETAILED AND EXTENSIVE TREATMENT PLANNING (Completed) Service provider: Lenin Mar DMD Billing provider: Lenin Mar DMD Exam: Pt presents with recent fracture of LL #20 Denies pain PA taken and reviewed: Tooth is fractured with little tooth structure remaining supragingivally Large PARL Clinical exam: #20 fractured, root tip remains Not restorable Informed pt of findings and recommendation for extraction Pt understands and all questions answered. She requests EXT today if possible Diagnosis: #20 non-restorable, fractured tooth Topical: 20% Benzocaine Anesthesia: 2% Lidocaine (Xylocaine) w/ 1:100,000 epinephrine and 4% Septocaine (Articaine) w/ 1:200,000 epinephrine Number of Cartridges: 1 of each Injection Type: Inferior alveolar nerve block and Mental nerve block Confirmed profound anesthesia. Pharyngeal curtain and bite block placed. Removed tooth with elevators and forceps. Apices intact. Surgical Extraction: N/A Socket curetted & irrigated with sterile water. Compressed alveolar bone. Sutures: None Needed All adjacent teeth intact. Hemostasis achieved. Complications: None Written and verbal post-op instructions given. Patient discharged in stable condition; ambulatory, alert, and oriented. NV: Christopher Supervisor Twisting Department: Sweetie Guerrero and Marni Sargent and Robbin DA international flight attendant Dentist: Lenin Mar DMD documented in this encounter Plan of Treatment Upcoming Encounters Date Type Department Care Team (Late st Contact Info) Description 01/29/2025 11:00 AM EST Office Visit [facility] ADULT DENTAL [address] [place] [address] Kathie Newman documented as of this encounter Procedures Procedure Name Priority Date/Time Associated Diagnosis Comments LIMITED ORAL EVALUATION - PROBLEM FOCUSED Routine 01/06/2025 9:00 AM EST Dental caries Open fracture of tooth, initial encounter INTRAORAL - PERIAPICAL FIRST RADIOGRAPHIC IMAGE Routine 01/06/2025 9:00 AM EST Dental caries Open fracture of tooth, initial encounter 20 EXTRACTION, ERUPTED TOOTH OR EXPOSED ROOT (ELEVATION/FORCEPS REMOVAL) Routine 01/06/2025 9:00 AM EST Dental caries Open fracture of tooth, initial encounter CASE PRESENTATION, DETAILED AND EXTENSIVE TREATMENT PLANNING Routine 01/06/2025 9:00 AM EST Dental caries Open fracture of tooth, initial encounter documented in this encounter Visit Diagnoses Diagnosis Dental caries- Primary Unspecified dental caries Open fracture of tooth, initial encounter documented in this encounter
--- OUTSIDE RECORDS SUMMARY | 2025-01-28 09:39 | XMS_ITS | Patient Health Record ---
Author Organization [facility] Address [address] [place] [address] Support Name Relationship Address Phone Zoila Avalos Guarantor Unknown Reason For Referral No Information Plan Of Treatment No Information Insurance Providers Payer Name Payer Address Payer Phone Subscriber Number Group Number Insured Name Patient Relationship to Insured Coverage Start Date Coverage End Date [facility] PL[facility] [address] [address] [place] [address] [id number] Zoila Avalos Self - patient is the insured
--- OUTSIDE RECORDS SUMMARY | 2025-01-28 09:39 | XMS_ITS | Encounter Summary ---
Author Organization [employer] Address [address] [place] [address] Care Team Providers Care Towel Sorter Name Role Phone Unavailable Primary Care Provider Unavailabl e Reason for Visit * Reason Onset Date Comments Appointment 07/15/2023 Encounter Details Date Type Department Care Team (Late st Contact Info) Description 07/15/2023 Telephone [facility] ADULT DENTAL [address] [place], [place] [phone] Carlos Suarez DDS [address] [place] [address] Appointment Social History Tobacco Use Types Packs/Day Years Used Date Smoking Tobacco: Never Assessed Comments Unknown Sex and Gender Information Value Date Recorded Sex Assigned at Female 10/01/2022 10:30 AM EDT Legal Sex Female 10:30 AM EDT Gender Identity Female 10/01/2022 10:30 AM EDT Sexual Orientation Straight 10/01/2022 10 :30 AM EDT documented as of this encounter Miscellaneous Notes * Telephone Encounter - Carolyn Sesay - 07/15/2023 1:22 PM EDT Appt has been wait listed since April and patient is checking in on status of appcourtney DR documented in this encounter Plan of Treatment Upcoming Encounters Date Type Department Care Team (Late st Contact Info) Description 01/29/2025 11:00 AM EST Office Visit [facility] ADULT DENTAL [address] [place] [address] Trent, Kathie documented as of this encounter Visit Diagnoses Not on filedocumented in this encounter
[2025-01-28 10:00] LABS: Basophils Absolute Auto 0.1 X10*3/uL (0.0-0.2); Basophils Percent Auto 1.2 % (0-2); Eosinophils Absolute Auto 0.3 X10*3/uL (0.0-0.4); Eosinophils Percent Auto 5.1 % (0-4); Hematocrit 38.9 % (37.0-47.0); Hemoglobin 12.7 g/dl (12.0-16.0); Imm Gran Abs Auto 0.02 X10*3/uL (0.00-0.03); Imm Gran Pct Auto 0.4 % (0.0-0.4); Lymphocytes Percent Auto 35.1 % (20-40); Mean Corpuscular HGB Conc 32.6 g/dl (31.0-35.0); Mean Corpuscular Hemoglobin 30.3 pg (27.0-33.0); Mean Corpuscular Volume 92.8 fL (80.0-98.0); Mean Platelet Volume 10.9 fL (9.4-12.3); Monocytes Absolute Auto 0.4 X10*3/uL (0.1-1.2); Monocytes Percent Auto 7.2 % (2-11); Neutrophils Absolute Auto 2.9 x10*3/uL (2.0-8.3); Platelet Count 288 X10*3/uL (160-400); Red Blood Count 4.19 X10*6/uL (4.20-5.50); Red Cell Distribution Width 12.6 % (11.0-16.0); White Blood Count 5.7 X10*3/uL (4.8-10.8)
[2025-01-28 10:05] LABS: Estimated Average Glucose 108 mg/dL; Hemoglobin A1c % 5.4 % (<6.0); Total Hemoglobin (HGBA1C) 3264.9163 umol/L
[2025-01-28 11:05] LABS: Folate 6.4 ng/mL (> or = 4.0); Vitamin B12 292 pg/mL (200-900)
[2025-01-28 11:07] LABS: Albumin Level 3.9 g/dL (3.5-5.0); Alkaline Phosphatase 90 U/L (39-117); Anion Gap 11 (12-20); Aspartate Amino Transferase 31 U/L (5-31); Bilirubin Total 0.5 mg/dL (0.0-1.0); Blood Urea Nitrogen 9 mg/dL (9-16); C Reactive Protein 0.38 mg/dL (< or = 0.50); Calcium 9.2 mg/dL (8.4-10.2); Carbon Dioxide 26 mmol/L (22-29); Chloride 109 mmol/L (96-108); Cholesterol 174 mg/dL (<200); Estimated Glomerular Filt Rate > 60; Ferritin 11 ng/mL (10-250); Glucose Random 84 mg/dL (60-115); HDL Cholesterol 53 mg/dL (>40); Iron 63 mcg/dL (30-160); LDL Cholesterol Calculated 109 mg/dL (<100); Percent Iron Saturation 21 % (15-50); Potassium 4.1 mmol/L (3.3-5.1); Sodium 142 mmol/L (135-145); TSH reflex Free T4 4.85 uIU/mL (0.32-4.0); Total Iron Binding Capacity 298 mcg/dL (228-428); Total Protein 8.1 g/dL (6.5-8.0); Triglycerides 63 mg/dL (<150); Unsaturated Iron Binding 235 ug/dL; Vitamin D 25-OH Total 18.5 ng/mL (>30)
[2025-01-28 11:33] LABS: Alanine Aminotransferase 36 U/L (0-31); Insulin 8 uU/mL (2-29)
[2025-01-28 11:38] LABS: Free T4 (Free Thyroxine) 1.18 ng/dL (0.71-1.85)
[2025-02-01 00:14] LABS: Zinc 64 mcg/dL (60-130)
[2025-02-02 16:14] LABS: Vitamin A 49 mcg/dL (38-98)
[2025-02-05 00:33] LABS: Vitamin B1 20 nmol/L (8-30)
== END 2025-01-28 08:59 | disposition home or self-care (01) ==
LOC: HO.XRAY 08:58
PROVIDERS: Physician Assistant Surgical; PCP Internal Medicine; Visit Provider Internal Medicine
DX: Z90.3 Acquired absence of stomach [part of] (principal); M54.6 Pain in thoracic spine
CPT/HCPCS: 36415; 72070; 80053; 80061; 82306; 82607; 82728; 82746; 83036; 83525; 83540; 84425; 84439; 84443; 84590; 84630; 85025; 86140

== ENCOUNTER → 2025-01-28 09:17 | Outpatient (BNV) | payer OTHER, SELFPAY | PROVIDERS: PCP Internal Medicine; Visit Provider Specialist | DX: M54.6 Pain in thoracic spine (principal) | CPT/HCPCS: 72070 ==

== ENCOUNTER 2025-02-16 12:39 | Outpatient (AMB) | payer OTHER, SELFPAY ==
--- NOTE | 2025-02-16 13:00 | MHC.OFFVISWM ---
VS Expanded 02/16/25 13:06 BP 136/70 Blood Pressure Location Lt brachial Blood Pressure Position Sitting Pulse 61 Pulse Source Pulse Oximeter Pulse Oximetry 100 Height 5 ft 2 in Weight 226 lb 12.8 oz BMI 41.5 Body Fat % 47.3 Body Fat Mass 107.2 Fat Free Mass 119.4 Visceral Fat Rating 15.0 Body Water % 37.5 Body Water Mass 84.8 Muscle Mass/Score 113.6 Basal Metabolic Rate/Score 1,684 Intake Visit Reasons: (OV) PO LSG 08/19/18 Allergies spinach Allergy (Severe, Verified 02/16/25 13:04) Hives Histamine H2 Inhibitors Allergy (Mild, Verified 02/16/25 13:04) Unknown Medication List - Last Reconciled 02/16/25 by KI Reagan albuterol sulfate 2.5 mg (3 mL) inhalation Q4-6H PRN 30 days albuterol sulfate 90 mcg/actuation (Ventolin HFA) 1 inh inhalation QID PRN bupropion HCl XL 300 mg PO QAM 90 days cetirizine 10 mg PO DAILY cholecalciferol (vitamin D3) 125 mcg PO DAILY diclofenac sodium 1% (Arthritis Pain (diclofenac)) 2 grams topical QID PRN 30 days gabapentin 300 mg PO Q8H 90 days hydrocortisone 1% (Anti-Itch (hydrocortisone)) 1 appl topical TID PRN 30 days levothyroxine 100 mcg PO DAILY 90 days losartan 25 mg PO DAILY 90 days nebulizers (AeroEclipse II Nebulizer) As directed pantoprazole 40 mg PO QAM polyethylene glycol 3350 (Miralax) 17 grams PO DAILY 90 days sucralfate 10 mL PO BEDTIME sumatriptan succinate 25 mg PO Q2-4H PRN 30 days HPI Comments Details: This is a 59 yo female who is s/p LSG 08/19/2018. Presents for 6 year 4 month post op visit. Weight stable since last OV in Dec 2024. No complaints of nausea, emesis, abdominal pain or reflux, or constipation. Pt's PCP tried to order Zepbound but couldn't. Present meal plan includes: 2 shakes per day, meal of 4oz protein at dinner, sometimes will have cottage cheese and melon/cantaloupe I get nauseated with greasy foods or rice, fast food Exercise routine includes: limited by pain, very difficult to do frequent formal exercise can walk a bit, but gets foot pain and burning pain up her leg her fibromyalgia has worsened with pain PFSH Medical History Osteoarthritis of hands, bilateral Pes planus of both feet Myalgia Acid reflux Fibromyalgia Morbid obesity with BMI of 40.0-44.9, adult Mild recurrent major depression Venous (peripheral) insufficiency Skin lesion Polyarthralgia Mild asthma Depression with anxiety Hypothyroid Hypovitaminosis D Surgical History Hx of colonoscopy History of esophagogastroduodenoscopy (EGD) S/P laparoscopic sleeve gastrectomy History of carpal tunnel release History of gastric surgery History of laparoscopic cholecystectomy History of tubal ligation History of tonsillectomy Family History Father Hypertension Mother Hypertension Maternal Aunt Breast cancer Family/Other FH: mental illness Paternal Grandfather No problems noted. Paternal Grandmother Hypertension Maternal Grandfather No problems noted. Maternal Grandmother Cervical cancer Social History Housing: Apartment Alcohol intake: never Patient Tobacco Use Status: Never used Tobacco e-Cigarette/Vaping Use: Never Used Second Hand Smoke Exposure: No service: No Current occupational status: unemployed and disabled Current occupation: rt hand Current occupational exposures/hazards: No Cognitive needs: No Hearing needs: No Vision needs: Yes Quality Reporting (2019) Adult ([facility] 138/01/23/69) Smoking risk assessment performed?: Yes Patient Tobacco Use Status: Never used Tobacco Assessment & Plan Assessment & Plan (1) History of sleeve gastrectomy: Code(s): Z90.3 - Acquired absence of stomach [part of] Category: Surgical (2) Morbid obesity with BMI of 40.0-44.9, adult: Code(s): E66.01 - Morbid (severe) obesity due to excess calories; Z68.41 - Body mass index [BMI] 40.0-44.9, adult Category: Medical Plan Will try Zepbound rx. Reviewed contraindications, discussed dosing. Discussed need for adequate protein intake while on GLP1s as well as frequent communication with our office. Pt will check in with me weekly and is aware that subsequent Rx will be dependent on frequent communication. RTC 2-3 months. Medications: New tirzepatide (weight loss) (Zepbound) for 4 weeks 2.5 mg (0.5 mL) subcut QWEEK 2 mL 0RF
[2025-02-16 13:06] VITALS: BP 136/70; PULSE 61; O2SAT 100; BMI 41.5
--- OUTSIDE RECORDS SUMMARY | 2025-02-16 14:51 | XMS_ITS | Encounter Summary ---
Author Organization [employer] Address [address] [place] [address] [address] [place] [address] Care Team Providers Care Bush And Vine Farmer Fruit Crops Name Role Phone Unavailable Primary Care Provider Unavailabl e Encounter Details Date Type Department Care Team (Latest Contact Info) Description 02/20/2022 Abstract [facility] CONVERSIONS Dental, Provider, DDS Social History Tobacco [...] Care Team (Late st Contact Info) Description 02/26/2025 9:30 AM EDT Office Visit [facility] ADULT DENTAL [address] [place] [address] Lenin Mar, DMD [address] [place] [address] documented as of this encounter Visit Diagnoses Not on filedocumented in this encounter
--- OUTSIDE RECORDS SUMMARY | 2025-02-16 14:51 | XMS_ITS | Patient Health Record ---
Author Organization [facility] Address [address] [place] [address] Support Name Relationship Address Phone Zoila Avalos Guarantor Unknown Reason For Referral No Information Plan Of Treatment No Information Insurance Providers Payer Name Payer Address Payer Phone Subscriber Number Group Number Insured Name Patient Relationship to Insured Coverage Start Date Coverage End Date [facility] [address] [address] [place] [address] [id number] Zoila Avalos Self - patient is the insured
--- OUTSIDE RECORDS SUMMARY | 2025-02-16 14:51 | XMS_ITS | Encounter Summary ---
Author Organization [facility] [facility] Address [address] [facility] [address]t [place] [address] Care Team Providers Care Briefcase Sewer Name Role Phone Unavailable Primary Care Provider Unavailabl e Reason for Visit * Reason Comments Med Refill Encounter Details Date Type Department Care Team (Late st Contact Info) Description 10/03/[address] [facility] ADULT DENTAL [address] [place] [address] Jailene Chinchilla DDS [address] [place] [address] Erosion of teeth, limited to enamel Social [...] Description 02/26/2025 9:30 AM EDT Office Visit [facility] ADULT DENTAL [address] [place] [address] Lenin Mar, LONNY [address] [place] [address] documented as of this encounter Visit Diagnoses Diagnosis Erosion of teeth, limited to enamel documented in this encounter
--- OUTSIDE RECORDS SUMMARY | 2025-02-16 14:51 | XMS_ITS | Clinical Summary ---
Author Organization [employer] Address [address] [facility] [address] [place] [address] Care Team Providers Care Independent Film Maker Name Role Phone Unavailable Primary Care Provider Unavailabl e Allergies Active Allergy Reactions Criticality Noted Date Comments Histidine 03/21/2021 Medications diphenhydrAMI NE (BENADryl) 25 MG tablet Take 1 tablet (25 mg) by mouth every 6 (six) hours if needed for itching for up to 30 doses. 30 tablet 12/12/19 24 Active Additional Information Patient not taking.Reported on 01/29/2025 omeprazole (PriLOSEC) [address] capsule Take [...] BY MOUTH EVERY DAY FOR 90 DAYS 01/20/20 24 Active acetaminophen (Tylenol 8 Hour) 650 MG ER tablet Take 2 tablets by mouth every 8 (eight) hours. 09/17/20 22 Active albuterol (2.5 MG/3ML) 0.083% nebulizer solution INHALE 1 VIAL INHALED EVERY 4 TO 6 HOURS NEEDED FOR SHORTNESS OF BREATH OR WHEEZING FOR 30 DAYS 10/03/20 23 Active Ventolin HFA 108 (90 Base) MCG/ACT inhaler INHALE 1 PUFF BY MOUTH 4 TIMES A DAY NEEDED FOR SHORTNESS OF BREATH OR WHEEZE 02/24/20 24 Active baclofen (Lioresal) 10 MG tablet TAKE 1 TABLET BY MOUTH TWICE A DAY X5 DAYS 07/26/20 23 Active busPIRone (Buspar) 7.5 MG tablet Take 1 tablet by mouth every 12 (twelve) hours. Active D3-1000 25 MCG (1000 UT) capsule Take 25 mcg by mouth in the morning. 08/19/20 23 Active cholecalcifer ol 50 MCG (2000 UT) capsule TAKE 1 CAPSULE BY MOUTH EVERY DAY FOR 90 DAYS 01/20/20 24 Active Diclofenac Sodium 1 % gel 02/09/20 24 Active Hydrocortison e, Perianal, 1 % cream APPLY TOPICALLY 3 TIMES A DAY NEEDED FOR SKIN IRRITATION FOR 30 DAYS 01/13/20 24 Active methocarbamol (Robaxin) 750 MG tablet TAKE 1 TABLET BY MOUTH EVERY 8 HOURS FOR 5 DAYS 12/24/19 24 Active cetirizine (ZyrTEC) 10 MG tablet Take 10 mg by mouth Once per day. 10/23/20 23 Active lisinopril 10 MG tablet Take 10 mg by mouth Once per day. 11/06/20 23 Active predniSONE (Deltasone) 5 MG tablet TAKE 3 TABLETS BY MOUTH DAILY FOR 7 DAYS, 2 TABLETS DAILY FOR 7 DAYS, THEN 1 TABLET DAILY FOR 7 DAYS 01/17/20 24 Active Sodium Fluoride 1.1 % gelIndication s:Dental caries [place] teeth for 2 minutes, morning and night. Spit, do not rinse. Do not eat or drink anything for 30 minutes following use. 448 g 3 01/29/20 25 Active Denta 5000 Plus 1.1 % creamIndicati ons:Erosion of teeth, limited to enamel USE A PEA SIZE AMOUNT OF PASTE ON TOOTH BRUSH. BRUSH TEETH THREE TIMES A DAY 153 g 10/03/20 23 025 Discontinued amoxicillin (Amoxil) 500 MG capsule take 1 capsule (500MG) by oral route every 8 hours 08/10/20 025 Discontinued(Th erapy completed) amoxicillin (Amoxil) 500 MG tablet Take 500 mg by mouth 2 times daily. 03/16/20 24 025 Discontinued ibuprofen 800 MG tablet Take 1 tablet by mouth every 8 (eight) hours. 08/10/20 22 025 Discontinued Active Problems Problem Noted Date Diagnosed Date Partial edentulism 03/06/2024 Dental caries 08/28/2023 Dental abscess 08/28/2023 Encounters Date Type Department Care Team Description 01/29/2025 11:00 AM EST Office Visit [facility] [address] [place] [address] Kathie Newman Secondary dental caries associated with failed or defective dental hinduism (Primary Dx); Dental caries; Partial edentulism, unspecified edentulism class 01/06/2025 9:00 AM EST Office Visit [facility] [address] [place] [address] Lenin Mar DMD Dental caries (Primary Dx); [...] Sign Reading Time Taken Comments Blood Pressure 132/86 01/29/2025 11:08 AM EST Pulse 76 04/01/2024 9:44 AM EDT Temperature - - Respiratory Rate - - Oxygen Saturation - - Inhaled Oxygen Concentration - - Weight - - Height - - Body Mass Index - - Plan of Treatment Upcoming Encounters Date Type Department Care Team (Late st Contact Info) Description 02/26/2025 9:30 AM EDT Office Visit [facility] [address] [place] [address] Lenin Mar DMD [address] [place] [address] Health Maintenance Due Date Last Done Comments [...] (1 of 2) 2017 COVID-19 Vaccine ( season) 2024 05/06/2022, 11/04/2021, 03/13/2021 Dental X-Ray: Full Mouth 02/21/2025 02/20/2022, 10/02 Dental Oral Exam 07/30/2025 01/29/2025, 04/2024, 08/28/2023, Additional history exists Dental Prophylaxis 07/30/2025 01/29/2025, 0 02/11/2024, 08/27/2022, Additional history exists Tobacco Screening 01/29/2026 01/29/2025 Dental X-Ray: Bitewings 01/30/2026 01/29/20, 07/29/2024, 03/06/2024, Additional history exists DTaP/Tdap/Td Vaccines (2 - Td or Tdap) [...] Procedure Name Priority Date/Time Associated Diagnosis Comments COMPREHENSIVE PERIODONTAL EVALUATION - NEW OR ESTABLISHED PATIENT Routine 01/29/2025 11:00 AM EST PERIODIC ORAL EVALUATION - ESTABLISHED PATIENT Routine 01/29/2025 11:00 AM EST Dental caries Secondary dental caries associated with failed or defective dental hinduism Partial edentulism, unspecified edentulism class BITEWINGS - 3 RADIOGRAPHIC IMAGES Routine 01/29/2025 11:00 AM EST Dental caries Secondary dental caries associated with failed or defective dental hinduism Partial edentulism, unspecified edentulism class ORAL HYGIENE INSTRUCTIONS Routine 2024 11:00 AM EST Dental caries Secondary dental caries associated with failed or defective dental hinduism Partial edentulism, unspecified edentulism class CASE PRESENTATION, DETAILED AND EXTENSIVE TREATMENT PLANNING Routine 01/29/2025 11:00 AM EST Dental caries Secondary dental caries associated with failed or defective dental hinduism Partial edentulism, unspecified edentulism class PROPHYLAXIS - ADULT Routine 01/29/2025 1 1:00 AM EST Dental caries Secondary dental caries associated with failed or defective dental hinduism Partial edentulism, unspecified edentulism class CASE PRESENTATION, DETAILED AND EXTENSIVE TREATMENT PLANNING [...] fracture of tooth, initial encounter INTRAORAL - COMPLETE SERIES OF RADIOGRAPHIC IMAGES Routine 02/20/2022 12:00 AM EDT from Last 3 Months or Most Recently Relevant to [place] [address] [place] ST[place] AD[place]
--- OUTSIDE RECORDS SUMMARY | 2025-02-16 14:51 | XMS_ITS | Encounter Summary ---
Author Organization [facility] Address [address] [facility] [address] [place] [address] Care Team Providers Care Suction Plate Carrier Cleaner Name Role Phone Unavailable Primary Care Provider Unavailabl e Reason for Visit * Reason Comments Med Refill Encounter Details Date Type Department Care Team (Late st Contact Info) Description 12/10/2022 Refill [facility] ADULT D[facility] [address] [place] [address] Jailene Chinchilla DDS [address] [place] [address] Erosion of teeth, limited to enamel (Primary [...] 02/26/2025 9:30 AM EDT Office Visit [facility] AD[facility] [address] [place] [address] Lenin Mar, DMD [address] [place] [address] documented as of this encounter Visit Diagnoses Diagnosis Erosion of teeth, limited to enamel- Primary documented in this encounter
--- OUTSIDE RECORDS SUMMARY | 2025-02-16 14:51 | XMS_ITS | Encounter Summary ---
Author Organization [employer] Address [address] [place] [address] [address] [place] [address] Care Team Providers Care Loan Review Officer Name Role Phone Unavailable Primary Care Provider Unavailabl e Reason for Visit * Reason Comments Routine Cleaning Dental Exam Encounter Details Date Type Department Care Team ([facility] st Contact Info) Description 01/29/2025 11:00 AM EST Office Visit [facility] ADULT DENTAL [address] [place], [place] [phone] Kathie Newman Secondary dental caries associated with failed or defective dental yazdanism (Primary Dx); Dental caries; Partial edentulism, unspecified edentulism class Social History Tobacco Use Types Packs/Day Years [...] Pressure 132/86 01/29/2025 11:08 AM EST Pulse - - Temperature - - Respiratory Rate - - Oxygen Saturation - - Inhaled Oxygen Concentration - - Weight - - Height - - Body Mass Index - - documented in this encounter Progress Notes * Kathie Newman - 01/29/2025 11:00 AM EST Patient ID: Zoila Avalos is a 59 y.o. female. Time Out: Timeout Date: 01/29/25, Timeout Time: 1110 Location: [facility] Tooth: Maxilla and Mandible Procedure: Exam, X-rays, and Prophylaxis Verified the above with patient, surgical physician assistant, and provider. Confirmed via patient's chart, intraorally and by radiographs. Motor Builder Winder: not applicable Medical Hx: Vitals: Blood pressure 132/86. Medications, Med Hx reviewed with patient and updated in chart. Treatment Provided Dental procedures in this visit D1110 - PROPHYLAXIS - ADULT (Completed) Service provider: Kathie Newman Billpio provider: Juan Jimenez DMD [id number] - CASE PRESENTATION, DETAILED AND EXTENSIVE TREATMENT PLANNING (Completed) Service provider: Kathie Newman Billpio provider: Juan Jimenez DMD D1330 - ORAL HYGIENE INSTRUCTIONS (Completed) Service provider: Kathie Newman Billpio provider: Juan Jimenez DMD D0273 - BITEWINGS - 3 RADIOGRAPHIC IMAGES (Completed) Service provider: Kathie Zhu provider: Juan Jimenez DMD Instruments Used: Ultrasonic Scalers and Prophy angle Fluoride: N/A Oral Cancer Screening: No lesions Head/Neck Exam: No Lesions Calculus: Light and Generalized Plaque: Light and Generalized Stain: Light and Localized Bleeding: Moderate and Localized Gingiva: Perio Charting Completed, Bleeding on probing, Recession- localized, and Erythematous OH: Fair Perio Chart: Completed Dental exam done by Dr. Jimenez. Oral hygiene instructions provided to patient including brushing technique and flossing. Recommendations: Rockbridge Baths two times daily, modified dasilva technique, Floss daily, Electric toothbrush, Soft bristle toothbrush, [place]bridge Baths Tongue, Anti-sensitivity toothpaste Recall Frequency: 6 mo NV: Restorations Hygienist: Kathie Newman RDH * Juan Jimenez DMD - 01/29/2025 11:00 AM EST Dental procedures in this visit D1110 - PROPHYLAXIS - ADULT (Completed) Service provider: Kathie Zhu provider: Juan Jimenez DMD D9450 - CASE PRESENTATION, DETAILED AND EXTENSIVE TREATMENT PLANNING (Completed) Service provider: Kathie Zhu provider: Juan Jimenez DMD D1330 - ORAL HYGIENE INSTRUCTIONS (Completed) Service provider: Kathie Zhu provider: Juan Jimenez DMD D0273 - BITEWINGS - 3 RADIOGRAPHIC IMAGES (Completed) Service provider: Kathie Newman Billing provider: Juan Jimenez DMD D0120 - PERIODIC ORAL EVALUATION - ESTABLISHED PATIENT (Completed) Service provider: Juan Jimenez DMD Billing provider: Juan Jimenez DMD D0180 - COMPREHENSIVE PERIODONTAL EVALUATION - NEW OR ESTABLISHED PATIENT (Completed) Service provider: Juan Jimenez DMD Billing provider: Juan Jimenez DMD Patient ID: Zoila Avalos is a 59 y.o. female. Time Out: Timeout Date: 01/29/25, Timeout Time: 1110 Location: [facility] Tooth: all Procedure: Exam Verified the above with patient, surgical physician assistant, and provider. Confirmed via patient's chart, intraorally and by radiographs. Motor Builder Winder: not applicable Chief Complaint Patient presents with Routine Cleaning Dental Exam Medical Hx: Vitals: Blood pressure 132/86. Past Medical History: Diagnosis Date Arthritis Disease of thyroid gland Fibromyalgia Hypertension Medications: Outpatient Encounter Medications as of 01/29/2025 Medication Sig Dispense Refill buPROPion XL (Wellbutrin [...] X5 DAYS (Patient not taking: Reported on 01/29/2025) cetirizine (ZyrTEC) 10 MG tablet Take 10 mg by mouth Once per day. (Patient not taking: Reported on01/29/2025) cholecalciferol 50 MCG (2000 UT) capsule TAKE 1 CAPSULE BY MOUTH EVERY DAY FOR 90 DAYS (Patient nottaking: Reported on 01/29/2025) D3-1000 25 MCG (1000 UT) capsule Take 25 mcg by mouth in the morning. Denta 5000 Plus 1.1 % cream USE A PEA SIZE AMOUNT OF PASTE ON TOOTH BRUSH. BRUSH TEETH THREE TIMES A DAY 153 g 0 Diclofenac Sodium 1 % gel (Patient not taking: Reported on 01/29/2025) diphenhydrAMINE (BENADryl) 25 MG tablet Take 1 tablet (25 mg) by mouth every 6 (six) hours if needed for itching for up to 30 doses. (Patient not taking: Reported on 03/26/2024) 30 tablet 0 Hydrocortisone, Perianal, 1 % cream APPLY TOPICALLY 3 TIMES A DAY NEEDED FOR SKIN IRRITATION FOR30 DAYS (Patient not taking: Reported on 01/29/2025) ibuprofen 800 MG tablet Take 1 tablet by mouth every 8 (eight) hours. levothyroxine (Tirosint) 75 MCG capsule Take by mouth before breakfast. lisinopril 10 MG tablet Take 10 mg by mouth Once per day. methocarbamol (Robaxin) 750 MG tablet TAKE 1 TABLET BY MOUTH EVERY 8 HOURS FOR 5 DAYS (Patient not taking: Reported on 01/29/2025) omeprazole (PriLOSEC) [address] capsule Take [...] facility-administered encounter medications on file as of 01/29/2025. Objective HPI: pt denies pain or sensitivity Pt notes she felt like she healed quickly following EXT #20 Soft Tissue Exam No findings documented this visit Head and Neck Exam: all structures examined Details: no swellings, ulcerations or lymphadenopathies OCS: negative Dental Exam Missing #1,2,3,5,11,12,15,16,17,18,19,20,26,31,32 Pt has deep bite and collapsed VDO #4- MO decay, new MO advised #7 - previously planned for EXT #13-MOD decay, new MOD advised #14- recurrent decay, overhang and open contact, advise new estefania #21 - MOD decay #22- MLDL decay #27 - MLDL decay #28-MOD decay #29-MOD decay #30-MO decay Informed pt of findings and treatment options and recommendations. Decay is large in some areas, possible further treatment like RCT may be indicated depending on extent of decay. New Rx written for prevident Once caries control is completed, partials will be made. Pt understood, all questions answered Radiographic Interpretation: Associated radiographs for today's visit were reviewed and finding(s) were discussed with the patient. Findings include: see above Hard Tissue Exam: Decay noted - see charting and treatment plan Perio Dx: Generalized Chronic Periodontitis Stage: I Grade: B Reference tooth chart for additional findings. Oral Cancer Risk: Low Risk Oral Hygiene Instructions: Rockbridge Baths two times daily, modified dasilva technique, Floss daily, Electric toothbrush, Soft bristle toothbrush, Rockbridge Baths Tongue, Anti- sensitivity toothpaste Caries Risk Assessment: High- two or more risk factors Assessment/Plan Caries control Max and Elaine partials; EXT #7 Maintenance and recare Patient tolerated procedure well, all questions answered and expressed understanding. Dismissed in good condition. NV: EMERALD White Photographic Aide: Kathie Newman Dentist: Juan Jimenez DMD documented in this encounter Miscellaneous Notes * Addendum Note - Juan Jimenez DMD - 01/29/2025 11:00 AM ESTAddended by: JUAN JIMENEZ on: 01/29/2025 12:51 PM Modules accepted: Orders documented in this encounter Plan of Treatment Upcoming Encounters Date Type Department Care Team (Late st Contact Info) Description 02/26/2025 9:30 AM EDT Office Visit [facility] ADULT DENTAL [address] [place] [address] Juan Jimenez DMD [address] [place] [address] Scheduled Orders Name Type Priority Associated Diagnoses Orde r Schedule 4 MO 4 MO RESIN-BASED COMPOSITE - 2 SURF, POSTERIOR Dental Routine [address] [facility]ting 01/29/2025 14 MO 14 MO RESIN-BASED COMPOSITE - 2 SURF, POSTERIOR Dental Routine [address] [facility] 01/29/2025 documented as of this encounter Procedures Procedure Name Priority Date/Time Associated Diagnosis Comments PROPHYLAXIS - ADULT Routine 01/29/2025 1 1:00 AM EST Dental caries Secondary dental caries associated with failed or defective dental yazdanism Partial edentulism, unspecified edentulism class PERIODIC ORAL EVALUATION - ESTABLISHED PATIENT Routine 01/29/2025 11:00 AM EST Dental caries Secondary dental caries associated with failed or defective dental yazdanism Partial edentulism, unspecified edentulism class ORAL HYGIENE INSTRUCTIONS Routine 2024 11:00 AM EST Dental caries Secondary dental caries associated with failed or defective dental yazdanism Partial edentulism, unspecified edentulism class COMPREHENSIVE PERIODONTAL EVALUATION - NEW OR ESTABLISHED PATIENT Routine 01/29/2025 11:00 AM EST CASE PRESENTATION, DETAILED AND EXTENSIVE TREATMENT PLANNING Routine 01/29/2025 11:00 AM EST Dental caries Secondary dental caries associated with failed or defective dental yazdanism Partial edentulism, unspecified edentulism class BITEWINGS - 3 RADIOGRAPHIC IMAGES Routine 01/29/2025 11:00 AM EST Dental caries Secondary dental caries associated with failed or defective dental yazdanism Partial edentulism, unspecified edentulism class documented in this encounter Visit Diagnoses Diagnosis Secondary dental caries associated with failed or defective dental yazdanism- Primary Dental caries Unspecified dental caries Partial edentulism, unspecified edentulism class documented in this encounter
--- OUTSIDE RECORDS SUMMARY | 2025-02-16 14:51 | XMS_ITS | Encounter Summary ---
Author Organization [employer] Address [address] [place] [address] [address] [place] [address] Care Team Providers Care Tenter Frame Operator Name Role Phone Unavailable Primary Care Provider Unavailabl e Reason for Visit * Reason Onset Date Comments Appointment 07/15/2023 Encounter Details Date Type Department Care Team (Late st Contact Info) Description 07/15/2023 Telephone [facility] ADULT DENTAL [address], [place] [phone] Carlos Suarez DDS [address] [place] [address] Appointment Social History Tobacco Use Types Packs/Day [...] patient is checking in on status of appt DR documented in this encounter Plan of Treatment Upcoming Encounters Date Type Department Care Team (Late st Contact Info) Description 02/26/2025 9:30 AM EDT Office Visit [facility] ADULT D[facility]AL [address] [place] [address] Lenin Mar, DMD [address] [place] [address] documented as of this encounter Visit Diagnoses Not on filedocumented in this encounter
--- OUTSIDE RECORDS SUMMARY | 2025-02-16 14:51 | XMS_ITS | Encounter Summary ---
Author Organization [employer] Address [address] [place] [address] [address] [place] [address] Care Team Providers Care Hat Brim And Crown Laminating Operator Name Role Phone Unavailable Primary Care Provider Unavailabl e Encounter Details Date Type Department Care Team (Latest Contact Info) Description 02/05/2020 Abstract [facility] CONVERSIONS Dental, Provider, DDS Social History [...] Description 02/26/2025 9:30 AM EDT Office Visit [facility] ADULT DENTAL [address] [place] [address] Lenin Mar, DMD [address] [place] [address] documented as of this encounter Visit Diagnoses Not on filedocumented in this encounter
== END 2025-02-16 13:37 | disposition home or self-care (01) ==
LOC: HO.HBS 12:40
PROVIDERS: PCP Internal Medicine; Visit Provider Physician Assistant Surgical
DX: E66.813 Obesity, class 3 (principal); Z68.41 Body mass index [BMI] 40.0-44.9, adult; Z90.3 Acquired absence of stomach [part of]; Z98.84 Bariatric surgery status
CPT/HCPCS: 99214; G2211

== ENCOUNTER → 2025-02-16 12:39 | Outpatient (BNVA) | payer OTHER, SELFPAY | PROVIDERS: PCP Internal Medicine; Visit Provider Physician Assistant Surgical | DX: E66.01 Morbid (severe) obesity due to excess calories (principal); Z90.3 Acquired absence of stomach [part of]; Z68.41 Body mass index [BMI] 40.0-44.9, adult; Z98.890 Other specified postprocedural states | CPT/HCPCS: 99212 ==

== ENCOUNTER 2025-03-24 12:56 | Emergency (ER) | payer OTHER, SELFPAY ==
[2025-03-24 13:07] VITALS: BP 129/62; PULSE 67; RESP 20; TEMP 36.4; O2SAT 97; BMI 43.1
--- NOTE | 2025-03-24 13:07 | ED_ITS ---
HPI - URI/Sore Throat General Chief Complaint: Upper Respiratory Symptoms Stated Complaint: Loss of Voice, Minor Sore Throat Time Seen by Provider: 03/24/25 13:11 Source: patient, RN notes reviewed and old records reviewed Mode of arrival: ambulatory History of Present Illness ED Provider: Lizbeth Leal PA-C HPI Narrative: 60-year-old female with a past medical history fibromyalgia, asthma, depression, anxiety, hypothyroid, presenting to the ED complaining of sore throat and loss of voice x yesterday. denies difficulty or inability to swallow, fever, chills, cough, sick contacts, recent travel Related Data Previous Rx's ?Medication ?Instructions ?Recorded nebulizers (AeroEclipse II #1 ea 01/07/23 Nebulizer) albuterol sulfate 2.5 mg/3 mL 2.5 mg (3 mL) inhalation Q4-6H PRN 08/21/23 (0.083 %) solution for nebulization shortness of breath or wheezing 30 days #75 mL albuterol sulfate 90 mcg/actuation 1 inh inhalation QID PRN shortness 04/16/24 aerosol inhaler (Ventolin HFA) of breath or wheezing #18 ea polyethylene glycol 3350 17 17 g PO DAILY 90 days #1,530 grams 04/29/24 gram/dose oral powder (Miralax) cetirizine 10 mg tablet 10 mg PO DAILY #90 tabs 07/04/24 losartan 25 mg tablet 25 mg PO DAILY 90 days #90 tabs 07/30/24 levothyroxine 100 mcg tablet 100 mcg PO DAILY 90 days #90 tabs 08/24/24 diclofenac sodium 1 % topical gel 2 g topical QID PRN pain 30 days 09/17/24 (Arthritis Pain (diclofenac)) #100 grams pantoprazole 40 mg tablet,delayed 40 mg PO QAM #90 tabs 10/12/24 release bupropion HCl 300 mg 24 hr tablet, 300 mg PO QAM 90 days #90 tabs 10/19/24 extended release sucralfate 100 mg/mL oral 10 ml PO BEDTIME #400 mL 12/15/24 suspension gabapentin 300 mg capsule 300 mg PO Q8H 90 days #270 caps 01/24/25 hydrocortisone 1 % topical cream 1 appl topical TID PRN skin 02/03/25 (Anti-Itch (hydrocortisone)) irritation 30 days #28.4 grams cholecalciferol (vitamin D3) 125 125 mcg PO DAILY #90 caps 02/09/25 mcg (5,000 unit) capsule tirzepatide (weight loss) 2.5 2.5 mg (0.5 mL) subcut QWEEK #2 mL 02/16/25 mg/0.5 mL subcutaneous pen injector (Zepbound) sumatriptan succinate 25 mg tablet 25 mg PO Q2-4H PRN migraine 02/20/25 headache 30 days #9 tabs Allergies Allergy/AdvReac Type Severity Reaction Status Date / Time spinach Allergy Severe Hives Verified 03/24/25 13:07 Histamine H2 Inhibitors Allergy Mild Unknown Verified 03/24/25 13:07 Review of Systems Review of Systems: Yes all other systems are reviewed and are negative Constitutional: Constitutional: Reports as per [facility] Past Medical History Attestation statement: The following information was validated with the patient. Source: old records reviewed Medical History Osteoarthritis of hands, bilateral Pes planus of both feet Myalgia Acid reflux Fibromyalgia Morbid obesity with BMI of 40.0-44.9, adult Mild recurrent major depression Venous (peripheral) insufficiency Skin lesion Polyarthralgia Mild asthma Depression with anxiety Hypothyroid Hypovitaminosis D Surgical History Hx of colonoscopy History of esophagogastroduodenoscopy (EGD) S/P laparoscopic sleeve gastrectomy History of carpal tunnel release History of gastric surgery History of laparoscopic cholecystectomy History of tubal ligation History of tonsillectomy Family History Family History Father Hypertension Mother Hypertension Maternal Aunt Breast cancer Family/Other FH: mental illness Paternal Grandfather No problems noted. Paternal Grandmother Hypertension Maternal Grandfather No problems noted. Maternal Grandmother Cervical cancer Social History Social History Housing: Apartment Alcohol intake: never Patient Tobacco Use Status: Never used Tobacco e-Cigarette/Vaping Use: Never Used Second Hand Smoke Exposure: No Advance Directives: No Advance Directives Information Provided: Yes service: No Current occupational status: unemployed and disabled Current occupation: rt hand Current occupational exposures/hazards: No Cognitive needs: No Hearing needs: No Vision needs: Yes Physical Exam Vital Signs: Vital Signs: Last Vital Signs Temp 97.5 F 03/24/25 14:34 Pulse 67 03/24/25 14:34 Resp 20 03/24/25 14:34 BP 129/62 03/24/25 14:34 Pulse Ox 97 03/24/25 14:34 O2 Del Method Room Air 03/24/25 14:34 BMI result Body Mass Index 43.1 Const: General: cooperative, healthy appearing and no acute distress Orientation/consciousness: patient oriented x3 Limitations: no limitations HEENT: Other: +loss of voice Head: Yes normal to inspection and Yes atraumatic Ears: hearing grossly normal bilaterally General nose exam: Normal external nose present Face and sinus: Yes normal facial exam Mouth: Normal oral and palatal mucosa present and no drooling Throat: Yes posterior oropharynx normal, Yes uvula midline, No peritonsillar mass, No posterior oropharynx abnormal, No uvula laterally displaced and No uvular edema Eyes: General: appearance normal, both eyes and all related structures EOM: EOMs intact bilaterally Neck: Neck: Yes normal visual inspection and Yes no meningeal signs Resp: Effort & Inspection: normal respiratory effort, no respiratory distress and no stridor Cardio: Rate: regular rate Heart sounds: S1 normal heart sound present and S2 normal heart sound present Skin: Rashes: no rashes Wounds: no wounds Neuro: General: patient oriented x3, tone normal and no meningeal signs Cranial nerves: Yes CN's II-XII intact bilaterally Gait exam (Neuro): Normal gait present Extrem: General: Yes normal to inspection Course Course Course Narrative: 1428--viral testing negative. Rapid strep negative Results discussed with patient including worrisome signs and symptoms and strict return precautions, and when to return to the emergency department. They verbalized understanding and feel safe for discharge at this time. Medical Decision Making Medical Decision Making MDM Narrative: 60-year-old female with a past medical history fibromyalgia, asthma, depression, anxiety, hypothyroid, presenting to the ED complaining of sore throat and loss of voice x yesterday. On exam vital signs stable, NAD, nontoxic appearing, + loss of voice appreciated, posterior oropharynx WNL, uvula midline. No respiratory distress. Concern for laryngitis vs pharyngitis vs viral illness. No evidence of BLOCK TRADER/retropharyngeal abscess Plan: SARs, rapid strep Please refer to course for remaining clinical decision making, interpretation of labs/imaging results, and discussions with consultants and/or family members. Differential Diagnosis Differential Diagnoses: The differential diagnosis associated with the presentation includes As above Lab Data MDM Lab Attestation statement: I reviewed the patient's lab results. Labs: Lab Results 03/24/25 Range/Units 13:15 Influenza Type A (PCR) NEGATIVE (Negative) Influenza Type B (PCR) NEGATIVE (Negative) RSV RNA Qual (PCR) NEGATIVE (Negative) SARS-CoV-2 RNA (RT-PCR) NEGATIVE (Negative) S. pyogenes GrpA HECTOR Negative (Negative) Radiology Impression Discussion of test interpretation with radiology: I have reviewed the radiologist's reading. External Record Review External record reviewed: Inpatient record, Office record, Outpatient record, Prior outpatient labs, Prior outpatient radiology, Primary care record and Outside ED record Tests considered The following testing was considered but not selected: As above Prescription Management I considered prescription management with: Pain Medication and Antibiotic Chronic Conditions Patient?s care impacted by: Other Social Determinants Patient?s care significantly limited by Social Determinants of Health including: Other Social Determinant of Health Discharge Plan Discharge Clinical Impression: Acute laryngitis Patient Disposition: Home, Self-Care Instructions: Laryngitis (ED) Additional Instructions: You tested negative for strep throat, COVID, flu, and RSV Gargle with warm saltwater Drink tea with honey Follow up with your primary care doctor Take Tylenol and ibuprofen for pain If her symptoms persist or worsen, pain becomes unbearable, you have difficulty or inability to swallow return to the ED Prescriptions: No Action (DME) nebulizers [AeroEclipse II Nebulizer] Misc See Rx Instructions .Route Qty: 1 0RF Rx Instructions: As directed albuterol sulfate 2.5 mg /3 mL (0.083 %) solution for nebulization 2.5 mg inhalation Q4-6H PRN (Reason: shortness of breath or wheezing) 30 Days Qty: 75 1RF albuterol sulfate [Ventolin HFA] 90 mcg/actuation HFA aerosol inhaler 1 inh inhalation QID PRN (Reason: shortness of breath or wheezing) Qty: 18 1RF polyethylene glycol 3350 [Miralax] 17 gram/dose powder 17 g PO DAILY 90 Days Qty: 1530 2RF cetirizine 10 mg tablet 10 mg PO DAILY Qty: 90 1RF levothyroxine 100 mcg tablet 100 mcg PO DAILY 90 Days Qty: 90 1RF diclofenac sodium [Arthritis Pain (diclofenac)] 1 % gel 2 g topical QID PRN (Reason: pain) 30 Days Qty: 100 1RF Rx Instructions: apply to single elbow, wrist or hand; for hand includes palm/fingers/back of hand pantoprazole 40 mg tablet,delayed release (DR/EC) 40 mg PO QAM Qty: 90 0RF bupropion HCl 300 mg tablet extended release 24 hr 300 mg PO QAM 90 Days Qty: 90 1RF gabapentin 300 mg capsule 300 mg PO Q8H 90 Days Qty: 270 1RF hydrocortisone [Anti-Itch (HC)] 1 % cream 1 appl topical TID PRN (Reason: skin irritation) 30 Days Qty: 28.4 1RF cholecalciferol (vitamin D3) 125 mcg (5,000 unit) capsule 125 mcg PO DAILY Qty: 90 3RF sumatriptan succinate 25 mg tablet 25 mg PO Q2-4H PRN (Reason: migraine headache) 30 Days Qty: 9 0RF Rx Instructions: do not exceed 8 doses per 24 hrs losartan 25 mg tablet 25 mg PO DAILY 90 Days Qty: 90 1RF sucralfate 100 mg/mL suspension 10 ml PO BEDTIME Qty: 400 3RF Zepbound 2.5 mg/0.5 mL pen injector 2.5 mg subcut QWEEK Qty: 2 0RF Rx Instructions: for 4 weeks Referrals: Rehana De Jesus MD [Primary Care Provider] - 1 week Interventions: ED Discharge Assessment Last Done: 03/24/25 14:34 Discharge Date/Time: 03/24/25 14:34 Print Language: Japanese
[2025-03-24 13:43] LABS: IDNOW Serial# 58CA691E; Strep A Nucleic Acid Negative (Negative)
[2025-03-24 14:05] LABS: Influenza A PCR NEGATIVE (Negative); Influenza B PCR NEGATIVE (Negative); Resp Syncy Virus RNA Qual PCR NEGATIVE (Negative); SARS COV2 PCR INHOUSE NEGATIVE (Negative)
[2025-03-24 14:34] VITALS: BP 129/62; PULSE 67; RESP 20; TEMP 36.4; O2SAT 97
--- OUTSIDE RECORDS SUMMARY | 2025-03-24 15:37 | XMS_ITS | Clinical Summary ---
Author Organization [employer] Address [address] [facility] 7t [place] [address] Care Team Providers Care Stave Mill Hand Name Role Phone Unavailable Primary Care Provider Unavailabl e Allergies Active Allergy Reactions Criticality Noted Date Comments Histidine 03/21/2021 Medications diphenhydrAMINE (BENADryl) 25 MG tablet Take 1 [...] 8 HOURS FOR 5 DAYS 4 Active cetirizine (ZyrTEC) 10 MG tablet Take 10 mg by mouth Once per day. 3 Active lisinopril 10 MG tablet Take 10 mg by mouth Once per day. 3 Active predniSONE (Deltasone) 5 MG tablet TAKE 3 TABLETS BY MOUTH DAILY FOR 7 DAYS, 2 TABLETS DAILY FOR 7 DAYS, THEN 1 TABLET DAILY FOR 7 DAYS 4 Active Sodium Fluoride 1.1 % gelIndications: Dental caries [place] teeth for 2 minutes, morning and night. Spit, do not rinse. Do not eat or drink anything for 30 minutes following use. 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 Dental caries 08/28/2023 Dental abscess 08/28/2023 Encounters Date Type Department Care Team Description 02/26/2025 9:30 AM EDT Office Visit [facility] ADULT DENTAL [address] [place] [address] Lenin Mar DMD Dental caries (Primary Dx); Secondary dental caries associated with failed or defective dental congregation 01/29/2025 11:00 AM EST Office Visit [facility] ADULT DENTAL [address] [place] [address] Kathie Newman Secondary dental caries associated with failed or defective dental congregation (Primary Dx); Dental caries; Partial edentulism, unspecified edentulism class 01/06/2025 9:00 AM EST Office Visit [facility] ADULT DENTAL [address] [place], [place] [id number] Lenin Mar DMD Dental caries (Primary Dx); [...] Sign Reading Time Taken Comments Blood Pressure 128/76 02/26/2025 9:42 AM EDT Pulse 76 04/01/2024 9:44 AM EDT Temperature - - Respiratory Rate - - Oxygen Saturation - - Inhaled Oxygen Concentration - - Weight - - Height - - Body Mass Index - - Plan of Treatment Health Maintenance Due Date Last Done Comments [...] 01/29/2025, 0 02/11/2024, 08/27/2022, Additional history exists Dental X-Ray: Bitewings 01/30/2026 01/29/20, 07/29/2024, 03/06/2024, Additional history exists Tobacco Screening 02/26/2026 02/26/2025 DTaP/Tdap/Td Vaccines (2 - Td or Tdap) [...] PRESENTATION, DETAILED AND EXTENSIVE TREATMENT PLANNING Routine 02/26/2025 9:30 AM EDT Dental caries Secondary dental caries associated with failed or defective dental congregation 22 MDFL RESIN-BASED COMPOSITE - 4 OR MORE SURFACES (ANTERIOR) Routine 02/26/2025 9:30 AM EDT Dental caries 21 MOD RESIN-BASED COMPOSITE - 3 SURF, POSTERIOR Routine 02/26/2025 9:30 AM EDT Secondary dental caries associated with failed or defective dental congregation COMPREHENSIVE PERIODONTAL EVALUATION - NEW OR ESTABLISHED PATIENT Routine 01/29/2025 11:00 AM EST PERIODIC ORAL EVALUATION - ESTABLISHED PATIENT Routine 01/29/2025 11:00 AM EST Dental caries Secondary dental caries associated with failed or defective dental congregation Partial edentulism, unspecified edentulism class BITEWINGS - 3 RADIOGRAPHIC IMAGES Routine 01/29/2025 11:00 AM EST Dental caries Secondary dental caries associated with failed or defective dental congregation Partial edentulism, unspecified edentulism class ORAL HYGIENE INSTRUCTIONS Routine 2024 11:00 AM EST Dental caries Secondary dental caries associated with failed or defective dental congregation Partial edentulism, unspecified edentulism class CASE PRESENTATION, DETAILED AND EXTENSIVE TREATMENT PLANNING Routine 01/29/2025 11:00 AM EST Dental caries Secondary dental caries associated with failed or defective dental congregation Partial edentulism, unspecified edentulism class PROPHYLAXIS - ADULT Routine 01/29/2025 1 1:00 AM EST Dental caries Secondary dental caries associated with failed or defective dental congregation Partial edentulism, unspecified edentulism class CASE PRESENTATION, [...] Most Recently Relevant to Health Maintenance Insurance [facility] STAND ADULT
--- OUTSIDE RECORDS SUMMARY | 2025-03-24 15:37 | XMS_ITS | Encounter Summary ---
Author Organization [employer] Address [address] [place] [address] 7 [place] [address] Care Team Providers Care Event Attendant Name Role Phone Unavailable Primary Care Provider Unavailabl e Reason for Visit * Reason Comments Med Refill Encounter Details Date Type Department Care Team ([facility] st Contact Info) Description 12/10/2022 Refill [facility] ADULT DENTAL [address] [place] [address] Jailene Chinchilla DDS [address] [place] [address] Erosion of teeth, limited to enamel (Primary [...] documented in this encounter Plan of Treatment Not on file documented as of this encounter Visit Diagnoses Diagnosis Erosion of teeth, limited to enamel- Primary documented in this encounter
--- OUTSIDE RECORDS SUMMARY | 2025-03-24 15:37 | XMS_ITS | Encounter Summary ---
Author Organization [employer] Address [address] [place] [address] 7 [place] [address] Care Team Providers Care Gm/Svp Global Publisher Business Name Role Phone Unavailable Primary Care Provider Unavailabl e Encounter Details Date Type Department Care Team (Latest Contact Info) Description 02/05/2020 Abstract [facility] CONVERSIONS Dental, Provider, DDS Social History [...] as of this encounter Plan of Treatment Not on file documented as of this encounter Visit Diagnoses Not on filedocumented in this encounter
--- OUTSIDE RECORDS SUMMARY | 2025-03-24 15:37 | XMS_ITS | Encounter Summary ---
Author Organization [employer] Address [address] [place] [address] 7[address] [place] [address] Care Team Providers Care Internal Grinder Name Role Phone Unavailable Primary Care Provider Unavailabl e Reason for Visit * Reason Comments Med Refill Encounter Details Date Type Department Care Team ([facility] st Contact Info) Description 10/03/2023 Refill [facility] ADULT DENTAL [address] [place] [address] Jailene Chinchilla DDS [address] [place] [address] Erosion of teeth, limited to enamel Social [...]
--- OUTSIDE RECORDS SUMMARY | 2025-03-24 15:37 | XMS_ITS | Encounter Summary ---
Author Organization [employer] Address [address] [place] [address] 7 [place] [address] Care Team Providers Care Stock Ranch Supervisor Name Role Phone Unavailable Primary Care Provider [...]
--- OUTSIDE RECORDS SUMMARY | 2025-03-24 15:37 | XMS_ITS | Encounter Summary ---
Author Organization [employer] Address [address] [place] [address] 7 [place] [address] Care Team Providers Care Clerk Funeral Detail Name Role Phone Unavailable Primary Care Provider Unavailabl e Reason for Visit * Reason Onset Date Comments Appointment 07/15/2023 Encounter Details Date Type Department Care Team ([facility] st Contact Info) Description 07/15/2023 Telephone [facility] ADULT DENTAL [address] [place], [place] [phone] Carlos Suarez DDS [address] [place] [address] Appointment Social History Tobacco Use Types Packs/Day [...]
--- OUTSIDE RECORDS SUMMARY | 2025-03-24 15:37 | XMS_ITS | Patient Health Record ---
Author Organization [facility] Address [address] [place] [address] Support Name Relationship Address Phone Zoila Avalos Guarantor Unknown [phone] Reason For Referral No Information Plan Of Treatment No Information Insurance Providers Payer Name Payer Address Payer Phone Subscriber Number Group Number Insured Name Patient Relationship to Insured Coverage Start Date Coverage End Date [facility] [address] [address] [place] [address] [id number] Zoila Avalos Self - patient is the insured
== END 2025-03-24 14:34 | disposition home or self-care (01) ==
PROVIDERS: Physician Assistant; Emergency Provider Emergency Medicine; PCP Internal Medicine
DX: J04.0 Acute laryngitis (principal); J02.9 Acute pharyngitis, unspecified; Z03.818 Encounter for observation for suspected exposure to other biological agents ruled out
CPT/HCPCS: 0241U; 87651; 99282; 99283

== ENCOUNTER 2025-04-08 16:12 | Emergency (ER) | payer OTHER, SELFPAY ==
--- NOTE | ~2025-04-08 | XR_ITS ---
CLINICAL HISTORY: chest pain 2 view chest x-ray. Comparison: 11/11/2024 Findings: No consolidations. Heart size normal. Pulmonary vasculature approaches limits of normal. No pleural effusion. No acute fracture. Impression: The lungs are well-aerated. No pneumothorax. This document has been electronically signed by: Boris Noyola MD on 04/08/2025 17:45:06
--- NOTE | 2025-04-08 16:13 | ECG_ITS ---
Test Reason : chest pain Blood Pressure : */* mmHG Vent. Rate : 64 BPM Atrial Rate : 64 BPM P-R Int : 192 ms QRS Dur : 70 ms QT Int : 378 ms P-R-T Axes : 23 16 -1 degrees QTcB Int : 389 ms Normal sinus rhythm Minimal voltage criteria for LVH, may be normal variant ( R in aVL ) Borderline ECG When compared with ECG of 24-Jul-2024 12:39, No significant change was found Referred By: Wendy Jacobs Electronically Signed By: ALDO CRISOSTOMO
--- NOTE | 2025-04-08 16:14 | ED_ITS ---
HPI - General Adult General Chief complaint: Chest Pain Stated complaint: cp Related Data Previous Rx's ?Medication ?Instructions ?Recorded nebulizers (AeroEclipse II #1 ea 01/07/23 Nebulizer) albuterol sulfate 2.5 mg/3 mL 2.5 mg (3 mL) inhalation Q4-6H PRN 08/21/23 (0.083 %) solution for nebulization shortness of breath or wheezing 30 days #75 mL albuterol sulfate 90 mcg/actuation 1 inh inhalation QID PRN shortness 04/16/24 aerosol inhaler (Ventolin HFA) of breath or wheezing #18 ea polyethylene glycol 3350 17 17 g PO DAILY 90 days #1,530 grams 04/29/24 gram/dose oral powder (Miralax) cetirizine 10 mg tablet 10 mg PO DAILY #90 tabs 07/04/24 losartan 25 mg tablet 25 mg PO DAILY 90 days #90 tabs 07/30/24 levothyroxine 100 mcg tablet 100 mcg PO DAILY 90 days #90 tabs 08/24/24 diclofenac sodium 1 % topical gel 2 g topical QID PRN pain 30 days 09/17/24 (Arthritis Pain (diclofenac)) #100 grams pantoprazole 40 mg tablet,delayed 40 mg PO QAM #90 tabs 10/12/24 release bupropion HCl 300 mg 24 hr tablet, 300 mg PO QAM 90 days #90 tabs 10/19/24 extended release sucralfate 100 mg/mL oral 10 ml PO BEDTIME #400 mL 12/15/24 suspension gabapentin 300 mg capsule 300 mg PO Q8H 90 days #270 caps 01/24/25 hydrocortisone 1 % topical cream 1 appl topical TID PRN skin 02/03/25 (Anti-Itch (hydrocortisone)) irritation 30 days #28.4 grams cholecalciferol (vitamin D3) 125 125 mcg PO DAILY #90 caps 02/09/25 mcg (5,000 unit) capsule tirzepatide (weight loss) 2.5 2.5 mg (0.5 mL) subcut QWEEK #2 mL 02/16/25 mg/0.5 mL subcutaneous pen injector (Zepbound) sumatriptan succinate 25 mg tablet 25 mg PO Q2-4H PRN migraine 02/20/25 headache 30 days #9 tabs Allergies Allergy/AdvReac Type Severity Reaction Status Date / Time spinach Allergy Severe Hives Verified 04/08/25 16:21 Histamine H2 Inhibitors Allergy Mild Unknown Verified 04/08/25 16:21 [facility] Past Medical History Medical History Osteoarthritis of hands, bilateral Pes planus of both feet Myalgia Acid reflux Fibromyalgia Morbid obesity with BMI of 40.0-44.9, adult Mild recurrent major depression Venous (peripheral) insufficiency Skin lesion Polyarthralgia Mild asthma Depression with anxiety Hypothyroid Hypovitaminosis D Surgical History Hx of colonoscopy History of esophagogastroduodenoscopy (EGD) S/P laparoscopic sleeve gastrectomy History of carpal tunnel release History of gastric surgery History of laparoscopic cholecystectomy History of tubal ligation History of tonsillectomy Family History Family History Father Hypertension Mother Hypertension Maternal Aunt Breast cancer Family/Other FH: mental illness Paternal Grandfather No problems noted. Paternal Grandmother Hypertension Maternal Grandfather No problems noted. Maternal Grandmother Cervical cancer Social History Social History Housing: Apartment Alcohol intake: never Patient Tobacco Use Status: Never used Tobacco e-Cigarette/Vaping Use: Never Used Second Hand Smoke Exposure: No Advance Directives: No Advance Directives Information Provided: No service: No Current occupational status: unemployed and disabled Current occupation: rt hand Current occupational exposures/hazards: No Cognitive needs: No Hearing needs: No Vision needs: Yes Physical Exam ED Vital Signs: BMI result Body Mass Index 42.6 Course Course Course Narrative: This is a rapid medical exam performed by Samuel Jacobs NP: Additional HPI, ROS, PE not included below will be deferred to primary provider. Patient is a 60-year-old female with history of hypertension, generalized anxiety disorder, GERD, fibromyalgia, hypothyroidism presenting to the emergency department with sudden onset right-sided facial pain which then progressed to chest pain 5 minutes prior to arrival while in the car. Plan: EKG, labs, chest x-ray Medical Decision Making Lab Data 04/08/25 16:27 05/08/25 16:27 Labs: Lab Results 04/08/25 Range/Units 16:27 WBC 6.5 (4.8-10.8) X10*3/uL RBC 4.23 (4.20-5.50) X10*6/uL Hgb 12.6 (12.0-16.0) g/dl Hct 38.4 (37.0-47.0) % MCV 90.8 (80.0-98.0) fL MCH 29.8 (27.0-33.0) pg MCHC 32.8 (31.0-35.0) g/dl RDW 13.2 (11.0-16.0) % Plt Count 318 (160-400) X10*3/uL MPV 10.1 (9.4-12.3) fL Immature Gran % (Auto) 0.5 H (0.0-0.4) % Neut % (Auto) 57.3 (45-73) % Lymph % (Auto) 30.2 (20-40) % [place] % (Auto) 7.7 (2-11) % Eos % (Auto) 3.4 (0-4) % Baso % (Auto) 0.9 (0-2) % Lymph # (Auto) 2.0 (1.2-4.9) X10*3/uL [place] # (Auto) 0.5 (0.1-1.2) X10*3/uL Eos # (Auto) 0.2 (0.0-0.4) X10*3/uL Baso # (Auto) 0.1 (0.0-0.2) X10*3/uL Abs Immat Gran (auto) 0.03 (0.00-0.03) X10*3/uL Absolute Neuts (auto) 3.7 (2.0-8.3) x10*3/uL Absolute Nucleated RBC 0.000 (0.0-0.012) X10*3/uL Nucleated RBC % (auto) 0.0 (0.0-0.2) /100WBC Sodium 141 (135-145) mmol/L Potassium 3.6 (3.3-5.1) mmol/L Chloride 107 (96-108) mmol/L Carbon Dioxide 25 (22-29) mmol/L Anion Gap 13 (12-20) BUN 9 (9-16) mg/dL Creatinine 0.64 (0.5-1.4) mg/dL Estim Creat Clear Calc 105.2 Estimated GFR > 60 Random Glucose 93 (60-115) mg/dL Calcium 9.0 (8.4-10.2) mg/dL Total Bilirubin 0.4 (0.0-1.0) mg/dL AST 19 (5-31) U/L ALT 15 (0-31) U/L Alkaline Phosphatase 86 (39-117) U/L Troponin I High Sens < 2.7 (<3.5-17.0) ng/L Total Protein 7.6 (6.5-8.0) g/dL Albumin 3.9 (3.5-5.0) g/dL Discharge Plan Discharge Clinical Impression: Chest pain Patient Disposition: Left W/O Completing Treatment Prescriptions: No Action (DME) nebulizers [AeroEclipse II Nebulizer] Misc See Rx Instructions .Route Qty: 1 0RF Rx Instructions: As directed albuterol sulfate 2.5 mg /3 mL (0.083 %) solution for nebulization 2.5 mg inhalation Q4-6H PRN (Reason: shortness of breath or wheezing) 30 Days Qty: 75 1RF albuterol sulfate [Ventolin HFA] 90 mcg/actuation HFA aerosol inhaler 1 inh inhalation QID PRN (Reason: shortness of breath or wheezing) Qty: 18 1RF polyethylene glycol 3350 [Miralax] 17 gram/dose powder 17 g PO DAILY 90 Days Qty: 1530 2RF cetirizine 10 mg tablet 10 mg PO DAILY Qty: 90 1RF levothyroxine 100 mcg tablet 100 mcg PO DAILY 90 Days Qty: 90 1RF diclofenac sodium [Arthritis Pain (diclofenac)] 1 % gel 2 g topical QID PRN (Reason: pain) 30 Days Qty: 100 1RF Rx Instructions: apply to single elbow, wrist or hand; for hand includes palm/fingers/back of hand pantoprazole 40 mg tablet,delayed release (DR/EC) 40 mg PO QAM Qty: 90 0RF bupropion HCl 300 mg tablet extended release 24 hr 300 mg PO QAM 90 Days Qty: 90 1RF gabapentin 300 mg capsule 300 mg PO Q8H 90 Days Qty: 270 1RF hydrocortisone [Anti-Itch (HC)] 1 % cream 1 appl topical TID PRN (Reason: skin irritation) 30 Days Qty: 28.4 1RF cholecalciferol (vitamin D3) 125 mcg (5,000 unit) capsule 125 mcg PO DAILY Qty: 90 3RF sumatriptan succinate 25 mg tablet 25 mg PO Q2-4H PRN (Reason: migraine headache) 30 Days Qty: 9 0RF Rx Instructions: do not exceed 8 doses per 24 hrs losartan 25 mg tablet 25 mg PO DAILY 90 Days Qty: 90 1RF sucralfate 100 mg/mL suspension 10 ml PO BEDTIME Qty: 400 3RF Zepbound 2.5 mg/0.5 mL pen injector 2.5 mg subcut QWEEK Qty: 2 0RF Rx Instructions: for 4 weeks Discharge Date/Time: 04/08/25 20:43
[2025-04-08 16:20] VITALS: BP 158/92; PULSE 70; RESP 18; TEMP 36.1; O2SAT 98; BMI 42.6
[2025-04-08 16:33] LABS: MANUAL DIFF FLAG NO
[2025-04-08 16:48] LABS: Alanine Aminotransferase 15 U/L (0-31); Albumin Level 3.9 g/dL (3.5-5.0); Alkaline Phosphatase 86 U/L (39-117); Anion Gap 13 (12-20); Aspartate Amino Transferase 19 U/L (5-31); Bilirubin Total 0.4 mg/dL (0.0-1.0); Blood Urea Nitrogen 9 mg/dL (9-16); Carbon Dioxide 25 mmol/L (22-29); Chloride 107 mmol/L (96-108); Creatinine Clr Calc Pharmacy 105.2; Estimated Glomerular Filt Rate > 60; Glucose Random 93 mg/dL (60-115); Potassium 3.6 mmol/L (3.3-5.1); Sodium 141 mmol/L (135-145); Total Protein 7.6 g/dL (6.5-8.0)
[2025-04-08 16:49] LABS: Basophils Absolute Auto 0.1 X10*3/uL (0.0-0.2); Basophils Percent Auto 0.9 % (0-2); Eosinophils Absolute Auto 0.2 X10*3/uL (0.0-0.4); Eosinophils Percent Auto 3.4 % (0-4); Hematocrit 38.4 % (37.0-47.0); Hemoglobin 12.6 g/dl (12.0-16.0); Imm Gran Abs Auto 0.03 X10*3/uL (0.00-0.03); Imm Gran Pct Auto 0.5 % (0.0-0.4); Lymphocytes Percent Auto 30.2 % (20-40); Mean Corpuscular HGB Conc 32.8 g/dl (31.0-35.0); Mean Corpuscular Hemoglobin 29.8 pg (27.0-33.0); Mean Corpuscular Volume 90.8 fL (80.0-98.0); Mean Platelet Volume 10.1 fL (9.4-12.3); Monocytes Absolute Auto 0.5 X10*3/uL (0.1-1.2); Monocytes Percent Auto 7.7 % (2-11); Neutrophils Absolute Auto 3.7 x10*3/uL (2.0-8.3); Neutrophils Percent Auto 57.3 % (45-73); Platelet Count 318 X10*3/uL (160-400); Red Blood Count 4.23 X10*6/uL (4.20-5.50); Red Cell Distribution Width 13.2 % (11.0-16.0); White Blood Count 6.5 X10*3/uL (4.8-10.8)
[2025-04-08 16:57] LABS: Troponin-I High Sensitivity < 2.7 ng/L (<3.5-17.0)
== END 2025-04-08 20:43 | disposition left against medical advice (07) ==
LOC: HO.ED 20:40
PROVIDERS: Registered Nurse Emergency; Emergency Provider Emergency Medicine; PCP Internal Medicine
DX: R07.9 Chest pain, unspecified (principal); I10 Essential (primary) hypertension; F41.1 Generalized anxiety disorder; Z79.899 Other long term (current) drug therapy
CPT/HCPCS: 36415; 71046; 80053; 84484; 85025; 93005; 99283

== ENCOUNTER → 2025-04-08 16:13 | Outpatient (BNV) | payer OTHER, SELFPAY | PROVIDERS: Emergency Provider Emergency Medicine; PCP Internal Medicine; Visit Provider Internal Medicine | DX: R07.9 Chest pain, unspecified (principal) | CPT/HCPCS: 93010 ==

== ENCOUNTER → 2025-04-08 16:14 | Outpatient (BNV) | payer OTHER, SELFPAY | PROVIDERS: PCP Internal Medicine; Visit Provider Radiology Diagnostic Radiology | DX: R07.9 Chest pain, unspecified (principal) | CPT/HCPCS: 71046 ==

== ENCOUNTER 2025-07-29 08:25 | Outpatient (REF) | payer OTHER, SELFPAY ==
--- OUTSIDE RECORDS SUMMARY | 2025-07-29 09:03 | XMS_ITS | Encounter Summary ---
Author Organization [employer] Address [address] [place] [address] [address] [place] [address] Care Team Providers Care Director Of Undergraduate Admissions Name Role Phone Unavailable Primary Care Provider Unavailabl e Encounter Details Date Type Department Care Team (Latest Contact Info) Description 02/20/2022 Abstract [facility] CONVERSIONS Dental, Provider, DDS Social History [...] Care Team (Late st Contact Info) Description 08/05/2025 10:00 AM EDT Office Visit [facility] ADULT DENTAL [address] [place] [address] Lenin Mar, DMD [address] [place] [address] documented as of this encounter Visit Diagnoses Not on filedocumented in this encounter
--- OUTSIDE RECORDS SUMMARY | 2025-07-29 09:03 | XMS_ITS | Encounter Summary ---
Author Organization [employer] Address [address] [place] [address] [address] [place] [address] Care Team Providers Care Steerer Name Role Phone Unavailable Primary Care Provider Unavailabl e Encounter Details Date Type Department Care Team (Latest Contact Info) Description 02/05/2020 Abstract [facility] CONVERSIONS Dental, Provider, DDS Social History [...] Description 08/05/2025 10:00 AM EDT Office Visit [facility] AD[facility] [address] [place] [address] Lenin Mar, DMD [address] [place] [address] documented as of this encounter Visit Diagnoses Not on filedocumented in this encounter
--- OUTSIDE RECORDS SUMMARY | 2025-07-29 09:03 | XMS_ITS | Encounter Summary ---
Author Organization [employer] Address [address] [facility] [address]t [place] [address] Care Team Providers Care Associate Civil Engineer Name Role Phone Unavailable Primary Care Provider Unavailabl e Reason for Visit * Reason Comments Med Refill Encounter Details Date Type Department Care Team (Late st Contact Info) Description 12/10/2022 Refill [facility] ADULT DENTAL [address] [place] [address] Jailene Chinchilla DDS [address] [place] [address] Erosion of teeth, limited to enamel (Primary [...] Department Care Team (Late Contact Info) Description 08/05/2025 10:00 AM EDT Office Visit [facility] ADULT D[facility] [address] [place] [address] Lenin Mar, DMD [address] [place] [address] documented as of this encounter Visit Diagnoses Diagnosis Erosion of teeth, limited to enamel- Primary documented in this encounter
--- OUTSIDE RECORDS SUMMARY | 2025-07-29 09:03 | XMS_ITS | Encounter Summary ---
Author Organization [employer] Address [address] [place] [address] [address] [place] [address] Care Team Providers Care Head Teller Name Role Phone Unavailable Primary Care Provider Unavailabl e Reason for Visit * Reason Comments Med Refill Encounter Details Date Type Department Care Team (Late st Contact Info) Description 10/03/2023 Refill [facility] ADULT DENTAL [address] [place] [address] Jailene Chinchilla DDS [address] [place] [address] Erosion of teeth, limited to enamel Social [...] [facility] ADULT DENT[facility] [address] [place] [address] Lenin Mar, LONNY [address] [place] [address] documented as of this encounter Visit Diagnoses Diagnosis Erosion of teeth, limited to enamel documented in this encounter
--- OUTSIDE RECORDS SUMMARY | 2025-07-29 09:03 | XMS_ITS | Clinical Summary ---
Author Organization [employer] Address [address] [place] [address] 7t [place] [address] Care Team Providers Care Plant Operator Helper Name Role Phone Unavailable Primary Care Provider Unavailabl e Allergies Active Allergy Reactions Criticality Noted Date Comments Histidine 03/21/2021 Medications diphenhydrAMINE (BENADryl) 25 MG tablet Take 1 tablet (25 mg) by mouth every 6 (six) hours if needed for itching for up to 30 doses. 30 tablet 4 Active omeprazole (PriLOSEC) [address] capsule Take [...] Sodium Fluoride 1.1 % gelIndications: Dental caries [place] teeth for 2 minutes, morning and night. Spit, do not rinse. Do not eat or drink anything for 30 minutes following use. 448 g 3 5 Active acetaminophen (Tylenol) 500 MG tablet Take 1 tablet (500 mg) by mouth every 6 (six) hours if needed for mild pain for up to 20 doses. 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 Dental caries 08/28/2023 Dental abscess 08/28/2023 Encounters Date Type Department Care Team Description 07/14/2025 10:30 AM EDT Office Visit [facility] AD[facility] [address] [place] [address] eLnin Mar DMD Secondary dental caries associated with failed or defective dental zoroastrian (Primary Dx) 06/21/2025 1:00 PM EDT Office Visit [facility] [address] [place] [address] Lenin Mar DMD Secondary dental caries associated with failed or defective dental zoroastrian (Primary Dx) 05/31/2025 2:30 PM EDT Office Visit [facility] [address] [place] [address] WootenCassi delvalle, [facility] 05/21/2025 1:00 PM EDT Office Visit [facility] [address] [place] [address] JeCorieCassi, [facility] 05/05/2025 3:30 PM EDT Office Visit [facility] [address] [place] [address] Lenin Mar DMD Symptomatic irreversible pulpitis (Primary Dx) from Last 3 Months Social History Tobacco [...] Sign Reading Time Taken Comments Blood Pressure 122/68 07/14/2025 10:44 AM EDT Pulse 76 04/01/2024 9:44 AM EDT Temperature - - Respiratory Rate - - Oxygen Saturation - - Inhaled Oxygen Concentration - - Weight - - Height - - Body Mass Index - - Plan of Treatment Upcoming Encounters Date Type Department Care Team (Late st Contact Info) Description 08/05/2025 10:00 AM EDT Office Visit [facility] [address] [place] [address] Lenin Mar DMD [address] [place] [address] Health Maintenance Due Date Last Done Comments CT Colonography 1967 Colonoscopy 1967 Colorectal Cancer Screening 1967 Depression Screening 1967 FIT DNA/Cologuard 1967 FIT 1967 FOBT 1967 HIV Screening 1967 SDOH Screening 1967 Sigmoidoscopy 1967 Disability Screening 1967 Alcohol/Substance Use Screening 1979 Hepatitis C [...] 01/29/2025, 0 02/11/2024, 08/27/2022, Additional history exists Influenza Vaccine (#1) 2025 , 10/23/2023, 10/13/2020, Additional history exists Dental X-Ray: Bitewings 05/06/2026 05/05/20 25, 01/29/2025, 07/29/2024, Additional history exists Tobacco Screening 07/14/2026 07/14/2025 DTaP/Tdap/Td Vaccines (2 - Td or Tdap) 10/14/2028 10/14/2018 RSV Patients and Patients Aged 60 years or older (1 - 1-dose 75+ series) 2042 HIB Vaccines Aged Out No longer eligi [...] patient's age to complete this topic Meningococcal B Vaccine Aged Out No l onger eligible based on patient's age to complete [...] PRESENTATION, DETAILED AND EXTENSIVE TREATMENT PLANNING Routine 07/14/2025 10:30 AM EDT Secondary dental caries associated with failed or defective dental zoroastrian 4 MO RESIN-BASED COMPOSITE - 2 SURF, POSTERIOR Routine 07/14/2025 10:30 AM EDT Secondary dental caries associated with failed or defective dental zoroastrian CASE PRESENTATION, DETAILED AND EXTENSIVE TREATMENT PLANNING Routine 06/21/2025 1:00 PM EDT Secondary dental caries associated with failed or defective dental zoroastrian 13 MOD RESIN-BASED COMPOSITE - 3 SURF, POSTERIOR Routine 06/21/2025 1:00 PM EDT Secondary dental caries associated with failed or defective dental zoroastrian 14 ENDODONTIC THERAPY, MOLAR TOOTH Routine 05/31/2025 2:30 PM EDT CASE PRESENTATION, DETAILED AND EXTENSIVE TREATMENT PLANNING Routine 05/21/2025 1:00 PM EDT 14 LIMITED ORAL EVALUATION - PROBLEM FOCUSED Routine 05/21/2025 1:00 PM EDT CASE PRESENTATION, DETAILED AND EXTENSIVE TREATMENT PLANNING Routine 05/05/2025 3:30 PM EDT Symptomatic irreversible pulpitis INTRAORAL - PERIAPICAL FIRST RADIOGRAPHIC IMAGE Routine 05/05/2025 3:30 PM EDT Symptomatic irreversible pulpitis BITEWING - SINGLE RADIOGRAPHIC IMAGE Routine 05/05/2025 3:30 PM EDT Symptomatic irreversible pulpitis PALLIATIVE (EMERGENCY) TREATMENT OF DENTAL PAIN - MINOR PROCEDURE Routine 05/05/2025 3:30 PM EDT Symptomatic irreversible pulpitis PROPHYLAXIS - ADULT Routine 01/29/2025 1 1:00 AM EST Dental caries Secondary dental caries associated with failed or defective dental zoroastrian Partial edentulism, unspecified edentulism class PERIODIC ORAL EVALUATION - ESTABLISHED PATIENT Routine 01/29/2025 11:00 AM EST Dental caries Secondary dental caries associated with failed or defective dental zoroastrian Partial edentulism, unspecified edentulism class INTRAORAL - COMPLETE SERIES OF RADIOGRAPHIC IMAGES Routine 02/20/2022 12:00 AM EDT from Last 3 Months or Most Recently Relevant to Health Maintenance [facility]ENT[facility] - [facility] FULL (MEDICAID)
--- OUTSIDE RECORDS SUMMARY | 2025-07-29 09:03 | XMS_ITS | Encounter Summary ---
Author Organization [employer] Address [address] [place] [address] [address] [place] [address] Care Team Providers Care Egg Processing Supervisor Name Role Phone Unavailable Primary Care Provider Unavailabl e Reason for Visit * Reason Onset Date Comments Appointment 07/15/2023 Encounter Details Date Type Department Care Team (Late st Contact Info) Description 07/15/2023 Telephone [facility] ADULT DENTAL [address] [place] [address] Carlos Suarez DDS [address] [place] [address] Appointment Social History Tobacco Use Types Packs/Day [...] 10:00 AM EDT Office Visit [facility] ADULT D[facility] [address] [place] [address] Lenin Mar, DMD [address] [place] [address] documented as of this encounter Visit Diagnoses Not on filedocumented in this encounter
[2025-07-29 09:38] LABS: Alanine Aminotransferase 12 U/L (0-31); Albumin Level 3.9 g/dL (3.5-5.0); Alkaline Phosphatase 81 U/L (39-117); Anion Gap 9 (12-20); Aspartate Amino Transferase 25 U/L (5-31); Blood Urea Nitrogen 15 mg/dL (9-16); Calcium 8.8 mg/dL (8.4-10.2); Carbon Dioxide 27 mmol/L (22-29); Chloride 109 mmol/L (96-108); Cholesterol 162 mg/dL (<200); Estimated Glomerular Filt Rate > 60; HDL Cholesterol 49 mg/dL (>40); Potassium 4.3 mmol/L (3.3-5.1); Sodium 141 mmol/L (135-145); Total Protein 7.2 g/dL (6.5-8.0); Triglycerides 57 mg/dL (<150)
[2025-07-29 09:54] LABS: Thyroid Stimulating Hormone 2.28 uIU/mL (0.32-4.0)
== END 2025-07-29 08:26 | disposition home or self-care (01) ==
LOC: HO.LAB 08:25
PROVIDERS: PCP Internal Medicine; Visit Provider Internal Medicine
DX: E03.8 Other specified hypothyroidism (principal); E06.3 Autoimmune thyroiditis; E55.9 Vitamin D deficiency, unspecified; E78.5 Hyperlipidemia, unspecified; I10 Essential (primary) hypertension
CPT/HCPCS: 36415; 80053; 80061; 82306; 84443

== ENCOUNTER 2025-08-18 11:16 | Outpatient (AMB) | payer OTHER, SELFPAY ==
--- NOTE | 2025-08-18 11:18 | MHC.OFFVISWM ---
VS Expanded 08/18/25 11:30 BP 196/84 H Blood Pressure Location Rt brachial Blood Pressure Position Sitting Pulse 57 Pulse Source Pulse Oximeter Temp 96.5 F L Temperature Source Temporal Artery Scan Pulse Oximetry 99 Oxygen Delivery Method Room Air Height 5 ft 1.5 in Weight 226 lb BMI 42.0 Body Fat % 45.0 Body Fat Mass 101.6 Fat Free Mass 124.4 Visceral Fat Rating 15.0 Body Water % 39.1 Body Water Mass 88.4 Muscle Mass/Score 118.2 Basal Metabolic Rate/Score 1,735 Intake Visit Reasons: OV PO LSG 08/19/18 Allergies spinach Allergy (Severe, Verified 04/08/25 16:21) Hives Histamine H2 Inhibitors Allergy (Mild, Verified 04/08/25 16:21) Unknown Medication List - Last Reconciled 08/18/25 by KI Reagan albuterol sulfate 2.5 mg (3 mL) inhalation Q4-6H PRN 30 days albuterol sulfate 90 mcg/actuation (Ventolin HFA) 1 inh inhalation QID PRN bupropion HCl XL 300 mg PO QAM 90 days cetirizine 10 mg PO DAILY cholecalciferol (vitamin D3) 125 mcg PO DAILY diclofenac sodium 1% (Arthritis Pain (diclofenac)) 2 grams topical QID PRN 30 days gabapentin 300 mg PO Q8H 90 days hydrocortisone 1% (Anti-Itch (hydrocortisone)) 1 appl topical TID PRN 30 days levothyroxine 100 mcg PO DAILY 90 days losartan 25 mg PO DAILY 90 days nebulizers (AeroEclipse II Nebulizer) As directed pantoprazole 40 mg PO QAM polyethylene glycol 3350 (Miralax) 17 grams PO DAILY 90 days sucralfate 10 mL PO BEDTIME sumatriptan succinate 25 mg PO Q2-4H PRN 30 days HPI Comments Details: This?is a?60 yo F who is s/p LSG 08/19/2018. Presents for 7yr post op visit. Weight same since last OV in January 2025. No complaints of nausea, emesis, abdominal pain or reflux, or constipation. Present meal plan includes: 2 shakes per day, meal of 4oz protein at dinner (codfish or crab meat salad), sometimes will have cottage cheese and melon/cantaloupe was snacking on dry cereal I get nauseated with greasy foods or rice, fast food Exercise routine includes: limited by pain, very difficult to do frequent formal exercise can walk a bit, but gets foot pain and burning pain up her leg her fibromyalgia has worsened with pain PFSH Medical History Osteoarthritis of hands, bilateral Pes planus of both feet Myalgia Acid reflux Fibromyalgia Morbid obesity with BMI of 40.0-44.9, adult Mild recurrent major depression Venous (peripheral) insufficiency Skin lesion Polyarthralgia Mild asthma Depression with anxiety Hypothyroid Hypovitaminosis D Surgical History Hx of colonoscopy History of esophagogastroduodenoscopy (EGD) S/P laparoscopic sleeve gastrectomy History of carpal tunnel release History of gastric surgery History of laparoscopic cholecystectomy History of tubal ligation History of tonsillectomy Family History Father Hypertension Mother Hypertension Maternal Aunt Breast cancer Family/Other FH: mental illness Paternal Grandfather No problems noted. Paternal Grandmother Hypertension Maternal Grandfather No problems noted. Maternal Grandmother Cervical cancer Social History Housing: Apartment Alcohol intake: never Patient Tobacco Use Status: Never used Tobacco e-Cigarette/Vaping Use: Never Used Second Hand Smoke Exposure: No service: No Current occupational status: unemployed and disabled Current occupation: rt hand Current occupational exposures/hazards: No Cognitive needs: No Hearing needs: No Vision needs: Yes Physical Exam Vital Signs: Last Vital Signs Temp 96.5 F L 08/18/25 11:30 Pulse 57 08/18/25 11:30 BP 196/84 H 08/18/25 11:30 Pulse Ox 99 08/18/25 11:30 Oxygen Delivery Method Room Air 08/18/25 11:30 BMI result Body Mass Index 42.0 Quality Reporting (2020) Adult ([facility] 138/01/23/69) Smoking risk assessment performed?: Yes Patient Tobacco Use Status: Never used Tobacco Assessment & Plan Assessment & Plan (1) History of sleeve gastrectomy: Code(s): Z90.3 - Acquired absence of stomach [part of] Category: Surgical (2) Morbid obesity with BMI of 40.0-44.9, adult: Code(s): E66.01 - Morbid (severe) obesity due to excess calories; Z68.41 - Body mass index [BMI] 40.0-44.9, adult Category: Medical Plan Reiterated that a strong meal plan with adequate protein (bars and shakes) will help most, avoid dry cereal, focus on higher protein foods. She can ask PCP for endocrinology referral if she would like to be followed for Cande's. Can also ask PCP about Contrave. Pt will monitor her BP at home daily for the next week and send me measurements. If she is a candidate for phentermine based on low enough BP will consider ordering. RTC 6mo.
[2025-08-18 11:30] VITALS: BP 196/84; PULSE 57; TEMP 35.8; O2SAT 99; BMI 42.0
--- OUTSIDE RECORDS SUMMARY | 2025-08-18 14:28 | XMS_ITS | Encounter Summary ---
Author Organization [email or web address] Address [address] [place] [address] [address]t [place] [address] Care Team Providers Care Assembler Dc Field Ring Name Role Phone Unavailable Primary Care Provider Unavailabl e Reason for Visit * Reason Comments Med Refill Encounter Details Date Type Department Care Team ([facility] st Contact Info) Description 12/10/2022 Refill [facility] ADULT DENTAL [address] [place] [address] Jailene Chinchilla DDS [address] [place] [address] Erosion of teeth, limited to enamel (Primary [...]
--- OUTSIDE RECORDS SUMMARY | 2025-08-18 14:28 | XMS_ITS | Encounter Summary ---
Author Organization [employer] Address [address] [place] [address] [address] [place] [address] Care Team Providers Care Electrical Manager Name Role Phone Unavailable Primary Care Provider Unavailabl e Reason for Visit * Reason Onset Date Comments Appointment 07/15/2023 Encounter Details Date Type Department Care Team ([facility] st Contact Info) Description 07/15/2023 Telephone [facility] ADULT DENTAL [address] [place] [address] Carlos Suarez DDS [address] [place] [address] Appointment Social History Tobacco Use Types Packs/Day [...]
--- OUTSIDE RECORDS SUMMARY | 2025-08-18 14:28 | XMS_ITS | Encounter Summary ---
Author Organization [employer] Address [address] [place] [address] 7t [place] [address] Care Team Providers Care Advanced Practice Nurse Psychotherapist Name Role Phone Unavailable Primary Care Provider Unavailabl e Reason for Visit * Reason Comments Med Refill Encounter Details Date Type Department Care Team ([facility] st Contact Info) Description 10/03/2023 Refill [facility] ADULT D[facility] [address] [place] [address] Jailene Chinchilla DDS [address] [place] [address] Erosion of teeth, limited to enamel Social [...]
--- OUTSIDE RECORDS SUMMARY | 2025-08-18 14:28 | XMS_ITS | Encounter Summary ---
Author Organization [email or web address] Address [address] [place] [address] 7 [place] [address] Care Team Providers Care Radiation Safety Officer Name Role Phone Unavailable Primary Care [...]
--- OUTSIDE RECORDS SUMMARY | 2025-08-18 14:28 | XMS_ITS | Encounter Summary ---
Author Organization [employer] Address [address] [place] [address] 7 [place] [address] Care Team Providers Care Housekeeper And Laundry Assistant Name Role Phone Unavailable Primary Care Provider Unavailabl e Encounter Details Date Type Department Care Team (Latest Contact Info) Description 02/20/2022 Abstract [facility] CONVERSIONS Dental, Provider, DDS Social History Tobacco [...]
--- OUTSIDE RECORDS SUMMARY | 2025-08-18 14:28 | XMS_ITS | Clinical Summary ---
Author Organization [employer] Address [address] [facility] 7t [place] [address] Care Team Providers Care Senior Media Buyer Name Role Phone Unavailable Primary Care Provider [...] Sodium Fluoride 1.1 % gelIndications: Dental caries [place] teeth for 2 minutes, morning and night. 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 (Primary Dx) 05/31/2025 2:30 PM EDT Office Visit [facility] [address] [place] [address] Cassi Wooten DDS 05/21/2025 1:00 PM EDT Office Visit [facility] [address] [place] [address] Cassi Wooten DDS from Last 3 Months Social History Tobacco [...] 2017 Zoster Vaccines (1 of 2) 2017 Dental X-Ray: Full Mouth 02/21/2025 02/20/2022, 10/02 Dental Oral Exam 07/30/2025 01/29/2025, 04/2024, 08/28/2023, Additional history exists Dental Prophylaxis 07/30/2025 01/29/2025, 0 02/11/2024, 08/27/2022, Additional history exists COVID-19 Vaccine ( season) 2025 05/06/2022, 11/04/2021, 03/13/2021 Influenza Vaccine (#1) 2025 , 10/23/2023, 10/13/2020, [...] caries associated with failed or defective dental baptist 4 MO RESIN-BASED COMPOSITE - 2 SURF, POSTERIOR Routine 07/14/2025 10:30 AM EDT Secondary dental caries associated with failed or defective dental baptist CASE PRESENTATION, DETAILED AND EXTENSIVE TREATMENT PLANNING Routine 06/21/2025 1:00 PM EDT Secondary dental caries associated with failed or defective dental baptist 13 MOD RESIN-BASED COMPOSITE - 3 SURF, POSTERIOR Routine 06/21/2025 1:00 PM EDT Secondary dental caries associated with failed or defective dental baptist 14 ENDODONTIC THERAPY, MOLAR TOOTH Routine 05/31/2025 2:30 PM EDT CASE PRESENTATION, DETAILED AND EXTENSIVE TREATMENT PLANNING Routine 05/21/2025 1:00 PM EDT 14 LIMITED ORAL EVALUATION - PROBLEM FOCUSED Routine 05/21/2025 1:00 PM EDT BITEWING - SINGLE RADIOGRAPHIC IMAGE Routine 05/05/2025 3:30 PM EDT Symptomatic irreversible pulpitis PROPHYLAXIS - ADULT Routine 01/29/2025 1 1:00 AM EST Dental caries Secondary dental caries associated with failed or defective dental baptist Partial edentulism, unspecified edentulism class PERIODIC ORAL EVALUATION - ESTABLISHED PATIENT Routine 01/29/2025 11:00 AM EST Dental caries Secondary dental caries associated with failed or defective dental baptist Partial edentulism, unspecified edentulism class INTRAORAL - COMPLETE SERIES OF RADIOGRAPHIC IMAGES Routine 02/20/2022 12:00 AM EDT from Last 3 Months or Most Recently Relevant to Health Maintenance Insurance [facility]AL-[facility] MEDICAID STAND ADULT DENTAL - N FULL (MEDICAID)
== END 2025-08-18 11:59 | disposition home or self-care (01) ==
LOC: HO.HBS 11:16
PROVIDERS: PCP Internal Medicine; Visit Provider Physician Assistant Surgical
DX: E66.01 Morbid (severe) obesity due to excess calories (principal); Z68.41 Body mass index [BMI] 40.0-44.9, adult; Z90.3 Acquired absence of stomach [part of]; Z98.84 Bariatric surgery status
CPT/HCPCS: 99213

== ENCOUNTER → 2025-08-18 11:16 | Outpatient (BNVA) | payer OTHER, SELFPAY | PROVIDERS: PCP Internal Medicine; Visit Provider Physician Assistant Surgical | DX: E66.01 Morbid (severe) obesity due to excess calories (principal); Z90.3 Acquired absence of stomach [part of]; Z68.41 Body mass index [BMI] 40.0-44.9, adult | CPT/HCPCS: 99212 ==

== ENCOUNTER 2025-08-20 11:41 | Outpatient (REF) | payer OTHER, SELFPAY ==
--- OUTSIDE RECORDS SUMMARY | 2025-08-20 12:12 | XMS_ITS | Clinical Summary ---
Author Organization [email or web address] Address [address] [facility] 7t [place] [address] Care Team Providers Care Behavioral Geneticist Name Role Phone Unavailable Primary Care Provider [...] Sodium Fluoride 1.1 % gelIndications: Dental caries Force teeth for 2 minutes, morning and night. [...] Description 07/14/2025 10:30 AM EDT Office Visit [facility] ADULT DENTAL [address] [place] [address] Lenin Mar DMD Secondary dental caries associated with failed or defective dental nondenominational (Primary Dx) 06/21/2025 1:00 PM EDT Office Visit [facility] ADULT DENTAL [address] [place] [address] Lenin Mar LONNY Secondary dental caries associated with failed or defective dental nondenominational (Primary Dx) 05/31/2025 2:30 PM EDT Office Visit [facility] ADULT DENTAL [address] [place] [address] Cassi Wooten DDS 05/21/2025 1:00 PM EDT Office Visit [facility] ADULT DENTAL [address] [place] [address] Cassi Wooten DDS from Last 3 Months [...] caries associated with failed or defective dental nondenominational 4 MO RESIN-BASED COMPOSITE - 2 SURF, POSTERIOR Routine 07/14/2025 10:30 AM EDT Secondary dental caries associated with failed or defective dental nondenominational CASE PRESENTATION, DETAILED AND EXTENSIVE TREATMENT PLANNING Routine 06/21/2025 1:00 PM EDT Secondary dental caries associated with failed or defective dental nondenominational 13 MOD RESIN-BASED COMPOSITE - 3 SURF, POSTERIOR Routine 06/21/2025 1:00 PM EDT Secondary dental caries associated with failed or defective dental nondenominational 14 ENDODONTIC THERAPY, MOLAR TOOTH Routine 05/31/2025 [...] caries associated with failed or defective dental nondenominational Partial edentulism, unspecified edentulism class PERIODIC ORAL EVALUATION - ESTABLISHED PATIENT Routine 01/29/2025 11:00 AM EST Dental caries Secondary dental caries associated with failed or defective dental nondenominational Partial edentulism, unspecified edentulism class INTRAORAL - COMPLETE SERIES OF RADIOGRAPHIC IMAGES Routine 02/20/2022 12:00 AM EDT from Last 3 Months or Most Recently Relevant to Health Maintenance Insurance [facility] MEDICAID STAND ADULT DENTAL - N FULL (MEDICAID)
--- OUTSIDE RECORDS SUMMARY | 2025-08-20 12:12 | XMS_ITS | Encounter Summary ---
Author Organization [employer] Address [address] [place] [address] [address] [place] [address] Care Team Providers Care Corn Sheller Name Role Phone Unavailable Primary Care Provider Unavailabl e Encounter Details Date Type Department Care Team (Latest Contact Info) Description 02/20/2022 Abstract [facility] CONVERSIONS Dental, Provider, DDS Social [...]
--- OUTSIDE RECORDS SUMMARY | 2025-08-20 12:12 | XMS_ITS | Encounter Summary ---
Author Organization [employer] Address [address] [place] [address] 7 [place] [address] Care Team Providers Care Fisher Troll Line Name Role Phone Unavailable Primary Care Provider Unavailabl e Encounter Details Date Type Department Care Team (Latest Contact Info) Description 02/05/2020 Abstract [facility] CONVERSIONS Dental, Provider, DDS Social History [...]
--- OUTSIDE RECORDS SUMMARY | 2025-08-20 12:12 | XMS_ITS | Encounter Summary ---
Author Organization [employer] Address [address] [place] [address] 7 [place] [address] Care Team Providers Care Aluminum Boat Assembly Supervisor Name Role Phone Unavailable Primary Care Provider Unavailabl e Reason for Visit * Reason Onset Date Comments Appointment 07/15/2023 Encounter Details Date Type Department Care Team ([facility] st Contact Info) Description 07/15/2023 Telephone [facility] ADULT DENTAL [address] [place] [address] Carlos Suarez DDS [address] [place] [address] Appointment Social History Tobacco Use Types Packs/Day [...]
--- OUTSIDE RECORDS SUMMARY | 2025-08-20 12:12 | XMS_ITS | Encounter Summary ---
Author Organization [employer] Address [address] [place] [address] [address] [place] [address] Care Team Providers Care Engineering Job Titles Name Role Phone Unavailable Primary Care Provider Unavailabl e Reason for Visit * Reason Comments Med Refill Encounter Details Date Type Department Care Team ([facility] st Contact Info) Description 10/03/2023 Refill [facility] ADULT DENTAL [address] [place] [address] Jailene Chinchilla DDS [address] [place] [address] Erosion of teeth, limited to enamel Social [...]
--- OUTSIDE RECORDS SUMMARY | 2025-08-20 12:12 | XMS_ITS | Encounter Summary ---
Author Organization [employer] Address [address] [place] [address] [address]t [place] [address] Care Team Providers Care Synthetic Soil Blocks Pulper Name Role Phone Unavailable Primary Care Provider Unavailabl e Reason for Visit * Reason Comments Med Refill Encounter Details Date Type Department Care Team ([facility] st Contact Info) Description 12/10/2022 Refill [facility] ADULT DENTAL [address] [place] [address] Jailene Chinchilla DDS [address] [place] [address] Erosion of teeth, limited to enamel (Primary [...]
[2025-08-20 13:16] LABS: Thyroid Stimulating Hormone 2.24 uIU/mL (0.32-4.0)
== END 2025-08-20 11:42 | disposition home or self-care (01) ==
LOC: HO.LAB 11:41
PROVIDERS: PCP Internal Medicine; Visit Provider Internal Medicine
DX: E03.8 Other specified hypothyroidism (principal); E06.3 Autoimmune thyroiditis; B49 Unspecified mycosis; Z79.890 Hormone replacement therapy; Z79.899 Other long term (current) drug therapy
CPT/HCPCS: 36415; 84443

== ENCOUNTER 2025-08-20 14:51 | Outpatient (AMB) | payer OTHER, SELFPAY ==
--- NOTE | 2025-08-20 15:01 | MHC.PC.OV ---
Vital Signs 08/20/25 15:02 Height 5 ft 1 in Weight 229 lb 4 oz BMI 43.3 BP 130/82 Blood Pressure Location Lt brachial Position Sitting Pulse 66 Pulse Source Pulse Oximeter Temp 97.1 F Temp Source Temporal Artery Scan Pulse Oximetry (%) 97 Oxygen Delivery Method Room Air Intake Visit Reasons: rash under breast Intake Note: Patient is here to follow up on Rash under both breast but left is worse and under belly folds. Boat Dock Operator Required: No Fuel Handler: Not Required per policy Accompanied by: Self / Same As Patient Allergies spinach Allergy (Severe, Verified 08/20/25 15:02) Hives Histamine H2 Inhibitors Allergy (Mild, Verified 08/20/25 15:02) Unknown Medication List - Last Reconciled 08/20/25 by Zara Jj MD albuterol sulfate 2.5 mg (3 mL) inhalation Q4-6H PRN 30 days albuterol sulfate 90 mcg/actuation (Ventolin HFA) 1 inh inhalation QID PRN bupropion HCl XL 300 mg PO QAM 90 days cetirizine 10 mg PO DAILY cholecalciferol (vitamin D3) 125 mcg PO DAILY diclofenac sodium 1% (Arthritis Pain (diclofenac)) 2 grams topical QID PRN 30 days gabapentin 300 mg PO Q8H 90 days hydrocortisone 1% (Anti-Itch (hydrocortisone)) 1 appl topical TID PRN 30 days levothyroxine 100 mcg PO DAILY 90 days losartan 25 mg PO DAILY 90 days nebulizers (AeroEclipse II Nebulizer) As directed pantoprazole 40 mg PO QAM polyethylene glycol 3350 (Miralax) 17 grams PO DAILY 90 days sucralfate 10 mL PO BEDTIME sumatriptan succinate 25 mg PO Q2-4H PRN 30 days Tobacco use date assessed: 08/20/25 Dental Screening Dental Screen Date: 12/09/24 HPI HPI Comments History of Present Illness Details The patient is a 60-year-old female presenting with a rash under the breast and symptoms of nausea and dry mouth. The rash, identified as intertrigo, has been present for approximately three months and is located under both breasts. The patient has been using clotrimazole cream, which was initially recommended by her mother for a similar condition, and reports significant improvement with its use. The rash has not completely resolved, and the patient has been advised to continue using the cream and has been referred to dermatology for further evaluation if necessary. [facility] Medical History Osteoarthritis of hands, bilateral Pes planus of both feet Myalgia Acid reflux Fibromyalgia Morbid obesity with BMI of 40.0-44.9, adult Mild recurrent major depression Venous (peripheral) insufficiency Skin lesion Polyarthralgia Mild asthma Depression with anxiety Hypothyroid Hypovitaminosis D Surgical History Hx of colonoscopy History of esophagogastroduodenoscopy (EGD) S/P laparoscopic sleeve gastrectomy History of carpal tunnel release History of gastric surgery History of laparoscopic cholecystectomy History of tubal ligation History of tonsillectomy Family History Father Hypertension Mother Hypertension Maternal Aunt Breast cancer Family/Other FH: mental illness Paternal Grandfather No problems noted. Paternal Grandmother Hypertension Maternal Grandfather No problems noted. Maternal Grandmother Cervical cancer Social History Housing: Apartment Alcohol intake: never Patient Tobacco Use Status: Never used Tobacco e-Cigarette/Vaping Use: Never Used Second Hand Smoke Exposure: No service: No Current occupational status: unemployed and disabled Current occupation: rt hand Current occupational exposures/hazards: No Cognitive needs: No Hearing needs: No Vision needs: Yes Questionnaire PHQ-9 Over the last 2 weeks, how often have you been bothered by any of the following problems? 1. Little interest or pleasure in doing things: more than half the days 2. Feeling down, depressed, or hopeless: several days 3. Trouble falling or staying asleep, or sleeping too much: nearly every day 4. Feeling tired or having little energy: more than half the days 5. Poor appetite or overeating: more than half the days 6. Feeling bad about yourself - or that you are a failure or have let yourself or your family down: not at all 7. Trouble concentrating on things, such as reading the newspaper or watching television: more than half the days 8. Moving or speaking so slowly that other people could have noticed. Or the opposite - being so fidgety or restless that you have been moving around a lot more than usual: not at all 9. Thoughts that you would be better off or of hurting yourself in some way: not at all Total score: 12 Depression Screening Interpretation: Positive Depression Screening Done: Yes Source: Developed by Drs. Chase Salvador, Phyllis Martinez, Graham Gregorio and colleagues, with an educational andrew from [employer]. Thrive Questionnaire Date Thrive assessed: 12/09/24 I am a: Patient What is your living situation today?: I have a steady place to live Within the past 12 months, did the food you bought not last and you didn't have the money to get more?: Sometimes True Within the past 12 months, did you worry whether your food would run out before you got money to buy more?: Sometimes True Do you have trouble paying for medicines?: No Do you have trouble getting transportation to medical appointments?: Yes Do you have trouble paying your heating and electricity bill?: Yes Do you have trouble taking care of your child, family member or friend?: No Do you have trouble with day-to-day activities such as bathing, preparing meals, shopping, managing finances, etc.?: No Are you currently unemployed and looking for a job?: No Are you interested in more education?: No Please select the resources that you would like help with: Transportation, Utilities and Daily support Currently or been in a relationship where the following occur: I choose not to answer THRIVE Score: 4 AUDIT C Alcohol Use Questionnaire (AUDIT-C) 1. How often do you have a drink containing alcohol?: Never Total Score: 0 NITIN-7 AMB Questionnaire NITIN-7 Date NITIN - 7 assessed: 12/09/24 Feeling nervous, anxious, or on edge: 0 = Not at all Not being able to stop or control worryin = Several days Worrying too much about different things: 1 = Several days Trouble relaxin = Several days Being so restless that it is hard to sit still: 1 = Several days Becoming easily annoyed or irritable: 2 = More than half the days Feeling afraid as if something awful might happen: 2 = More than half the days Total NITIN-7 score (0-4 normal; 5-9 mild; 10-14 moderate; 15-21 severe): 8 Source: Developed by Drs. Chase Salvador, Phyllis Martinez, Graham Gregorio and colleagues, with an educational andrew from [employer]. Review of Systems Const Details: Positives besides what was mentioned in HPI are in BOLD Constitutional: No Weight Change, No Fever, No Chills, No Night Sweats, No Fatigue, No Malaise ENT/Mouth: No Hearing Changes, No Ear Pain, No Nasal Congestion, No Sinus Pain, No Hoarseness, No sore throat, No Rhinorrhea, No Swallowing Difficulty Eyes: No Eye Pain, No Swelling, No Redness, No Foreign Body, No Discharge, No Vision Changes Cardiovascular: No Chest Pain, No SOB, No PND, No Dyspnea on Exertion, No Orthopnea, No Claudication, No Edema, No Palpitations Respiratory: No Cough, No Sputum, No Wheezing, No Smoke Exposure, No Dyspnea Gastrointestinal: No Nausea, No Vomiting, No Diarrhea, No Constipation, No Pain, No Heartburn, No Anorexia, No Dysphagia, No Hematochezia, No Melena, No Flatulence, No Jaundice Genitourinary: No Dysmenorrhea, No DUB, No Dyspareunia, No Dysuria, No Urinary Frequency, No Hematuria, No Urinary Incontinence, No Urgency, No Flank Pain, No Urinary Flow Changes, No Hesitancy Musculoskeletal: No Arthralgias, No Myalgias, No Joint Swelling, No Joint Stiffness, No Back Pain, No Neck Pain, No Injury History Skin: No Skin Lesions, No Pruritis, No Hair Changes, No Breast/Skin Changes, No Nipple Discharge Neuro: No Weakness, No Numbness, No Paresthesias, No Loss of Consciousness, No Syncope, No Dizziness, No Headache, No Coordination Changes, No Recent Falls Psych: No Anxiety/Panic, No Depression, No Insomnia, No Personality Changes, No Delusions, No Rumination, No SI/HI/AH/VH, No Social Issues, No Memory Changes, No Violence/Abuse Hx., No Eating Concerns Heme/Lymph: No Bruising, No Bleeding, No Transfusions History, No Lymphadenopathy Endocrine: No Polyuria, No Polydipsia, No Temperature Intolerance Physical exam (Primary Care) Vital Signs: Last Vital Signs Temp 97.1 F 08/20/25 15:02 Pulse 66 08/20/25 15:02 BP 130/82 09/19/25 15:02 Pulse Ox 97 08/20/25 15:02 Oxygen Delivery Method Room Air 08/20/25 15:02 BMI result Body Mass Index 43.3 Tobacco/Smoking Status: Tobacco use Status Tobacco use date assessed 08/20/25 08/20/25 15:09 Patient Tobacco Use Status Never used Tobacco 08/20/25 15:09 e-Cigarette/Vaping Use Never Used 08/20/25 15:09 PHQ-9: PHQ-9 Score PHQ-9: Total score 12 08/20/25 15:09 Depression Screening Interpretation: Positive Thrive Assessment: Date of Thrive Assessment Date Thrive assessed 12/09/24 08/20/25 15:09 Currently or been in a relationship where the following occur: I choose not to answer Const Other: Pertinent findings are in BOLD GENERAL APPEARANCE NAD, activity normal for age, well developed/ well nourished, no cyanosis, pallor, or diaphoresis. EYES lids/conjunctiva normal. EARS/NOSE/THROAT Mucous membranes moist, nares normal, lips/teeth normal uvula midline without oral pharyngeal erythema, exudate or swelling TMs normal bilaterally. No lymphangitis/lymphedema. HEAD/NECK normocephalic atraumatic, no facial trauma, neck is supple. RESPIRATORY respiratory effort normal, speaks in full sentences, no tripod position, no accessory muscle use. Lungs clear to auscultation without rhonchi, wheezes, rales CARDIAC Regular rate and rhythm, no edema. ABDOMINAL Soft, ND/NT. No evidence of fluid wave. No pulsatile masses on exam, rebound tenderness, Santiago sign or pain over Mcburney's point. MUSCLES/EXTREMITIES No abnormal range of motion, no swelling. SKIN Warm, pink and dry. Rash under her breast and in bilateral hips area. NEUROLOGICAL Speech is clear and appropriate. Normal level of consciousness. Gait and coordination are normal. 5/5 strength in all extremities. PSYCH Normal mood and affect. Judgement/competence is appropriate Coding Level of Care Code Est Pt Level 3 (85433) Diagnoses Fungal infection B49 Time Spent (min) 20 Assessment & Plan Assessment & Plan (1) Fungal infection: Code(s): B49 - Unspecified mycosis Category: Medical Plan: Clotrimazole cream. Dermatology referal. Plan I discussed with the patient the use of clotrimazole cream for her intertrigo and the option of seeing a egg processing supervisor if the condition does not improve. We also talked about managing her nausea with medication and monitoring her dry mouth and hand sweating symptoms. Orders: Referrals Dermatology Referral B49 - Unspecified mycosis Medications: New clotrimazole 1% 1 appl topical TID 45 grams 1RF
[2025-08-20 15:02] VITALS: BP 130/82; PULSE 66; TEMP 36.2; O2SAT 97; BMI 43.3
== END 2025-08-20 16:20 | disposition home or self-care (01) ==
LOC: HO.HMCH 14:52
PROVIDERS: PCP Internal Medicine; Visit Provider Internal Medicine
DX: B49 Unspecified mycosis (principal)

== ENCOUNTER 2025-09-15 16:58 | Outpatient (AMB) | payer OTHER, SELFPAY ==
--- NOTE | 2025-09-15 17:02 | A.OFFPC_ITS ---
Vital Signs 09/15/25 17:05 Height 5 ft 1 in Weight 227 lb 6 oz BMI 43.0 BP 128/86 Blood Pressure Location Lt brachial Position Sitting Pulse 82 Pulse Source Pulse Oximeter Pulse Oximetry (%) 99 Oxygen Delivery Method Room Air Intake Visit Reasons: follow up Cloak Room Attendant Required: No Accompanied by: Self / Same As Patient Allergies spinach Allergy (Severe, Verified 09/15/25 17:24) Hives Histamine H2 Inhibitors Allergy (Mild, Verified 09/15/25 17:24) Unknown Medication List - Last Reconciled 09/15/25 by Rehana De Anda MD albuterol sulfate 90 mcg/actuation (Ventolin HFA) 1 inh inhalation QID PRN albuterol sulfate 2.5 mg (3 mL) inhalation Q4-6H PRN 30 days bupropion HCl XL 300 mg PO QAM 90 days cetirizine 10 mg PO DAILY cholecalciferol (vitamin D3) 125 mcg PO DAILY clotrimazole 1% 1 appl topical TID diclofenac sodium 1% (Arthritis Pain (diclofenac)) 2 grams topical QID PRN 30 days gabapentin 300 mg PO Q8H 90 days hydrocortisone 1% (Anti-Itch (hydrocortisone)) 1 appl topical TID PRN 30 days levothyroxine 100 mcg PO DAILY 90 days losartan 25 mg PO DAILY 90 days nebulizers (AeroEclipse II Nebulizer) As directed nystatin 1 appl topical DAILY 2 weeks pantoprazole 40 mg PO QAM polyethylene glycol 3350 (Miralax) 17 grams PO DAILY 90 days sucralfate 10 mL PO BEDTIME sumatriptan succinate 25 mg PO Q2-4H PRN 30 days Tobacco use date assessed: 09/15/25 Dental Screening Dental Screen Date: 09/15/25 Did you have a dental visit in the last 12 months?: Yes Did you have a dental problem in the last 6 months where you did not have access to dental care?: No Was dental information given to patient?: Patient has dentist HPI HPI Comments History of Present Illness Details The patient is a 60-year-old female presenting with the management of multiple chronic conditions including asthma, depression, and hypertension. Asthma has been a persistent issue, with the patient requiring a nebulizer and potentially another inhaler for better management. The patient has been using a rescue inhaler and was recently prescribed a nebulizer, which was sent to the pharmacy. Depression is being managed with bupropion, and the patient is also taking cetirizine for allergic rhinitis. The patient has a history of allergies to spinach and H2 inhibitors. Hypertension is controlled with losartan 25 mg, and hypothyroidism is managed with levothyroxine 100 mcg. The last thyroid function test was normal, so no repeat test is needed at this time. The patient also reports constipation, for which MiraLAX is used, and migraines, for which a medication other than sumatriptan is taken. Vitamin D deficiency is noted, likely due to limited sun exposure during winter, and dietary adjustments such as increased salmon intake are recommended. [facility] Medical History Osteoarthritis of hands, bilateral Pes planus of both feet Myalgia Acid reflux Fibromyalgia Morbid obesity with BMI of 40.0-44.9, adult Mild recurrent major depression Venous (peripheral) insufficiency Skin lesion Polyarthralgia Mild asthma Depression with anxiety Hypothyroid Hypovitaminosis D Surgical History Hx of colonoscopy History of esophagogastroduodenoscopy (EGD) S/P laparoscopic sleeve gastrectomy History of carpal tunnel release History of gastric surgery History of laparoscopic cholecystectomy History of tubal ligation History of tonsillectomy Family History Father Hypertension Mother Hypertension Maternal Aunt Breast cancer Family/Other FH: mental illness Paternal Grandfather No problems noted. Paternal Grandmother Hypertension Maternal Grandfather No problems noted. Maternal Grandmother Cervical cancer Social History Housing: Apartment Alcohol intake: never Patient Tobacco Use Status: Never used Tobacco e-Cigarette/Vaping Use: Never Used Second Hand Smoke Exposure: No service: No Current occupational status: unemployed and disabled Current occupation: rt hand Current occupational exposures/hazards: No Cognitive needs: No Hearing needs: No Vision needs: Yes Questionnaire Thrive Questionnaire Date Thrive assessed: 08/20/25 I am a: Patient What is your living situation today?: I have a steady place to live Within the past 12 months, did the food you bought not last and you didn't have the money to get more?: Sometimes True Within the past 12 months, did you worry whether your food would run out before you got money to buy more?: Sometimes True Do you have trouble paying for medicines?: No Do you have trouble getting transportation to medical appointments?: Yes Do you have trouble paying your heating and electricity bill?: Yes Do you have trouble taking care of your child, family member or friend?: No Do you have trouble with day-to-day activities such as bathing, preparing meals, shopping, managing finances, etc.?: No Are you currently unemployed and looking for a job?: No Are you interested in more education?: No Currently or been in a relationship where the following occur: I choose not to answer THRIVE Score: 4 AUDIT C Alcohol Use Questionnaire (AUDIT-C) 1. How often do you have a drink containing alcohol?: Never 3. How often do you have six or more drinks on one occasion?: Never Total Score: 0 Score Reviewed/Action Taken: No NITIN-7 AMB Questionnaire NITIN-7 Date NITIN - 7 assessed: 12/09/24 Source: Developed by Drs. Chase Salvador, Phyllis Martinez, Graham Gregorio and colleagues, with an educational andrew from [employer]. Review of Systems Const All systems reviewed & are unremarkable except as noted in HPI and below Card Denies chest pain at rest, Denies chest pain with activity, Denies edema, Denies irregular heart rhythm, Denies claudication, Denies dyspnea, Denies dyspnea on exertion, Denies orthopnea, Denies paroxysmal nocturnal dyspnea and Denies slow heart rate Resp Denies cough, Denies dyspnea and Denies dyspnea on exertion Physical exam (Primary Care) Vital Signs: Last Vital Signs Pulse 82 09/15/25 17:05 BP 128/86 09/15/25 17:05 Pulse Ox 99 09/15/25 17:05 Oxygen Delivery Method Room Air 09/15/25 17:05 BMI result Body Mass Index 43.0 BMI Assessment/Plan discussion: High BMI High, discussed plan: lifestyle, weight reduction, dietary and physical activity Tobacco/Smoking Status: Tobacco use Status Tobacco use date assessed 09/15/25 09/15/25 17:12 Patient Tobacco Use Status Never used Tobacco 09/15/25 17:02 e-Cigarette/Vaping Use Never Used 09/15/25 17:02 Thrive Assessment: Date of Thrive Assessment Date Thrive assessed 08/20/25 09/15/25 17:02 Currently or been in a relationship where the following occur: I choose not to answer Resp Effort & Inspection: normal respiratory effort Auscultation: clear to auscultation bilaterally Cardio Jugular venous distension: no JVD Rate: regular rate Rhythm: regular rhythm Heart sounds: S1 normal heart sound present and S2 normal heart sound present Extrem General: Yes full ROM Office Procedures Flu Questionnaire Does the patient have a severe egg allergy?: No Does the patient have severe life threatening allergies?: No Does the patient have a fever or illness today?: No Has the patient ever had Guillain-[place] Syndrome?: No Has the patient ever had any past reaction to a flu shot?: No Immunizations Fluarix [id number] (PF) 45 mcg (15 mcg x 3)/0.5 mL IM syringe Performing Provider: Rehana De Anda MD [facility] Administered by: Mercedes Hi CMA on 09/15/25 17:37 Dose Route Admin Location Dispensed Lot Number Expiration Date NDC Scale Shooter 0.5 mL IM Left Deltoid 0.5 mL [id number] 05/31/26 [id number] App[employer] VIS Given Date VIS Provided VIS Publication Date 09/15/25 Single Vaccine 25 Eligibility Eligibility Date Funding Source Not [facility] Eligible 09/15/25 Private Coding Level of Care Code Est Pt Level 4 (49609) Complex EM visit Add On G2211 Diagnoses Essential hypertension I10 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; E06.3 Hypothyroidism type: due to Cande's thyroiditis Morbid obesity with BMI of 40.0-44.9, adult E66.01; Z68.41 Mild asthma J45.909 Mild recurrent major depression F33.0 Time Spent (min) 22 Assessment & Plan Assessment & Plan (1) Essential hypertension: Code(s): I10 - Essential (primary) hypertension Category: Medical (2) Hypothyroid: Code(s): E03.9 - Hypothyroidism, unspecified Category: Medical Qualifiers: Hypothyroidism type: due to Cande's thyroiditis Qualified Code(s): E03.8 - Other specified hypothyroidism; E06.3 - Autoimmune thyroiditis (3) Morbid obesity with BMI of 40.0-44.9, adult: Code(s): E66.01 - Morbid (severe) obesity due to excess calories; Z68.41 - Body mass index [BMI] 40.0-44.9, adult Category: Medical (4) Mild asthma: Code(s): J45.909 - Unspecified asthma, uncomplicated Category: Medical (5) Mild recurrent major depression: Code(s): F33.0 - Major depressive disorder, recurrent, mild Category: Medical Plan Plan Patient was informed and verbally consented to the use of an ambient scribe for clinic note documentation during this visit. 1. Vitamin D Deficiency The patient is advised to increase dietary intake of vitamin D through foods such as salmon and to consider sun exposure as a natural source of vitamin D. 2. Asthma The patient is currently using a rescue inhaler and a nebulizer, with a potential need for an additional inhaler for better asthma control. 3. Depression Depression is managed with bupropion, and the patient is advised to continue the current regimen. 4. Allergic Rhinitis The patient is taking cetirizine for allergic rhinitis and should continue as prescribed. 5. Constipation Constipation is managed with MiraLAX, and the patient should continue its use as needed. 6. Hypothyroidism Hypothyroidism is managed with levothyroxine 100 mcg, and thyroid function tests are stable, requiring no immediate changes. 7. Hypertension Hypertension is controlled with losartan 25 mg, and the patient should continue monitoring blood pressure regularly. 8. Migraine The patient is using a medication other than sumatriptan for migraine management and should continue as prescribed. 9. Preventative Care The patient is advised to receive the flu vaccination as part of preventative care measures. Orders: Orders Vitamin D 25-OH Total 6 Months E55.9 - Vitamin D deficiency, unspecified Lipid Panel 6 Months E78.5 - Hyperlipidemia, unspecified Comprehensive [place]. Panel Fast 6 Months I10 - Essential (primary) hypertension Influenza [id number] Immunization Today Z23 - Encounter for immunization MM tomosynthesis screening BI Today Z12.31 - Encounter for screening mammogram for malignant neoplasm of breast Thyroid Stimulating Hormone 6 Months E03.8 - Other specified hypothyroidism, E06.3 - Autoimmune thyroiditis Medications: New umeclidinium-vilanterol 62.5-25 mcg/actuation (Anoro Ellipta) 1 inh inhalation DAILY 60 ea 3RF 30 days J45.909 - Unspecified asthma, uncomplicated Refilled nebulizers (AeroEclipse II Nebulizer) As directed 1 ea 0RF J45.909 - Unspecified asthma, uncomplicated
[2025-09-15 17:05] VITALS: BP 128/86; PULSE 82; O2SAT 99; BMI 43.0
--- OUTSIDE RECORDS SUMMARY | 2025-09-15 19:34 | XMS_ITS | Encounter Summary ---
Author Organization [employer] Address [address] [place] [address] [address] [place] [address] Care Team Providers Care Cellophane Bag Machine Operator Name Role Phone Unavailable Primary Care Provider Unavailabl e Reason for Visit * Reason Comments Med Refill Encounter Details Date Type Department Care Team ([facility] st Contact Info) Description 12/10/2022 Refill [facility] [address] [place] [address] Jailene Chinchilla DDS [address] [place] [address] Erosion of teeth, limited to enamel (Primary [...]
--- OUTSIDE RECORDS SUMMARY | 2025-09-15 19:34 | XMS_ITS | Encounter Summary ---
Author Organization [employer] Address [address] [place] [address] [address] [place] [address] Care Team Providers Care Stripping Machine Operator Name Role Phone Unavailable Primary Care Provider Unavailabl e Reason for Visit * Reason Comments Med Refill Encounter Details Date Type Department Care Team ([facility] st Contact Info) Description 10/03/2023 Refill [facility] [address] [place] [address] Jailene Chinchilla DDS [address] [place] [address] Erosion of teeth, limited to enamel Social [...]
--- OUTSIDE RECORDS SUMMARY | 2025-09-15 19:34 | XMS_ITS | Encounter Summary ---
Author Organization [email or web address] Address [address] [place] [address] [address] [place] [address] Care Team Providers Care Military Police Officer Name Role Phone Unavailable Primary Care Provider Unavailabl e Reason for Visit * Reason Onset Date Comments Appointment 07/15/2023 Encounter Details Date Type Department Care Team (Late st Contact Info) Description 07/15/2023 Telephone [facility] [address] [place] [address] Carlos Suarez DDS [address] [place] [address] Appointment Social History Tobacco Use Types Packs/Day [...]
--- OUTSIDE RECORDS SUMMARY | 2025-09-15 19:34 | XMS_ITS | Encounter Summary ---
Author Organization [employer] Address [address] [place] [address] 7 [place] [address] Care Team Providers Care Car And Yard Supervisor Name Role Phone Unavailable Primary Care Provider Unavailabl e Encounter Details Date Type Department Care Team (Latest Contact Info) Description 02/20/2022 Abstract [facility] CONVERSIONS Dental, Provider, DDS Social History [...]
--- OUTSIDE RECORDS SUMMARY | 2025-09-15 19:34 | XMS_ITS | Clinical Summary ---
Author Organization [employer] Address [address] [address] 7t [place] [address] Care Team Providers Care Aircraft Machinist Helper Name Role Phone Unavailable Primary Care [...] Sodium Fluoride 1.1 % gelIndications: Dental caries [place] teeth for 2 minutes, morning and night. [...] Description 07/14/2025 10:30 AM EDT Office Visit [facility] ADULT DENTAL [address] [place] [address] Lenin Mar DMD Secondary dental caries associated with failed or defective dental anglican (Primary Dx) 06/21/2025 1:00 PM EDT Office Visit [facility] ADULT DENTAL [address] [place] [address] Lenin Mar LONNY Secondary dental caries associated with failed or defective dental anglican (Primary Dx) from Last 3 Months Social [...] caries associated with failed or defective dental anglican 4 MO RESIN-BASED COMPOSITE - 2 SURF, POSTERIOR Routine 07/14/2025 10:30 AM EDT Secondary dental caries associated with failed or defective dental anglican CASE PRESENTATION, DETAILED AND EXTENSIVE TREATMENT PLANNING Routine 06/21/2025 1:00 PM EDT Secondary dental caries associated with failed or defective dental anglican 13 MOD RESIN-BASED COMPOSITE - 3 SURF, POSTERIOR Routine 06/21/2025 1:00 PM EDT Secondary dental caries associated with failed or defective dental anglican BITEWING - SINGLE RADIOGRAPHIC IMAGE Routine 05/05/2025 3:30 PM EDT Symptomatic irreversible pulpitis PROPHYLAXIS - ADULT Routine 01/29/2025 1 1:00 AM EST Dental caries Secondary dental caries associated with failed or defective dental anglican Partial edentulism, unspecified edentulism class PERIODIC ORAL EVALUATION - ESTABLISHED PATIENT Routine 01/29/2025 11:00 AM EST Dental caries Secondary dental caries associated with failed or defective dental anglican Partial edentulism, unspecified edentulism class INTRAORAL - COMPLETE SERIES OF RADIOGRAPHIC IMAGES Routine 02/20/2022 12:00 AM EDT from Last 3 Months or Most Recently Relevant to Health Maintenance Insurance [facility]AL[facility] MEDICAID STAND ADULT DENTAL - HSN FULL (MEDICAID)
--- OUTSIDE RECORDS SUMMARY | 2025-09-15 19:34 | XMS_ITS | Encounter Summary ---
Author Organization [employer] Address [address] [place] [address] 7 [place] [address] Care Team Providers Care Greige Goods Examiner Name Role Phone Unavailable Primary Care Provider Unavailabl e Encounter Details Date Type Department Care Team (Latest Contact Info) Description 02/05/2020 Abstract [facility] CONVERSIONS Dental, Provider, DDS Social History [...]
== END 2025-09-15 17:41 | disposition home or self-care (01) ==
LOC: HO.HMCH 16:59
PROVIDERS: PCP Internal Medicine; Visit Provider Internal Medicine
DX: I10 Essential (primary) hypertension (principal); E03.8 Other specified hypothyroidism; E06.3 Autoimmune thyroiditis; E66.01 Morbid (severe) obesity due to excess calories; Z68.41 Body mass index [BMI] 40.0-44.9, adult; J45.909 Unspecified asthma, uncomplicated; F33.0 Major depressive disorder, recurrent, mild; Z23 Encounter for immunization

== ENCOUNTER → 2025-09-15 16:58 | Outpatient (BNVA) | payer OTHER, SELFPAY | PROVIDERS: PCP Internal Medicine; Visit Provider Internal Medicine | DX: I10 Essential (primary) hypertension (principal); J45.909 Unspecified asthma, uncomplicated; K59.00 Constipation, unspecified; E55.9 Vitamin D deficiency, unspecified; E03.8 Other specified hypothyroidism; E06.3 Autoimmune thyroiditis; E66.01 Morbid (severe) obesity due to excess calories; F33.0 Major depressive disorder, recurrent, mild; Z23 Encounter for immunization; Z68.41 Body mass index [BMI] 40.0-44.9, adult | CPT/HCPCS: 90471; 90656; 99212 ==

== ENCOUNTER 2025-10-27 09:22 | Outpatient (REF) | payer OTHER, SELFPAY ==
--- NOTE | 2025-10-27 09:24 | EMG_ITS ---
Chief complaint: Right hand numbness and pain EMG done by Dr. Boo in 2020 showed bilateral Carpal Tunnel Syndrome. Status post left CTR. Reason for referral: Evaluate for Carpal Tunnel Syndrome Referred by: Petros EMERSON Procedure done: Right upper extremity NCS/EMG Precautions and/or limitations: None The limb temperature was monitored continuously and remained between 32-36 degrees C during the performance of the NCS. Nerve Conduction Studies Anti Sensory Summary Table ?Stim Site NR Onset (ms) Norm Onset (ms) Peak (ms) Norm Peak (ms) O-P Amp (?V) Norm O-P Amp Site1 Site2 Delta-0 (ms) Dist (cm) Supa (m/s) Norm Supa (m/s) Right Median Anti Sensory (2nd Digit) Wrist ? 3.8 4.7 <3.6 10.7 >10 Wrist 2nd Digit 3.8 14.0 37 Right Radial Anti Sensory (Thumb) Forearm ? 1.1 2.2 <3.1 21.9 Forearm Thumb 1.1 0.0 Right Ulnar Anti Sensory (5th Digit) Wrist ? 2.2 2.8 <3.7 24.8 >15.0 Wrist 5th Digit 2.2 14.0 64 Motor Summary Table ?Stim Site NR Onset (ms) Norm Onset (ms) O-P Amp (mV) Norm O-P Amp iAmp (mV) Amp (1st) (%) Site1 Site2 Delta-0 (ms) Dist (cm) Supa (m/s) Norm Supa (m/s) Right Median Motor (Abd Poll Brev) Wrist ? 5.5 <3.9 5.4 >4.5 6.8 100.0 Elbow Wrist 3.3 20.0 61 >45 Elbow ? 8.8 5.3 6.3 98.1 Right Ulnar Motor (Abd Dig Minimi) Wrist ? 2.7 <3.0 8.8 >5 10.0 100.0 B Elbow Wrist 3.0 18.0 60 >45 B Elbow ? 5.7 8.6 9.9 97.7 A Elbow B Elbow 1.3 10.0 77 >45 A Elbow ? 7.0 8.5 9.8 96.6 EMG ?Side Muscle Nerve Root Ins Act Fibs Psw Amp Dur Poly Recrt Int Pat Comment Right 1stDorInt Ulnar C8-T1 Nml Nml Nml Nml Nml 0 Nml Complete Right FlexCarRad Median C6-7 Nml Nml Nml Nml Nml 0 Nml Complete Right Biceps Musculocut C5-6 Nml Nml Nml Nml Nml 0 Nml Complete Right Triceps Radial C6-7-8 Nml Nml Nml Nml Nml 0 Nml Complete Right Deltoid Axillary C5-6 Nml Nml Nml Nml Nml 0 Nml Complete FINDINGS: Right median motor nerve showed prolonged distal latency, normal amplitude and normal conduction velocity. Right median sensory nerve showed prolonged peak latency. All other nerves tested were within normal. Concentric needle EMG was performed in selected muscles of the left upper extremity. Study did not reveal signs of electric abnormalities as shown in the table above. IMPRESSION: 1. This is an abnormal study. 2. There is electrodiagnostic evidence for right moderate-severe median neuropathy at the wrist, consistent with carpal tunnel syndrome. 3. There is no electrodiagnostic evidence for ulnar neuropathy, brachial plexopathy, or cervical radiculopathy. CLINICAL COMMENT: Similar findings to EMG done in [address] Boo. Thank you for your kind referral. Kayla Gutiérrez MD, MAINOR Board Certified, [place] Board [employer] and Rehabilitation (ABPMR) Board Certified, [place] Board of Electrodiagnostic Medicine (ABEM) CODIN 02574 x 1 extremity MTDD
--- OUTSIDE RECORDS SUMMARY | 2025-10-27 10:22 | XMS_ITS | Encounter Summary ---
Author Organization [employer] Address [address] [place] [address] 7t [place] [address] Care Team Providers Care Gas Prover Name Role Phone Unavailable Primary Care Provider Unavailabl e Reason for Visit * Reason Comments Med Refill Encounter Details Date Type Department Care Team (Late st Contact Info) Description 10/03/2023 Refill [facility] ADULT DENTAL [address] [place] [address] Jailene Chinchilla DDS [address] [place] [address] Erosion of teeth, limited to enamel Social [...] Care Team (Late st Contact Info) Description 11/18/2025 1:00 PM EST Office Visit [facility] ADULT DENTAL [address] [place] [address] Lenin Mar, LONNY [address] [place] [address] documented as of this encounter Visit Diagnoses Diagnosis Erosion of teeth, limited to enamel documented in this encounter
--- OUTSIDE RECORDS SUMMARY | 2025-10-27 10:23 | XMS_ITS | Encounter Summary ---
Author Organization [employer] Address [address] [place] [address] 7t [place] [address] Care Team Providers Care Farm Reporter Name Role Phone Unavailable Primary Care Provider Unavailabl e Reason for Visit * Reason Comments Med Refill Encounter Details Date Type Department Care Team (Late st Contact Info) Description 12/10/2022 Refill [facility] ADULT DENTAL [address] [place] [address] Jailene Chinchilla DDS [address] [place] [address] Erosion of teeth, limited to enamel (Primary [...] Department Care Team (Late Contact Info) Description 11/18/2025 1:00 PM EST Office Visit [facility] ADULT DENTAL [address] [place] [address] Lenin Mar, DMD [address] [place] [address] documented as of this encounter Visit Diagnoses Diagnosis Erosion of teeth, limited to enamel- Primary documented in this encounter
--- OUTSIDE RECORDS SUMMARY | 2025-10-27 10:23 | XMS_ITS | Encounter Summary ---
Author Organization [employer] Address [address] [place] [address] [address] [place] [address] Care Team Providers Care Warp Changer Name Role Phone Unavailable Primary Care Provider Unavailabl e Reason for Visit * Reason Onset Date Comments Appointment 07/15/2023 Encounter Details Date Type Department Care Team (Late st Contact Info) Description 07/15/2023 Telephone [facility] ADULT DENT[facility] [address] [place] [address] Carlos Suarez DDS [address] [place] [address] Appointment Social History Tobacco Use Types Packs/Day [...] Description 11/18/2025 1:00 PM EST Office Visit [facility] ADULT DENTAL [address] [place] [address] Lenin Mar, DMD [address] [place] [address] documented as of this encounter Visit Diagnoses Not on filedocumented in this encounter
--- OUTSIDE RECORDS SUMMARY | 2025-10-27 10:23 | XMS_ITS | Encounter Summary ---
Author Organization [employer] Address [address] [place] [address] [address] [place] [address] Care Team Providers Care Tennis Coach Name Role Phone Unavailable Primary Care Provider Unavailabl e Encounter Details Date Type Department Care Team (Latest Contact Info) Description 02/05/2020 Abstract [facility] CONVERSIONS Dental, Provider, DDS Social [...] Description 11/18/2025 1:00 PM EST Office Visit [facility] ADULT DENTAL [address] [place] [address] Lenin Mar, DMD [address] [place] [address] documented as of this encounter Visit Diagnoses Not on filedocumented in this encounter
--- OUTSIDE RECORDS SUMMARY | 2025-10-27 10:23 | XMS_ITS | Clinical Summary ---
Author Organization [employer] Address [address] [place] [address] [address] [place] [address] Care Team Providers Care Director Of Government Sales Name Role Phone Unavailable Primary Care Provider [...] Sodium Fluoride 1.1 % gelIndications: Dental caries [place] teeth for 2 minutes, morning and night. [...] Encounters Date Type Department Care Team Description 10/21/2025 10:00 AM EST Office Visit [facility] ADULT DENTAL [address] [place] [address] Lenin Mar DMD Necrosis of dental pulp (Primary Dx) 10/13/2025 2:00 PM EST Office Visit [facility] ADULT DENTAL [address] [place] [address] Lenin Mar DMD Dental caries (Primary Dx) 10/05/2025 1:30 PM EST Office Visit [facility] ADULT DENTAL [address] [place] [address] Lenin Mar DMD Dental caries (Primary Dx); Excessive dental attrition 10/04/2025 11:30 AM EST Office Visit [facility] ADULT DENTAL [address] [place] [address] Lenin Mar DMD Open fracture of tooth, initial encounter (Primary Dx) from Last 3 Months Social [...] Sign Reading Time Taken Comments Blood Pressure 110/70 10/13/2025 2:09 PM EST Pulse 76 04/01/2024 9:44 AM EDT Temperature - - Respiratory Rate - - Oxygen Saturation - - Inhaled Oxygen Concentration - - Weight - - Height - - Body Mass Index - - Plan of Treatment Upcoming Encounters Date Type Department Care Team (Late st Contact Info) Description 11/18/2025 1:00 PM EST Office Visit [facility] ADULT DENTAL [address] [place] [address] Lenin Mar DMD [address] [place] [address] Health Maintenance Due Date Last Done Comments [...] Vaccine ( season) 2025 05/06/2022, 11/04/2021, 03/13/2021 Dental X-Ray: Bitewings 05/06/2026 05/05/20, 01/29/2025, 07/29/2024, Additional history exists Tobacco Screening 10/21/2026 10/21/2025 DTaP/Tdap/Td Vaccines (2 - Td or Tdap) 10/14/2028 10/14/2018 RSV Patients and Patients Aged 60 years or older (1 - 1-dose 75+ series) 2042 Influenza Vaccine Completed 09/15/2025, , 10/23/2023, Additional history exists HIB Vaccines Aged Out [...] PRESENTATION, DETAILED AND EXTENSIVE TREATMENT PLANNING Routine 10/21/2025 10:00 AM EST Necrosis of dental pulp 28 ENDODONTIC THERAPY, PREMOLAR TOOTH Routine 10/21/2025 10:00 AM EST Necrosis of dental pulp CASE PRESENTATION, DETAILED AND EXTENSIVE TREATMENT PLANNING Routine 10/13/2025 2:00 PM EST Dental caries DENTURE IMPRESSION Routine 10/13/2025 2: 00 PM EST Dental caries 7 EXTRACTION, ERUPTED TOOTH OR EXPOSED ROOT (ELEVATION/FORCEPS REMOVAL) Routine 10/13/2025 2:00 PM EST Dental caries 25 LI RESIN-BASED COMPOSITE - 2 SURF, ANTERIOR Routine 10/05/2025 1:30 PM EST Excessive dental attrition CASE PRESENTATION, DETAILED AND EXTENSIVE TREATMENT PLANNING Routine 10/05/2025 1:30 PM EST Dental caries Excessive dental attrition 27 MDL RESIN-BASED COMPOSITE - 3 SURF, ANTERIOR Routine 10/05/2025 1:30 PM EST Dental caries CASE PRESENTATION, DETAILED AND EXTENSIVE TREATMENT PLANNING Routine 10/04/2025 11:30 AM EST Open fracture of tooth, initial encounter INTRAORAL - PERIAPICAL FIRST RADIOGRAPHIC IMAGE Routine 10/04/2025 11:30 AM EST Open fracture of tooth, initial encounter PALLIATIVE (EMERGENCY) TREATMENT OF DENTAL PAIN - MINOR PROCEDURE Routine 10/04/2025 11:30 AM EST Open fracture of tooth, initial encounter BITEWING - SINGLE RADIOGRAPHIC IMAGE Routine 05/05/2025 3:30 PM EDT Symptomatic irreversible pulpitis PROPHYLAXIS - ADULT Routine 01/29/2025 1 1:00 AM EST Dental caries Secondary dental caries associated with failed or defective dental roman catholic Partial edentulism, unspecified edentulism class PERIODIC ORAL EVALUATION - ESTABLISHED PATIENT Routine 01/29/2025 11:00 AM EST Dental caries Secondary dental caries associated with failed or defective dental roman catholic Partial edentulism, unspecified edentulism class INTRAORAL - COMPLETE SERIES OF RADIOGRAPHIC IMAGES Routine 02/20/2022 12:00 AM EDT from Last 3 Months or Most Recently Relevant to [place] [phone] DENTAL-[facility] MEDICAID STAND ADULT DENTAL - HSN FULL (MEDICAID)
--- OUTSIDE RECORDS SUMMARY | 2025-10-27 10:23 | XMS_ITS | Encounter Summary ---
Author Organization [employer] Address [address] [place] [address] [address] [place] [address] Care Team Providers Care Patient Admitting Representative Name Role Phone Unavailable Primary Care Provider Unavailabl e Encounter Details Date Type Department Care Team (Latest Contact Info) Description 02/20/2022 Abstract [facility] CONVERSIONS Dental, Provider, DDS [...] Description 11/18/2025 1:00 PM EST Office Visit [facility] ADULT DENTAL [address] [place] [address] Lenin Mar, DMD [address] [place] [address] documented as of this encounter Visit Diagnoses Not on filedocumented in this encounter
== END 2025-10-27 09:23 | disposition home or self-care (01) ==
LOC: HO.NEURO 09:22
PROVIDERS: PCP Internal Medicine
DX: R20.0 Anesthesia of skin (principal); R20.2 Paresthesia of skin
CPT/HCPCS: 95886; 95911

== ENCOUNTER → 2025-10-27 09:24 | Outpatient (BNV) | payer OTHER, SELFPAY | PROVIDERS: PCP Internal Medicine; Visit Provider Physical Medicine & Rehabilitation | DX: G56.11 Other lesions of median nerve, right upper limb (principal) | CPT/HCPCS: 95886; 95909 ==